=== PATIENT | female | born 1950 | race African-American/Black ===

== ENCOUNTER 2017-10-27 08:09 | Emergency (ER) | payer OTHER ==
--- OUTSIDE RECORDS SUMMARY | 2017-10-27 08:11 | XMS REPORT ---
:1950 Author Organization eClinicalWorks Care Team Providers Name Role Phone Fred Elliott Provider Role Unavailable Allergies, Adverse Reactions, Alerts Substance Reaction Event Type Soma rash Drug Allergy Problems Problem Type Condition Code Onset Dates Condition Status Assessment Diabetes type 2, controlled E11.9 Active Problem Cervical spinal stenosis M48.02 Active Assessment Benign essential HTN I10 Active Problem Microalbuminuria R80.9 Active Problem Benign essential HTN I10 Active Problem Hyperlipidemia E78.5 Active Problem Neuropathic pain M79.2 Active Problem Tobacco use disorder F17.200 Active Problem Diabetes type 2, controlled E11.9 Active Problem Cervicalgia M54.2 Active Assessment Hyperlipidemia E78.5 Active Assessment Cervicalgia M54.2 Active Assessment Tobacco use disorder F17.200 Active Assessment Neuropathic pain M79.2 Active Assessment Microalbuminuria R80.9 Active Assessment Cervical spinal stenosis M48.02 Active Medications Medication Code Code Instructions Start End Status Dosage System Date Date Lisinopril [facility] 48632311036 10 MG Orally Active TAKE 1 TABLET BY Once a day MOUTH EVERY DAY Amlodipine [facility] 61081447447 10 MG PO Once Active TAKE 1 TABLET BY Besylate a day MOUTH EVERY DAY Nicotine ND 22788190340 21 MG/24HR Active 1 patch to skin Transdermal Once a day Lyrica ND 72038999551 150 MG Orally August Active 1 capsule Twice a day 2017 Gabapentin [facility] 96236526555 600 MG Orally Inactive 1 tablet Once a day Trulicity [facility] 92719798765 0.75 MG/0.5ML Oct Active INJECT 0.5 SubCutaneous 06, MILLILITER Once a week 2017 SUBCUTANEOUSLY ONCE A WEEK Simvastatin [facility] 23554094148 10 MG PO QD Active TAKE 1 TABLET BY MOUTH EVERY DAY Results No Known Results Summary Purpose eClinicalWorks Submission
--- OUTSIDE RECORDS SUMMARY | 2017-10-27 08:11 | XMS REPORT ---
:1950 Author Organization eClinicalWorks Care Team Providers Name Role Phone Fred Elliott Provider Role Unavailable Allergies No Known Allergies Problems Problem Type Condition Code Onset Dates Condition Status Problem Cervical spinal stenosis M48.02 Active Problem Microalbuminuria R80.9 Active Problem Benign essential HTN I10 Active Problem Hyperlipidemia E78.5 Active Problem Neuropathic pain M79.2 Active Problem Tobacco use disorder F17.200 Active Problem Diabetes type 2, controlled E11.9 Active Problem Cervicalgia M54.2 Active Medications No Known Medications Results No Known Results Summary Purpose eClinicalWorks Submission
[2017-10-27] MEDS ORDERED: NA CHLORIDE 0.9% 1,000 ML ONE (08:33)
[2017-10-27] MEDS ORDERED: ONDANSETRON 4 MG/2 ML VIAL ONE (08:33)
[2017-10-27 08:46] LABS: Absolute Lymphocytes (CBC) 3.1 K/uL (0.7-4.9); Absolute Monocytes 0.6 K/uL (0.1-1.3); Absolute Neutrophil 9.8 K/uL (1.8-8.0); Basophils % 0.7 % (0-1.3); Eosinophils % 0.2 % (0-4.4); Hematocrit 46.6 % (36.0-45.0); Lymphocytes % 22.7 % (15.3-44.8); MCH 32.4 pg (27.0-35.0); MCV 93.9 fL (80-100); MPV 7.3 fL (7.6-11.3); Monocytes % 4.7 % (3.3-12.3); RBC Red Blood Cell Count 4.96 M/uL (3.86-4.86)
[2017-10-27 09:05] LABS: ALT/SGPT 20 U/L (12-78); AST/SGOT 20 U/L (15-37); Albumin 4.4 g/dL (3.4-5.0); Alkaline Phosphatase 86 U/L (45-117); Amylase Level 52 U/L (25-115); BUN Blood Urea Nitrogen 20 mg/dL (7-18); Bicarbonate 23 mmol/L (21-32); Bilirubin Direct < 0.1 mg/dL (0-0.2); Bilirubin Total 0.4 mg/dL (0.2-1.0); Glucose Level 141 mg/dL (74-106); Lipase 147 U/L (73-393); Potassium 4.1 mmol/L (3.5-5.1); Protein, Total 10.5 g/dL (6.4-8.2); Sodium Level 140 mmol/L (136-145)
[2017-10-27 09:06] LABS: Urine Blood 2+ (NEG); Urine Glucose TRACE (NEG); Urine Protein 3+ (NEG); Urine Specific Gravity >1.030 (1.005-1.030)
[2017-10-27 09:07] LABS: Urine Bacteria 20-50 /HPF (<20); Urine Culture Reflex Order NOT NEEDED
--- NOTE | 2017-10-27 09:46 | RAD REPORT ---
EXAM DESCRIPTION: CT - Abdomen Pelvis W Contrast - 10/27/2017 9:31 am CLINICAL HISTORY: Abdominal pain with vomiting and diarrhea COMPARISON: 2007 findings TECHNIQUE: Computed axial tomography of the abdomen pelvis was obtained. 100 cc Isovue-300 was admin istered intravenously. Oral contrast was not requested which limits evaluation of bowel. All CT scans are performed using dose optimization technique as appropriate and may include automated exposure control or mA/KV adjustment according to patient size. FINDINGS: A cirrhotic liver is again demonstrated. The density is relatively homogeneous. The gallbl adder has been removed. Varices are present within the upper abdomen. Spleen, pancreas, adrenal and left kidney appear unremarkable. Small right renal cyst is present There is no evidence of diverticulitis. Scoliosis involves the spine. Spondylolysis involves L5 IMPRESSION: No acute abnormality is displayed.
--- NOTE | 2017-10-27 10:33 | ER ---
Nurse's Notes [facility] Name: Ernestina Marcus Age: 67 yrs Sex: Female : 1950 Arrival Date: 10/27/2017 Time: 08:11 Bed 5 Private MD: Fred Elliott Diagnosis: Vomiting;Diarrhea, unspecified;Urinary tract infection, site not specified Presentation: 10/27 08:16 Presenting complaint: Patient states: N/V/D and lower abd pain x 4 days. Transition of ss care: patient was not received from another setting of care. Onset of symptoms was October 23, 2017. Risk Assessment: Do you want to hurt yourself or someone else? Patient reports no desire to harm self or others. Initial Sepsis Screen: Does the patient meet any 2 criteria? No. Patient's initial sepsis screen is negative. Does the patient have a suspected source of infection? No. Patient's initial sepsis screen is negative. Care prior to arrival: None. 08:16 Method Of Arrival: Ambulatory ss 08:16 Acuity: ANNIE 3 ss Triage Assessment: 08:21 General: Appears in no apparent distress. uncomfortable, Behavior is calm, cooperative, hj appropriate for age. Pain: Complains of pain in abdomen. GI: Reports lower abdominal pain, upper abdominal pain, diarrhea, nausea, vomiting. Historical: - Allergies: 08:20 Soma; ss - Home Meds: 08:20 amlodipine 10 mg tab 1 tab once daily [Active]; gabapentin 600 mg Oral tab twice a day hj [Active]; lisinopril 5 mg Oral tab 1 tab once daily [Active]; Lyrica Oral [Active]; Trulicity 0.75 mg/0.5 mL subcutaneous pnij 0.5 mL once wkly [Active]; - PMHx: 08:20 Chronic pain; Diabetes - IDDM; Hypertension; ss - PSHx: 08:20 ; Cholecystectomy; Appendectomy; ss - Immunization history:: Adult Immunizations up to date. - Social history:: Smoking status: Patient uses tobacco products, smokes one-half pack cigarettes per day. - Ebola Screening: : Patient denies exposure to infectious person Patient denies travel to an Ebola-affected area in the 21 days before illness onset. Screenin:21 Abuse screen: Denies threats or abuse. Denies injuries from another. Nutritional hj screening: No deficits noted. Tuberculosis screening: No symptoms or risk factors identified. Fall Risk None identified. Assessment: 08:22 GI: Abdomen is non-distended. hj 08:22 General: Appears in no apparent distress. uncomfortable, slender, Behavior is calm, hj cooperative, appropriate for age. Pain: Complains of pain in abdomen. Neuro: Level of Consciousness is awake, alert, obeys commands, Oriented to person, place, time, situation, Appropriate for age. Cardiovascular: Heart tones S1 S2 present Capillary refill < 3 seconds Patient's skin is warm and dry. Cardiovascular: Rhythm is sinus tachycardia. Respiratory: Airway is patent Respiratory effort is even, unlabored, Respiratory pattern is regular, symmetrical. : No signs and/or symptoms were reported regarding the genitourinary system. EENT: No signs and/or symptoms were reported regarding the EENT system. Derm: No signs and/or symptoms reported regarding the dermatologic system. Musculoskeletal: No signs and/or symptoms reported regarding the musculoskeletal system. 09:07 Reassessment: Patient and/or family updated on plan of care and expected duration. Pain hj level reassessed. Patient is alert, oriented x 3, equal unlabored respirations, skin warm/dry/pink. family in room; awaiting results and POC:. 10:13 Reassessment: tolerated PO challenge;. hj Vital Signs: 08:20 BP 208 / 98; Pulse 105; Resp 16; Pulse Ox 97% on R/A; Weight 47.63 kg; Height 4 ft. 11 ss in. (149.86 cm); Pain 10/10; 08:22 BP 201 / 92; Pulse 103; Resp 18; Temp 98.1(O); Pulse Ox 98% on R/A; Weight 47.63 kg; hj Height 4 ft. 11 in. (149.86 cm); Pain 10/10; 09:30 BP 198 / 90; Pulse 98; Resp 18; Pulse Ox 100% on R/A; hj 10:14 BP 195 / 94; Pulse 97; Resp 18; Pulse Ox 100% on R/A; hj 10:40 BP 198 / 89; Pulse 85; Resp 16; Pulse Ox 98% on R/A; dh3 08:22 Body Mass Index 21.21 (47.63 kg, 149.86 cm) ED Course: 08:11 Patient arrived in ED. sb2 08:11 Fred Elliott DO is Private Physician. sb2 08:17 Triage completed. 08:20 Temo Biggs PA is PHCP. [facility] 08:20 Huseyin Flaherty MD is Attending Physician. jmm 08:21 Dannie Anderson, ISIDRO is Primary Nurse. hj 08:22 Arm band placed on right wrist. hj 08:22 Patient has correct armband on for positive identification. Placed in gown. Bed in low hj position. Call light in reach. Side rails up X 1. Adult w/ patient. 08:25 Initial lab(s) drawn, by me, sent to lab. Inserted saline lock: 22 gauge in right hj antecubital area, using aseptic technique. Blood collected. 09:28 CT completed. Patient tolerated procedure well. Patient moved to CT via stretcher. Patient moved back from CT. 09:31 CT Abd/Pelvis - W/Contrast In Process Unspecified. EDMS 10:32 Fred Elliott DO is Referral Physician. [facility] 10:52 No provider procedures requiring assistance completed. IV discontinued, intact, hj bleeding controlled, No redness/swelling at site. Pressure dressing applied. Administered Medications: 08:27 Drug: NS 0.9% 1000 ml Route: IV; Rate: 1 bolus; Site: right antecubital; la1 08:43 Follow up: IV Status: Infusion continued 08:27 Drug: Zofran 4 mg Route: IVP; Site: right antecubital; la1 08:43 Follow up: Response: No adverse reaction; Nausea is decreased Outcome: 10:33 Discharge ordered by . [facility] 10:52 Discharged to home ambulatory, via wheelchair, with family. 10:52 Condition: stable 10:52 Discharge instructions given to patient, family, Instructed on discharge instructions, follow up and referral plans. medication usage, Demonstrated understanding of instructions, follow-up care, medications, Prescriptions given X 2. 10:53 Patient left the ED. Signatures: Dispatcher [employer] EDMS Temo Biggs PA PA jmm Jones, Susan sj Smirch, Shelby, RN RN Maurice Tello RN RN la1 Dannie Anderson RN RN Milly Diamond 3 Magda Echevarria sb2
--- NOTE | 2017-10-27 10:34 | EDPHYS ---
Physician Documentation [facility] Name: Ernestina Marcus Age: 67 yrs Sex: Female : 1950 Arrival Date: 10/27/2017 Time: 08:11 Bed 5 Private MD: Fred Elliott ED Physician Huseyin Flaherty HPI: 10/27 08:27 This 67 yrs old Black Female presents to ER via Ambulatory with complaints of jmm Nausea/Vomiting/Diarrhea. 08:27 The patient presents to the emergency department with nausea, vomiting, diarrhea, jmm abdominal pain. Onset: The symptoms/episode began/occurred gradually, 4 day(s) ago. Possible causes: unknown. Associated signs and symptoms: Pertinent positives: abdominal pain. 08:31 This is a 67 year old female with a history of DM, HTN, that presents to the ED with jmm vomiting, diarrhea beginning 4 days ago. Patient also complains of generalized abdominal pain. Patient complains of fever and chills. PSX includes cholecystectomy and appendectomy. . Historical: - Allergies: 08:20 Soma; ss - Home Meds: 08:20 amlodipine 10 mg tab 1 tab once daily [Active]; gabapentin 600 mg Oral tab twice a day hj [Active]; lisinopril 5 mg Oral tab 1 tab once daily [Active]; Lyrica Oral [Active]; Trulicity 0.75 mg/0.5 mL subcutaneous pnij 0.5 mL once wkly [Active]; - PMHx: 08:20 Chronic pain; Diabetes - IDDM; Hypertension; ss - PSHx: 08:20 ; Cholecystectomy; Appendectomy; ss - Immunization history:: Adult Immunizations up to date. - Social history:: Smoking status: Patient uses tobacco products, smokes one-half pack cigarettes per day. - Ebola Screening: : Patient denies exposure to infectious person Patient denies travel to an Ebola-affected area in the 21 days before illness onset. ROS: 08:31 Cardiovascular: Negative for chest pain, palpitations, and edema, Respiratory: Negative jmm for shortness of breath, cough, wheezing, and pleuritic chest pain. 08:31 Back: Negative for injury and pain, Skin: Negative for injury, rash, and discoloration, Neuro: Negative for headache, weakness, numbness, tingling, and seizure. 08:31 Constitutional: Positive for body aches, chills, fever. 08:31 Abdomen/GI: Positive for nausea and vomiting, diarrhea. 08:31 All other systems are negative. Exam: 08:31 Head/Face: atraumatic. Chest/axilla: Normal chest wall appearance and motion. [facility] Cardiovascular: Regular rate and rhythm. No edema appreciated Respiratory: Normal respirations, no respiratory distress appreciated 08:31 Constitutional: The patient appears in no acute distress, alert, awake. 08:31 Abdomen/GI: Inspection: abdomen appears normal, Bowel sounds: normal, Palpation: soft, mild abdominal tenderness, in all quadrants. 08:31 Back: ROM is normal. 08:31 Musculoskeletal/extremity: ROM: intact in all extremities. 08:31 Skin: Appearance: Color: normal in color. 08:31 Neuro: Orientation: is normal, Mentation: is normal, Memory: is normal. 08:31 Psych: Behavior/mood is pleasant, cooperative. Vital Signs: 08:20 BP 208 / 98; Pulse 105; Resp 16; Pulse Ox 97% on R/A; Weight 47.63 kg; Height 4 ft. 11 ss in. (149.86 cm); Pain 10/10; 08:22 BP 201 / 92; Pulse 103; Resp 18; Temp 98.1(O); Pulse Ox 98% on R/A; Weight 47.63 kg; hj Height 4 ft. 11 in. (149.86 cm); Pain 10/10; 09:30 BP 198 / 90; Pulse 98; Resp 18; Pulse Ox 100% on R/A; hj 10:14 BP 195 / 94; Pulse 97; Resp 18; Pulse Ox 100% on R/A; hj 10:40 BP 198 / 89; Pulse 85; Resp 16; Pulse Ox 98% on R/A; dh3 08:22 Body Mass Index 21.21 (47.63 kg, 149.86 cm) MDM: 08:20 Patient medically screened. [facility] 08:35 Data reviewed: vital signs, nurses notes. [facility] 10:32 Data reviewed: lab test result(s), radiologic studies, CT scan. Counseling: I had a [facility] detailed discussion with the patient and/or guardian regarding: the historical points, exam findings, and any diagnostic results supporting the discharge/admit diagnosis, lab results, radiology results, the need for outpatient follow up, to return to the emergency department if symptoms worsen or persist or if there are any questions or concerns that arise at home. 10:32 ED course: Patient is alert and non toxic in appearance int he ED. Patient is able to jmm tolerate PO in the ED. CT imaging does not reveal an acute intraabdominal process. Symptoms appear to be most likely related to gastroenteritis. Patient will be treated with oral antibiotics for UTI. Given strict return precautions. . 10/27 08:26 Order name: Amylase, Serum; Complete Time: 09:09 [facility] 10/27 08:26 Order name: Basic Metabolic Panel; Complete Time: 09:09 [facility] 10/27 08:26 Order name: CBC with Diff; Complete Time: 09:03 [facility] 10/27 08:26 Order name: Creatinine for Radiology; Complete Time: 09:03 [facility] 10/27 08:26 Order name: Hepatic Function; Complete Time: 09:09 [facility] 10/27 08:26 Order name: Lipase; Complete Time: 09:09 [facility] 10/27 08:26 Order name: Urine Microscopic Only; Complete Time: 09:42 jm 10/27 08:26 Order name: IV Saline Lock; Complete Time: 08:27 [facility] 10/27 08:26 Order name: Labs collected and sent; Complete Time: 08:27 [facility] 10/27 08:26 Order name: Urine Dipstick-Ancillary (obtain specimen); Complete Time: 08:43 [facility] 10/27 08:26 Order name: CT Abd/Pelvis - W/Contrast; Complete Time: 09:53 [facility] 10/27 08:56 Order name: Urine Dipstick--Ancillary (enter results); Complete Time: 09:09 10/27 09:53 Order name: PO challenge; Complete Time: 10:11 jmm Administered Medications: 08:27 Drug: NS 0.9% 1000 ml Route: IV; Rate: 1 bolus; Site: right antecubital; la1 08:43 Follow up: IV Status: Infusion continued :27 Drug: Zofran 4 mg Route: IVP; Site: right antecubital; la1 08:43 Follow up: Response: No adverse reaction; Nausea is decreased Disposition: 17:31 Co-signature as Attending Physician, Huseyin Flaherty MD Available for consultation at ps1 all times. . Disposition: 10/27/17 10:33 Discharged to Home. Impression: Vomiting, Diarrhea, unspecified, Urinary tract infection, site not specified. - Condition is Stable. - Discharge Instructions: Diarrhea, Adult, Urinary Tract Infection, Adult, Vomiting, Adult. - Prescriptions for Bactrim DS 800- 160 mg Oral Tablet - take 1 tablet by ORAL route every 12 hours for 10 days; 20 tablet. Zofran ODT 4 mg Oral tablet,disintegrating - place 1 tablet by TRANSLINGUAL route every 4-6 hours; 30 tablet. - Medication Reconciliation Form, Thank You Letter, Antibiotic Education, Prescription Opioid Use form. - Follow up: Fred Elliott DO; When: 2 - 3 days; Reason: Recheck today's complaints, Continuance of care, Re-evaluation by your physician. Signatures: Dispatcher [employer] EDMS Temo Biggs PA PA jmm Smirch, Shelby, RN RN ss Maurice Tello RN RN la1 Dannie Anderson RN RN hj Singer, Phillip, MD MD ps1 Corrections: (The following items were deleted from the chart) 10:53 10:33 10/27/2017 10:33 Discharged to Home. Impression: Vomiting; Diarrhea, unspecified; hj Urinary tract infection, site not specified. Condition is Stable. Forms are Medication Reconciliation Form, Thank You Letter, Antibiotic Education, Prescription Opioid Use. Follow up: Fred Elliott; When: 2 - 3 days; Reason: Recheck today's complaints, Continuance of care, Re-evaluation by your physician. adelaida
== END 2017-10-27 10:53 | disposition home or self-care (01) ==
LOC: ER 08:09
DX: R19.7 Diarrhea, unspecified (principal); N39.0 Urinary tract infection, site not specified; F17.210 Nicotine dependence, cigarettes, uncomplicated; I10 Essential (primary) hypertension; E11.9 Type 2 diabetes mellitus without complications; Z79.4 Long term (current) use of insulin; Z88.5 Allergy status to narcotic agent
CPT/HCPCS: 36415; 74177; 80048; 80076; 82150; 83690; 85025; 96374; 99285; J2405; J7030; Q9967; 81003; 81015; 96361

== ENCOUNTER 2018-08-21 06:34 | Emergency (ER) | payer OTHER ==
--- OUTSIDE RECORDS SUMMARY | 2018-08-21 06:36 | XMS REPORT ---
:1950 Author Organization eClinicalWorks Care Team Providers Name Role Phone Frde Elliott Provider Role Unavailable Allergies No Known Allergies Problems Problem Type Condition Code Onset Dates Condition Status Assessment Benign essential HTN I10 Active Problem Cervical spinal stenosis M48.02 Active Problem Microalbuminuria R80.9 Active Problem Benign essential HTN I10 Active Problem Hyperlipidemia E78.5 Active Problem Neuropathic pain M79.2 Active Problem Tobacco use disorder F17.200 Active Problem Diabetes type 2, controlled E11.9 Active Problem Cervicalgia M54.2 Active Assessment Tobacco use disorder F17.200 Active Assessment Cervicalgia M54.2 Active Assessment Neuropathic pain M79.2 Active Assessment Microalbuminuria R80.9 Active Assessment Cervical spinal stenosis M48.02 Active Assessment Hyperlipidemia E78.5 Active Assessment Diabetes type 2, controlled E11.9 Active Medications Medication Code Code Instructions Start End Status Dosage System Date Date Trulicity [facility] 58132567646 0.75 MG/0.5ML Nov Active INJECT 0.5 SC Once a week 07, MILLILITER 2017 SUBCUTANEOUSLY ONCE A WEEK Amlodipine ND 12832626474 10 MG PO Once Active TAKE 1 TABLET BY Besylate a day MOUTH EVERY DAY Nicotine ND 72453717643 21 MG/24HR Oct Inactive 1 patch to skin Transdermal 09, Once a day 2017 Lyrica ND 24915414672 150 MG Orally Active 1 capsule Twice a day Lisinopril ND 37114552853 10 MG Orally Active TAKE 1 TABLET BY Once a day MOUTH EVERY DAY Simvastatin ND 77037758497 10 MG PO QD Active TAKE 1 TABLET BY MOUTH EVERY DAY Results No Known Results Summary Purpose eClinicalWorks Submission
--- OUTSIDE RECORDS SUMMARY | 2018-08-21 06:36 | XMS REPORT ---
[...] End Status Dosage System Date Date Lisinopril [facility] 44893935341 10 MG Orally Active TAKE 1 TABLET BY Once a day MOUTH EVERY DAY Amlodipine [facility] 79352250579 10 MG PO Once Active TAKE 1 TABLET BY Besylate a day MOUTH EVERY DAY Nicotine ND 60693273065 21 MG/24HR Active 1 patch to skin Transdermal Once a day Lyrica ND 88176876242 150 MG Orally August Active 1 capsule Twice a day 2017 Gabapentin [facility] 61184256262 600 MG Orally Inactive 1 tablet Once a day Trulicity [facility] 64806492002 0.75 MG/0.5ML Oct Active INJECT 0.5 SubCutaneous 06, MILLILITER Once a week 2017 SUBCUTANEOUSLY ONCE A WEEK Simvastatin [facility] 91305239025 10 MG PO QD Active TAKE 1 TABLET BY MOUTH EVERY DAY Results No Known Results Summary Purpose eClinicalWorks Submission
--- OUTSIDE RECORDS SUMMARY | 2018-08-21 06:36 | XMS REPORT ---
:1950 Author Organization eClinicalWorks Care Team Providers Name Role Phone Elliott, [facility] Provider Role Unavailable Allergies, Adverse Reactions, Alerts Substance Reaction Event Type Soma rash Drug Allergy Problems Problem Type Condition Code Onset Dates Condition Status Problem Tobacco use disorder F17.200 Active Problem Cervical spinal stenosis M48.02 Active Problem Hyperlipidemia E78.5 Active Problem Microalbuminuria R80.9 Active Problem Asymptomatic hypertensive urgency I16.0 Active Problem Cervicalgia M54.2 Active Problem Neuropathic pain M79.2 Active Problem Benign essential HTN I10 Active Problem Diabetes type 2, controlled E11.9 Active Assessment Microalbuminuria R80.9 Active Assessment Hyperlipidemia E78.5 Active Assessment Tobacco use disorder F17.200 Active Assessment Cervical spinal stenosis M48.02 Active Assessment Diabetes type 2, controlled E11.9 Active Assessment Cervicalgia M54.2 Active Assessment Asymptomatic hypertensive urgency I16.0 Active Assessment Neuropathic pain M79.2 Active Assessment Benign essential HTN I10 Active Medications Medication Code Code Instructions Start End Status Dosage System Date Date Amlodipine [facility] 24920841600 10 MG PO Once a Active take 1 Besylate day tablet by mouth every day Simvastatin [facility] 26629009272 10 MG PO QD Active take 1 tablet by mouth every day Lisinopril [facility] 23076293640 10 MG Orally Active take 1 Once a day tablet by mouth every day Gabapentin [facility] 59645891655 600 MG Orally Active 1 tablet Twice a day Trulicity [facility] 54605914612 0.75mg/0.5ml SQ August Active one once a week 2018 Lyrica [facility] 14215235227 150 MG Orally Inactive 1 capsule Twice a day Results No Known Results Summary Purpose eClinicalWorks Submission
[2018-08-21 07:14] LABS: Absolute Lymphocytes (CBC) 2.2 K/uL (0.7-4.9); Absolute Monocytes 0.4 K/uL (0.1-1.3); Basophils % 0.8 % (0-1.3); Eosinophils % 0.8 % (0-4.4); Hematocrit 43.5 % (36.0-45.0); Lymphocytes % 25.7 % (15.3-44.8); MPV 7.4 fL (7.6-11.3); Monocytes % 4.4 % (3.3-12.3)
[2018-08-21 07:21] LABS: Protime INR 1.1
[2018-08-21] MEDS ORDERED: FENTANYL CITR 100 MCG/2 ML ONE (07:41)
--- NOTE | 2018-08-21 07:57 | RAD REPORT ---
EXAM DESCRIPTION: CT - Head C Spine Mpr Wo Con - 08/21/2018 7:35 am CLINICAL HISTORY: Numbness and radiculopathy COMPARISON: 2014 MRI cervical spine TECHNIQUE: Computed axial tomography of the head and cervical spine was obtained. Sagittal and coronal reconstruction was performed. All CT scans are performed using dose optimization technique as appropriate and may include automated exposure control or mA/KV adjustment according to patient size. FINDINGS: An intracranial bleed is not seen. The ventricles are normal in caliber. An extra-axial fl uid collection is not noted.Fluid within the visualized sinuses and mastoids is not seen A cervical fracture is not visualized. Minimal anterior subluxation of C3 on C4 is unchanged. Mild anterior subluxation C4 on C5 is unchanged. Anterior fusion involves C5 and C6 which is unchanged. Sclerosis involves the vertebral endplates of C6 and C7. Spondylosis involves the mid and lower cervical spine resulting in mild to moderate centra l and foraminal stenosis. IMPRESSION: No acute intracranial abnormality is seen. A cervical fracture is not visualized. Spondylosis of the mid and distal cervical spine resulting in central and foraminal stenosis If the patient continues to have symptoms to suggest intracranial /spinal cord pathology then MRI wou ld be recommended
--- NOTE | 2018-08-21 08:05 | RAD REPORT ---
EXAM DESCRIPTION: Kurtis Single View08/21/2018 7:07 am CLINICAL HISTORY: Chest pain COMPARISON: 2013 FINDINGS: The lungs appear clear of acute infiltrate. The heart is normal size IMPRESSION: No acute abnormalities displayed
[2018-08-21 09:01] LABS: ALT/SGPT 26 U/L (12-78); AST/SGOT 20 U/L (15-37); Albumin 3.9 g/dL (3.4-5.0); Alkaline Phosphatase 80 U/L (45-117); BUN Blood Urea Nitrogen 9 mg/dL (7-18); Bicarbonate 25 mmol/L (21-32); Bilirubin Direct < 0.1 mg/dL (0-0.2); Bilirubin Total 0.3 mg/dL (0.2-1.0); Glucose Level 107 mg/dL (74-106); NT PRO-BNP 227 pg/mL (<125); Potassium 3.8 mmol/L (3.5-5.1); Sodium Level 142 mmol/L (136-145); Troponin (Emerg Dept Use Only) < 0.02 ng/mL (0.0-0.045)
[2018-08-21] MEDS ORDERED: cloNIDine HCl 0.1 MG TAB ONE (09:15)
--- NOTE | 2018-08-21 09:37 | EDPHYS ---
Physician Documentation [facility] Name: Ernestina Marcus Age: 68 yrs Sex: Female : 1950 Arrival Date: 08/21/2018 Time: 06:35 Bed 17 Private MD: Fred Elliott ED Physician Lane Gamez HPI: 08/21 06:48 This 68 yrs old Black Female presents to ER via Unassigned with complaints of Numbness snw Of Arm, Headache, Neck Pain, <24hrs Old, Vision Problem - seeing spots. 06:48 The patient or guardian complains of pain, that is acute. The complaints affect the snw anterior aspect of left shoulder. Context: The problem was sustained at home, resulted from unknown cause. Onset: The symptoms/episode began/occurred 4 day(s) ago, and became persistent. Associated signs and symptoms: Pertinent positives: nausea, tingling, headache, seeing spots this am, hx of HTN, DM, Glaucoma. Severity of symptoms: At their worst the symptoms were moderate. It is unknown whether or not the patient has had similar symptoms in the past. It is unknown whether or not the patient has recently seen a physician. Historical: - Allergies: 06:35 Soma; jb4 - Home Meds: 06:35 amlodipine 10 mg tab 1 tab once daily [Active]; Trulicity 0.75 mg/0.5 mL subcutaneous jb4 pnij 0.5 mL once wkly [Active]; gabapentin 600 mg Oral tab twice a day [Active]; - PMHx: 06:35 Chronic pain; Diabetes - IDDM; Hypertension; Glaucoma; jb4 - PSHx: 06:35 Cholecystectomy; Appendectomy; ; jb4 - Immunization history:: Adult Immunizations up to date. - Social history:: Smoking status: Patient uses tobacco products, smokes one-half pack cigarettes per day, Patient/guardian denies using alcohol. - Ebola Screening: : No symptoms or risks identified at this time. ROS: 06:50 Constitutional: Negative for fever, chills, and weight loss. snw 06:50 ENT: Negative for injury, pain, and discharge, Neck: Negative for injury, pain, and swelling, Cardiovascular: Negative for chest pain, palpitations, and edema, Respiratory: Negative for shortness of breath, cough, wheezing, and pleuritic chest pain. 06:50 Neck: Negative for injury and swelling, positive pain to left posterior neck and arm, tingling to arm x 4 days, headache since yesterday, nausea and visual disturbance since yesterday Back: Negative for injury and pain, : Negative for injury, bleeding, discharge, and swelling, Skin: Negative for injury, rash, and discoloration. 06:50 Eyes: Positive for visual disturbance. 06:50 Abdomen/GI: Positive for nausea. 06:50 MS/extremity: Positive for paresthesias, of the left arm and anterior aspect of left shoulder. 06:50 Neuro: Positive for tingling, of the left arm. Exam: 06:45 Constitutional: This is a well developed, well nourished patient who is awake, alert, snw and in no acute distress. Head/Face: Normocephalic, atraumatic. 06:45 ENT: Nares patent. No nasal discharge, no septal abnormalities noted. Tympanic membranes are normal and external auditory canals are clear. Oropharynx with no redness, swelling, or masses, exudates, or evidence of obstruction, uvula midline. Mucous membranes moist. Neck: Trachea midline, no thyromegaly or masses palpated, and no cervical lymphadenopathy. Supple, full range of motion without nuchal rigidity, or vertebral point tenderness. No Meningismus. Chest/axilla: Normal chest wall appearance and motion. Nontender with no deformity. No lesions are appreciated. Cardiovascular: Regular rate and rhythm with a normal S1 and S2. No gallops, murmurs, or rubs. Normal PMI, no JVD. No pulse deficits. Respiratory: Lungs have equal breath sounds bilaterally, clear to auscultation and percussion. No rales, rhonchi or wheezes noted. No increased work of breathing, no retractions or nasal flaring. Abdomen/GI: Soft, non-tender, with normal bowel sounds. No distension or tympany. No guarding or rebound. No evidence of tenderness throughout. Back: No spinal tenderness. No costovertebral tenderness. Full range of motion. Skin: Warm, dry with normal turgor. Normal color with no rashes, no lesions, and no evidence of cellulitis. MS/ Extremity: Pulses equal, no cyanosis. Neurovascular intact. Full, normal range of motion. Psych: Awake, alert, with orientation to person, place and time. Behavior, mood, and affect are within normal limits. 06:45 Eyes: Pupils: right pupil is approximately 3 mm(s), left pupil is approximately 3 mm(s), Extraocular movements: no acute changes, Corneas: are normal, Sclera: no acute changes, Nystagmus: is not appreciated. 06:45 Neuro: Orientation: is normal, Mentation: is normal, Memory: is normal, Cranial nerves: grossly normal, Cerebellar function: is grossly normal, Motor: is normal, Sensation: no obvious gross deficits, Gait: not tested. seizure activity, is not displayed by the patient, Abnormal movements: there are no abnormal movements. 06:45 Special observations: the patient smiles. 06:55 ECG was reviewed by the Attending Physician. snw Vital Signs: 06:35 BP 188 / 83; Pulse 85; Resp 20; Temp 98.2(O); Pulse Ox 100% on R/A; Weight 49.9 kg (R); jb4 Height 4 ft. 11 in. (149.86 cm) (R); Pain 7/10; 07:18 BP 197 / 86; Pulse 84; Resp 18; Pulse Ox 100% on R/A; hj 08:24 BP 198 / 79; Pulse 82; Resp 18; Pulse Ox 99% on R/A; hj 08:59 BP 201 / 74; Pulse 85; Resp 18; Pulse Ox 97% on R/A; hj 09:25 BP 176 / 83; Pulse 82; Resp 18; Pulse Ox 100% on R/A; hj 06:35 Body Mass Index 22.22 (49.90 kg, 149.86 cm) jb4 NIH Stroke Scale Scores: 06:45 NIHSS Score: 2 snw Lester Coma Score: 06:45 Eye Response: spontaneous(4). Verbal Response: oriented(5). Motor Response: obeys snw commands(6). Total: 15. MDM: 06:55 Patient medically screened. snw 07:24 Data reviewed: vital signs, nurses notes. Data interpreted: Pulse oximetry: on room air snw is 100 %. Interpretation: normal. Counseling: I had a detailed discussion with the patient and/or guardian regarding: the historical points, exam findings, and any diagnostic results supporting the discharge/admit diagnosis, lab results. Special discussion: pt refuses CT while in CT dept second to back pain. Pain medications offered. Unable to evaluate pt without CT. 08/21 06:45 Order name: Basic Metabolic Panel; Complete Time: 09:07 snw 08/21 06:45 Order name: CBC with Diff; Complete Time: 07:17 snw 08/21 06:45 Order name: LFT's; Complete Time: 09:07 snw 08/21 06:45 Order name: Magnesium; Complete Time: 09:07 snw 08/21 06:45 Order name: NT PRO-BNP; Complete Time: 09:07 snw 08/21 06:45 Order name: PT-INR; Complete Time: 07:24 snw 08/21 06:45 Order name: CT Head C Spine; Complete Time: 08:10 snw 08/21 06:45 Order name: Troponin (emerg Dept Use Only); Complete Time: 09:07 snw 08/21 06:45 Order name: XRAY Chest (1 view); Complete Time: 08:10 snw 08/21 06:45 Order name: EKG; Complete Time: 06:47 snw 08/21 07:13 Order name: Glucose, Ancillary Testing; Complete Time: 07:17 EDMS 08/21 06:45 Order name: Cardiac monitoring; Complete Time: 06:56 snw 08/21 06:45 Order name: EKG - Nurse/Tech; Complete Time: 06:56 snw 08/21 06:45 Order name: IV Saline Lock; Complete Time: 07:05 snw 08/21 06:45 Order name: Labs collected and sent; Complete Time: 07:05 snw 08/21 06:45 Order name: O2 Per Protocol; Complete Time: 06:57 snw 08/21 06:45 Order name: O2 Sat Monitoring; Complete Time: 06:57 snw 08/21 06:45 Order name: FSBS; Complete Time: 07:05 snw 08/21 07:20 Order name: Labs - recollect needed; Complete Time: 07:44 bd EC:55 Rate is 79 beats/min. Rhythm is regular. QRS [place] is Normal. CO interval is normal. QRS snw interval is normal. QT interval is normal. Clinical impression: NSR w/ Non-specific ST/T Changes. Administered Medications: 07:23 Drug: fentaNYL (PF) 25 mcg Route: IVP; Site: right antecubital; hj 07:44 Follow up: Response: No adverse reaction; Pain is decreased hj 08:58 Drug: cloNIDine 0.1 mg Route: PO; hj 09:40 Follow up: Response: No adverse reaction hj 09:35 Drug: fentaNYL (PF) 25 mcg Route: IM; Site: Other; hj 09:43 Follow up: Response: No adverse reaction; Pain is decreased hj Point of Care Testing: Blood Glucose: 07:01 Blood Glucose: 102 mg/dL; Ranges: Critical Glucose Levels:Adult <50 mg/dl or >400 mg/dl <40 mg/dl or >180 mg/dl Disposition: 13:28 Co-signature as Attending Physician, Lane Gamez MD I agree with the assessment and tarah plan of care. Disposition: 08/21/18 09:36 Discharged to Home. Impression: Essential (primary) hypertension, Radiculopathy, cervical region. - Condition is Stable. - Discharge Instructions: Cervical Radiculopathy, Hypertension, Neuropathic Pain, Steps to Quit Smoking, Smoking Hazards, DASH Eating Plan, Heat Therapy, Managing Your Hypertension. - Medication Reconciliation Form, Thank You Letter, Antibiotic Education, Prescription Opioid Use form. - Follow up: Fred Elliott DO; When: 1 - 2 days; Reason: Recheck today's complaints, Continuance of care, Re-evaluation by your physician. Follow up: Cindy Tamayo MD; When: 1 week; Reason: Recheck today's complaints, Continuance of care. NIH Stroke Scale - NIH Stroke Score Date: 08/21/2018 Time: 06:45 Total Score = 2 1a. Level of Consciousness (LOC) - 0(Alert) 1b. Level of Consciousness (LOC) (Year \T\ Age) - 0(Both) 1c. LOC Commands (Open \T\ Closes Eyes/Barrel Rifler Operator) - 0(Both) 2. Best Gaze (Lateral Gaze Paresis) - 0(Normal) 3. Visual Field Loss - 1(Partial hemianopia) 4. Facial Palsy - 0(Normal) 5a. Left Arm: Motor (10-second hold) - 0(No drift) 5b. Right Arm: Motor (10-second hold) - 0(No drift) 6a. Left Leg: Motor (5-second hold - always test supine) - 1(Drift) 6b. Right Leg: Motor (5-second hold - always test supine) - 0(No drift) 7. Limb Ataxia (finger/nose \T\ heel/galvan - test with eyes open) - 0(Absent) 8. Sensory Loss (pinprick arms/legs/face) - 0(Normal) 9. Best Language: Aphasia (description/naming/reading) - 0(No aphasia) 10. Dysarthria (speech clarity - read or repeat words) - 0(Normal) 11. Extinction and Inattention (visual/tactile/auditory/spatial/personal) - 0(No abnormality) Initials: snw Signatures: Dispatcher [employer] EDMS Andreia Beck Corey, MD MD cha Therrien, Shelly, CASINO FLOOR SUPERVISOR-C CASINO FLOOR SUPERVISOR-Csnw Dannie Anderson, RN RN Danny Colon RN RN jb4 Corrections: (The following items were deleted from the chart) 10:00 09:36 08/21/2018 09:36 Discharged to Home. Impression: Essential (primary) hj hypertension; Radiculopathy, cervical region. Condition is Stable. Forms are Medication Reconciliation Form, Thank You Letter, Antibiotic Education, Prescription Opioid Use. Follow up: Fred Elliott; When: 1 - 2 days; Reason: Recheck today's complaints, Continuance of care, Re-evaluation by your physician. Follow up: Cindy Tamayo; When: 1 week; Reason: Recheck today's complaints, Continuance of care. snw
--- NOTE | 2018-08-21 09:37 | ER ---
Nurse's Notes [facility] Name: Ernestina Marcus Age: 68 yrs Sex: Female : 1950 Arrival Date: 08/21/2018 Time: 06:35 Bed 17 Private MD: Fred Elliott Diagnosis: Essential (primary) hypertension;Radiculopathy, cervical region Presentation: 08/21 06:35 Presenting complaint: Patient states: I have numbness in my left arm, headache, and jb4 neck pain that started on Monday, Monday I started having blurry vision and spots in my right eye. 06:35 Transition of care: patient was not received from another setting of care. Onset of jb4 symptoms was August 18, 2018. Risk Assessment: Do you want to hurt yourself or someone else? Patient reports no desire to harm self or others. Initial Sepsis Screen: Does the patient meet any 2 criteria? No. Patient's initial sepsis screen is negative. Does the patient have a suspected source of infection? No. Patient's initial sepsis screen is negative. Care prior to arrival: None. 06:35 Method Of Arrival: Wheelchair jb4 06:35 Acuity: ANNIE 2 jb4 Triage Assessment: 07:00 Headache History: Denies prior headaches. General: Appears in no apparent distress. hj uncomfortable, Behavior is calm, cooperative, appropriate for age. Pain: Complains of pain in head Pain Pain began 2-3 days ago. Also complains of. Neuro: Level of Consciousness is awake, alert, obeys commands, Oriented to person, place, time, situation, Appropriate for age. Historical: - Allergies: 06:35 Soma; jb4 - Home Meds: 06:35 amlodipine 10 mg tab 1 tab once daily [Active]; Trulicity 0.75 mg/0.5 mL subcutaneous jb4 pnij 0.5 mL once wkly [Active]; gabapentin 600 mg Oral tab twice a day [Active]; - PMHx: 06:35 Chronic pain; Diabetes - IDDM; Hypertension; Glaucoma; jb4 - PSHx: 06:35 Cholecystectomy; Appendectomy; ; jb4 - Immunization history:: Adult Immunizations up to date. - Social history:: Smoking status: Patient uses tobacco products, smokes one-half pack cigarettes per day, Patient/guardian denies using alcohol. - Ebola Screening: : No symptoms or risks identified at this time. Screenin:00 Abuse screen: Denies threats or abuse. Denies injuries from another. Nutritional hj screening: No deficits noted. Tuberculosis screening: No symptoms or risk factors identified. Fall Risk None identified. Assessment: 07:00 Reassessment: see triage for assessment;. hj 07:16 Reassessment: sent to CT;. hj 08:25 Reassessment: Patient and/or family updated on plan of care and expected duration. Pain hj level reassessed. Patient is alert, oriented x 3, equal unlabored respirations, skin warm/dry/pink. awaiting results;. 09:26 Reassessment: Patient and/or family updated on plan of care and expected duration. Pain hj level reassessed. Patient is alert, oriented x 3, equal unlabored respirations, skin warm/dry/pink. assisted to the bathroom;. Vital Signs: 06:35 BP 188 / 83; Pulse 85; Resp 20; Temp 98.2(O); Pulse Ox 100% on R/A; Weight 49.9 kg (R); jb4 Height 4 ft. 11 in. (149.86 cm) (R); Pain 7/10; 07:18 BP 197 / 86; Pulse 84; Resp 18; Pulse Ox 100% on R/A; hj 08:24 BP 198 / 79; Pulse 82; Resp 18; Pulse Ox 99% on R/A; hj 08:59 BP 201 / 74; Pulse 85; Resp 18; Pulse Ox 97% on R/A; hj 09:25 BP 176 / 83; Pulse 82; Resp 18; Pulse Ox 100% on R/A; hj 06:35 Body Mass Index 22.22 (49.90 kg, 149.86 cm) jb4 Yovany Coma Score: 06:45 Eye Response: spontaneous(4). Verbal Response: oriented(5). Motor Response: obeys snw commands(6). Total: 15. NIH Stroke Scale Scores: 06:45 NIHSS Score: 2 snw ED Course: 06:35 Patient arrived in ED. am2 06:35 Fred Elliott, is Private Physician. am2 06:35 Arm band placed on right wrist. jb4 06:51 Triage completed. jb4 06:54 Yelitza Singer [facility]NP-C [facility]. snw 06:55 Lane Gamez MD is Attending Physician. snw 06:57 Dannie Anderson, ISIDRO is Primary Nurse. hj 07:01 Patient has correct armband on for positive identification. Placed in gown. Bed in low hj position. Call light in reach. Side rails up X 1. 07:06 X-ray completed. Portable x-ray completed in exam room. Patient tolerated procedure jb2 well. 07:08 XRAY Chest (1 view) In Process Unspecified. EDMS 07:11 Initial lab(s) drawn, by me, sent to lab. Inserted saline lock: 22 gauge in right kj1 antecubital area, using aseptic technique. 07:36 CT Head C Spine In Process Unspecified. EDMS 09:35 Fred Elliott DO is Referral Physician. snw 09:35 Cindy Tamayo MD is Referral Physician. snw 09:58 No provider procedures requiring assistance completed. IV discontinued, intact, hj bleeding controlled, No redness/swelling at site. Pressure dressing applied. Administered Medications: 07:23 Drug: fentaNYL (PF) 25 mcg Route: IVP; Site: right antecubital; hj 07:44 Follow up: Response: No adverse reaction; Pain is decreased hj 08:58 Drug: cloNIDine 0.1 mg Route: PO; hj 09:40 Follow up: Response: No adverse reaction hj 09:35 Drug: fentaNYL (PF) 25 mcg Route: IM; Site: Other; hj 09:43 Follow up: Response: No adverse reaction; Pain is decreased Point of Care Testing: Blood Glucose: 07:01 Blood Glucose: 102 mg/dL; Ranges: Outcome: 09:36 Discharge ordered by . snw 09:59 Discharged to home ambulatory, with family. hj 09:59 Condition: stable 09:59 Discharge instructions given to patient, family, Instructed on discharge instructions, follow up and referral plans. Demonstrated understanding of instructions, follow-up care. 10:00 Patient left the ED. NIH Stroke Scale - NIH Stroke Score Date: 08/21/2018 Time: 06:45 Total Score = 2 1a. Level of Consciousness (LOC) - 0(Alert) 1b. Level of Consciousness (LOC) (Year \T\ Age) - 0(Both) 1c. LOC Commands (Open \T\ Closes Eyes/Corrections Specialist) - 0(Both) 2. Best Gaze (Lateral Gaze Paresis) - 0(Normal) 3. Visual Field Loss - 1(Partial hemianopia) 4. Facial Palsy - 0(Normal) 5a. Left Arm: Motor (10-second hold) - 0(No drift) 5b. Right Arm: Motor (10-second hold) - 0(No drift) 6a. Left Leg: Motor (5-second hold - always test supine) - 1(Drift) 6b. Right Leg: Motor (5-second hold - always test supine) - 0(No drift) 7. Limb Ataxia (finger/nose \T\ heel/galvan - test with eyes open) - 0(Absent) 8. Sensory Loss (pinprick arms/legs/face) - 0(Normal) 9. Best Language: Aphasia (description/naming/reading) - 0(No aphasia) 10. Dysarthria (speech clarity - read or repeat words) - 0(Normal) 11. Extinction and Inattention (visual/tactile/auditory/spatial/personal) - 0(No abnormality) Initials: snw Signatures: Dispatcher [employer] EDMS Yelitza Singer, ROLLING ATTENDANT-C ROLLING ATTENDANT-Csnw Gamaliel Yu jb2 Dannie Anderson RN RN Danny Colon RN RN jb4 Ruba Garcia am2 Suzy Harris kj1 Corrections: (The following items were deleted from the chart) 09:12 09:12 Reassessment: wheeled to CT; harjeet cosby
--- NOTE | 2018-08-21 11:37 | EKG ---
Test Date: 2018-08-21 Test Time: 06:50:28 Candy Vendor: PABLO MEASUREMENT RESULTS: Intervals: Rate: 79 DC: 148 QRSD: 86 QT: 362 QTc: 415 [place]: P: 67 DC: 148 QRS: 61 T: 48 INTERPRETIVE STATEMENTS: Normal sinus rhythm with sinus arrhythmia Anteroseptal infarct, age undetermined Abnormal ECG Compared to ECG 04/24/2009 18:35:06 Myocardial infarct finding now present Electronically Signed On 08-21-18 11:35:43 CDT by Abundio Griffin
== END 2018-08-21 10:00 | disposition home or self-care (01) ==
LOC: ER 06:34
DX: M54.12 Radiculopathy, cervical region (principal); I10 Essential (primary) hypertension; F17.210 Nicotine dependence, cigarettes, uncomplicated; E11.9 Type 2 diabetes mellitus without complications; Z79.4 Long term (current) use of insulin; Z88.5 Allergy status to narcotic agent
CPT/HCPCS: 93005; 85025; 80048; 36415; 83735; 85610; 82962; 80076; 84484; 83880; 70450; 72125; 71045; 96372; 96374; 99284; J3010

== ENCOUNTER 2020-03-30 07:05 | Day surgery (SDC) | payer OTHER ==
[2020-03-27 10:34] LABS: Absolute Lymphocytes (CBC) 2.3 K/uL (0.7-4.9); Basophils % 0.6 % (0-1.3); Hematocrit 39.8 % (36.0-45.0); RBC Red Blood Cell Count 4.15 M/uL (3.86-4.86)
[2020-03-27 10:38] LABS: BUN Blood Urea Nitrogen 15 mg/dL (7-18); Bicarbonate 28 mmol/L (21-32); Glucose Level 112 mg/dL (74-106); Potassium 3.8 mmol/L (3.5-5.1); Sodium Level 143 mmol/L (136-145)
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
[2020-03-30] MEDS ORDERED: NA CHLORIDE 0.9% 1,000 ML ONE (08:27)
[2020-03-30] MEDS ORDERED: CEFAZOLIN/SWI 1gm 1 GM/10 ML SYR ONE (08:27)
[2020-03-30] MEDS ORDERED: propofoL 200 MG/20 ML VIAL IV ONE ×2 (08:37→09:50)
[2020-03-30] MEDS ORDERED: FENTANYL CITR 100 MCG/2 ML ONE (08:37)
[2020-03-30] MEDS ORDERED: LIDOCAINE 2% MPF 5 ML VIAL ONE (08:37)
[2020-03-30] MEDS ORDERED: MIDAZOLAM HCL 2 MG/2 ML INJ ONE (08:37)
--- NOTE | 2020-03-30 08:42 | RAD REPORT ---
EXAM DESCRIPTION: Kurtis Masters (2 Views)03/30/2020 7:54 am CLINICAL HISTORY: Preop/anal carcinoma COMPARISON: None FINDINGS: The lungs appear clear of acute infiltrate. The heart is normal size IMPRESSION: No acute abnormalities displayed
[2020-03-30] MEDS ORDERED: NS 0.9% VIAL 30 ML ONE (08:51)
[2020-03-30] MEDS ORDERED: HEPARIN 5000 UNIT/ML 1 ML VIAL ONE (08:52)
[2020-03-30] MEDS ORDERED: BUPIVACAINE 0.25% PF 30 ML VIAL ONE (08:52)
[2020-03-30] MEDS ORDERED: NS 0.9% VIAL 10 ML ONE (08:58)
--- NOTE | 2020-03-30 10:12 | P.OP ---
Preoperative diagnosis: Need for Chemotherapy Postoperative diagnosis: Need for Chemotherapy Primary procedure: Placement of RIGHT internal jugular chemotherapy port Secondary procedure: ultrasound guidance, flouroscopy with interpretation Anesthesia: MAC + Local Estimated blood loss: <5cc Specimen: none Findings: dark non-pulsatile blood returned Complications: None Implants: Port a cath Transferred to: Recovery Room Condition: Good
[2020-03-30] MEDS: FENTANYL CITR 100 MCG/2 ML ONE ×2 (10:32→10:34)
[2020-03-30] MEDS: MEPERIDINE HCL 25 MG/ML SYR ONE ×2 (10:41→10:46)
--- NOTE | 2020-03-30 11:01 | RAD REPORT ---
EXAM DESCRIPTION: EMILYLa Single View03/30/2020 10:56 am CLINICAL HISTORY: Device placement/central venous catheter placement IMPRESSION: Central venous catheter with its tip in the superior vena cava No pneumothorax
--- NOTE | 2020-03-30 11:11 | OP ---
Date of Procedure: 03/30/2020 Surgeon: Randy Lagos MD, Preoperative Diagnosis: Need for chemotherapy. Postoperative Diagnosis: Need for chemotherapy. Procedure Performed: Placement of a right internal jugular chemotherapy for using ultrasound guidanc e and fluoroscopy with interpretation and microintroducer set. Anesthesia: MAC plus local with 0.25% Marcaine without epinephrine. Estimated Blood Loss: Less than 5 mL. Specimen: None. Findings: Dark nonpulsatile blood return. Complications: None. Implants: Port-A-Cath. Disposition: Transferred to recovery room in good condition. Procedure In Detail: After informed was obtained, the patient was brought to the operating room, pre pped and draped in the usual sterile fashion. After adequate anesthesia achieved, using ultrasound g uidance, I anesthetized and cannulated the right internal jugular vein on the first attempt with a mi crointroducer set. Microwire was advanced at this point. Fluoroscopy confirmed position of the supe rior vena cava and the microwire. At this point, I anesthetized the track in inferolateral infraclav icularly for placement of the port. Ultimately, I sized the catheter appropriately and tunneled octaviano ce after making a small stanley incision at the insertion site. At this point, the microintroducer frost th was advanced over the wire using Seldinger technique and the microwire was removed. The standard wire was then advanced and confirmed in position using fluoroscopy with interpretation at the same ti me. At this point, the wire remained in place and the introducer sheath was removed leaving only the wire in place. At this point, the introducer sheath for the Port-A-Cath was introduced at this poin t and the wire out was called for the second time. At this point, the catheter was advanced and usin g fluoroscopic guidance, the catheter was placed in the SVC confluence and clamped on the end to ensu re no fluid or air was moving and the patient remained in steep Trendelenburg throughout the entire p rocedure. At this point, fluoroscopy confirmed position and as such I hooked up the port to the end after sizing it appropriately and put the lock collar on. At this point, I flushed the catheter and confirmed position using fluoroscopy once again and position was good, flush was good, and it was pac ked with heparinized saline and super flush at this point. I then secured the catheter to the chest prepectoral fascia after removing some of the prepectoral fat using interrupted 3-0 Prolene sutures c ircumferentially around the port. The port was in good position at this point. The skin incisions w ere then copiously irrigated, flushed once again with heparin super flush easily and at this point, I closed the subcutaneous tissues using 3-0 Vicryl in an interrupted fashion and closed the port site using a 4-0 Monocryl in a running fashion. Dermabond was placed over top. The neck incision was the n irrigated once again and closed with an interrupted 3-0 nylon suture and a sterile dressing placed over top. The patient was then taken out of Trendelenburg. The patient tolerated the procedure well without evidence of complication and transferred to PACU in good condition. All counts were correct at the end of the case. EVENS/CECY Voice ID: [id number] Report ID: [id number]
[2020-03-30 12:26] VITALS: BP 174/93; TEMP 98.2; O2SAT 99
--- NOTE | 2020-03-30 12:28 | RAD REPORT ---
EXAM DESCRIPTION: RAD - Fluoroscopy <1 Hour - 03/30/2020 12:20 pm CLINICAL HISTORY: Device placement central venous catheter placement FINDINGS: A central venous catheter was placed into the superior vena cava. Twenty-seven fluoroscopi c spot images are submitted. Fluoroscopy time 0.3 minutes The examination was performed by Dr. Lagos
--- NOTE | 2020-04-01 06:13 | EKG ---
Test Date: 2020-03-30 Test Time: 08:14:27 [employer] Specialist: TG MEASUREMENT RESULTS: Intervals: Rate: 81 AR: 156 QRSD: 80 QT: 362 QTc: 420 [place]: P: 74 AR: 156 QRS: 49 T: 76 INTERPRETIVE STATEMENTS: Normal sinus rhythm Septal infarct, age undetermined Abnormal ECG Compared to ECG 08/21/2018 06:50:28 Sinus arrhythmia no longer present Myocardial infarct finding still present Electronically Signed On 04-01-20 06:09:29 SCIENTIFIC PHOTOGRAPHER by Abundio Griffin
== END 2020-03-30 11:50 | disposition home or self-care (01) ==
LOC: OR 07:05
PROVIDERS: ATTEND Surgery
PROC: 0JH60WZ Insertion of Totally Implantable Vascular Access Device into Chest Subcutaneous Tissue and Fascia, Open Approach (ICD-10-PCS; principal; 2020-03-30 09:00)
DX: C44.500 Unspecified malignant neoplasm of anal skin (principal); Z20.822 Contact with and (suspected) exposure to COVID-19
CPT/HCPCS: 93005; 85025; 80048; 36415; 82947 ×2; 71045; 71046; 36561; U0002; J2704 ×2; J1644 ×2; J2250; J3010 ×2; J2175; J0690; J7030; C1788; 76000

== ENCOUNTER 2020-07-11 08:28 | Inpatient (IN) | payer OTHER ==
--- OUTSIDE RECORDS SUMMARY | 2020-07-11 08:30 | XMS REPORT | Continuity of Care Document ---
:1950 Author Organization [facility] t Address [address] [place] [address] Care Team Providers Name Role Phone Sergio Jin DO Attending Clinician Graeme Toledo Attending Clinician Herson MEADOWS Attending Clinician Problems This patient has no known problems. Allergies, Adverse Reactions, Alerts Allergy Allergy Status Severity Reaction(s) Onset Inactive Treating Comm ents Source Name Type Date Date Clinician Soma Adverse Active rash [facility] Medications Ordered Filled Start Stop Current Ordering Indication Dosage Frequency Signature Comments Components Source Medication Medication Date Date Medication? Clinician (SIG) Name Name Amlodipine Amlodipine Yes Fred take [address] [facility] Besylate Besylate Elliott tablet by [facility] every [facility] Gabapentin Gabapentin Yes Fred [address] [facility] Lisinopril Lisinopril Yes Fred take [address] [facility] Elliott tablet by [facility] every day [facility] Atorvastati Atorvastati Yes Fred [address] [facility] n Calcium n Calcium Elliott [facility] Trulicity Trulicity 2019- No Fred one [facility] injection [facility] Procedures This patient has no known procedures. Encounters Start End Encounter Admission Attending Care Care Encounter Source Date/Time Date/Time Type Type Clinicians Facility Department ID 2020-05-25 2020-05-25 Patient Davin [facility] [id number] 00:00:00 00:00:00 Outreach Og PRIMARY [id number] [facility] [id number] [place] [id number] 2020-03-04 2020-03-04 Outpatient [facility] [id number] [facility] 2020-02-28 2020-02-28 [facility] [id number] 00:00:00 00:00:00 Surgery Linda Rebolledo [id number] [id number] Professio [phone] [facility] 204 [facility] 2020-02-26 2020-02-26 [facility] [id number] 00:00:00 00:00:00 Management Ariela Rebolledo [id number] [id number] Professio [id number] [facility] 188 [facility] 2020-02-26 2020-02-26 [facility] [id number] 00:00:00 00:00:00 plinary [facility] [id number] [facility] [id number] 2020-02-26 2020-02-26 [facility] [id number] 00:00:00 00:00:00 Management Ariela Rebolledo [id number] [id number] Professio [phone] [facility] 188 [facility] 2020-02-24 2020-02-24 [facility] [id number] 00:00:00 00:00:00 Ariela Morenoton [id number] [id number] Professio [id number] [address] 2020-02-19 2020-02-19 [facility] [id number] 08:31:10 23:59:00 Encounter Ariela Rebolledo [id number] [id number] [place] [id number] 2020-02-19 2020-02-19 [facility] [id number] 08:29:10 08:30:00 Encounter Ariela Rebolledo [id number] [id number] [place] [id number] 2020-02-12 2020-02-12 Outpatient [facility]MLC [facility] [id number] [facility]00 [facility] ent Clinics 2020-02-11 2020-02-11 [facility] [id number] 13:25:06 14:29:00 Visit Ariela Rebolledo [id number] [id number] [facility] [id number] [address] 2019-11-12 2019-11-12 [facility] [id number] [facility] 10:00:00 10:00:00 t [place] [facility] - [facility] Medicine Outpati ent Clinics 2019-08-27 2019-08-27 [facility] [id number] 09:00:00 09:00:00 t [place] [facility] - [place] [facility] Medicine l Medicine Outpati ent Clinics 2019-08-06 2019-08-06 [facility] [id number] 11:00:00 11:00:00 t [place] [facility] - [place] [facility] l Medicine Outpati ent Clinics 2019-08-06 2019-08-06 [facility] [id number] 11:00:00 11:00:00 t [place] - [place] [facility] Medicine Outpati ent Clinics 2019-06-10 2019-06-10 [facility] [id number] 09:15:00 09:15:[address] Luke s - Drive [facility] Medicine Outpati ent Clinics 2019-04-10 2019-04-10 [facility] [id number] 16:41:00 16:41:[address] [employer] s - Drive [facility] Medicine Outpati ent Clinics 2018-12-13 2018-12-13 [facility] [id number] 09:30:00 09:30:[address] Pwinty s - Drive [facility] Medicine Outpati ent Clinics 2018-04-26 2018-04-26 [facility] [id number] 09:30:00 09:30:[address] Pwinty s - Drive [facility] Medicine Outpati ent Clinics 2017-10-26 2017-10-26 [facility] [id number] 09:45:00 09:45:00 t Supply Supply makr s - Drive [facility] Medicine Outpati ent Clinics 2017-09-27 2017-09-27 [facility] [id number] 12:58:00 12:58:[address] [employer] s - Drive [facility] Medicine Outpati ent Clinics 2017-08-24 2017-08-24 [facility] [id number] 09:45:00 09:45:00 t Supply [facility] s - Drive [facility] Medicine Outpati ent Clinics Results This patient has no known results.
[2020-07-11 09:45] LABS: Protime INR 1.34
[2020-07-11 09:47] LABS: Absolute Lymphocytes (CBC) 0.4 K/uL (0.7-4.9); Basophils % 0.1 % (0-1.3); Lymphocytes % 6.2 % (15.3-44.8); MPV 6.9 fL (7.6-11.3); RBC Red Blood Cell Count 2.12 M/uL (3.86-4.86)
[2020-07-11] MEDS ORDERED: NA CHLORIDE 0.9% 1,000 ML ONE (09:49)
[2020-07-11] MEDS ORDERED: MORPHINE 2 MG/ML SYR ONE (09:49)
[2020-07-11] MEDS ORDERED: FAMOTIDINE 20 MG/2 ML VIAL IV ONE (09:49)
[2020-07-11] MEDS ORDERED: ONDANSETRON 4 MG/2 ML VIAL ONE (09:49)
[2020-07-11 10:13] LABS: ALT/SGPT 23 U/L (12-78); AST/SGOT 22 U/L (15-37); Albumin 2.4 g/dL (3.4-5.0); Alkaline Phosphatase 91 U/L (45-117); BUN Blood Urea Nitrogen 12 mg/dL (7-18); Bicarbonate 22 mmol/L (21-32); Bilirubin Direct 0.1 mg/dL (0-0.2); Bilirubin Total 0.3 mg/dL (0.2-1.0); Glucose Level 106 mg/dL (74-106); Lipase 290 U/L (73-393); Magnesium 2.1 mg/dL (1.8-2.4); NT PRO-BNP 975 pg/mL (<125); Protein, Total 7.2 g/dL (6.4-8.2); Sodium Level 144 mmol/L (136-145); Troponin (Emerg Dept Use Only) < 0.02 ng/mL (0.0-0.045)
--- NOTE | 2020-07-11 11:27 | EDPHYS ---
Physician Documentation [facility] Name: Ernestina Marcus Age: 70 yrs Sex: Female : 1950 Arrival Date: 07/11/2020 Time: 08:31 Bed 14 Private MD: Earl [facility] ED Physician Lane Gamez HPI: 07/11 09:19 This 70 yrs old Black Female presents to ER via Ambulatory with complaints of tarah Vomiting/Diarrhea, Decreased Appetite. 09:19 The patient presents to the emergency department with nausea, vomiting. Onset: The tarah symptoms/episode began/occurred 5 day(s) ago. Possible causes: unknown. The symptoms are aggravated by nothing. The symptoms are alleviated by nothing. Associated signs and symptoms: Pertinent positives: nausea, vomiting. Severity of symptoms: At their worst the symptoms were mild in the emergency department the symptoms are unchanged. The patient has not experienced similar symptoms in the past. Historical: - Allergies: 08:43 Soma; ss - PMHx: 08:43 Chronic pain; Diabetes - IDDM; Glaucoma; Hypertension; rectal CA; ss - PSHx: 08:43 Cholecystectomy; Appendectomy; ; ss - Immunization history:: Adult Immunizations up to date. - Social history:: Smoking status: Patient reports the use of cigarette tobacco products, smokes one-half pack cigarettes per day. ROS: 09:20 Constitutional: Negative for fever, chills, and weight loss, Eyes: Negative for injury, tarah pain, redness, and discharge, ENT: Negative for injury, pain, and discharge, Neck: Negative for injury, pain, and swelling, Cardiovascular: Negative for chest pain, palpitations, and edema, Respiratory: Negative for shortness of breath, cough, wheezing, and pleuritic chest pain, Back: Negative for injury and pain, : Negative for injury, bleeding, discharge, and swelling, MS/Extremity: Negative for injury and deformity, Skin: Negative for injury, rash, and discoloration, Psych: Negative for depression, anxiety, suicide ideation, homicidal ideation, and hallucinations, Allergy/Immunology: Negative for hives, rash, and allergies, Endocrine: Negative for neck swelling, polydipsia, polyuria, polyphagia, and marked weight changes, Hematologic/Lymphatic: Negative for swollen nodes, abnormal bleeding, and unusual bruising. 09:20 Abdomen/GI: Positive for nausea and vomiting. 09:20 Neuro: Positive for weakness. Exam: 09:20 Constitutional: This is a well developed, well nourished patient who is awake, alert, tarah and in no acute distress. Head/Face: Normocephalic, atraumatic. Eyes: Pupils equal round and reactive to light, extra-ocular motions intact. Lids and lashes normal. Conjunctiva and sclera are non-icteric and not injected. Cornea within normal limits. Periorbital areas with no swelling, redness, or edema. ENT: Nares patent. No nasal discharge, no septal abnormalities noted. Tympanic membranes are normal and external auditory canals are clear. Oropharynx with no redness, swelling, or masses, exudates, or evidence of obstruction, uvula midline. Mucous membranes moist. Neck: Trachea midline, no thyromegaly or masses palpated, and no cervical lymphadenopathy. Supple, full range of motion without nuchal rigidity, or vertebral point tenderness. No Meningismus. Chest/axilla: Normal chest wall appearance and motion. Nontender with no deformity. No lesions are appreciated. Cardiovascular: Regular rate and rhythm with a normal S1 and S2. No gallops, murmurs, or rubs. Normal PMI, no JVD. No pulse deficits. Respiratory: Lungs have equal breath sounds bilaterally, clear to auscultation and percussion. No rales, rhonchi or wheezes noted. No increased work of breathing, no retractions or nasal flaring. Abdomen/GI: Soft, non-tender, with normal bowel sounds. No distension or tympany. No guarding or rebound. No evidence of tenderness throughout. Back: No spinal tenderness. No costovertebral tenderness. Full range of motion. Female : Normal external genitalia. Skin: Warm, dry with normal turgor. Normal color with no rashes, no lesions, and no evidence of cellulitis. MS/ Extremity: Pulses equal, no cyanosis. Neurovascular intact. Full, normal range of motion. Neuro: Awake and alert, GCS 15, oriented to person, place, time, and situation. Cranial nerves II-XII grossly intact. Motor strength 5/5 in all extremities. Sensory grossly intact. Cerebellar exam normal. Normal gait. Psych: Awake, alert, with orientation to person, place and time. Behavior, mood, and affect are within normal limits. 09:23 Musculoskeletal/extremity: DVT Exam: No signs of deep vein thrombosis. no pain, no tarah swelling, no tenderness, negative Homans' sign noted on exam, no appreciated bluish discoloration, no erythema, no increased warmth. 10:21 ECG was reviewed by the Attending Physician. [facility] Vital Signs: 08:40 BP 133 / 68; Pulse 112; Resp 18; Temp 97.6(TE); Pulse Ox 99% on R/A; Weight 42.18 kg; ss Height 4 ft. 11 in. (149.86 cm); Pain 7/10; 10:12 BP 157 / 62; Pulse 82; Resp 12; Pulse Ox 100% on R/A; vg1 11:00 BP 153 / 59; Pulse 78; Resp 14; Pulse Ox 100% on R/A; vg1 12:00 BP 165 / 62; Pulse 80; Resp 12; Pulse Ox 100% on R/A; vg1 13:00 BP 145 / 59; Pulse 83; Resp 14; Pulse Ox 100% on R/A; vg1 14:00 BP 163 / 64; Pulse 82; Resp 14; Pulse Ox 100% on R/A; vg1 15:00 BP 156 / 60; Pulse 90; Resp 14; Pulse Ox 100% on R/A; vg1 16:20 BP 152 / 63; Pulse 84; Resp 14; Pulse Ox 99% on R/A; mt 17:00 BP 163 / 73; Pulse 88; Resp 16; Pulse Ox 100% on R/A; vg1 08:40 Body Mass Index 18.78 (42.18 kg, 149.86 cm) MDM: 08:57 Patient medically screened. [facility] 09:22 Differential diagnosis: Nonspecific abd pain, gastritis, pancreatitis, viral tarah gastroenteritis, gastroenteritis. Data reviewed: vital signs, nurses notes, lab test result(s), EKG, radiologic studies, plain films. Data interpreted: educational technologist: rate is 112 beats/min, rhythm is regular, Pulse oximetry: on room air is 99 %. Test interpretation: by ED physician or midlevel provider: ECG, plain radiologic studies. Counseling: I had a detailed discussion with the patient and/or guardian regarding: the historical points, exam findings, and any diagnostic results supporting the discharge/admit diagnosis, lab results, radiology results. 07/11 09:18 Order name: Basic Metabolic Panel [facility] 07/11 09:18 Order name: CBC with Diff [facility] 07/11 09:18 Order name: LFT's; Complete Time: 11:15 [facility] 07/11 09:18 Order name: Magnesium; Complete Time: 11:15 [facility] 07/11 09:18 Order name: NT PRO-BNP; Complete Time: 11:15 [facility] 07/11 09:18 Order name: PT-INR; Complete Time: 11:15 [facility] 07/11 09:18 Order name: Troponin (emerg Dept Use Only); Complete Time: 11:15 [facility] 07/11 09:18 Order name: Lipase; Complete Time: 11:15 [facility] 07/11 09:18 Order name: Urine Culture [facility] 07/11 09:18 Order name: Basic Metabolic Panel; Complete Time: 11:15 [facility] 07/11 12:50 Order name: Manual Differential [facility] 07/11 13:25 Order name: SARS-COV-2 RT PCR [facility] 07/11 13:26 Order name: Cortisol [facility] 07/11 13:26 Order name: Folic Acid, (Folate) [facility] 07/11 13:26 Order name: Iron [facility] 07/11 13:26 Order name: Vitamin B12 Level [facility] 07/11 13:26 Order name: VITAMIN B1-THIAMINE [facility] 07/11 13:26 Order name: Lactate [facility] 07/11 13:26 Order name: Magnesium [facility] 07/11 13:26 Order name: NT PRO-BNP [facility] 07/11 13:26 Order name: Phosphorus [facility] 07/11 13:26 Order name: Procalcitonin [facility] 07/11 13:26 Order name: T4 Free [facility] 07/11 13:26 Order name: Thyroid Stimulating Hormone [facility] 07/11 13:27 Order name: CBC with Automated Diff [facility] 07/11 13:27 Order name: Comprehensive Metabolic Panel [facility] 07/11 13:27 Order name: Hemoglobin A1c [facility] 07/11 13:31 Order name: Type and Screen [facility] 07/11 13:53 Order name: Urine Dipstick-Ancillary [facility] 07/11 09:18 Order name: XRAY Chest (1 view) [facility] 07/11 09:18 Order name: EKG; Complete Time: 09:19 [facility] 07/11 09:18 Order name: Cardiac monitoring; Complete Time: 10:10 [facility] 07/11 09:18 Order name: EKG - Nurse/Tech; Complete Time: 10:10 [facility] 07/11 09:18 Order name: IV Saline Lock; Complete Time: 09:18 [facility] 07/11 09:18 Order name: Labs collected and sent; Complete Time: 09:18 [facility] 07/11 09:18 Order name: O2 Per Protocol; Complete Time: 09:18 [facility] 07/11 09:18 Order name: O2 Sat Monitoring; Complete Time: 09:19 [facility] 07/11 09:18 Order name: Urine Dipstick-Ancillary (obtain specimen); Complete Time: 13:53 [facility] 07/11 13:31 Order name: Regular EDMS 07/11 16:20 Order name: Chem 7 vg1 07/11 16:58 Order name: Basic Metabolic Panel ED[facility] EC:21 Rate is 81 beats/min. Rhythm is regular. QRS [place] is Normal. MN interval is normal. QRS tarah interval is normal. QT interval is normal. No Q waves. T waves are Normal. No ST changes noted. Clinical impression: NSR w/ Non-specific ST/T Changes and No evidence of ischemia. Interpreted by me. Reviewed by me. Administered Medications: 09:45 Drug: NS 0.9% 1000 ml Route: IV; Rate: 1 bolus; Site: right antecubital; ll1 10:45 Follow up: IV Status: Completed infusion; IV Intake: 1000ml vg1 09:46 Drug: Zofran (Ondansetron) 4 mg Route: IVP; Site: right antecubital; ll1 12:45 Follow up: Response: No adverse reaction vg1 09:47 Drug: morphine 2 mg Route: IVP; Site: right antecubital; ll1 17:15 Follow up: Response: No adverse reaction; RASS: Alert and Calm (0) vg1 09:48 Drug: Pepcid (famotidine) 20 mg Route: IVP; Site: right antecubital; ll1 12:46 Follow up: Response: No adverse reaction vg1 12:44 Drug: Potassium Chloride 20 mEq Route: IV; Rate: per protocol; Site: right antecubital; vg1 14:23 Follow up: IV Status: Completed infusion; IV Intake: 100ml vg1 12:44 Drug: NS 0.9% with KCl 20 mEq/L 1000 ml Route: IV; Rate: 100 ml/hr; Site: right vg1 antecubital; 17:15 Follow up: IV Status: Infusion continued upon admission vg1 Disposition: 07/11/20 11:26 Hospitalization ordered by Monica Page for Observation. Preliminary diagnosis are Vomiting, Diarrhea, unspecified, Volume depletion, Weakness - rectal cancer, Type 1 diabetes mellitus, Anemia, unspecified, Hypokalemia. - Bed requested for Telemetry/MedSurg (observation). - Status is Observation. vg1 - Condition is Fair. - Problem is new. - Symptoms have improved. Signatures: Dispatcher [employer] EDND Stacey Espinosa RN RN Lane Ritchie MD MD cha Smirch, Shelby, RN RN ss Elizabeth Taylor RN RN vg1 Evi Romo RN RN ll1 Corrections: (The following items were deleted from the chart) 12:40 11:43 CORONAVIRUS+MR.LAB.BRZ ordered. [facility] 16:25 11:26 Hospitalization Ordered by Monica Page MD for Observation. Preliminary diagnosis is Vomiting; Diarrhea, unspecified; Volume depletion; Weakness - rectal cancer; Type 1 diabetes mellitus; Anemia, unspecified; Hypokalemia. Bed requested for Telemetry/MedSurg (observation). Status is Observation. Condition is Fair. Problem is new. Symptoms have improved. [facility] 17:15 16:25 07/11/2020 11:26 Hospitalization Ordered by Monica Page MD for Observation. vg1 Preliminary diagnosis is Vomiting; Diarrhea, unspecified; Volume depletion; Weakness - rectal cancer; Type 1 diabetes mellitus; Anemia, unspecified; Hypokalemia. Bed requested for Telemetry/MedSurg (observation). Status is Observation. Condition is Fair. Problem is new. Symptoms have improved. dw
--- NOTE | 2020-07-11 11:27 | ER ---
Nurse's Notes [facility] Name: Ernestina Marcus Age: 70 yrs Sex: Female : 1950 Arrival Date: 07/11/2020 Time: 08:31 Bed 14 Private MD: Fred Elliott Diagnosis: Vomiting;Diarrhea, unspecified;Volume depletion;Weakness-rectal cancer;Type 1 diabetes mellitus;Anemia, unspecified;Hypokalemia Presentation: 07/11 08:40 Chief complaint: Patient states: Diarrhea that began "a little over a week ago." Pt ss reports that she is having diarrhea every 20 minutes. PT recently completed chemo and radiation for rectal CA. Coronavirus screen: Client denies travel out of the [place] in the last 14 days. Ebola Screen: Patient denies exposure to infectious person. Patient denies travel to an Ebola-affected area in the 21 days before illness onset. Initial Sepsis Screen: Does the patient meet any 2 criteria? HR > 90 bpm. No. Patient's initial sepsis screen is negative. Does the patient have a suspected source of infection? No. Patient's initial sepsis screen is negative. Risk Assessment: Do you want to hurt yourself or someone else? Patient reports no desire to harm self or others. Onset of symptoms was July 05, 2020. 08:40 Method Of Arrival: Ambulatory ss 08:40 Acuity: ANNIE 3 ss Historical: - Allergies: 08:43 Soma; ss - PMHx: 08:43 Chronic pain; Diabetes - IDDM; Glaucoma; Hypertension; rectal CA; ss - PSHx: 08:43 Cholecystectomy; Appendectomy; ; ss - Immunization history:: Adult Immunizations up to date. - Social history:: Smoking status: Patient reports the use of cigarette tobacco products, smokes one-half pack cigarettes per day. Screenin:44 Abuse screen: Denies threats or abuse. Nutritional screening: No deficits noted. ll1 Tuberculosis screening: No symptoms or risk factors identified. Fall Risk IV access (20 points). Gait- Weak (10 pts.). Total Sommer Fall Scale indicates Low Risk Score (25-44 pts). Fall prevention measures have been instituted. Side Rails Up X 2 Placed close to Nursing Station Frequent Obs/Assesments occuring Family Present and informed to notify staff if they need to leave bedside As available Patient and Family Educated on Fall Prevention Program and strategies. Assessment: 09:01 General: Appears ill, Behavior is calm, cooperative, appropriate for age. Pain: Denies ll1 pain. Neuro: No deficits noted. Cardiovascular: Reports fatigue, Heart tones S1 S2 Capillary refill < 3 seconds Clubbing of nail beds is absent JVD is absent Patient's skin is warm and dry. Respiratory: No deficits noted. GI: Bowel sounds present X 4 quads. Abd is soft and non tender X 4 quads. Reports diarrhea, nausea. GI: Abdomen is flat. Musculoskeletal: Circulation, motion, and sensation intact. Capillary refill < 3 seconds, Reports weakness in generalized. 10:11 Reassessment: Patient appears in no apparent distress at this time. No changes from [facility] previously documented assessment. Patient and/or family updated on plan of care and expected duration. Pain level reassessed. Patient is alert, oriented x 3, equal unlabored respirations, skin warm/dry/pink. Patient denies pain at this time. 10:11 Reassessment: Ulcers noted on pt left and right buttocks. Pt stated 'they are from the [facility] radiation treatment.'. Vital Signs: 08:40 BP 133 / 68; Pulse 112; Resp 18; Temp 97.6(TE); Pulse Ox 99% on R/A; Weight 42.18 kg; ss Height 4 ft. 11 in. (149.86 cm); Pain 7/10; 10:12 BP 157 / 62; Pulse 82; Resp 12; Pulse Ox 100% on R/A; vg1 11:00 BP 153 / 59; Pulse 78; Resp 14; Pulse Ox 100% on R/A; vg1 12:00 BP 165 / 62; Pulse 80; Resp 12; Pulse Ox 100% on R/A; vg1 13:00 BP 145 / 59; Pulse 83; Resp 14; Pulse Ox 100% on R/A; vg1 14:00 BP 163 / 64; Pulse 82; Resp 14; Pulse Ox 100% on R/A; vg1 15:00 BP 156 / 60; Pulse 90; Resp 14; Pulse Ox 100% on R/A; vg1 16:20 BP 152 / 63; Pulse 84; Resp 14; Pulse Ox 99% on R/A; mt 17:00 BP 163 / 73; Pulse 88; Resp 16; Pulse Ox 100% on R/A; vg1 08:40 Body Mass Index 18.78 (42.18 kg, 149.86 cm) ED Course: 08:31 Patient arrived in ED. mr 08:31 Fred Elliott DO is Private Physician. mr 08:42 Triage completed. ss 08:43 Arm band placed on right wrist. ss 08:43 Patient placed in an exam room, on a stretcher. ll1 08:44 Patient has correct armband on for positive identification. Placed in gown. Bed in low ll1 position. Call light in reach. Side rails up X 1. Pulse ox on. NIBP on. 08:54 Evi Romo, ISIDRO is Primary Nurse. ll1 08:57 Lane Gamez MD is Attending Physician. tarah 09:43 XRAY Chest (1 view) In Process Unspecified. EDMS 09:55 Inserted saline lock: 22 gauge in right antecubital area, using aseptic technique. ll1 Blood collected. 10:11 Primary Nurse role handed off by Evi Romo RN vg1 10:11 Elizabeth Taylor RN is Primary Nurse. vg1 11:24 Monica Page MD is Hospitalizing Provider. tarah 17:12 No provider procedures requiring assistance completed. Patient admitted, IV remains in vg1 place. Administered Medications: 09:45 Drug: NS 0.9% 1000 ml Route: IV; Rate: 1 bolus; Site: right antecubital; ll1 10:45 Follow up: IV Status: Completed infusion; IV Intake: 1000ml vg1 09:46 Drug: Zofran (Ondansetron) 4 mg Route: IVP; Site: right antecubital; ll1 12:45 Follow up: Response: No adverse reaction vg1 09:47 Drug: morphine 2 mg Route: IVP; Site: right antecubital; ll1 17:15 Follow up: Response: No adverse reaction; RASS: Alert and Calm (0) vg1 09:48 Drug: Pepcid (famotidine) 20 mg Route: IVP; Site: right antecubital; ll1 12:46 Follow up: Response: No adverse reaction vg1 12:44 Drug: Potassium Chloride 20 mEq Route: IV; Rate: per protocol; Site: right antecubital; vg1 14:23 Follow up: IV Status: Completed infusion; IV Intake: 100ml vg1 12:44 Drug: NS 0.9% with KCl 20 mEq/L 1000 ml Route: IV; Rate: 100 ml/hr; Site: right vg1 antecubital; 17:15 Follow up: IV Status: Infusion continued upon admission vg1 Intake: 10:45 IV: 1000ml; Total: 1000ml. vg1 14:23 IV: 100ml; Total: 1100ml. vg1 Outcome: 11:26 Decision to Hospitalize by Provider. tarah 17:12 Admitted to Tele via stretcher, room 231, with chart, Report called to ISIDRO Clark vg1 17:12 Condition: stable 17:12 Instructed on the need for admit. 17:15 Patient left the ED. vg1 Signatures: Dispatcher [employer] Lane Bass MD MD cha Rivera, Ebonie Brynn Suarez, RN Zonia Mondragon mt, Victoria RN RN vg1 Evi Romo RN RN ll1
--- NOTE | 2020-07-11 11:37 | RAD REPORT ---
EXAM DESCRIPTION: RAD - Chest Single View - 07/11/2020 9:43 am CLINICAL HISTORY: COUGH Chest pain. COMPARISON: Chest Single View dated 03/30/2020; Chest Pa And Lat (2 Views) dated 03/30/2020; Chest Sin gle View dated 08/21/2018; CHEST PA AND LAT 2 VIEW dated 10/23/2013 FINDINGS: Portable technique limits examination quality. The lungs are grossly clear. The heart is normal in size. No displaced fractures.Right-sided venous c atheter has tip in the SVC. IMPRESSION: No acute intrathoracic process suspected.
[2020-07-11] MEDS ORDERED: KCL 20 MEQ/100 mL IVPB 20 MEQ/100 ML BAG IV ONE (12:48)
[2020-07-11] MEDS ORDERED: NS KCL 20MEQ 1,000 ML IV ONE (12:48)
[2020-07-11 12:51] LABS: Anisocytosis 2+; Blood Morphology Comment NOTED (NOT SEEN); Macrocytosis 2+; Platelet Estimate ADEQ; Polychromasia SLIGHT
[2020-07-11] MEDS ORDERED: LOPERAMIDE HCL 2 MG CAPSULE PO PRN (13:27)
[2020-07-11] MEDS ORDERED: ACETAMINOPHEN 500 MG TAB PO PRN (13:27)
--- NOTE | 2020-07-11 13:33 | P.HP ---
Certification for Inpatient Patient admitted to: Inpatient With expected LOS: >2 Midnights Patient will require the following post-hospital care: None Practitioner: I am a practitioner with admitting privileges, knowledge of patient current condition, hospital course, and medical plan of care. Services: Services provided to patient in accordance with Admission requirements found in Title 42 Section 412.3 of the Code of Federal Regulations Patient History Date of Service: 07/11/20 Reason for admission: Intractable nausea and vomiting History of Present Illness: Patient is a 70-year-old female who presents to the emergency room with intractable nausea vomiting. Patient has also been having some abdominal pain and diarrhea. Patient's history of rectal cancer and has been getting chemotherapy and radiation. She completed this 3 months ago. She is continue with radiation pond to the rectal region. She is on Silvadene ointment for those pond. She also is on anti emetics. At this time, I spoke with Oncology and they want go ahead and give 2 units of packed red blood cells. After the blood transfusion patient should be able to go home with pain control and continue Silvadene ointment for the pond. Patient will be admitted to the hospital for further evaluation. Allergies carisoprodol [From Soma] Allergy (Verified 07/11/20 17:31) Rash Home Medications: Acetaminophen [Tylenol Extra Strength] 2 tab PO PRN PRN 03/27/20 Gabapentin 600 mg PO BID 03/27/20 Simvastatin 10 mg PO DAILY 03/27/20 Hydrocodone Bit/Acetaminophen [Hydrocodon-Acetaminophen 5-325] 1 tab PO Q8H PRN 07/11/20 Amlodipine Besylate [Norvasc] 10 mg PO DAILY 07/12/20 - Past Medical/Surgical History -: Rectal carcinoma -: 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 - Family History Father Family History: Reviewed- Non-Contributory - Social History Smoking Status: Former smoker Alcohol use: No CD- Drugs: No Review of Systems 10-point ROS is otherwise unremarkable Physical Examination - Vital Signs Temperature: 98 F Blood Pressure: 110/80 Pulse: 80 Respirations: 18 Pulse Ox (%): 96 - Physical Exam General: Alert, In no apparent distress HEENT: Atraumatic, PERRLA, Mucous membr. moist/pink, EOMI, Sclerae nonicteric Neck: Supple, 2+ carotid pulse no bruit, No LAD, Without JVD or thyroid abnormality Respiratory: Clear to auscultation bilaterally, Normal air movement Cardiovascular: Regular rate/rhythm, Normal S1 S2 Gastrointestinal: Normal bowel sounds, Soft and benign, Non-distended, Tenderness Musculoskeletal: No tenderness Integumentary: Other (Skin rash with radiation lesions) Neurological: Normal speech, Normal tone, Sensation intact, Cranial nerves 3-12 intact, Normal affect, Abnormal gait, Abnormal strength Lymphatics: No axilla or inguinal lymphadenopathy - Studies Laboratory Data (last 24 hrs) 07/11/20 09:25: PT 15.4 H, INR 1.34 07/11/20 09:25: WBC 6.80, Hgb 8.2 L, Hct 24.0 L, Plt Count 249 07/11/20 09:25: Sodium 144, Potassium 3.0 L, BUN 12, Creatinine 0.69, Glucose 106, Magnesium 2.1, Total Bilirubin 0.3, AST 22, ALT 23, Alkaline Phosphatase 91, Lipase 290 Assessment & Plan - Problems (Diagnosis) (1) Intractable nausea and vomiting Current Visit: Yes Status: Acute (2) History of rectal cancer Current Visit: Yes Status: Acute (3) Diarrhea Current Visit: Yes Status: Acute (4) Macrocytic anemia Current Visit: Yes Status: Acute - Plan Plan: 1. Continue with IV fluids 2. Continue with Anti emetics 3. Monitor nutritional status 4. Repeat labs and type and screen 5. Pain control 6. Imodium for diarrhea 7. Transfuse 2 units of packed red blood cells 8. Pain control 9. Silvadene ointment 10. GI and DVT prophylaxis Discharge Plan: Home Plan to discharge in: Greater than 2 days - Advance Directives Does patient have a Living Will: No Does patient have a Durable POA for Healthcare: No - Code Status/Comfort Care Code Status Assessed: Yes Code Status: Full Code Critical Care: No Time Spent Managing PTS Care (In Minutes): 45
[2020-07-11 13:52] LABS: Urine Blood Trace-intact (Negative); Urine Glucose Negative (Negative); Urine Protein 2+ (Negative); Urine Specific Gravity >=1.030 (1.005-1.030); Urine pH 5.5 (5.0-7.0)
[2020-07-11] MEDS: FOLIC ACID 1 MG, MULTIVITAMINS INJ 10 ML, THIAMINE HCL 100 MG in NA CHLORIDE 0.9% 1,000 ML IV SCH (15:00)
[2020-07-11 15:13] LABS: Folic Acid, (Folate) 3.6 ng/mL (3.1-17.5)
[2020-07-11 16:58] LABS: BUN Blood Urea Nitrogen 10 mg/dL (7-18); Bicarbonate 21 mmol/L (21-32); Glucose Level 98 mg/dL (74-106); Potassium 3.5 mmol/L (3.5-5.1); Sodium Level 146 mmol/L (136-145)
[2020-07-11] MEDS: MORPHINE 2 MG/ML SYR IV PRN ×2 (17:39→21:34)
[2020-07-11] MEDS: NA CHLORIDE 0.9% 1,000 ML IV SCH (17:39)
[2020-07-11] MEDS: ONDANSETRON 4 MG/2 ML VIAL IV PRN (17:40)
[2020-07-11 20:35] VITALS: BMI 18.8
[2020-07-11] MEDS: HYDROCODONE/APAP 10/325 TAB PO PRN (23:16)
[2020-07-12] MEDS: NA CHLORIDE 0.9% 1,000 ML IV SCH ×3 (01:02→20:55)
[2020-07-12] MEDS: MORPHINE 2 MG/ML SYR IV PRN ×2 (01:43→09:44)
[2020-07-12] MEDS: AMLODIPINE 10 MG TAB PO SCH ×2 (03:39→03:40)
[2020-07-12] MEDS ORDERED: AMLODIPINE 10 MG TAB PO ONE (04:00)
[2020-07-12] MEDS: HYDROCODONE/APAP 10/325 TAB PO PRN ×2 (06:14→23:23)
[2020-07-12 06:17] LABS: Absolute Lymphocytes (CBC) 0.5 K/uL (0.7-4.9); Basophils % 0.2 % (0-1.3); Hematocrit 22.5 % (36.0-45.0); Lymphocytes % 8.3 % (15.3-44.8); MPV 6.7 fL (7.6-11.3); RBC Red Blood Cell Count 1.98 M/uL (3.86-4.86)
[2020-07-12 06:38] LABS: ALT/SGPT 19 U/L (12-78); AST/SGOT 21 U/L (15-37); Albumin 2.3 g/dL (3.4-5.0); Alkaline Phosphatase 82 U/L (45-117); BUN Blood Urea Nitrogen 8 mg/dL (7-18); Bicarbonate 21 mmol/L (21-32); Bilirubin Total 0.3 mg/dL (0.2-1.0); Glucose Level 74 mg/dL (74-106); Magnesium 1.9 mg/dL (1.8-2.4); NT PRO-BNP 1815 pg/mL (<125); Phosphorus 2.2 mg/dL (2.5-4.9); Potassium 3.5 mmol/L (3.5-5.1); Protein, Total 6.7 g/dL (6.4-8.2); Sodium Level 147 mmol/L (136-145)
--- NOTE | 2020-07-12 08:18 | EKG ---
Test Date: 2020-07-11 Test Time: 10:03:59 [place] Flap Inserter: JACKSON MEASUREMENT RESULTS: Intervals: Rate: 81 OK: 124 QRSD: 74 QT: 358 QTc: 415 [place]: P: 58 OK: 124 QRS: 59 T: -47 INTERPRETIVE STATEMENTS: Normal sinus rhythm Nonspecific ST and T wave abnormality Abnormal ECG Compared to ECG 03/30/2020 08:14:27 ST (T wave) deviation now present Myocardial infarct finding no longer present Electronically Signed On 07-12-20 08:15:41 CDT by Abundio Griffin
[2020-07-12] MEDS ORDERED: HYDROMORPHONE HCL 1 MG/ML INJ IV ONE (11:30)
[2020-07-12] MEDS: FOLIC ACID 1 MG, MULTIVITAMINS INJ 10 ML, THIAMINE HCL 100 MG in NA CHLORIDE 0.9% 1,000 ML IV SCH (12:28)
[2020-07-12] MEDS: HYDROMORPHONE HCL 1 MG/ML INJ IV PRN ×2 (16:14→20:54)
[2020-07-12] MEDS: SILVER SULFADIAZINE 1% 50 GM TOP SCH (16:14)
[2020-07-12] MEDS: ONDANSETRON 4 MG/2 ML VIAL IV PRN (20:56)
[2020-07-13] MEDS ORDERED: NA CHLORIDE 0.9% 250 ML ONE (00:24)
[2020-07-13] MEDS: HYDROMORPHONE HCL 1 MG/ML INJ IV PRN ×4 (01:15→14:56)
[2020-07-13] MEDS: NA CHLORIDE 0.9% 1,000 ML IV SCH (06:00)
--- NOTE | 2020-07-13 06:48 | P.PN ---
Subjective Date of Service: 07/12/20 Subjective: Improving Patient continues to improve. Transfusing 2 units of packed red blood cells on Oncology recommendation. Hopefully, her pain will be controlled and we can discharge home. Radiation per does not lose appear to have cellulitic areas. Review of Systems 10-point ROS is otherwise unremarkable Physical Examination - Vital Signs Temperature: 98 F Blood Pressure: 110/80 Pulse: 80 Respirations: 18 Pulse Ox (%): 96 - Physical Exam General: Alert, In no apparent distress, Oriented x3 HEENT: Atraumatic, PERRLA, EOMI Neck: Supple, JVD not distended Respiratory: Clear to auscultation bilaterally, Normal air movement Cardiovascular: Regular rate/rhythm, Normal S1 S2 Gastrointestinal: Soft and benign, Non-distended, No tenderness Musculoskeletal: No clubbing, No tenderness Integumentary: Skin breakdown, Other (Radiation pond) Neurological: Sensation intact, Cranial nerves 3-12 intact, Abnormal strength Lymphatics: No axilla or inguinal lymphadenopathy - Studies Medications List Reviewed: Yes Assessment & Plan - Problems (Diagnosis) (1) Intractable nausea and vomiting Current Visit: Yes Status: Acute (2) History of rectal cancer Current Visit: Yes Status: Acute (3) Diarrhea Current Visit: Yes Status: Acute (4) Macrocytic anemia Current Visit: Yes Status: Acute - Plan Plan: Continue with plan of care as mentioned below 1. Continue with IV fluids 2. Continue with Anti emetics 3. Monitor nutritional status 4. Repeat labs and type and screen 5. Pain control 6. Imodium for diarrhea 7. Transfusing 2 units of packed red blood cells 8. Pain control 9. Silvadene ointment 10. GI and DVT prophylaxis Discharge Plan: Home Plan to discharge in: Greater than 2 days - Advance Directives Does patient have a Living Will: No Does patient have a Durable POA for Healthcare: No - Code Status/Comfort Care Code Status: Full Code Critical Care: No Time Spent Managing PTS Care (In Minutes): 45
[2020-07-13 07:12] LABS: Hematocrit 35.5 % (36.0-45.0)
[2020-07-13] MEDS: SILVER SULFADIAZINE 1% 50 GM TOP SCH ×2 (09:00→20:28)
[2020-07-13] MEDS: AMLODIPINE 10 MG TAB PO SCH (09:24)
[2020-07-13] MEDS: FOLIC ACID 1 MG, MULTIVITAMINS INJ 10 ML, THIAMINE HCL 100 MG in NA CHLORIDE 0.9% 1,000 ML IV SCH (09:24)
[2020-07-13] MEDS: HYDROCODONE/APAP 10/325 TAB PO PRN ×2 (11:48→20:20)
[2020-07-13] MEDS ORDERED: FENTANYL 25 MCG/PATCH TD SCH (12:29)
[2020-07-13] MEDS ORDERED: TRAMADOL HCL 50 MG TAB PO PRN (12:31)
--- NOTE | 2020-07-13 12:43 | P.PN ---
Subjective Date of Service: 07/13/20 Primary Care Provider: Dr. Christiano Elliott; Oncology-Dr. Connell Chief Complaint: Intractable nausea and vomiting Subjective: Improving (Still with pain to the rectum region. No significant nausea or vomiting.) Physical Examination - Vital Signs Temperature: 97.4 F Blood Pressure: 189/76 Pulse: 67 Respirations: 15 Pulse Ox (%): 100 - Studies Medications List Reviewed: Yes Assessment & Plan Discharge Plan: Home Plan to discharge in: 24 Hours Physician Review Additional Text: Physical exam: Patient alert, cooperative. Still with pain to the rectal region. Heart: Regular rate and rhythm Lungs: Clear to auscultation Abdomen: Soft nontender nondistended Rectum: Some excoriation to the buttocks region. Impression: Nausea, vomiting with dehydration Rectal pain with history of rectal cancer and prior radiation UTIurine culture positive for E. coli Chronic pain Hypertension Anemia of chronic disease Plan: Nausea, vomiting with dehydration: Encourage oral intake. Will monitor closely. If taking oral intake will discontinue IV fluids. Will adjust pain medication accordingly. Anticipate home in the next 24 hours. Rectal pain with history of rectal cancer and prior radiation: Pain medication reviewed. Patient receiving IV medication. Will change to fentanyl patch 25 mcg every 72 hours. Will provide tramadol for mild pain, hydrocodone for moderate pain. Will monitor and address appropriately. Will discuss with oncology. Will make sure patient has stool softener in place. We will have wound care evaluate wounds to the lower extremity from likely radiation therapy. UTIurine culture positive for E. coli: We will provide Bactrim for 7 days. Chronic pain: We will make adjustments accordingly. Hypertension: Restart home medication. Anemia likely of chronic disease: Patient given transfusion. Hemoglobin appears stable. Monitor this closely. Advanced care planning addressed in detail. Patient full code. Patient will go home at discharge.30 minutes. Time Spent Managing Pts Care (In Minutes): 55
[2020-07-13] MEDS: GABAPENTIN 300 MG CAP PO SCH (20:17)
[2020-07-13] MEDS: HEPARIN 5000 UNIT/ML 1 ML VIAL SQ SCH (20:18)
[2020-07-13] MEDS: SMZ./TMP. 800/160 MG TABLET PO SCH (20:18)
[2020-07-13] MEDS ORDERED: ATORVASTATIN 10 MG TAB PO SCH (21:00)
[2020-07-14] MEDS: HYDROCODONE/APAP 10/325 TAB PO PRN (01:16)
[2020-07-14 06:19] LABS: Absolute Lymphocytes (CBC) 0.5 K/uL (0.7-4.9); Basophils % 0.2 % (0-1.3); Hematocrit 38.1 % (36.0-45.0); Lymphocytes % 7.9 % (15.3-44.8); MPV 6.8 fL (7.6-11.3); RBC Red Blood Cell Count 3.84 M/uL (3.86-4.86)
[2020-07-14] MEDS ORDERED: HOME MED 1 EA UNK (Simvastatin [Simvastatin] 10 MG Tablet) PO SCH (09:00)
[2020-07-14] MEDS ORDERED: DOCUSATE NA 100 MG CAP PO SCH (09:00)
[2020-07-14] MEDS ORDERED: THIAMINE HCL 100 MG TABLET PO SCH (09:00)
[2020-07-14] MEDS ORDERED: LIDOCAINE VISCOUS 2% SOLN 15 ML UDC TOP SCH (09:00)
[2020-07-14] MEDS ORDERED: FOLIC ACID 1 MG TABLET PO SCH (09:00)
--- NOTE | 2020-07-14 09:04 | P.DS ---
Admission Date: 07/11/20 Discharge Date: 07/14/20 Primary Care Provider: Dr. Christiano Elliott; Oncology-Dr. Connell Disposition: ROUTINE DISCHARGE Discharge Condition: GOOD Reason for Admission: Intractable nausea and vomiting Consultations: none Procedures: COVID: Negative CXR: FINDINGS: Portable technique limits examination quality. The lungs are grossly clear. The heart is normal in size. No displaced fractures.Right-sided venous catheter has tip in the SVC. IMPRESSION: No acute intrathoracic process suspected. Medical Problem List: Nausea, vomiting with dehydration Rectal pain with history of rectal cancer and prior radiation/chemotherapy with noted bilateral buttocks partial-thickness complicated open wounds related to radiation pond UTIurine culture positive for E. coli Chronic pain Hypertension Anemia of chronic disease Brief History of Present Illness: 70-year-old -[place] female who presents to the emergency room with intractable nausea vomiting. Patient has also been having some abdominal pain and diarrhea. Patient's history of rectal cancer and has been getting chemotherapy and radiation. She completed this 3 months ago. Patient has radiation pond to the rectal region. She has been treating pond with Silvadene. Patient was admitted for further evaluation as patient was anemic. Hospital Course: Patient presented with nausea, vomiting and dehydration. This was complicated with rectal pain. Patient with history of rectal cancer and prior radiation chemotherapy. Patient has bilateral buttocks partial-thickness complicated open wounds related to radiation pond. Radiation buttocks wound measures 8.2 x 4 x 0.1 cm. Left buttocks measures 4.7 x 1.8 x 0.1 cm. Patient was seen and evaluated by wound care. Wound care recommended to apply viscous lidocaine 2% topical to wounds 5 minutes prior to wound care. Clean wounds with normal saline. Apply thin layer of Silvadene to the wounds. Cover with Telfa. Pain control was required. Patient was started on fentanyl 25 mcg to be changed every third day to help with the pain. At discharge she will continue with this medication along with gabapentin 600 mg twice daily. Patient will also continue with docusate 100 mg daily. Patient may take hydrocodone from home 3 times a day for breakthrough pain. Recommend follow-up with oncology this week to follow-up his hospitalization and continue her care. Patient also found to have a UTI. Urine culture was positive for E. coli. Patient will continue with Bactrim DS 1 pill twice daily for 5 more days. UTI prevention provided. Patient with hypertension. This appears stable. At discharge we will continue with Norvasc 10 mg daily. Patient with hyperlipidemia. At discharge she will continue with Zocor 20 mg daily. Patient with anemia of chronic disease. Patient did receive a transfusion of blood. Hemoglobin stable. This can be monitored by oncology. Recommend to recheck CBC later this week to monitor her progress. If transfusion is required in the future this can be done as an outpatient. Vital Signs/Physical Exam: Temp Pulse Resp BP Pulse Ox 97.4 F 77 18 166/90 H 98 07/14/20 00:00 07/14/20 00:00 07/14/20 05:24 07/14/20 04:00 07/14/20 05:24 General: Alert, In no apparent distress, Oriented x3, Cooperative HEENT: Atraumatic Neck: Supple Respiratory: Clear to auscultation bilaterally, Normal air movement Cardiovascular: Normal pulses, Regular rate/rhythm Gastrointestinal: Normal bowel sounds, No tenderness, No masses, No rebound, No guarding Musculoskeletal: No erythema, No tenderness, No warmth Neurological: Normal speech, Normal strength at 5/5 x4 extr, Normal tone, Normal affect Laboratory Data at Discharge: WBC 6.10 K/uL (4.3-10.9) 07/14/20 06:00 Hgb 12.5 g/dL (12.0-15.0) 07/14/20 06:00 Hct 38.1 % (36.0-45.0) 07/14/20 06:00 Plt Count 212 K/uL (152-406) 07/14/20 06:00 PT 15.4 SECONDS (9.5-12.5) H 07/11/20 09:25 INR 1.34 07/11/20 09:25 Sodium 147 mmol/L (136-145) H 07/12/20 06:00 Potassium 3.5 mmol/L (3.5-5.1) 07/12/20 06:00 BUN 8 mg/dL (7-18) 07/12/20 06:00 Creatinine 0.50 mg/dL (0.55-1.3) L 07/12/20 06:00 Glucose 74 mg/dL (74-106) 07/12/20 06:00 Phosphorus 2.2 mg/dL (2.5-4.9) L 07/12/20 06:00 Magnesium 1.9 mg/dL (1.8-2.4) 07/12/20 06:00 Total Bilirubin 0.3 mg/dL (0.2-1.0) 07/12/20 06:00 AST 21 U/L (15-37) 07/12/20 06:00 ALT 19 U/L (12-78) 07/12/20 06:00 Alkaline Phosphatase 82 U/L (45-117) 07/12/20 06:00 Lipase 290 U/L (73-393) 07/11/20 09:25 Home Medications: Gabapentin 600 mg PO BID 03/27/20 Simvastatin 10 mg PO DAILY 03/27/20 Hydrocodone Bit/Acetaminophen [Hydrocodon-Acetaminophen 5-325] 1 tab PO Q8H PRN 07/11/20 Amlodipine Besylate [Norvasc] 10 mg PO DAILY 07/12/20 Docusate [Colace Cap*] 100 mg PO DAILY #30 cap 07/14/20 Folic Acid 1 mg PO DAILY #90 tablet 07/14/20 Lidocaine Viscous 2% Soln [Xylocaine Viscous Oral 2%*] 15 ml TOP DAILY #450 ml 07/14/20 Smz./Tmp. [Bactrim Ds 800 MG/160 MG*] 1 tab PO BID #10 tab 07/14/20 Thiamine HCl 100 mg PO DAILY #90 tablet 07/14/20 fentaNYL [Duragesic] 25 mcg TD EVERY 3RD DAY #5 patch.td72 07/14/20 New Medications: Smz./Tmp. [Bactrim Ds 800 MG/160 MG*] 1 tab PO BID #10 tab Docusate [Colace Cap*] 100 mg PO DAILY #30 cap fentaNYL [Duragesic] 25 mcg TD EVERY 3RD DAY #5 patch.td72 Folic Acid 1 mg PO DAILY #90 tablet Thiamine HCl 100 mg PO DAILY #90 tablet Lidocaine Viscous 2% Soln [Xylocaine Viscous Oral 2%*] 15 ml TOP DAILY #450 ml Physician Discharge Instructions: Patient presented with nausea, vomiting and dehydration. This was complicated with rectal pain. Patient with history of rectal cancer and prior radiation chemotherapy. Patient has bilateral buttocks partial-thickness complicated open wounds related to radiation pond. Radiation buttocks wound measures 8.2 x 4 x 0.1 cm. Left buttocks measures 4.7 x 1.8 x 0.1 cm. Patient was seen and evaluated by wound care. Wound care recommended to apply viscous lidocaine 2% topical to wounds 5 minutes prior to wound care. Clean wounds with normal saline. Apply thin layer of Silvadene to the wounds. Cover with Telfa. Pain control was required. Patient was started on fentanyl 25 mcg to be changed every third day to help with the pain. At discharge she will continue with this medication along with gabapentin 600 mg twice daily. Patient will also continue with docusate 100 mg daily. Patient may take hydrocodone from home 3 times a day for breakthrough pain. Recommend follow-up with oncology this week to follow-up his hospitalization and continue her care. Patient also found to have a UTI. Urine culture was positive for E. coli. Patient will continue with Bactrim DS 1 pill twice daily for 5 more days. UTI prevention provided. Patient with hypertension. This appears stable. At discharge we will continue with Norvasc 10 mg daily. Patient with hyperlipidemia. At discharge she will continue with Zocor 20 mg daily. Patient with anemia of chronic disease. Patient did receive a transfusion of blood. Hemoglobin stable. This can be monitored by oncology. Recommend to recheck CBC later this week to monitor her progress. If transfusion is required in the future this can be done as an outpatient. She will continue with folic acid 1 mg daily and thiamine 100 mg daily. Diet: GI soft Activity: Ad shantel Followup: Fred Elliott DO [Primary Care Provider] - Time spent managing pt's care (in minutes): 55
[2020-07-14] MEDS: GABAPENTIN 300 MG CAP PO SCH (09:12)
[2020-07-14] MEDS: HEPARIN 5000 UNIT/ML 1 ML VIAL SQ SCH (09:12)
[2020-07-14] MEDS: SMZ./TMP. 800/160 MG TABLET PO SCH (09:12)
[2020-07-14] MEDS: AMLODIPINE 10 MG TAB PO SCH (09:13)
[2020-07-14] MEDS: SILVER SULFADIAZINE 1% 50 GM TOP SCH (09:13)
[2020-07-14] MEDS: HYDROMORPHONE HCL 1 MG/ML INJ IV PRN (09:14)
[2020-07-14 09:21] VITALS: BP 203/88
[2020-07-14 09:28] VITALS: TEMP 97
[2020-07-14 09:32] VITALS: O2SAT 97
[2020-07-14 11:26] LABS: White Blood Cell Scan OK (OK)
[2020-07-14 11:27] LABS: Anisocytosis 2+; Blood Morphology Comment NOTED (NOT SEEN); Platelet Estimate ADEQ; Poikilocytosis SLIGHT
== END 2020-07-14 11:37 | disposition home or self-care (01) | DRG 641 ==
LOC: ER 08:28 → ERHOLD 13:27 → 2ND 16:47
PROVIDERS: ADMIT Hospitalist; ATTEND Family Medicine
PROC: 30233N1 Transfusion of Nonautologous Red Blood Cells into Peripheral Vein, Percutaneous Approach (ICD-10-PCS; principal; 2020-07-11)
DX: E86.0 Dehydration (principal); N39.0 Urinary tract infection, site not specified; I10 Essential (primary) hypertension; D53.9 Nutritional anemia, unspecified; G89.29 Other chronic pain; E10.9 Type 1 diabetes mellitus without complications; E78.5 Hyperlipidemia, unspecified; K62.89 Other specified diseases of anus and rectum; D63.8 Anemia in other chronic diseases classified elsewhere; F17.210 Nicotine dependence, cigarettes, uncomplicated; L89.322 Pressure ulcer of left buttock, stage 2; L89.312 Pressure ulcer of right buttock, stage 2; B96.20 Unspecified Escherichia coli [E. coli] as the cause of diseases classified elsewhere; T21.0 Burn of unspecified degree of trunk; R19.7 Diarrhea, unspecified; R11.2 Nausea with vomiting, unspecified; Z88.8 Allergy status to other drugs, medicaments and biological substances; Z85.048 Personal history of other malignant neoplasm of rectum, rectosigmoid junction, and anus; Z79.899 Other long term (current) drug therapy; Z90.49 Acquired absence of other specified parts of digestive tract; Z20.822 Contact with and (suspected) exposure to COVID-19
CPT/HCPCS: 36415; 36430; 71045; 80048; 80053; 80076; 81003; 82533; 82607; 82746; 83540; 83605; 83690; 83735; 83880; 84100; 84145; 84425; 84439; 84443; 84484; 85014; 85018; 85025; 85610; 86850; 86900; 86901; 87077; 87086; 87088; 87186; 93005; 96361; 96365; 96366; 96375; 99251; 99285; J1170; J1644; J2270; J2405; J3411; J3480; J7030; J7050; P9016; U0003

== ENCOUNTER 2020-07-24 08:34 | Observation (INO) | payer OTHER ==
--- OUTSIDE RECORDS SUMMARY | 2020-07-24 08:36 | XMS REPORT | Continuity of Care Document ---
:1950 Author Organization [facility] t Address [address] [place] [address] Care Team Providers Name Role Phone Sergio Jin DO Attending Clinician Graeme Toledo Attending Clinician Herson MEADOWS Attending Clinician Problems This patient has no known problems. Allergies, Adverse Reactions, Alerts Allergy Allergy Status Severity Reaction(s) Onset Inactive Treating Comm ents Source Name Type Date Date Clinician Soma Adverse Active rash [facility] Medications Ordered Filled Start Stop Current Ordering Indication Dosage Frequency Signature Comments Components Source Medication Medication Date Date Medication? Clinician (SIG) Name Name Amlodipine Amlodipine Yes Fred take [address] [facility] Besylate Besylate Elliott tablet by L u[facility] - mouth [facility] Gabapentin Gabapentin Yes Fred [address] [facility] Lisinopril Lisinopril Yes Fred take [address] [facility] Elliott tablet by [facility] Atorvastati Atorvastati Yes Fred [address] [facility] n Calcium n Calcium Elliott [facility] Trulicity Trulicity 2019- No Fred one [facility] Procedures This patient has no known procedures. Encounters Start End Encounter Admission Attending Care Care Encounter Source Date/Time Date/Time Type Type Clinicians Facility Department ID 2020-05-25 2020-05-25 Patient Davin [facility] [id number] 00:00:00 00:00:00 Outreach Og PRIMARY [id number] [facility] [id number] [place] [id number] 2020-03-04 2020-03-04 [facility] [id number] [place] [facility] 2020-02-28 2020-02-28 [facility] [id number] 00:00:00 00:00:00 Surgery Linda Morenoton [id number] [place] [id number] Professio [phone] [facility] 204 [facility] 2020-02-26 2020-02-26 [facility] [id number] 00:00:00 00:00:00 Management Ariela Rebolledo [id number] [place] [id number] Professio [phone] [facility] 188 [facility] 2020-02-26 2020-02-26 [facility] [id number] 00:00:00 00:00:00 [facility] [id number] [facility] [id number] [facility] 2020-02-26 2020-02-26 [facility] [id number] 00:00:00 00:00:00 Management Ariela Rebolledo [id number] [place] [id number] Professio [phone] [facility] 188 [facility] 2020-02-24 2020-02-24 [facility] [id number] 00:00:00 00:00:00 Ariela Rebolledo [id number] [place] [id number] Professio [phone] [address] 2020-02-19 2020-02-19 [facility] [id number] 08:31:10 23:59:00 Encounter Ariela Rebolledo [id number] [place] [id number] [place] [id number] [id number] 2020-02-19 2020-02-19 [facility] [id number] 08:29:10 08:30:00 Encounter Ariela Rebolledo [id number] [place] [id number] [place] [id number] [id number] 2020-02-12 2020-02-12 Outpatient [facility] [id number] [facility] ent Clinics 2020-02-11 2020-02-11 Office [facility] [id number] 13:25:06 14:29:00 Visit Ariela Rebolledo [id number] [place] [id number] Professio [phone] [address] 2019-11-12 2019-11-12 [facility] [id number] [address] 10:00:00 10:00:00 t [place] s - Infor [facility] Medicine Outpati ent Clinics 2019-08-27 2019-08-27 [facility] [id number] 09:00:00 09:00:00 t Spyra s - Infor [facility] Outpat[facility] ent Clinics 2019-08-06 2019-08-06 [facility] [id number] 11:00:00 11:00:00 [place] [employer] s - Infor [facility] Medicine Outpati ent Clinics 2019-08-06 2019-08-06 [facility] [id number] 11:00:00 11:00:00 t Spyra s - Infor [facility] Medicine Outpati ent Clinics 2019-06-10 2019-06-10 [facility] [id number] 09:15:00 09:15:[address] [employer] [address] [facility] Medicine Outpati ent Clinics 2019-04-10 2019-04-10 [facility] [id number] 16:41:00 16:41:[address] [employer] [address] [facility] Medicine Outpati ent Clinics 2018-12-13 2018-12-13 [facility] [id number] 09:30:00 09:30:00 [place] [address] [facility] Medicine Outpati ent Clinics 2018-04-26 2018-04-26 [facility] [id number] 09:30:00 09:30:00 [place] [address] [facility] Medicine Outpati ent Clinics 2017-10-26 2017-10-26 [facility] [id number] 09:45:00 09:45:00 t [place] [employer] s - Drive [facility] Medicine Outpati ent Clinics 2017-09-27 2017-09-27 [facility] [id number] 12:58:00 12:58:00 [place] [address] [facility] Medicine Outpati ent Clinics 2017-08-24 2017-08-24 [facility] [id number] 09:45:00 09:45:00 t [place] [employer] [address] - [address] [facility] Medicine Outpati ent Clinics Results This patient has no known results.
[2020-07-24] MEDS ORDERED: MORPHINE 4 MG/ML SYR ONE ×2 (09:40→13:32)
[2020-07-24] MEDS ORDERED: NA CHLORIDE 0.9% 500 ML ONE (09:40)
[2020-07-24 10:06] LABS: Absolute Lymphocytes (CBC) 0.4 K/uL (0.7-4.9); Basophils % 0.6 % (0-1.3); Hematocrit 35.6 % (36.0-45.0); Lymphocytes % 8.1 % (15.3-44.8); MPV 7.2 fL (7.6-11.3); RBC Red Blood Cell Count 3.53 M/uL (3.86-4.86)
[2020-07-24] MEDS ORDERED: ONDANSETRON 4 MG/2 ML VIAL ONE (10:07)
[2020-07-24] MEDS ORDERED: CIPROFLOXACIN 400mg IV 400 MG/200 ML BAG IV ONE (10:07)
[2020-07-24] MEDS ORDERED: METRONIDAZOLE 500mg IVPB 500 MG/100 ML BAG IV ONE (10:08)
[2020-07-24] MEDS ORDERED: NA CHLORIDE 0.9% 1,000 ML ONE (10:08)
[2020-07-24 10:15] LABS: Protime INR 1.09
[2020-07-24 10:29] LABS: ALT/SGPT 21 U/L (12-78); AST/SGOT 22 U/L (15-37); Albumin 2.7 g/dL (3.4-5.0); Alkaline Phosphatase 75 U/L (45-117); BUN Blood Urea Nitrogen 7 mg/dL (7-18); Bicarbonate 21 mmol/L (21-32); Bilirubin Direct 0.1 mg/dL (0-0.2); Bilirubin Total 0.4 mg/dL (0.2-1.0); Glucose Level 73 mg/dL (74-106); Lipase 124 U/L (73-393); Magnesium 1.7 mg/dL (1.8-2.4); NT PRO-BNP 1773 pg/mL (<125); Protein, Total 7.4 g/dL (6.4-8.2); Sodium Level 139 mmol/L (136-145); Troponin (Emerg Dept Use Only) < 0.02 ng/mL (0.0-0.045)
[2020-07-24 10:42] LABS: Urine Blood Negative (Negative); Urine Glucose Negative (Negative); Urine Protein 1+ (Negative); Urine Specific Gravity 1.025 (1.005-1.030); Urine pH 5.5 (5.0-7.0)
[2020-07-24] MEDS ORDERED: LIDOCAINE VISCOUS 2% SOLN 15 ML UDC ONE (10:49)
--- NOTE | 2020-07-24 11:15 | ER ---
Nurse's Notes [facility] Name: Ernestina Marcus Age: 70 yrs Sex: Female : 1950 Arrival Date: 07/24/2020 Time: 08:37 Bed 14 Private MD: Fred Elliott Diagnosis: Radiation proctitis-intractable pain;Abdominal tenderness;Hypomagnesemia;Type 1 diabetes mellitus Presentation: 07/24 08:58 Chief complaint: Patient states: Rectal pain and diarrhea x 3 days. Pt reports she was ss admitted 2 weeks ago for the same thing and it just started back up. Coronavirus screen: Client denies travel out of the [place] in the last 14 days. Ebola Screen: Patient denies exposure to infectious person. Patient denies travel to an Ebola-affected area in the 21 days before illness onset. Initial Sepsis Screen: Does the patient meet any 2 criteria? No. Patient's initial sepsis screen is negative. Does the patient have a suspected source of infection? No. Patient's initial sepsis screen is negative. Risk Assessment: Do you want to hurt yourself or someone else? Patient reports no desire to harm self or others. Onset of symptoms was July 21, 2020. 08:58 Method Of Arrival: Wheelchair ss 08:58 Acuity: ANNIE 3 ss Triage Assessment: 11:31 General: Appears distressed. GI: Reports. tr6 Historical: - Allergies: 09:00 Soma; ss - PMHx: 09:00 Chronic pain; Diabetes - IDDM; Glaucoma; Hypertension; RECTAL CA; ss - PSHx: 09:00 Cholecystectomy; Appendectomy; ; ss - Immunization history:: Adult Immunizations up to date. - Social history:: Smoking status: Patient reports the use of cigarette tobacco products, smokes one-half pack cigarettes per day. - Family history:: not pertinent. Screenin:29 Abuse screen: Denies threats or abuse. Denies injuries from another. Nutritional tr6 screening: No deficits noted. Tuberculosis screening: No symptoms or risk factors identified. Fall Risk None identified. Assessment: 09:00 General: Appears distressed, uncomfortable, Behavior is crying. Pain: Complains of pain tr6 in rectal pain. Neuro: No deficits noted. Cardiovascular: No deficits noted. Respiratory: No deficits noted. GI: No deficits noted. : No deficits noted. EENT: No deficits noted. Derm: Reports burning, burning in rectal area due to radiation therapy. Musculoskeletal: No deficits noted. 11:27 Reassessment: pt transferred to CT. tr6 11:29 GI: Abdomen is flat. tr6 12:26 Reassessment: No changes from previously documented assessment. Patient and/or family tr6 updated on plan of care and expected duration. Pain level reassessed. Patient is alert, oriented x 3, equal unlabored respirations, skin warm/dry/pink. pt reports rectal pain has somewhat improved. pt resting comfortably on abdomen as she is unable to lay on her back. daughter at bedside. 19:15 Reassessment: Patient appears in no apparent distress at this time. Patient and/or wh family updated on plan of care and expected duration. Pain level reassessed. Patient is alert, oriented x 3, equal unlabored respirations, skin warm/dry/pink. 19:42 Reassessment: Updated Pt on room assignment. Vital Signs: 08:58 BP 195 / 73; Pulse 93; Resp 20; Temp 98.0(O); Pulse Ox 98% on R/A; Weight 42.64 kg; Height 4 ft. 11 in. (149.86 cm); Pain 10/10; 12:26 BP 196 / 75; Pulse 70; Resp 18; Pulse Ox 100% ; tr6 12:59 BP 197 / 86; Pulse 69; Resp 18; Pulse Ox 100% ; tr6 19:30 BP 168 / 71; Pulse 75; Resp 18; Pulse Ox 100% on R/A; 08:58 Body Mass Index 18.99 (42.64 kg, 149.86 cm) ED Course: 08:37 Patient arrived in ED. mr 08:38 Fred Elliott DO is Private Physician. mr 08:44 Lane Gamez MD is Attending Physician. [facility] 09:00 Triage completed. ss 09:00 Arm band placed on right wrist. 09:42 Type And Screen Sent. tr6 09:44 CBC with Automated Diff Sent. tr6 09:44 NT PRO-BNP Sent. tr6 09:44 Basic Metabolic Panel Sent. tr6 09:44 Magnesium Sent. tr6 09:56 Inserted saline lock: 22 gauge in right antecubital area, using aseptic technique. mt Blood collected. 10:07 XRAY Chest (1 view) In Process Unspecified. EDMS 11:12 Monica Page MD is Hospitalizing Provider. tarah 11:29 No provider procedures requiring assistance completed. tr6 11:31 Patient has correct armband on for positive identification. Bed in low position. Call tr6 light in reach. Side rails up X 1. 11:57 Abdomen In Process Unspecified. EDMS 19:54 Patient admitted, IV remains in place. Administered Medications: 09:25 Drug: NS 0.9% 500 ml Route: IV; Rate: bolus; Site: right antecubital; tr6 10:18 Follow up: IV Status: Completed infusion; IV Intake: 500ml tr6 12:28 Follow up: Response: No adverse reaction; IV Status: Completed infusion; IV Intake: tr6 500ml 09:43 Drug: morphine 4 mg Route: IVP; Site: right antecubital; tr6 10:17 Follow up: Response: No adverse reaction; Pain is unchanged, physician notified tr6 10:01 Drug: NS 0.9% 1000 ml Route: IV; Rate: 125 ml/hr; Site: left antecubital; tr6 19:43 Follow up: Response: No adverse reaction; IV Status: Completed infusion 10:01 Drug: Zofran (Ondansetron) 4 mg Route: IVP; Site: left antecubital; tr6 10:17 Follow up: Response: No adverse reaction tr6 10:01 Drug: Cipro (ciprofloxacin) 400 mg Volume: 200 ml; Route: IVPB; Infused Over: 60 mins; tr6 Site: left antecubital; 10:17 Follow up: Response: No adverse reaction tr6 12:27 Follow up: Response: No adverse reaction; IV Status: Completed infusion; IV Intake: tr6 200ml 12:03 Drug: Viscous Lidocaine Liquid (4 %) 10 ml Route: Mucous Membrane; tr6 12:04 Drug: Flagyl (metroNIDAZOLE) 500 mg Volume: 100 ml; Route: IVPB; Rate: 200 ml/hr; tr6 Infused Over: 30 mins; Site: left antecubital; 12:27 Follow up: IV Status: Completed infusion; IV Intake: 100ml tr6 12:18 Drug: Magnesium Sulfate 1 grams Route: IVPB; Infused Over: 1 hrs; Site: left tr6 antecubital; 19:12 Follow up: Response: No adverse reaction; IV Status: Completed infusion Intake: 10:18 IV: 500ml; Total: 500ml. tr6 12:27 IV: 100ml; Total: 600ml. tr6 12:27 IV: 200ml; Total: 800ml. tr6 12:28 IV: 500ml; Total: 1300ml. tr6 Outcome: 11:14 Decision to Hospitalize by Provider. [facility] 19:53 Admitted to Tele accompanied by tech, family with patient, via stretcher, room 410, with chart, Report called to Juan Haines RN 19:53 Condition: stable 19:53 Instructed on the need for admit. 19:59 Patient left the ED. Signatures: Dispatcher [employer] EDMS Lane Gamez MD MD cha Rivera, Ebonie Brynn Suarez, RN Zonia Mondragon mt, Winsy, RN RN Annabelle Faye RN RN tr6 Corrections: (The following items were deleted from the chart) 10:21 10:18 Viscous Lidocaine Liquid (4 %) 10 ml Mucous Membrane tr6 tr6 12:53 12:40 CORONAVIRUS+MR.LAB.BRZ drawn and sent. tr6 EDLA
--- NOTE | 2020-07-24 11:15 | EDPHYS ---
Physician Documentation [facility] Name: Ernestina Marcus Age: 70 yrs Sex: Female : 1950 Arrival Date: 07/24/2020 Time: 08:37 Bed 14 Private MD: Earl [facility] ED Physician [address] Gamez HPI: 07/24 09:17 This 70 yrs old Black Female presents to ER via Wheelchair with complaints of Rectal tarah Pain. 09:17 The patient presents to the emergency department with bleeding from the rectum/anus, tarah that is moderate. Onset: The symptoms/episode began/occurred 2 day(s) ago. Context: the patient RECTAL CARCINOMA/ RADIATION REAL. Modifying factors: The symptoms are alleviated by nothing, The symptoms are aggravated by nothing. Associate signs and symptoms: Pertinent positives: abdominal pain in the right lower quadrant and left lower quadrant. The patient has experienced similar episodes in the past, multiple times. Historical: - Allergies: 09:00 Soma; ss - PMHx: 09:00 Chronic pain; Diabetes - IDDM; Glaucoma; Hypertension; RECTAL CA; ss - PSHx: 09:00 Cholecystectomy; Appendectomy; ; ss - Immunization history:: Adult Immunizations up to date. - Social history:: Smoking status: Patient reports the use of cigarette tobacco products, smokes one-half pack cigarettes per day. - Family history:: not pertinent. ROS: 09:17 Constitutional: Negative for fever, chills, and weight loss, Eyes: Negative for injury, tarah pain, redness, and discharge, ENT: Negative for injury, pain, and discharge, Neck: Negative for injury, pain, and swelling, Cardiovascular: Negative for chest pain, palpitations, and edema, Respiratory: Negative for shortness of breath, cough, wheezing, and pleuritic chest pain, Back: Negative for injury and pain, : Negative for injury, bleeding, discharge, and swelling, MS/Extremity: Negative for injury and deformity, Skin: Negative for injury, rash, and discoloration, Neuro: Negative for headache, weakness, numbness, tingling, and seizure, Psych: Negative for depression, anxiety, suicide ideation, homicidal ideation, and hallucinations, Allergy/Immunology: Negative for hives, rash, and allergies, Endocrine: Negative for neck swelling, polydipsia, polyuria, polyphagia, and marked weight changes, Hematologic/Lymphatic: Negative for swollen nodes, abnormal bleeding, and unusual bruising. 09:17 Abdomen/GI: Positive for abdominal pain, abdominal cramps, rectal pain. Exam: 09:17 Constitutional: This is a well developed, well nourished patient who is awake, alert, tarah and in no acute distress. Head/Face: Normocephalic, atraumatic. Eyes: Pupils equal round and reactive to light, extra-ocular motions intact. Lids and lashes normal. Conjunctiva and sclera are non-icteric and not injected. Cornea within normal limits. Periorbital areas with no swelling, redness, or edema. ENT: Nares patent. No nasal discharge, no septal abnormalities noted. Tympanic membranes are normal and external auditory canals are clear. Oropharynx with no redness, swelling, or masses, exudates, or evidence of obstruction, uvula midline. Mucous membranes moist. Neck: Trachea midline, no thyromegaly or masses palpated, and no cervical lymphadenopathy. Supple, full range of motion without nuchal rigidity, or vertebral point tenderness. No Meningismus. Chest/axilla: Normal chest wall appearance and motion. Nontender with no deformity. No lesions are appreciated. Cardiovascular: Regular rate and rhythm with a normal S1 and S2. No gallops, murmurs, or rubs. Normal PMI, no JVD. No pulse deficits. Respiratory: Lungs have equal breath sounds bilaterally, clear to auscultation and percussion. No rales, rhonchi or wheezes noted. No increased work of breathing, no retractions or nasal flaring. Back: No spinal tenderness. No costovertebral tenderness. Full range of motion. Female : Normal external genitalia. Skin: Warm, dry with normal turgor. Normal color with no rashes, no lesions, and no evidence of cellulitis. MS/ Extremity: Pulses equal, no cyanosis. Neurovascular intact. Full, normal range of motion. Neuro: Awake and alert, GCS 15, oriented to person, place, time, and situation. Cranial nerves II-XII grossly intact. Motor strength 5/5 in all extremities. Sensory grossly intact. Cerebellar exam normal. Normal gait. Psych: Awake, alert, with orientation to person, place and time. Behavior, mood, and affect are within normal limits. 09:17 Abdomen/GI: Inspection: abdomen appears normal, Bowel sounds: normal, Palpation: moderate abdominal tenderness, in the suprapubic area, right lower quadrant and left lower quadrant, Rectal exam: swelling, that is mild, tenderness, that is moderate, RADIATION REAL. 11:15 ECG was reviewed by the Attending Physician. [facility] Vital Signs: 08:58 BP 195 / 73; Pulse 93; Resp 20; Temp 98.0(O); Pulse Ox 98% on R/A; Weight 42.64 kg; ss Height 4 ft. 11 in. (149.86 cm); Pain 10/10; 12:26 BP 196 / 75; Pulse 70; Resp 18; Pulse Ox 100% ; tr6 12:59 BP 197 / 86; Pulse 69; Resp 18; Pulse Ox 100% ; tr6 19:30 BP 168 / 71; Pulse 75; Resp 18; Pulse Ox 100% on R/A; wh 08:58 Body Mass Index 18.99 (42.64 kg, 149.86 cm) ss MDM: 08:57 Patient medically screened. [facility] 09:19 Differential diagnosis: hemorrhoids, fissure. Data reviewed: vital signs, nurses notes, [facility] lab test result(s), EKG, radiologic studies, CT scan, plain films. Data interpreted: surveillance system monitor: rate is 93 beats/min, rhythm is regular, Pulse oximetry: on room air is 98 %. Test interpretation: by ED physician or midlevel provider: ECG, plain radiologic studies. Counseling: I had a detailed discussion with the patient and/or guardian regarding: the historical points, exam findings, and any diagnostic results supporting the discharge/admit diagnosis, lab results, radiology results, the need for further work-up and treatment in the hospital. 07/24 08:45 Order name: Basic Metabolic Panel [facility] 07/24 08:45 Order name: CBC with Diff [facility] 07/24 08:45 Order name: LFT's [facility] 07/24 08:45 Order name: Magnesium [facility] 07/24 08:45 Order name: NT PRO-BNP [facility] 07/24 08:45 Order name: PT-INR [facility] 07/24 08:45 Order name: Troponin (emerg Dept Use Only); Complete Time: 10:54 [facility] 07/24 08:45 Order name: Lipase; Complete Time: 10:54 [facility] 07/24 08:45 Order name: Basic Metabolic Panel; Complete Time: 10:54 EDMS 07/24 08:45 Order name: CBC with Automated Diff; Complete Time: 12:39 EDMS 07/24 08:45 Order name: Liver (Hepatic) Function; Complete Time: 10:54 EDMS 07/24 08:45 Order name: Magnesium; Complete Time: 10:54 EDMS 07/24 08:45 Order name: NT PRO-BNP; Complete Time: 10:54 EDMS 07/24 08:45 Order name: Protime (+INR); Complete Time: 10:32 EDMS 07/24 08:45 Order name: XRAY Chest (1 view); Complete Time: 12:39 tarah 07/24 09:17 Order name: Type And Screen tarah 07/24 09:49 Order name: Abdomen ; Complete Time: 12:39 EDMS 07/24 10:31 Order name: CBC Smear Scan; Complete Time: 12:39 EDMS 07/24 10:42 Order name: Urine Dipstick-Ancillary; Complete Time: 10:54 EDMS 07/24 13:15 Order name: CBC with Automated Diff EDMS 07/24 13:15 Order name: Comprehensive Metabolic Panel EDMS 07/24 13:15 Order name: Comprehensive Metabolic Panel EDMS 07/24 13:15 Order name: Protime (+INR) EDMS 07/24 13:15 Order name: Protime (+INR) EDMS 07/24 13:15 Order name: PTT, Activated Partial Thromb EDMS 07/24 13:15 Order name: PTT, Activated Partial Thromb EDMS 07/24 13:15 Order name: CBC with Automated Diff EDMS 07/24 13:53 Order name: SARS-COV-2 RT PCR EDMS 07/24 08:45 Order name: EKG; Complete Time: 08:46 tarah 07/24 08:45 Order name: Cardiac monitoring; Complete Time: 11:19 tarah 07/24 08:45 Order name: EKG - Nurse/Tech; Complete Time: 11:19 tarah 07/24 08:45 Order name: IV Saline Lock; Complete Time: 09:44 tarah 07/24 08:45 Order name: Labs collected and sent; Complete Time: 09:25 tarah 07/24 08:45 Order name: O2 Per Protocol; Complete Time: 09:44 tarah 07/24 08:45 Order name: O2 Sat Monitoring; Complete Time: 09:44 [facility] 07/24 08:45 Order name: Urine Dipstick-Ancillary (obtain specimen); Complete Time: 10:41 [facility] 07/24 09:45 Order name: Labs - recollect needed: recollect all the blood hemolyzed; Complete Time: eb 09:56 07/24 13:15 Order name: Regular EDMS EC:15 Rate is 92 beats/min. Rhythm is regular. QRS [place] is Normal. MS interval is normal. QRS tarah interval is normal. QT interval is normal. No Q waves. T waves are Normal. No ST changes noted. Clinical impression: NSR w/ Non-specific ST/T Changes and No evidence of ischemia. Interpreted by me. Reviewed by me. Administered Medications: 09:25 Drug: NS 0.9% 500 ml Route: IV; Rate: bolus; Site: right antecubital; tr6 10:18 Follow up: IV Status: Completed infusion; IV Intake: 500ml tr6 12:28 Follow up: Response: No adverse reaction; IV Status: Completed infusion; IV Intake: tr6 500ml 09:43 Drug: morphine 4 mg Route: IVP; Site: right antecubital; tr6 10:17 Follow up: Response: No adverse reaction; Pain is unchanged, physician notified tr6 10:01 Drug: NS 0.9% 1000 ml Route: IV; Rate: 125 ml/hr; Site: left antecubital; tr6 19:43 Follow up: Response: No adverse reaction; IV Status: Completed infusion 10:01 Drug: Zofran (Ondansetron) 4 mg Route: IVP; Site: left antecubital; tr6 10:17 Follow up: Response: No adverse reaction tr6 10:01 Drug: Cipro (ciprofloxacin) 400 mg Volume: 200 ml; Route: IVPB; Infused Over: 60 mins; tr6 Site: left antecubital; 10:17 Follow up: Response: No adverse reaction tr6 12:27 Follow up: Response: No adverse reaction; IV Status: Completed infusion; IV Intake: tr6 200ml 12:03 Drug: Viscous Lidocaine Liquid (4 %) 10 ml Route: Mucous Membrane; tr6 12:04 Drug: Flagyl (metroNIDAZOLE) 500 mg Volume: 100 ml; Route: IVPB; Rate: 200 ml/hr; tr6 Infused Over: 30 mins; Site: left antecubital; 12:27 Follow up: IV Status: Completed infusion; IV Intake: 100ml tr6 12:18 Drug: Magnesium Sulfate 1 grams Route: IVPB; Infused Over: 1 hrs; Site: left tr6 antecubital; 19:12 Follow up: Response: No adverse reaction; IV Status: Completed infusion Disposition: 07/24/20 11:14 Hospitalization ordered by Monica Page for Observation. Preliminary diagnosis are Radiation proctitis - intractable pain, Abdominal tenderness, Hypomagnesemia, Type 1 diabetes mellitus. - Bed requested for Telemetry/MedSurg (Inpatient). - Status is Observation. - Condition is Fair. - Problem is new. - Symptoms have improved. Signatures: Dispatcher [employer] EDStacey Gunter RN RN dw Anderson, Corey, MD MD cha Mickail, Joel, PA PA jmm Smirch, Shelby, RN RN Warner Hahn RN RN Ilene Jordan Tiffany, RN RN tr6 Corrections: (The following items were deleted from the chart) 09:49 09:16 Abdomen Pelvis W Con+CT.RAD.BRZ ordered. EDAL EDMS 12:53 12:39 CORONAVIRUS+MR.LAB.BRZ ordered. EDAL EDMS 15:32 11:14 Hospitalization Ordered by Monica Page MD for Observation. Preliminary eb diagnosis is Radiation proctitis - intractable pain; Abdominal tenderness; Hypomagnesemia; Type 1 diabetes mellitus. Bed requested for Telemetry/MedSurg (observation). Status is Observation. Condition is Fair. Problem is new. Symptoms have improved. [facility] 15:32 15:32 07/24/2020 11:14 Hospitalization Ordered by Monica Page MD for Observation. ss Preliminary diagnosis is Radiation proctitis - intractable pain; Abdominal tenderness; Hypomagnesemia; Type 1 diabetes mellitus. Bed requested for [facility] ER HOLD. Status is Observation. Condition is Fair. Problem is new. Symptoms have improved. eb 19:38 15:32 07/24/2020 11:14 Hospitalization Ordered by Monica Page MD for Observation. dw Preliminary diagnosis is Radiation proctitis - intractable pain; Abdominal tenderness; Hypomagnesemia; Type 1 diabetes mellitus. Bed requested for [facility] ER HOLD. Status is Observation. Condition is Fair. Problem is new. Symptoms have improved. ss 19:59 19:38 07/24/2020 11:14 Hospitalization Ordered by Monica Page MD for Observation. wh Preliminary diagnosis is Radiation proctitis - intractable pain; Abdominal tenderness; Hypomagnesemia; Type 1 diabetes mellitus. Bed requested for Telemetry/MedSurg (Inpatient). Status is Observation. Condition is Fair. Problem is new. Symptoms have improved. dw
--- NOTE | 2020-07-24 11:55 | RAD REPORT ---
EXAM DESCRIPTION: Kurtis Single View07/24/2020 10:06 am CLINICAL HISTORY: Cough COMPARISON: June 20232020 FINDINGS: The lungs appear clear of acute infiltrate. The heart is normal size. The tip of a centra l venous catheter lies within the superior vena cava IMPRESSION: No acute abnormalities displayed
--- NOTE | 2020-07-24 12:12 | RAD REPORT ---
EXAM DESCRIPTION: CT - Abdomen Pelvis Wo Contrast - 07/24/2020 11:57 am CLINICAL HISTORY: Abdominal pain COMPARISON: March 2020 TECHNIQUE: Computed axial tomography of the abdomen and pelvis was obtained. IV was not requested. O ral contrast was given. Coronal reconstructions performed. All CT scans are performed using dose optimization technique as appropriate and may include automated exposure control or mA/KV adjustment according to patient size. FINDINGS: The evaluation of solid organs and vessels is limited secondary to the lack of contrast a dministration. A cirrhotic liver The Spleen, pancreas, adrenals and left kidney appear grossly normal. Mild right hydronephrosis. The wall of the anus/rectum is thickened. Trace amount of ascites. The bilateral inguinal lymph nodes have decreased in size. Mild anterior subluxation L4 on L5. Spondylosis involves lumbar spine resulting in spinal stenosis IMPRESSION: Thickening of the wall of the anus/rectum. The patient has a known carcinoma. The thicke mary may indicate a combination of residual neoplasm and inflammation secondary to radiation. Mild right hydronephrosis. No genitourinary calculus. No etiology for the mild hydronephrosis noted
[2020-07-24] MEDS ORDERED: MAGNESIUM SULFATE 1 gm IVPB 1 GM/100 ML BAG IV ONE (12:28)
[2020-07-24 12:35] LABS: Anisocytosis 2+; Blood Morphology Comment NOTED (NOT SEEN); Macrocytosis SLIGHT; Platelet Estimate ADEQ; White Blood Cell Scan OK (OK)
[2020-07-24] MEDS ORDERED: ACETAMINOPHEN 500 MG TAB PO PRN (13:13)
[2020-07-24] MEDS ORDERED: ONDANSETRON 4 MG/2 ML VIAL IV PRN (13:13)
[2020-07-24] MEDS: NA CHLORIDE 0.9% 1,000 ML IV SCH ×2 (14:00→20:30)
[2020-07-24 14:09] VITALS: BMI 19.1
[2020-07-24] MEDS: PIPER/TAZO/NS 3.375gm 3.375 GM/100 ML BAG IVPB SCH (16:38)
[2020-07-24] MEDS: HYDROMORPHONE HCL 1 MG/ML INJ IV PRN ×2 (16:38→20:36)
[2020-07-24] MEDS ORDERED: PIPER/TAZO/NS 3.375gm 3.375 GM/100 ML BAG ONE (16:52)
[2020-07-24] MEDS ORDERED: HYDROMORPHONE HCL 1 MG/ML INJ ONE (17:00)
[2020-07-24] MEDS ORDERED: ACETAMINOPHEN 500 MG TAB ONE (17:08)
[2020-07-24 20:18] VITALS: O2SAT 100
[2020-07-25] MEDS: HYDROMORPHONE HCL 1 MG/ML INJ IV PRN ×5 (00:36→19:45)
[2020-07-25] MEDS: PIPER/TAZO/NS 3.375gm 3.375 GM/100 ML BAG IVPB SCH ×3 (00:44→18:21)
[2020-07-25] MEDS ORDERED: NA CHLORIDE 0.9% 100 ML ONE (01:01)
[2020-07-25] MEDS ORDERED: PIPERACIL/TAZO 3.375 GM VIAL IV ONE (01:01)
[2020-07-25] MEDS: HYDRALAZINE HCL 20 MG/ML VIAL IV PRN ×2 (02:20→11:27)
[2020-07-25] MEDS: NA CHLORIDE 0.9% 1,000 ML IV SCH ×2 (03:20→10:58)
[2020-07-25 07:00] LABS: Absolute Lymphocytes (CBC) 0.3 K/uL (0.7-4.9); Basophils % 0.6 % (0-1.3); Hematocrit 31.3 % (36.0-45.0); Lymphocytes % 5.7 % (15.3-44.8); MPV 6.7 fL (7.6-11.3); RBC Red Blood Cell Count 3.09 M/uL (3.86-4.86)
[2020-07-25 07:13] LABS: Protime INR 1.12
[2020-07-25 07:16] LABS: ALT/SGPT 15 U/L (12-78); AST/SGOT 16 U/L (15-37); Albumin 2.5 g/dL (3.4-5.0); Alkaline Phosphatase 61 U/L (45-117); BUN Blood Urea Nitrogen 4 mg/dL (7-18); Bicarbonate 24 mmol/L (21-32); Bilirubin Total 0.2 mg/dL (0.2-1.0); Glucose Level 85 mg/dL (74-106); Potassium 3.4 mmol/L (3.5-5.1); Protein, Total 6.4 g/dL (6.4-8.2); Sodium Level 143 mmol/L (136-145)
[2020-07-25] MEDS: AMLODIPINE 10 MG TAB PO SCH (09:47)
[2020-07-25] MEDS: THIAMINE HCL 100 MG TABLET PO SCH (09:47)
[2020-07-25] MEDS: GABAPENTIN 300 MG CAP PO SCH ×2 (09:47→21:49)
[2020-07-25] MEDS: ATORVASTATIN 10 MG TAB PO SCH (09:47)
[2020-07-25] MEDS: FOLIC ACID 1 MG TABLET PO SCH (09:47)
--- NOTE | 2020-07-25 10:39 | EKG ---
Test Date: 2020-07-24 Test Time: 10:58:37 Clinical Quality Assurance Associate: DAVID MEASUREMENT RESULTS: Intervals: Rate: 92 HI: 106 QRSD: 60 QT: 350 QTc: 432 [place]: P: 90 HI: 106 QRS: 55 T: 89 INTERPRETIVE STATEMENTS: Undetermined rhythm Anteroseptal infarct, age undetermined Abnormal ECG Compared to ECG 07/11/2020 10:03:59 Myocardial infarct finding now present Sinus rhythm no longer present ST (T wave) deviation no longer present Electronically Signed On 07-25-20 10:36:48 CDT by Abundio Griffin
[2020-07-25] MEDS ORDERED: LOPERAMIDE HCL 2 MG CAPSULE PO PRN (19:48)
[2020-07-25] MEDS ORDERED: HYDROCODONE/APAP 10/325 TAB PO PRN (19:48)
[2020-07-25] MEDS ORDERED: SILVER SULFADIAZINE 1% 25 GM TOP SCH (21:00)
[2020-07-25] MEDS: HYDROCORTISONE SUC 100 MG INJ IV SCH (21:49)
[2020-07-26] MEDS: PIPER/TAZO/NS 3.375gm 3.375 GM/100 ML BAG IVPB SCH ×2 (00:25→09:16)
[2020-07-26] MEDS: HYDROMORPHONE HCL 1 MG/ML INJ IV PRN ×2 (00:25→09:09)
[2020-07-26] MEDS: NA CHLORIDE 0.9% 1,000 ML IV SCH ×2 (04:23→05:48)
[2020-07-26] MEDS: GABAPENTIN 300 MG CAP PO SCH (09:15)
[2020-07-26] MEDS: AMLODIPINE 10 MG TAB PO SCH (09:15)
[2020-07-26] MEDS: ATORVASTATIN 10 MG TAB PO SCH (09:15)
[2020-07-26] MEDS: THIAMINE HCL 100 MG TABLET PO SCH (09:15)
[2020-07-26] MEDS: FOLIC ACID 1 MG TABLET PO SCH (09:16)
[2020-07-26] MEDS: HYDROCORTISONE SUC 100 MG INJ IV SCH (09:17)
[2020-07-26 12:44] VITALS: TEMP 99.2
[2020-07-26 13:27] VITALS: BP 158/72
--- NOTE | 2020-07-31 00:02 | P.HP ---
Certification for Inpatient Patient admitted to: Observation With expected LOS: <2 Midnights Patient will require the following post-hospital care: None Practitioner: I am a practitioner with admitting privileges, knowledge of patient current condition, hospital course, and medical plan of care. Services: Services provided to patient in accordance with Admission requirements found in Title 42 Section 412.3 of the Code of Federal Regulations Patient History Date of Service: 07/24/20 History of Present Illness: Patient is a 70-year-old female who presents to the emergency room withSevere abdominal pain along with some intractable nausea & vomiting. Patient has had prior admissions for similar complaints. Patient has a history of rectal cancer and has been getting chemotherapy and radiation. She completed this 6 months ago. She has significant radiation burn to the rectal region. She is on Silvadene ointment for those pond. Patient will be admitted for pain control and for antiemetics. Allergies carisoprodol [From Soma] Allergy (Verified 07/11/20 17:31) Rash Home Medications: Gabapentin 600 mg PO BID 03/27/20 Simvastatin 10 mg PO DAILY 03/27/20 Amlodipine Besylate [Norvasc] 10 mg PO DAILY 07/12/20 Docusate [Colace Cap*] 100 mg PO DAILY #30 cap 07/14/20 Folic Acid 1 mg PO DAILY #90 tablet 07/14/20 Lidocaine Viscous 2% Soln [Xylocaine Viscous Oral 2%*] 15 ml TOP DAILY #450 ml 07/14/20 Thiamine HCl 100 mg PO DAILY #90 tablet 07/14/20 fentaNYL [Duragesic] 25 mcg TD EVERY 3RD DAY #5 patch.td72 07/14/20 Loperamide [Imodium*] 2 mg PO Q6HP PRN #30 cap 07/26/20 Silver Sulfadiazine [Silvadene 1% Cream] 1 appl TOP BID #1 tube 07/26/20 metroNIDAZOLE [Flagyl] 500 mg PO Q8H #20 tablet 07/26/20 Hydrocodone 10/APAP 325 [[place] 10/325] 1 tab PO Q6H PRN #30 tab 07/27/20 - Past Medical/Surgical History Has patient received pneumonia vaccine in the past: Yes -: Rectal carcinoma -: 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 - Family History Father Family History: Reviewed- Non-Contributory - Social History Smoking Status: Never smoker Alcohol use: No CD- Drugs: No Review of Systems 10-point ROS is otherwise unremarkable Physical Examination - Vital Signs Temperature: 99.2 F Blood Pressure: 158/72 Pulse: 89 Respirations: 18 Pulse Ox (%): 99 - Physical Exam General: Alert, In no apparent distress, Oriented x3 HEENT: Atraumatic, PERRLA, Mucous membr. moist/pink, EOMI, Sclerae nonicteric Neck: Supple, 2+ carotid pulse no bruit, No LAD, Without JVD or thyroid abnormality Respiratory: Clear to auscultation bilaterally, Normal air movement Cardiovascular: Regular rate/rhythm, Normal S1 S2, No murmurs Gastrointestinal: Normal bowel sounds, Soft and benign, Non-distended, No tenderness Integumentary: Skin breakdown, Other (Radiation pond ) Neurological: Normal gait, Normal speech, Normal strength at 5/5 x4 extr, Normal tone, Sensation intact, Cranial nerves 3-12 intact, Normal affect Lymphatics: No axilla or inguinal lymphadenopathy Assessment & Plan - Problems (Diagnosis) (1) Abdominal pain Status: Acute (2) History of rectal cancer Status: Acute (3) Intractable nausea and vomiting Status: Acute - Plan Plan: 1. Continue with antiemetics 2. Continue with IV fluids 3. Continue with pain control 4. Monitor H&H 5. Antibiotics and steroids 6. GI/DVT prophylaxis Discharge Plan: Home Plan to discharge in: Greater than 2 days - Advance Directives Does patient have a Living Will: Yes Does patient have a Durable POA for Healthcare: No - Code Status/Comfort Care Code Status Assessed: Yes Code Status: Full Code Critical Care: No Time Spent Managing PTS Care (In Minutes): 40
--- NOTE | 2020-07-31 00:06 | P.PN ---
Subjective Date of Service: 07/25/20 Subjective: No new changes, No C/O voiced, Improving Review of Systems 10-point ROS is otherwise unremarkable Physical Examination - Vital Signs Temperature: 99.2 F Blood Pressure: 158/72 Pulse: 89 Respirations: 18 Pulse Ox (%): 99 - Physical Exam General: Alert, In no apparent distress, Oriented x3 Respiratory: Clear to auscultation bilaterally, Normal air movement Cardiovascular: Normal pulses, Regular rate/rhythm, Normal S1 S2 Gastrointestinal: Soft and benign, Non-distended, W/out splenomegaly, No tenderness Musculoskeletal: No clubbing, No swelling Neurological: Normal strength at 5/5 x4 extr, Normal tone, Sensation intact, Cranial nerves 3-12 intact Assessment & Plan - Problems (Diagnosis) (1) Abdominal pain Status: Acute (2) History of rectal cancer Status: Acute (3) Intractable nausea and vomiting Status: Acute - Plan Plan: Continue with plan of care as mentioned below 1. Continue with antiemetics 2. Continue with IV fluids 3. Continue with pain control 4. H&H is stable 5. Continue with antibiotics and steroids 6. GI/DVT prophylaxis Discharge Plan: Home Plan to discharge in: Greater than 2 days - Advance Directives Does patient have a Living Will: Yes Does patient have a Durable POA for Healthcare: No - Code Status/Comfort Care Code Status: Full Code Critical Care: No Time Spent Managing PTS Care (In Minutes): 35
--- NOTE | 2020-07-31 00:08 | P.DS ---
Discharge Date: 07/26/20 Disposition: ROUTINE DISCHARGE Discharge Condition: GOOD - Problems (1) Abdominal pain Status: Acute (2) History of rectal cancer Status: Acute (3) Intractable nausea and vomiting Status: Acute Brief History of Present Illness: Patient is a 70-year-old female who presents to the emergency room withSevere abdominal pain along with some intractable nausea & vomiting. Patient has had prior admissions for similar complaints. Patient has a history of rectal cancer and has been getting chemotherapy and radiation. She completed this 6 months ago. She has significant radiation burn to the rectal region. She is on Silvadene ointment for those pond. Patient will be admitted for pain control and for antiemetics. Hospital Course: Patient has done well during hospital stay. Pain is controlled. Hemoglobin is stable. Patient clinically is doing well. Patient is stable for discharge home. Vital Signs/Physical Exam: Temp Pulse Resp BP Pulse Ox 99.2 F 89 18 158/72 H 99 07/31/20 00:06 07/31/20 00:06 07/31/20 00:06 07/31/20 00:06 07/31/20 00:06 General: Alert, In no apparent distress, Oriented x3 Laboratory Data at Discharge: WBC 5.70 K/uL (4.3-10.9) D 07/25/20 06:38 Hgb 10.4 g/dL (12.0-15.0) L 07/25/20 06:38 Hct 31.3 % (36.0-45.0) L 07/25/20 06:38 Plt Count 184 K/uL (152-406) 07/25/20 06:38 PT 12.9 SECONDS (9.5-12.5) H 07/25/20 06:38 INR 1.12 07/25/20 06:38 APTT 32.2 SECONDS (24.3-36.9) 07/25/20 06:38 Sodium 143 mmol/L (136-145) 07/25/20 06:38 Potassium 3.4 mmol/L (3.5-5.1) L 07/25/20 06:38 BUN 4 mg/dL (7-18) L 07/25/20 06:38 Creatinine 0.32 mg/dL (0.55-1.3) L 07/25/20 06:38 Glucose 85 mg/dL (74-106) 07/25/20 06:38 Magnesium 1.7 mg/dL (1.8-2.4) L 07/24/20 09:50 Total Bilirubin 0.2 mg/dL (0.2-1.0) 07/25/20 06:38 AST 16 U/L (15-37) 07/25/20 06:38 ALT 15 U/L (12-78) 07/25/20 06:38 Alkaline Phosphatase 61 U/L (45-117) 07/25/20 06:38 Lipase 124 U/L (73-393) 07/24/20 09:50 Home Medications: Gabapentin 600 mg PO BID 03/27/20 Simvastatin 10 mg PO DAILY 03/27/20 Amlodipine Besylate [Norvasc] 10 mg PO DAILY 07/12/20 Docusate [Colace Cap*] 100 mg PO DAILY #30 cap 07/14/20 Folic Acid 1 mg PO DAILY #90 tablet 07/14/20 Lidocaine Viscous 2% Soln [Xylocaine Viscous Oral 2%*] 15 ml TOP DAILY #450 ml 07/14/20 Thiamine HCl 100 mg PO DAILY #90 tablet 07/14/20 fentaNYL [Duragesic] 25 mcg TD EVERY 3RD DAY #5 patch.td72 07/14/20 Loperamide [Imodium*] 2 mg PO Q6HP PRN #30 cap 07/26/20 Silver Sulfadiazine [Silvadene 1% Cream] 1 appl TOP BID #1 tube 07/26/20 metroNIDAZOLE [Flagyl] 500 mg PO Q8H #20 tablet 07/26/20 Hydrocodone 10/APAP 325 [[place] 10/325] 1 tab PO Q6H PRN #30 tab 07/27/20 New Medications: metroNIDAZOLE [Flagyl] 500 mg PO Q8H #20 tablet Loperamide [Imodium*] 2 mg PO Q6HP PRN #30 cap PRN Reason: Diarrhea Hydrocodone 10/APAP 325 [[place] 10/325] 1 tab PO Q6H PRN #30 tab PRN Reason: Pain Silver Sulfadiazine [Silvadene 1% Cream] 1 appl TOP BID #1 tube Physician Discharge Instructions: PROBLEM: Radiation proctitis GOAL: Clear understanding of disease process E-scripts sent to [facility] in [place]. INSTRUCTIONS: - Ok to discontinue IV and discharge home. - Follow up with your primary care provider in 1-2 weeks. - Follow up with your oncologist in 1-2 weeks. - Return to the ER if your symptoms worsen. - Call or text Dr. Page at if you have any questions regarding your hospital stay. - Please call the 4th floor at if you have any medication or nursing questions. Diet: Regular Activity: Fall precautions IMMUNIZATION Influenza Vaccine Indicated: Influenza Vaccine Given: Date Given: Pneumonia Vaccine Indicated: No Pneumonia Vaccine Given: Date Given: Diet: Regular Activity: Fall precautions Followup: Tita Connell MD [ACTIVE - CAN ADMIT] - Ghassan Mckinnon MD [ASSOCIATE-ACTIVE - CAN ADMIT] - Fred Elliott, [Primary Care Provider] - 1-2 Weeks (Follow up in office in 1-2 weeks. Call to schedule an appointment.) Time spent managing pt's care (in minutes): 35
== END 2020-07-26 14:35 | disposition home or self-care (01) ==
LOC: ER 08:34 → ERHOLD 13:13 → 4TH 19:45
PROVIDERS: ADMIT Hospitalist; ATTEND Hospitalist
DX: R10.9 Unspecified abdominal pain (principal); R11.2 Nausea with vomiting, unspecified; K62.7 Radiation proctitis; E83.42 Hypomagnesemia; Z85.048 Personal history of other malignant neoplasm of rectum, rectosigmoid junction, and anus; I10 Essential (primary) hypertension; Z20.822 Contact with and (suspected) exposure to COVID-19; E10.9 Type 1 diabetes mellitus without complications; R94.31 Abnormal electrocardiogram [ECG] [EKG]; Z92.21 Personal history of antineoplastic chemotherapy; H40.9 Unspecified glaucoma; Z92.3 Personal history of irradiation; G89.29 Other chronic pain
CPT/HCPCS: 93005; 85025 ×2; 80048; 36415; 83735; 85610 ×2; 80076; 85730; 81003; 84484; 83690; 80053; 83880; 74176; 71045; 99285; U0003; J0360 ×2; J2543 ×4; J3475; J1170 ×9; J7040; J7030 ×4; J1720 ×2; J2405; J0744; G0378 ×4

== ENCOUNTER 2021-02-05 07:20 | Day surgery (SDC) | payer OTHER ==
[2021-02-05] MEDS ORDERED: CEFAZOLIN/NS 1gm 1 GM/50 ML BAG ONE (07:31)
[2021-02-05] MEDS ORDERED: NA CHLORIDE 0.9% 1,000 ML ONE (07:31)
[2021-02-05] MEDS ORDERED: LIDOCAINE 2% MPF 5 ML VIAL ONE (07:50)
[2021-02-05] MEDS ORDERED: FENTANYL CITR 100 MCG/2 ML ONE (07:50)
[2021-02-05] MEDS ORDERED: propofoL 200 MG/20 ML VIAL IV ONE (07:50)
[2021-02-05] MEDS ORDERED: BUPIVACA 0.5%/EPI 0.0005%/PF 30 ML VIAL ONE (07:58)
[2021-02-05] MEDS ORDERED: KETOROLAC 30 MG/ML INJ ONE (09:38)
[2021-02-05] MEDS ORDERED: ONDANSETRON 4 MG/2 ML VIAL ONE (09:38)
--- NOTE | 2021-02-05 09:43 | P.OP ---
Preoperative diagnosis: Attention to Chemotherapy Port Postoperative diagnosis: Attention to Chemotherapy Port Primary procedure: Removal of Chemotherapy Port Anesthesia: MAC + Local Estimated blood loss: <5cc Specimen: port for ID only Findings: no bleeding Complications: None Transferred to: Recovery Room Condition: Good
[2021-02-05 11:25] VITALS: TEMP 97
[2021-02-05 11:28] VITALS: BP 180/64; O2SAT 99
--- NOTE | 2021-02-05 11:31 | OP ---
Date of Procedure: 02/05/2021 Surgeon: Randy Lagos MD, Preoperative Diagnosis: Attention to chemotherapy port. Postoperative Diagnosis: Attention to chemotherapy port. Procedure Performed: Removal of chemotherapy port. Anesthesia: MAC plus local with 0.5% Marcaine with epinephrine. Estimated Blood Loss: Less than 5 mL. Specimen: Port for ID only. Findings: No bleeding at the end of the procedure. Complications: None. Disposition: The patient was transferred to the recovery room in good condition. Procedure In Detail: After informed was obtained, the patient was brought to the operating room, prepped and draped in the usual sterile fashion. After adequate anesthesia was achieved, I made a linear incision overlying the port in the right chest. I dissected down to expose the port using electrocautery. The port capsule was circumferentially dissected open using a combination of sharp and blunt dissection. I then brought the sutures into the field and then, I removed these Prolene sutures, which were securing it into the prepectoral space. After this was performed, the catheter was elevated. The patient was placed in steep Trendelenburg position and removed at this point. The patient was then positioned in the head up position with pressure being held at the insertion site and the internal jugular. At this point, I copiously irrigated the wound and closed the deep dermal tissues using interrupted 3-0 Vicryl suture and skin was closed with 4-0 Monocryl in a running fashion. Dermabond was placed over top. The patient tolerated the procedure well without evidence of complication and transferred to PACU in good condition. All counts were correct at the end of the case. EVENS/CECY Voice ID: [id number] Report ID: [id number] NIKA
== END 2021-02-05 11:18 | disposition home or self-care (01) ==
LOC: OR 07:20
PROVIDERS: ATTEND Surgery
PROC: 0JPT0WZ Removal of Totally Implantable Vascular Access Device from Trunk Subcutaneous Tissue and Fascia, Open Approach (ICD-10-PCS; principal; 2021-02-05 08:45)
DX: Z45.2 Encounter for adjustment and management of vascular access device (principal); C20 Malignant neoplasm of rectum; Z20.822 Contact with and (suspected) exposure to COVID-19
CPT/HCPCS: 82947; 88300; 36590; U0003; J2704; J3010; J0690; J7030; J2405

== ENCOUNTER 2021-10-06 00:10 | Emergency (ER) | payer OTHER ==
[2021-10-06] MEDS ORDERED: MORPHINE 4 MG/ML SYR ONE (01:02)
[2021-10-06] MEDS ORDERED: CYCLOBENZAPRINE 10 MG TAB ONE (01:02)
[2021-10-06] MEDS ORDERED: dexAMETHasone 10 MG/ML VIAL ONE (01:03)
[2021-10-06] MEDS ORDERED: ONDANSETRON 4 MG/2 ML VIAL ONE (01:03)
--- NOTE | 2021-10-06 04:16 | ER ---
Nurse's Notes [facility] Name: Ernestina Marcus Age: 71 yrs Sex: Female : 1950 Arrival Date: 10/06/2021 Time: 00:12 Bed 2 Private MD: Diagnosis: Radiculopathy, lumbosacral region Presentation: 10/06 00:30 Chief complaint: Patient states: "My leg is hurting". Coronavirus screen: Vaccine tw5 status: Patient reports being unvaccinated. Ebola Screen: Patient negative for fever greater than or equal to 101.5 degrees Fahrenheit, and additional compatible Ebola Virus Disease symptoms Patient denies exposure to infectious person. Patient denies travel to an Ebola-affected area in the 21 days before illness onset. Initial Sepsis Screen: Does the patient meet any 2 criteria? No. Patient's initial sepsis screen is negative. Does the patient have a suspected source of infection? No. Patient's initial sepsis screen is negative. Risk Assessment: Do you want to hurt yourself or someone else? Patient reports no desire to harm self or others. Onset of symptoms was October 05, 2021 at 17:00. 00:30 Method Of Arrival: Wheelchair tw5 00:30 Acuity: ANNIE 3 tw5 Triage Assessment: 00:31 General: Appears uncomfortable, Behavior is appropriate for age. Pain: Complains of tw5 pain in left leg Pain currently is 10 out of 10 on a pain scale. Historical: - Allergies: 00:31 Soma; tw5 - Home Meds: 00:31 amlodipine 10 mg tab 1 tab once daily [Active]; gabapentin 600 mg Oral tab twice a day tw5 [Active]; atorvastatin [Active]; - PMHx: 00:31 Chronic pain; Diabetes - IDDM; Glaucoma; Hypertension; RECTAL CA; Angina pectoris; tw5 - Immunization history:: Flu vaccine is not up to date. - Social history:: Smoking status: Patient reports the use of cigarette tobacco products, smokes one-half pack cigarettes per day. - Family history:: not pertinent. - Hospitalizations: : No recent hospitalization is reported. Screenin:56 Abuse screen: Denies threats or abuse. Denies injuries from another. Nutritional kd3 screening: No deficits noted. Tuberculosis screening: No symptoms or risk factors identified. Fall Risk Secondary diagnosis (15 points). 02:56 Fall Risk No secondary diagnosis (0 pts). IV access (20 points). kd3 Assessment: 02:55 General: Appears uncomfortable, Behavior is calm, cooperative. Neuro: Level of kd3 Consciousness is awake, alert, obeys commands, Oriented to person, place, time, situation. Vital Signs: 00:30 BP 156 / 64; Pulse 94; Resp 18; Temp 98.1; Pulse Ox 100% on R/A; Weight 54.43 kg; tw5 Height 4 ft. 11 in. (149.86 cm); Pain 9/10; 02:55 BP 173 / 62; Pulse 97; Resp 17; Pulse Ox 95% on R/A; kd3 04:31 BP 177 / 63; Pulse 99; Resp 18; Pulse Ox 96% on R/A; kd3 00:30 Body Mass Index 24.24 (54.43 kg, 149.86 cm) tw5 ED Course: 00:12 Patient arrived in ED. ja2 00:21 Bubba Sanabria, ISIDRO is Primary Nurse. as6 00:24 Per Ybarra MD is Attending Physician. rn 00:31 Triage completed. tw5 00:31 Arm band placed on Patient placed in an exam room. tw5 02:56 Patient has correct armband on for positive identification. kd3 02:56 No provider procedures requiring assistance completed. Inserted saline lock: 24 gauge kd3 in left wrist, using aseptic technique. Blood collected. 04:31 IV discontinued, intact, bleeding controlled, No redness/swelling at site. Pressure kd3 dressing applied. 06:57 CT Lumbar Spine Wo Con In Process Unspecified. EDMS Administered Medications: 01:26 Drug: Flexeril (cyclobenzaprine) 10 mg Route: PO; kd3 04:32 Follow up: Response: No adverse reaction; Pain is decreased kd3 01:27 Drug: Decadron - Dexamethasone 10 mg Route: IVP; Site: left wrist; kd3 04:32 Follow up: Response: No adverse reaction kd3 01:27 Drug: morphine 4 mg Route: IVP; Infused Over: 4 mins; Site: left wrist; kd3 04:32 Follow up: Response: No adverse reaction; Pain is decreased kd3 01:27 Drug: Zofran (Ondansetron) 4 mg Route: IVP; Site: left wrist; kd3 04:32 Follow up: Response: No adverse reaction; Nausea is decreased kd3 04:27 Drug: HYDROcodone-acetaminophen 5 mg-325 mg 1 tabs Route: PO; kd3 04:32 Follow up: Response: No adverse reaction; Pain is decreased kd3 Medication: 02:56 VIS not applicable for this client. kd3 Outcome: 04:15 Discharge ordered by . rn 04:31 Discharged to home via wheelchair. kd3 04:31 Condition: stable 04:31 Discharge instructions given to patient, Instructed on discharge instructions, follow up and referral plans. medication usage, Demonstrated understanding of instructions, follow-up care, medications, Prescriptions given X 2. 04:32 Patient left the ED. kd3 Signatures: Dispatcher [employer] EDMS Per Ybarra MD MD rn Alexander, Jessica ja2 Wood, Tiffany tw5 Bubba Sanabria RN RN as6 Kath Garcia RN RN kd3
--- NOTE | 2021-10-06 04:16 | EDPHYS ---
Physician Documentation [facility] Name: Ernestina Marcus Age: 71 yrs Sex: Female : 1950 Arrival Date: 10/06/2021 Time: 00:12 Bed 2 Private MD: ED Physician Per Ybarra HPI: 10/06 01:40 This 71 yrs old Black Female presents to ER via Wheelchair with complaints of Leg Pain. rn 01:40 The patient presents with pain, that is acute. The complaints affect the left leg. rn Onset: The symptoms/episode began/occurred last night. Modifying factors: The symptoms are alleviated by nothing. the symptoms are aggravated by movement. Associated signs and symptoms: Pertinent negatives calf tenderness, fever, numbness, tingling, weakness. Severity of symptoms: At their worst the symptoms were moderate, in the emergency department the symptoms are unchanged. The patient has not experienced similar symptoms in the past. The patient has not recently seen a physician. Pt reports acute left leg pain, began last night, no trauma, no heavy lifting. Reports in remission for rectal cancer. Reports pain starts right hip/buttocks, and radiates down left leg. No back pain. No abd pain. No bowel or bladder issues. No weakness of legs. . Historical: - Allergies: 00:31 Soma; tw5 - Home Meds: 00:31 amlodipine 10 mg tab 1 tab once daily [Active]; gabapentin 600 mg Oral tab twice a day tw5 [Active]; atorvastatin [Active]; - PMHx: 00:31 Chronic pain; Diabetes - IDDM; Glaucoma; Hypertension; RECTAL CA; Angina pectoris; tw5 - Immunization history:: Flu vaccine is not up to date. - Social history:: Smoking status: Patient reports the use of cigarette tobacco products, smokes one-half pack cigarettes per day. - Family history:: not pertinent. - Hospitalizations: : No recent hospitalization is reported. ROS: 01:40 Constitutional: Negative for fever, chills, and weight loss, Neck: Negative for injury, rn pain, and swelling, Cardiovascular: Negative for chest pain, palpitations, and edema, Respiratory: Negative for shortness of breath, cough, wheezing, and pleuritic chest pain, Abdomen/GI: Negative for abdominal pain, nausea, vomiting, diarrhea, and constipation, Back: Negative for injury and pain, MS/Extremity: + left leg pain Skin: Negative for injury, rash, and discoloration, Neuro: Negative for headache, weakness, numbness, tingling, and seizure. Exam: 01:40 Constitutional: This is a well developed, well nourished patient who is awake, alert, rn appears uncomfortable Head/Face: Normocephalic, atraumatic. Cardiovascular: Regular rate and rhythm. No pulse deficits. Respiratory: No increased work of breathing, no retractions or nasal flaring. Abdomen/GI: soft, non-tender Skin: Warm, dry with normal turgor. Normal color with no rashes, no lesions, and no evidence of cellulitis. MS/ Extremity: Pulses equal, no cyanosis. Neurovascular intact. Full, normal range of motion. Equal circumference. Neuro: Awake and alert, GCS 15, oriented to person, place, time, and situation. Cranial nerves II-XII grossly intact. Motor strength 5/5 in all extremities. Sensory grossly intact. Vital Signs: 00:30 BP 156 / 64; Pulse 94; Resp 18; Temp 98.1; Pulse Ox 100% on R/A; Weight 54.43 kg; tw5 Height 4 ft. 11 in. (149.86 cm); Pain 9/10; 02:55 BP 173 / 62; Pulse 97; Resp 17; Pulse Ox 95% on R/A; kd3 04:31 BP 177 / 63; Pulse 99; Resp 18; Pulse Ox 96% on R/A; kd3 00:30 Body Mass Index 24.24 (54.43 kg, 149.86 cm) tw5 MDM: 00:24 Patient medically screened. rn 04:14 Differential diagnosis: radiculopathy, muscle spasm, disc bulge. Data reviewed: vital rn signs, nurses notes, radiologic studies, CT scan, and as a result, I will discharge patient. Counseling: I had a detailed discussion with the patient and/or guardian regarding: the historical points, exam findings, and any diagnostic results supporting the discharge/admit diagnosis, radiology results, the need for outpatient follow up, to return to the emergency department if symptoms worsen or persist or if there are any questions or concerns that arise at home. Response to treatment: the patient's symptoms have markedly improved after treatment, and as a result, I will discharge patient. Special discussion: I discussed with the patient/guardian in detail that at this point there is no indication for admission to the hospital. It is understood, however, that if the symptoms persist or worsen the patient needs to return immediately for re-evaluation. 10/06 00:28 Order name: CT Lumbar Spine Wo Con rn 10/06 00:28 Order name: IV Start; Complete Time: 01:27 rn Administered Medications: 01:26 Drug: Flexeril (cyclobenzaprine) 10 mg Route: PO; kd3 04:32 Follow up: Response: No adverse reaction; Pain is decreased kd3 01:27 Drug: Decadron - Dexamethasone 10 mg Route: IVP; Site: left wrist; kd3 04:32 Follow up: Response: No adverse reaction kd3 01:27 Drug: morphine 4 mg Route: IVP; Infused Over: 4 mins; Site: left wrist; kd3 04:32 Follow up: Response: No adverse reaction; Pain is decreased kd3 01:27 Drug: Zofran (Ondansetron) 4 mg Route: IVP; Site: left wrist; kd3 04:32 Follow up: Response: No adverse reaction; Nausea is decreased kd3 04:27 Drug: HYDROcodone-acetaminophen 5 mg-325 mg 1 tabs Route: PO; kd3 04:32 Follow up: Response: No adverse reaction; Pain is decreased kd3 Disposition Summary: 10/06/21 04:15 Discharge Ordered Location: Home rn Problem: new rn Symptoms: have improved rn Condition: Stable rn Diagnosis - Radiculopathy, lumbosacral region rn Followup: rn - With: Private Physician - When: As needed - Reason: Recheck today's complaints, Re-evaluation by your physician Discharge Instructions: - Discharge Summary Sheet rn - Lumbosacral Radiculopathy rn - Neuropathic Pain rn Forms: - Medication Reconciliation Form rn - Thank You Letter rn - Antibiotic brick kiln burner - Prescription Opioid Use rn Prescriptions: - Ultram 50 mg Oral Tablet - take 1 tablet by ORAL route every 6 hours As needed; 12 tablet; Refills: 0, rn Product Selection Permitted - Cyclobenzaprine 10 mg Oral Tablet - take 1 tablet by ORAL route every 8 hours As needed; 15 tablet; Refills: 0, rn Product Selection Permitted - Medrol (Jason) 4 mg Oral Tablets, Dose Pack - take 1 tablet by ORAL route as directed - follow package instructions; 1 rn packet; Refills: 0, Product Selection Permitted Signatures: Dispatcher [employer] Per Mccracken MD MD rn Wood, Tiffany tw5 Kath Garcia RN RN kd3
[2021-10-06] MEDS ORDERED: HYDROCODONE/APAP 5/325 MG TAB ONE (04:35)
[2021-10-06 07:14] VITALS: TEMP 98.1
[2021-10-06 07:18] VITALS: BP 177/63; O2SAT 96
--- NOTE | 2021-10-06 13:04 | RAD REPORT ---
EXAM DESCRIPTION: CT LUMBAR SPINE WITHOUT IV CONTRAST CLINICAL HISTORY: Acute radiculopathy, hx of cancer COMPARISON: None. TECHNIQUE: CT LUMBAR SPINE WITHOUT IV CONTRAST on 10/06/2021 12:28 AM CDT This exam was performed according to our departmental dose-optimization program, which includes autom ated exposure control, adjustment of the mA and/or kV according to patient size and/or use of iterati ve reconstruction technique. FINDINGS: There is no acute fracture. Vertebral body heights are preserved. 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 There is mild lower lumbar facet arthritis. There are diffuse disc bulges at L4-5 and L5-S1. Soft tissues are unremarkable. IMPRESSION: No acute fracture or subluxation. Electronically signed by: Regino Main MD 10/06/2021 3:55 AM CDT Due to temporary technical issues with the PACS/Fluency reporting system, reports are being signed by the in house radiologists without review as a courtesy to insure prompt reporting. The interpreting radiologist is fully responsible for the content of the report.
--- OUTSIDE RECORDS SUMMARY | 2021-10-07 14:57 | XMS REPORT | Continuity of Care Document ---
:1950 Author Organization [facility] t Address [address] [place] [place] [address] Care Team Providers Name Role Phone Eder Elliott Attending Clinician Unavailable HERSON Attending Clinician Unavailable Sergio Jin DO Attending Clinician Hannah GRAVES, A Attending Clinician Herson MEADOWS Attending Clinician Doctor Unassigned, Name Attending Clinician Unavailable Only, Test Attending Clinician Unavailable Eleni MEADOWS, C Attending Clinician HERSON Admitting Clinician Unavailable Herson MEADOWS Admitting Clinician Payers Payer Name Policy Type Policy Number Effective Date Expiration Date S [facility] MEDICARE [facility] [id number] 2019 00:00:00 MEDICARE PART A \T\ [id number] 2015 B 00:00:00 [facility] [id number] 2016 [place] 00:00:00 [place]ICA[place] OF [place] [id number] 2016 00:00:00 Problems Condition Condition Condition Status Onset Resolution Last Treating Co mments Source Name Details Category Date Date Treatment Clinician Date 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 2-14 Added ity of 00:00: automatic [place] 00 ally from Medical request Branch for surgery [id number] [place] Disease Active 2019-03 Overview: Univ ers anus anus 1-04 Added ity of 00:00: automatic [place] 00 ally from Medical request Branch for surgery [id number] No known No known Disease Unive rs active active ity of problems problems [facility] Allergies, Adverse Reactions, Alerts Allergy Allergy Status Severity Reaction(s) Onset Inactive Treating Comm ents Source Name Type Date Date Clinician CARISOPR DRUG Active Hives Univers ODOL INGREDI 2-15 ity of 00:00: [place] 00 Medical Branch Carisopr Propensi Active Hives Univer s odol ty to 2-15 ity of adverse 00:00: [place] reaction 00 Medical s Branch Soma Adverse Active rash Common Reaction [facility] Social History Social Habit Start Date Stop Date Quantity Comments Source Exposure to Not sure [facility] SARS-CoV-2 (event) [facility] Tobacco Comment Does not have Univer sity of the will power [facility] Branch Alcohol Comment rare Universit y of [facility] Cigarettes smoked 2020-03-02 2020-03-02 Univers ity of current (pack per 00:00:00 00:00:00 ) - Reported Branch Tobacco use and 2020-03-02 2020-03-02 Never used Universit y of exposure 00:00:00 00:00:00 [facility] Cigarette 2020-03-02 2020-03-02 University of pack-years 00:00:00 00:00:00 [facility] Alcohol intake 2020-03-02 2020-03-02 Current drinker Unive rsity of 00:00:00 00:00:00 of alcohol [facility] (finding) Chaplin Sex Ass[birth year] Universit y of 00:00:00 00:00:00 [facility] Smoking Status Start Date Stop Date Source Current every day smoker 2020-03-02 00:00:00 Uni versity of [facility] Medications Ordered Filled Start Stop Current Ordering Indication Dosage Frequency Signature Comments Components Source Medication Medication Date Date Medication? Clinician (SIG) Name Name contrast 2019-03- No Intravenou Un sterling previously 04-21 s, ONCE, 1 it y of administere 16:45: 16:32 dose, Wed [place] d 0 mL 00 :00 02/19/20 at Medical 1045, Branch Routine iohexol 2019- 2020- No 120mL 120 mL, Unive rs (OMNIPAQUE 04-21 Intravenou it y of 350 16:45: 16:32 s, ONCE, 1 [place] BULK-150 00 :00 dose, Wed Medica l mL) 02/19/20 at Branch injection 1045, 120 mL Routine iohexol 2019- 2020- No 25mL 25 mL, Univers (OMNIPAQUE 202-18 Oral, ity of 350 BULK) 15:00: 14:52 ONCE, 1 [place] 25 mL 00 :00 dose, Wed Medical 02/19/20 at Branch 0900, Routine gabapentin 2020-1 Yes 600mg Take 600 Un [place] 600 mg 1-10 mg by ity of tablet 15:41: mouth [address] [place] [address] (three) Medical times Branch daily. gabapentin 2020-1 Yes 600mg Take 600 Un [place] 600 mg 1-10 mg by ity of tablet 15:41: mouth [address] [place] [address] (three) Medical times Branch daily. gabapentin 2020-1 Yes 600mg Take 600 Un [place] 600 mg 1-10 mg by ity of tablet 15:41: mouth [address] [place] [address] (three) Medical times Branch daily. gabapentin 2020-1 Yes 600mg Take 600 Un [place] 600 mg 1-10 mg by ity of tablet 15:41: mouth [address] [place] [address] (three) Medical times Branch daily. gabapentin 2020-1 Yes 600mg Take 600 Un [place] 600 mg 1-10 mg by ity of tablet 15:41: mouth [address] [place] [address] (three) Medical times Branch daily. gabapentin 2020-1 Yes 600mg Take 600 Un [place] 600 mg 1-10 mg by ity of tablet 15:41: mouth [address] [place] [address] (three) Medical times Branch daily. gabapentin 2020-1 Yes 600mg Take 600 Un [place] 600 mg 1-10 mg by ity of tablet 15:41: mouth [address] [place] [address] (three) Medical times Branch daily. gabapentin 2020-1 Yes 600mg Take 600 Un [place] 600 mg 1-10 mg by ity of tablet 15:41: mouth 3 [place] 25 (three) Medical times Branch daily. gabapentin 2020-1 Yes 600mg Take 600 Un [place] 600 mg 1-10 mg by ity of tablet 15:41: mouth [address] [place] [address] (three) Medical times Branch daily. gabapentin 2020-1 Yes 600mg Take 600 Un [place] 600 mg 1-10 mg by ity of tablet 15:41: mouth 3 [place] 25 (three) Medical times Branch daily. gabapentin 2019-03 Yes 600mg Take 600 Un [place] 600 mg 1-10 mg by ity of tablet 15:41: mouth 3 [place] 25 (three) Medical times Branch daily. gabapentin 2019-03 Yes 600mg Take 600 Un [place] 600 mg 1-10 mg by ity of tablet 15:41: mouth 3 [place] 25 (three) Medical times Branch daily. lactated 2019-03 Yes 1000mL at 75 Univer s ringers IV 1-10 mL/hr, ity of infusion 15:00: 1,000 mL, [place] 1,000 mL 00 IV Medical Infusion, Branch CONTINUOUS , Starting Mon01/28/20 at 0900, Until Discontinu ed, Routine, PACU FENTanyl PF 2019-03 Yes 25ug 25 mcg, Uni vers (SUBLIMAZE 1-10 Slow IV ity of (PF)) 14:55: Push, [place] injection 42 Q5MIN PRN, Medi jessi 25 mcg 4 doses, Branch Starting Mon01/28/20 at 0855, Until Discontinu ed, Routine, Pain (scale 4-6), PACU ondansetron 2019-03 Yes 4mg 4 mg, Slow Univers (ZOFRAN 1-10 IV Push, ity of (PF)) 14:55: PRN, 1 [place] injection 4 42 dose, Medical mg Starting Branch Mon01/28/20 at 0855, Until Discontinu ed, Routine, Nausea and Vomiting (N/V), PACU water for 2019-03 Yes PRN, Univers irrigation 1-10 Starting ity o f irrigation 13:46: Tue [place] solution 00 01/28/20 Medical at 0746, Branch Until Discontinu ed, Routine, Intra-op simethicone 2019-03 Yes PRN, Univer s (GAS RELIEF 1-10 Starting ity of (SIMETHICON 13:45: Tue [place] E)) 40 00 01/28/20 Medical mg/0.6 mL at 0745, Branch drops Until Discontinu ed, Routine, Intra-op lactated 2019-03 2020- No 1000mL at 42 Unive rs ringers IV 1-10 11-10 mL/hr, ity of infusion 12:45: 13:01 1,000 mL, [place] as 1,000 mL 00 :00 IV Medical Infusion, Branch ONCE, 1 dose, Mon01/28/20 at 0645, Routine, DSU Pre-op gabapentin 2019- Yes 600mg Take 600 Un [place] 600 mg 1-06 mg by ity of tablet 18:24: mouth 3 [place] 19 (three) Medical times Branch daily. gabapentin 2019- Yes 600mg Take 600 Un [place] 600 mg 1-06 mg by ity of tablet 18:24: mouth 3 [place] 19 (three) Medical times Branch daily. peg-electro 2020- Yes [id number] 4000mL Take 4,000 Univers lyte soln 1-03 mL by ity of .74-6 00:00: mouth [place] .74 -5.86 00 SEE-INSTRU Medi jessi gram CTIONS. Branch solution Take as directed peg-electro 2019-03 Yes [id number] 4000mL Take 4,000 Univers lyte soln 1-03 mL by ity of 74-6 00:00: mouth [place] .74 -5.86 00 SEE-INSTRU Medi jessi gram CTIONS. Branch solution Take as directed peg-electro 2019-03 Yes [id number] 4000mL Take 4,000 Univers lyte soln 1-03 mL by ity of -6 00:00: mouth [place] .74 -5.86 00 SEE-INSTRU Medi jessi gram CTIONS. Branch solution Take as directed peg-electro 2019-03 Yes [id number] 4000mL Take 4,000 Univers lyte soln 1-03 mL by ity of .74-6 00:00: mouth [place] .74 -5.86 00 SEE-INSTRU Medi jessi gram CTIONS. Branch solution Take as directed peg-electro 2019-03 Yes [id number] 4000mL Take 4,000 Univers lyte soln 1-03 mL by ity of .74-6 00:00: mouth [place] .74 -5.86 00 SEE-INSTRU Medi jessi gram CTIONS. Branch solution Take as directed peg-electro 2020 Yes [id number] 4000mL Take 4,000 Univers lyte soln 1-03 mL by ity of .74-6 00:00: mouth [place] .74 -5.86 00 SEE-INSTRU Medi jessi gram CTIONS. Branch solution Take as directed peg-electro 2020-1 Yes [id number] 4000mL Take 4,000 Univers lyte soln 1-03 mL by ity of - 00:00: mouth [place] .74 -5.86 00 SEE-INSTRU Medi jessi gram CTIONS. Branch solution Take as directed peg-electro 2020-1 Yes [id number] 4000mL Take 4,000 Univers lyte soln 1-03 mL by ity of - 00:00: mouth [place] .74 -5.86 00 SEE-INSTRU Medi jessi gram CTIONS. Branch solution Take as directed peg-electro 2020-1 Yes [id number] 4000mL Take 4,000 Univers lyte soln 1-03 mL by ity of - 00:00: mouth [place] .74 -5.86 00 SEE-INSTRU Medi jessi gram CTIONS. Branch solution Take as directed peg-electro 2020-1 Yes [id number] 4000mL Take 4,000 Univers lyte soln 1-03 mL by ity of - 00:00: mouth [place] .74 -5.86 00 SEE-INSTRU Medi jessi gram CTIONS. Branch solution Take as directed peg-electro 2020-1 Yes [id number] 4000mL Take 4,000 Univers lyte soln 1-03 mL by ity of - 00:00: mouth [place] .74 -5.86 00 SEE-INSTRU Medi jessi gram CTIONS. Branch solution Take as directed peg-electro 2020-1 Yes [id number] 4000mL Take 4,000 Univers lyte soln 1-03 mL by ity of - 00:00: mouth [place] .74 -5.86 00 SEE-INSTRU Medi jessi gram CTIONS. Branch solution Take as directed peg-electro 2020-1 Yes [id number] 4000mL Take 4,000 Univers lyte soln 1-03 mL by ity of - 00:00: mouth [place] .74 -5.86 00 SEE-INSTRU Medi jessi gram CTIONS. Branch solution Take as directed peg-electro 2020-1 Yes [id number] 4000mL Take 4,000 Univers lyte soln 1-03 mL by ity of - 00:00: mouth [place] .74 -5.86 00 SEE-INSTRU Medi jessi gram CTIONS. Branch solution Take as directed peg-electro 2020-1 Yes [id number] 4000mL Take 4,000 Univers lyte soln 1-03 mL by ity of 236-.74-6 00:00: mouth [place] .74 -5.86 00 SEE-INSTRU Medi jessi gram CTIONS. Branch solution Take as directed gabapentin 2017-0 Yes 600mg Take 600 Un [place] 600 mg 2-23 mg by ity of tablet 21:22: mouth 3 [place] 22 (three) Medical times Branch daily. gabapentin 2017-0 Yes 600mg Take 600 Un [place] 600 mg 2-23 mg by ity of tablet 21:22: mouth 3 [place] 22 (three) Medical times Branch daily. gabapentin 2017-0 Yes 600mg Take 600 Un [place] 600 mg 2-23 mg by ity of tablet 21:22: mouth 3 [place] 22 (three) Medical times Branch daily. gabapentin 2017-0 Yes 600mg Take 600 Un [place] 600 mg 2-23 mg by ity of tablet 21:22: mouth 3 [place] 22 (three) Medical times Branch daily. MACROBID 2017-0 Yes Univers 100 mg 2-15 ity of capsule 00:00: [place] [facility] Branch MACROBID 2017-0 Yes Univers 100 mg 2-15 ity of capsule 00:00: [place] [facility] MACROBID 2017-0 Yes Univers 100 mg 2-15 ity of capsule 00:00: [place] [facility] MACROBID 2017-0 Yes Univers 100 mg 2-15 ity of capsule 00:00: [place] [facility] Branch MACROBID 2017-0 Yes Univers 100 mg 2-15 ity of capsule 00:00: [place] [facility] Branch MACROBID 2017-0 Yes Univers 100 mg 2-15 ity of capsule 00:00: [place] [facility] MACROBID 2017-0 Yes Univers 100 mg 2-15 ity of capsule 00:00: [place] [facility] MACROBID 2017-0 Yes Univers 100 mg 2-15 ity of capsule 00:00: [place] [facility] MACROBID 2017-0 Yes Univers 100 mg 2-15 ity of capsule 00:00: [place] [facility] Branch MACROBID 2017-0 Yes Univers 100 mg 2-15 ity of capsule 00:00: [place] [facility] MACROBID 2017-0 Yes Univers 100 mg 2-15 ity of capsule 00:00: [place] [facility] MACROBID 2017-0 Yes Univers 100 mg 2-15 ity of capsule 00:00: [place] [facility] MACROBID 2017-0 Yes Univers 100 mg 2-15 ity of capsule 00:00: [place] [facility] MACROBID 2017-0 Yes Univers 100 mg 2-15 ity of capsule 00:00: [place] [facility] MACROBID 2017-0 Yes Univers 100 mg 2-15 ity of capsule 00:00: [place] [facility] MACROBID 2017-0 Yes Univers 100 mg 2-15 ity of capsule 00:00: [place] [facility] Branch MACROBID 2017-0 Yes Univers 100 mg 2-15 ity of capsule 00:00: [place] [facility] MACROD 2017-0 Yes Univers 100 mg 2-15 ity of capsule 00:00: [address] 2017-0 Yes Univers 0.75 mg/0.5 2-06 ity of mL PnIj 00:00: [place] [facility] Yes Univers 0.75 mg/0.5 2-06 ity of mL PnIj 00:[facility] [place] [facility] 0[facility] mg/0.5 2-06 ity of mL PnIj 00:00: [place] [facility] Univers 0.75 mg/0.5 2-06 ity of mL PnIj 00:00: [place] [facility] Univers 0.75 mg/0.5 2-06 ity of mL PnIj 00:00: [place] [facility] TRULICITY 2017-0 Yes Univers 0.75 mg/0.5 2-06 ity of mL PnIj 00:00: [place] [facility] Chaplin [facility] 2017-0 Yes Univers 0.75 mg/0.5 2-06 ity of mL PnIj 00:00: [place] [facility] 2017-0 Yes Univers 0.75 mg/0.5 2-06 ity of mL PnIj 00:00: [place] [facility] 2017-0 Yes Univers 0.75 mg/0.5 2-06 ity of mL PnIj 00:00: [place] [facility] 2017-0 Yes Univers 0.75 mg/0.5 2-06 ity of mL PnIj 00:00: [place] [facility] TRULICITY 2017-0 Yes Univers 0.75 mg/0.5 2-06 ity of mL PnIj 00:00: [place] [facility] TRULICITY 2017-0 Yes Univers 0.75 mg/0.5 2-06 ity of mL PnIj 00:00: [place] [facility] TRULICITY 2017-0 Yes Univers 0.75 mg/0.5 2-06 ity of mL PnIj 00:00: [place] [facility] TRULICITY 2017-0 Yes Univers 0.75 mg/0.5 2-06 ity of mL PnIj 00:00: [place] [facility] TRULICITY 2017-0 Yes Univers 0.75 mg/0.5 2-06 ity of mL PnIj 00:00: [place] [facility] TRULICITY 2017-0 Yes Univers 0.75 mg/0.5 2-06 ity of mL PnIj 00:00: [place] [facility] TRULICITY 2017-0 Yes Univers 0.75 mg/0.5 2-06 ity of mL PnIj 00:00: [place] [facility] TRULICITY 2017-0 Yes Univers 0.75 mg/0.5 2-06 ity of mL PnIj 00:00: [place] [facility] Branch amLODIPine 2017-0 Yes Univers 5 mg tablet -27 ity of 00:00: [place] [facility] amLODIPine 2017-0 Yes Univers 5 mg tablet -27 ity of 00:00: [place] [facility] amLODIPine 2017-0 Yes Univers 5 mg tablet -27 ity of 00:00: [place] [facility] amLODIPine 2017-0 Yes Univers 5 mg tablet -27 ity of 00:00: [place] [facility] amLODIPine 2017-0 Yes Univers 5 mg tablet -27 ity of 00:00: [place] [facility] amLODIPine 2017-0 Yes Univers 5 mg tablet -27 ity of 00:00: [place] [facility] amLODIPine 2017-0 Yes Univers 5 mg tablet -27 ity of 00:00: [place] [address] Medical Branch amLODIPine 2017-0 Yes Univers 5 mg tablet -27 ity of 00:00: [place] [address] Medical Branch amLODIPine 2017-0 Yes Univers 5 mg tablet -27 ity of 00:00: [place] [facility] amLODIPine 2017-0 Yes Univers 5 mg tablet 04-15 ity of 00:00: [place] 00 Medical Branch amLODIPine 2017-0 Yes Univers 5 mg tablet 04-15 ity of 00:00: [place] [facility] amLODIPine 2017-0 Yes Univers 5 mg tablet 04-15 ity of 00:00: [place] [facility] amLODIPine 2017-0 Yes Univers 5 mg tablet 04-15 ity of 00:00: [place] [facility] amLODIPine 2017-0 Yes Univers 5 mg tablet 04-15 ity of 00:00: [place] [facility] amLODIPine 2017-0 Yes Univers 5 mg tablet 04-15 ity of 00:00: [place] 00 Medical Branch amLODIPine 2017-0 Yes Univers 5 mg tablet 04-15 ity of 00:00: [place] 00 Medical Branch amLODIPine 2017-0 Yes Univers 5 mg tablet 04-15 ity of 00:00: [place] 00 Medical Branch amLODIPine 2017-0 Yes Univers 5 mg tablet 04-15 ity of 00:00: [place] [facility] Amlodipine Amlodipine Yes Fred take 1 Common Besylate Besylate Elliott tablet by S pirit mouth - [facility]I every day [facility] Gabapentin Gabapentin Yes Fred 1 tablet Common Elliott [facility] Lisinopril Lisinopril Yes Fred take 1 Common Elliott tablet by Spirit mouth - [facility]I every day [facility] Atorvastati Atorvastati Yes Fred 1 tablet Common n Calcium n Calcium Elliott Spir it - [facility] Trulicity Trulicity 2019- No Fred one Co mmon -07 Elliott injection Spirit 00:00 - CHI :00 [facility] Vital Signs Vital Name Observation Time Observation Value Comments Source Systolic blood 2020-02-11 20:10:00 166 mm[Hg] Univer sity of pressure [facility] Diastolic blood 2020-02-11 20:10:00 85 mm[Hg] Unive rsity of pressure [facility] Heart rate 2020-02-11 20:10:00 80 /min [facility] Body temperature 2020-02-11 20:06:00 36.44 Yue [facility] Respiratory rate 2020-02-11 20:06:00 20 /min [facility] Body height 2020-02-11 20:06:00 157.5 cm [facility] Body weight 2020-02-11 20:06:00 51.891 kg Universi ty [facility] [place] [facility] BMI 2020-02-11 20:06:00 20.92 kg/m2 Universi ty [facility] [place] [facility] Oxygen saturation in 2020-02-11 20:06:00 98 /min University of Arterial blood by [facility] [place] [facility] jessi Pulse oximetry Branch Systolic blood 2020-02-11 20:10:00 166 mm[Hg] Univer sity of pressure [place] [facility] Diastolic blood 2020-02-11 20:10:00 85 mm[Hg] Unive rsity of pressure [place] [facility] Heart rate 2020-02-11 20:10:00 80 /min Universi ty [facility] [place] [facility] Body temperature 2020-02-11 20:06:00 36.44 Yue Univ ersity of [place] [facility] Respiratory rate 2020-02-11 20:06:00 20 /min Univ ersity of [place] [facility] Body height 2020-02-11 20:06:00 157.5 cm [facility]i ty [facility] [place] [facility] Body weight 2020-02-11 20:06:00 51.891 kg [facility]i ty [facility] [place] [facility] BMI 2020-02-11 20:06:00 20.92 kg/m2 Universi ty [facility] [place] [facility] Oxygen saturation in 2020-02-11 20:06:00 98 /min University of Arterial blood by [facility] Pulse oximetry Branch Systolic blood 2020-01-28 15:23:00 176 mm[Hg] Univer sity of pressure [place] [facility] Diastolic blood 2020-01-28 15:23:00 85 mm[Hg] Unive rsity of pressure [place] [facility] Heart rate 2020-01-28 15:23:00 85 /min Universi ty [facility] [place] [facility] Respiratory rate 2020-01-28 15:23:00 16 /min Univ ersity of [place] [facility] Oxygen saturation in 2020-01-28 15:23:00 100 /min University of Arterial blood by [facility] [place] [facility] jessi Pulse oximetry Branch Body temperature 2020-01-28 14:28:00 36.28 Yue Univ ersity of [place] [facility] Body height 2020-01-24 18:00:00 149.9 cm Universi ty [facility] [place] [facility] Body weight 2020-01-24 18:00:00 52.164 kg Universi ty [facility] [place] [facility] BMI 2020-01-24 18:00:00 23.23 kg/m2 Universi ty [facility] Systolic blood 2020-01-21 21:23:00 197 mm[Hg] Univer sity of pressure [facility] Diastolic blood 2020-01-21 21:23:00 87 mm[Hg] Unive rsity of pressure [facility] Heart rate 2020-01-21 21:23:00 80 /min Universi [facility] Body temperature 2020-01-21 21:23:00 36.83 Yue [facility] Respiratory rate 2020-01-21 21:23:00 20 /min [facility] Body height 2020-01-21 21:23:[address] [facility] Body weight 2020-01-21 21:23:[address] [facility] BMI 2020-01-21 21:23:00 22.54 [facility] in 2020-01-21 21:23:00 98 /min [facility] Arterial blood by [facility] Pulse oximetry Branch Procedures Procedure Date / Time Performing Clinician Source Performed CT THORAX W CONTRAST 2020-02-19 16:42:57 Angela Bains [facility] CT ABDOMEN PELVIS W 2020-02-19 16:35:37 Angela Bains [facility] HB CREATININE BLOOD 2020-02-19 16:23:00 Angela Bains [facility] CONSENT/REFUSAL FOR 2020-02-19 14:30:04 Doctor Unassigned, No [facility] DIAGNOSIS AND TREATMENT Name [facility] ASSIGNMENT OF BENEFITS 2020-02-19 14:29:47 Doctor Unassigned, No [facility] COLONOSCOPY (ENDO) 2020-01-28 12:58:04 [facility] GLUCOSE(AGE 2020-01-28 12:40:00 Lokesh Capps [facility] >30DAYS) Medical Branch DAY SURGERY - ADC 2020-01-28 06:01:00 Doctor Unassigned, No [facility] ASSIGNMENT OF BENEFITS 2020-01-27 14:37:19 Doctor Unassigned, No [facility] Branch ASSIGNMENT OF BENEFITS 2020-01-21 20:49:32 Doctor Unassigned, No [facility] Encounters Start End Encounter Admission Attending Care Care Encounter Source Date/Time Date/Time Type Type Clinicians Facility Department ID 2021-08-03 Outpatient Elliott, STLMLC STLMLC Common 07:46:00 Fred [facility] 2021-07-29 Outpatient Elliott, STLMLC STLMLC Common 11:55:01 Fred [facility] 2021-05-12 Outpatient Elliott, STLMLC STLMLC Common 11:19:00 Fred [facility] 2021-04-14 Outpatient Elliott, STLMLC STLMLC Common 12:32:30 Fred [facility] 2021-04-14 Outpatient Elliott, STLMLC STLMLC Common 12:31:16 Fred [id number] [facility] 2021-04-14 Outpatient Elliott, STLMLC STLMLC Common 12:31:12 Fred [id number] [facility] 2021-04-14 Outpatient Elliott, STLMLC STLMLC Common 12:29:48 Fred [id number] [facility] 2021-04-14 Outpatient Elliott, STLMLC STLMLC Common 12:16:36 Fred [id number] [facility] 2021-04-14 Outpatient Elliott, STLMLC STLMLC Common 12:08:05 Fred [id number] [facility] 2021-04-14 Outpatient Elliott, STLMLC STLMLC Common 11:14:42 Fred [id number] [facility] 2021-04-14 Outpatient Elliott, STLMLC STLMLC Common 11:02:38 Fred [id number] [facility] 2021-01-16 Outpatient HERSON [facility] [id number] Univers 11:48:25 ANGELA [facility] 2021-01-16 [facility] [id number] Univers 02:59:30 ANGELA [facility] 2021-10-04 2021-10-04 ambulatory STLMLC STLMLC [id number] Common 00:00:00 00:00:00 [facility] 2021-07-30 2021-07-30 ambulatory STLMLC STLMLC [id number] Common 00:00:00 00:00:00 [facility] 2021-07-30 2021-07-30 ambulatory STLMLC STLMLC [id number] Common 00:00:00 00:00:00 [facility] 2021-02-23 2021-02-23 ambulatory STLMLC STLMLC [id number] Common 00:00:00 00:00:00 [facility] 2021-02-16 2021-02-16 ambulatory STLMLC STLMLC [id number] Common 00:00:00 00:00:00 [facility] 2021-01-25 2021-01-25 ambulatory STLMLC STLMLC [id number] Common 00:00:00 00:00:00 [facility] 2020-05-25 2020-05-25 [facility] [id number] Univers 00:00:00 00:00:00 Outreach Og PRIMARY [id number] i ty of Sergio CARE [id number] [place] s ALYSIAON [id number] Hi dical [address] [place] [address] 2020-05-25 2020-05-25 [facility] [id number] 00:00:00 00:00:00 Outreach Og PRIMARY [id number] Sergio CARE [id number] PAVILLION [id number] 2020-03-27 2020-03-27 Outpatient R [facility] HEALTH [id number] Univers 13:00:00 13:00:00 [id number] [facility] 2020-03-27 2020-03-27 [facility] [id number] Univers 13:00:00 13:00:00 ANGELA itsusie of [facility] 2020-03-04 2020-03-04 [facility]patient [facility] [id number] Common 00:00:00 00:00:00 [facility] 2020-02-28 2020-02-28 Prep For Hannah, [facility] [id number] Univers 00:00:00 00:00:00 Surgery Linda Rebolledo [id number] it[place] [phone] Hi dical [facility] 204 [facility] 2020-02-28 2020-02-28 Prep For Hannah, [facility] [id number] 00:00:00 00:00:00 Surgery Linda Rebolledo [id number] [place] [id number] Professio [phone] [address] 2020-02-26 2020-02-26 [facility] [id number] Univers 00:00:00 00:00:00 Management Angela Rebolledo [id number] [place] [phone] [address] 2020-02-26 2020-02-26 [facility] [id number] Univers 00:00:00 00:00:00 plinary Angela [facility] [id number] i ty of [facility] 4.2.7.2.686 [place] [phone] [address] 2020-02-26 2020-02-26 [facility] [id number] Univers 00:00:00 00:00:00 Management Angela Rebolledo [id number] it[place] of [place] [phone] Hi dic[address] 2020-02-26 2020-02-26 [facility] [id number] 00:00:00 00:00:00 Management Angela Rebolledo 350.1.13.10 [place] 4.2.7.2.686 Professio [phone] [address] 2020-02-26 2020-02-26 [facility] 1.2.840.114 [id number] 00:00:00 00:00:00 plinary Angela Melton [facility] 350.1.13.10 [facility] 4.2.7.2.686 [phone] [facility] 2020-02-26 2020-02-26 [facility] [id number] 00:00:00 00:00:00 Management Angela Rebolledo [id number] [place] 4.2.7.2.686 Professio [phone] [address] 2020-02-24 2020-02-24 Telephone [facility] 1.2.840.114 [id number] [facility] 00:00:00 00:00:00 Angela Rebolledo 350.1.13.10 i ty of [place] [phone] Hi dical [address] 2020-02-24 2020-02-24 [facility] 1.2.840.114 [id number] 00:00:00 00:00:00 Angela Rebolledo 350.1.13.10 [place] 4.2.7.2.686 Professio [phone] [address] 2020-02-19 2020-02-19 [facility] 1.2.840.114 [id number] [facility] 08:31:10 23:59:00 Encounter Angela Rebolledo 350.1.13.10 it[place] of [place] [phone] [address] 2020-02-19 2020-02-19 [facility] 1.2.840.114 [id number] 08:31:10 23:59:00 Encounter Angela Rebolledo 350.1.13.10 [place] 4.2.7.2.686 [place] [phone] [facility] 2020-02-19 2020-02-19 [facility] [id number] Univers 08:30:00 08:30:00 [facility] [id number] [facility]-19 2020-02-19 [facility] 1.2.840.114 [id number] Univers 08:29:10 08:30:00 Encounter Angela Rebolledo 350.1.13.10 ity of [place] 4.2.7.2.686 [facility] [phone] [address] 2020-02-19 2020-02-19 [facility] 1.2.840.114 [id number] 08:29:10 08:30:00 Encounter Angela Rebolledo 350.1.13.10 [place] 4.2.7.2.686 [place] [phone] [facility] 2020-02-19 2020-02-19 Outpatient R [facility] [id number] Univers 00:00:00 00:00:00 ANGELA [facility] 2020-02-18 2020-02-18 Outpatient [facility] [id number] Univers 09:00:00 09:00:00 ANGELA [facility] 2020-02-18 2020-02-18 Outpatient R [facility] [id number] Univers 00:00:00 00:00:00 ANGELA [facility] 2020-02-12 2020-02-12 [facility] [id number] Common 00:00:00 00:00:00 [facility] 2020-02-11 2020-02-11 Office [facility] [id number] Univers 13:25:06 14:29:00 Visit Angela Rebolledo 350.1.13.10 i ty of [place] 4.2.7.2.686 [facility] [phone] [address] 2020-02-11 2020-02-11 Office [facility] [id number] [id number] 13:25:06 14:29:00 Visit Angela Rebolledo 350.1.13.10 [place] 4.2.7.2.686 Professio [phone] [address] 2020-02-11 2020-02-11 Outpatient R HERSON [facility] [id number] Univers 13:30:00 13:30:00 ANGELA itsusie of [facility] 2020-01-28 2020-01-28 [facility] 1.2.840.114 [id number] Univers 06:31:00 09:41:00 Encounter Angela Rebolledo 350.1.13.10 [place] [phone] [facility] [address] 2020-01-28 2020-01-28 Orders Doctor JERMAN 1.2.840.114 [id number] Univers 00:00:00 00:00:00 Only Unassigned, ELGIN 350.1.13.10 ity of [place] [facility] 4.2.7.2.686 [place] [phone] [facility] [address] 2020-01-27 2020-01-27 Laboratory Only, Adc Test [facility] 1.2.840. 114 [id number] Univers 08:41:09 08:56:09 Only Sadia Knowles 350.1.1 3.10 ity of Angela Bains 4.2.7.2.686 [facility] [phone] [facility] [address] 2020-01-27 2020-01-27 Outpatient R [facility] [id number] Univers 08:45:00 08:45:00 [id number] ity of [facility] 2020-01-27 2020-01-27 Outpatient R [facility] [id number] Univers 08:45:00 08:45:00 ity of [facility] 2020-01-27 2020-01-27 Orders Doctor STOLL 1.2.840.114 [id number] Univers 00:00:00 00:00:00 Only Unassigned, ELGIN 350.1.13.10 ity of [place] [facility] 4.2.7.2.686 [place] as [phone] [facility] [address] 2020-01-21 2020-01-21 Office Herson [facility] [id number] Univers 14:51:34 16:15:40 Visit Angela Rebolledo 350.1.13.10 i ty of [place] [phone] [facility] nal 188 [facility] 2020-01-21 2020-01-21 [facility] [id number] Univers 15:00:00 15:00:[address] [facility] 2020-01-21 2020-01-21 Outpatient R HERSON, [facility] [id number] Univers 15:00:00 15:00:[address] [facility] 2020-01-21 2020-01-21 Orders Doctor JERMAN 1.2.840.114 [id number] Univers 00:00:00 00:00:00 Only Unassigned, ELGIN 350.1.13.10 ity of [place] [facility] 4.2.7.2.686 [place] [phone] [address] 2020-01-21 2020-01-21 Prep For [facility] 1.2.840.114 [id number] Univers 00:00:00 00:00:00 Surgery Linda Bedolla Amaury 350.1.13.10 [place] of [place] [phone] Hi dical nal 204 [facility] 2019-11-12 2019-11-12 Outpatient [facility] [id number] Common 10:00:00 10:00:[address] [facility] 2019-08-27 2019-08-27 [facility] [id number] Common 09:00:00 09:00:[address] [facility] 2019-08-06 2019-08-06 [facility] [id number] Common 11:00:00 11:00:[address] [facility] 2019-08-06 2019-08-06 [facility] [id number] Common 11:00:00 11:00:[address] [facility] 2019-06-10 2019-06-10 Out[facility] [id number] Common 09:15:00 09:15:[address] [facility] 2019-04-10 2019-04-10 [facility] [id number] Common 16:41:00 16:41:[address] [facility] 2018-12-13 2018-12-13 Out[facility] [id number] Common 09:30:00 09:30:[address] [facility] 2018-04-26 2018-04-26 Out[facility] [id number] Common 09:30:00 09:30:[address] [facility] 2017-10-26 2017-10-26 [facility] [id number] Common 09:45:00 09:45:[address] [facility] 2017-09-27 2017-09-27 [facility] [id number] Common 12:58:00 12:58:[address] [facility] 2017-08-24 2017-08-24 [facility] [id number] Common 09:45:00 09:45:[address] [facility] Results Test Description Test Time Test Comments Results Result Comments Source POCT CREATININE 2020-02-19 20:12:00 Test Item Value Reference Range Interpretation Comme nts POCT Creatinine (test code = 3359790584) 0.7 mg/dL 0.5-1.1 Lab Interpretation (test code = 52012-9) [facility] [id number] 17:10:05 HISTORY: Anal canal cancer TECHNIQUE: Contrast-enhanced 64-mutidetector CT scan of the chest wascompleted with intravenous injection of ?non ionic contrast medium.Subsequently numerous sagittal, coronal and MIP reformations weregenerated. FINDINGS: Thyroid gland is unremarkable. Trachea and central bro nchialairways appear normal. No pleural effusion or pericardial effusion. No hilar or mediastinaladenopathy. Middle thoracic degenerative spondylosis is noted. No aggressive bonelesions visualized. Following lung nodules are visualized: -3 mm nodule anterior right upper lung (5:41).4 mm nodule right up per lobe (5:43).Pleural-based 4 mm nodule anterior right upper lung (5:50).Possible tiny calcified granuloma posterior right lower lung (5:52).Calcified granuloma medial lower left lung (5:53). Probable short sliding hiatal hernia with mild gastroesophageal reflux.Mild LAD coronary atherosclerosis noted. No acute pulmonarythromboembolism, aortic aneurysm or aortic dissection detected. Dilated veins are seen in the left upper abdomen including some gastricvarices. CONCLUSIONS:1. No acute intrathoracic findings.2. Calcified granulomas in both lungs and noncalcified nodules in the rightlung, probably granulomas. Monitoring suggested by follow-up noncontrastenhanced CT scan of chest in 6 months.3. Dilated venous collateral circulation noted in the left upper abdomenincluding some gastric varices.4. Asymmetrical soft tissue densities are seen in the left breast.Patient's last mammogram [facility] done at [facility] facility was in 2017.Therefore, please encourage the patient to have bilateral mammography-KISHOR. [facility], Radiant Results Inft User - 02/19/2020 11:11 AM CSTHISTORY: Anal canal cancerTECHNIQUE: Contrast-enhanced 64-mutidetector CT scan of the chest wascompleted with intravenous injection of non ionic contrast medium.Subsequently numerous sagittal, coronal and MIP reformations weregenerated.FINDINGS: Thyroid gland is unremarkable. Trachea and central bronchialairways appear normal.No pleural effusion or pericardial effusion. No hilar or mediastinaladenopathy.Middle thoracic degenerative spondylosis is noted. No aggressive bonelesions visualized.Following lung nodules are visualized:-3 mm noduleanterior right upper lung (5:41).4 mm nodule right upper lobe (5:43).Pleural-based 4 mm nodule anterior right upper lung (5:50).Possible tiny calcified granuloma posterior right lower lung (5:52).Calcified granuloma medial lower left lung (5:53).Probable short sliding hiatal hernia with mild gastroesophageal reflux.Mild LAD coronary atherosclerosis noted. No acute pulmonarythromboembolism, aortic aneurysm or aortic dissection detected.Dilated veins are seen in the left upper abdomen including some ga stricvarices.CONCLUSIONS:1. No acute intrathoracic findings.2. Calcified granulomas in both lungs and noncalcified nodules in the rightlung, probably granulomas. Monitoring suggested by follow-up noncontrastenhanced CT scan of chest in 6 months.3. Dilated venous collateral circulation noted in the left upper abdomenincluding some gastric varices.4. Asymmetrical soft tissue densities are seen in the left breast.Patient's last mammogram study done at this facility was in 2017.Therefore, please encourage the patient to have bilateral mammography-KISHOR.[facility] W [id number] 16:54:38CT Abdomen and Pelvis with oral and intravenous contrast. CLINICAL HISTORY: Anal canal cancer. DOSE:Up-to-date CT equipment and radiation dose reduction techniques wereemployed. CTDIvol: 3.99+5.65 mGy. DLP: 126+248 mGy-cm. TECHNIQUE : Contiguous axial imaging from the level of the lung basesthrough the pubic symphysis were performed after the uncomplicatedadministration of Omnipaque contrast material. Oral contrast was alsoadministered. Coronal and sagittal reconstructions were obtained. Auto mAand /or iterative reconstruction were used to reduce radiation dose. FINDINGS: ? Lower lungs: Clear. Probable gastroesophageal reflux. Liver, Gallbladder and Spleen: Liver is borderline enlarged, cbeyeothp81.3cm with undulating serosal surface, suggestive of cirrhotic morphology. Nofocal liver lesions are seen. Cholecystectomy noted. Spleen measuresapproximately 8 x 3.5 cm. Biliary ducts and the pancreatic duct appear ofnormal size. Peritoneum: ?No free air or free fluid. No lymphadenopathy. Pancreas and Adrenals: ?Unremarkable pancreas and right adrenal gland. Leftadrenal gland showed fused hypertrophy and a 13 mm nodule. Kidneys and Ureters: ?No visible calculi in the renal collecting systems. No hydroureter or hydronephrosis. 11 mm cyst noted in the lateral surfaceat the interpolar region of the right kidney. Additional 5 mm cyst in thedorsal cortex near the lower pole of the right kidney and 4 mm cyst in thelower pole close to the collecting system of the left kidney noted. Vessels: Moderate atherosclerosis aorta and iliac arteries with bilateralcommon iliac artery strictures, more severe on the left side. Retroperitoneum: No abnormal fluid. Slightly enlarged lymph node [id number] x 5 mm adjacent to the aorta close to the right common iliac artery.Subcentimeter lymph nodes also seen in theright side of upper abdomenadjacent to IVC at the level of celiac artery. Bowel: Thickening of the soft tissues noted near the anal canal withslightly irregular enhancement of the casas without a discrete tumorappreciated. Diverticulosis of the sigmoid colon noted without any acutechanges. Appendix is not visualized, however, no signs of acuteappendicitis detected. Small bowel gas pattern is unremarkable. Bladder and Reproductive Organs: Uterus is markedly elongated and appearsto be tethered to the urachus remnant near umbilicus. Unremarkableunopacified urinary bladder. No adnexal masses. Bones: Noaggressive bone lesions. Grade 1 spondylolisthesis at L4-L5 withspace narrowing, bulging disc and facet arthritis. Soft tissues: Multiple enlarged lymph nodes in the right superficial groinregion, measuring up to 15 mm with some of the lymph nodes showing moderateenhancement. Multiple small fat-containing midline and right sided epigastric abdominalwall hernias. CONCLUSION:1. Borderline hepatomegaly with cirrhotic morphology. No focal liverlesions. S/P cholecystectomy.2. Enlarged right superficial inguinal lymph nodes. Slightly enlarged lymphnode noted also in the right retroperitoneum adjacent to common iliacartery and distal IVC level.3. Hypertrophy of left adrenal gland with 13 mm left adrenal gland nodule,for uncertain etiology. [facility], Radiant Results Inft User - 02/19/2020 10:55 AM CSTCT Abdomen and Pelvis with oral and intravenous contrast.CLINICAL HISTORY: Anal canal cancer.DOSE: Up-to-date CT equipment and radiation dose reduction techniques wereemployed. CTDIvol: 3.99+5.65 mGy. DLP: 126+248 mGy-cm.TECHNIQUE : Contiguous axial imaging from the level of the lung basesthrough the pubic symphysis were performed after the uncomplicatedadministration of Omnipaque contrast material. Oral contrast was alsoadministered. Coronal and sagittal reconstructions were obtained. Auto mAand/or iterative reconstruction were used to reduce radiation dose.FINDINGS: Lower lungs: Clear. Probable gastroesophageal reflux.Liver, Gallbladder and Spleen: Liver is borderline enlarged, measuring 17.3cm with undulating serosal surface, suggestive of cirrhotic morphology. Nofocal liver lesions are seen. Cholecystectomy noted. Spleen measuresapproximately 8 x 3.5 cm. Biliary ducts and the pancreatic duct appear ofnormal size.Peritoneum: No free air or free fluid. No lymphadenopathy.Pancreas and Adrenals: Unremarkable pancreas and right adrenal gland. Leftadrenal gland showed fused hypertrophy and a 13 mm n odule.Kidneys and Ureters: No visible calculi in the renal collecting systems. No hydroureter or hydronephrosis. 11 mm cyst noted in the lateral surfaceat the interpolar region of the right kidney. Additional 5 mm cyst in thedorsal cortex near the lower pole of the right kidney and 4 mm cyst in thelower pole close to the collecting system of the left kidney noted. Vessels: Moderate atherosclerosis aorta and iliac arteries with bilateralcommon iliac artery strictures, more severe on the left side.Retroperitoneum: No abnormal fluid. Slightly enlarged lymph node [id number] x 5 mm adjacent to the aorta close to the right common iliac artery.Subcentimeter lymph nodes also seen in the right side of upper abdomenadjacent to IVC at the level of celiac artery.Bowel: Thickening of the soft tissues noted near the anal canal withslightly irregular enhancement of the casas without a discrete tumorappreciated. Diverticulosis of the sigmoid colon noted without any acutechanges. Appendix is not visualized, ho wever, no signs of acuteappendicitis detected. Small bowel gas pattern is unremarkable.Bladder and Reproductive Organs: Uterus is markedly elongated and appearsto be tethered to the urachus remnant near umbilicus. Unremarkableunopacified urinary bladder. No adnexal masses.Bones: No aggressive bone lesions. Grade 1 spondylolisthesis at L4-L5 withspace narrowing, bulging disc and facet arthritis.Soft tissues: Multiple enlarged lymph nodes in the right superficial groinregion, measuring up to 15 mm with some of the lymph nodes showing moderateenhancement.Multiple small fat-containing midline and rightsided epigastric abdominalwall hernias.CONCLUSION:1. Borderline hepatomegaly with cirrhotic morphology. No focal liverlesions. S/P cholecystectomy.2. Enlarged right superficial inguinal lymph nodes. Slightly enlarged lymphnode noted also in the right retroperitoneum adjacent to common iliacartery and distal IVC level.3. Hypertrophy of left adrenal gland with 13 mm left adrenal gland nodule,for uncertain etiology.[facility] [id number] 12:41:00 Test Item Value Reference Range Interpretation Comments POCT Glu (age>30days) (test code = 108 mg/dL 70-110 3342) Lab Interpretation (test code = Normal 03394-2) [facility]
== END 2021-10-06 04:32 | disposition home or self-care (01) ==
LOC: ER 00:10
DX: M54.17 Radiculopathy, lumbosacral region (principal); I10 Essential (primary) hypertension; E11.9 Type 2 diabetes mellitus without complications; F17.210 Nicotine dependence, cigarettes, uncomplicated; Z85.048 Personal history of other malignant neoplasm of rectum, rectosigmoid junction, and anus; Z88.5 Allergy status to narcotic agent
CPT/HCPCS: 72131; J1100; J2405

== ENCOUNTER 2022-02-15 10:17 | Inpatient (IN) | payer OTHER ==
--- OUTSIDE RECORDS SUMMARY | 2022-02-15 10:22 | XMS REPORT | Continuity of Care Document ---
:1950 Author Organization [facility] t Address [address] [place] [address] Care Team Providers Name Role Phone CHRIS ELLIOTT Primary Care Physician Unavailable Chris Elliott Attending Clinician Unavailable ANGELA BAINS Attending Clinician Unavailable Og Jin DO Attending Clinician Linda [place] Attending Clinician Angela Bains MD Attending Clinician Doctor Unassigned, [place] Attending Clinician Unavailable Only, Adc Test Attending Clinician Unavailable Sadia Knowles MD Attending Clinician ANGELA BAINS Admitting Clinician Unavailable Angela Bains MD Admitting Clinician Payers Payer Name Policy Type Policy Number Effective Date Expiration Date S ource [employer] MEDICARE [id number] 2019 ERS 00:00:00 [facility] HealthSelect 1 [id number] 2021 Common TRS/ERS MCR PPO 00:00:00 [facility] MEDICARE PART A [id number] 2015 \T\ B 00:00:00 [facility] [id number] 2016 SELECT 00:00:00 MEDICAID OF [place] [id number] 2016 00:00:00 Problems Condition Condition Condition Status Onset Resolution Last Treating Co mments Source Name Details Category Date Date Treatment Clinician Date 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 s cancer cancer 2-14 Added ity of 00:00: automatic ally from Medical request Branch for surgery [id number] [place] of [place] of Disease Active 2019-03 Overview: Univ ers anus anus 1-04 Added ity of 00:00: automatic ally from Medical request Branch for surgery [id number] No known No known Disease Unive rs active active ity of problems problems [facility] 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 - [facility] to to St inguinal inguinal [facility] and lower and lower Medi jessi extremity extremity Cent er lymph lymph nodes nodes Anemia Anemia due Problem Commo n caused by to Spirit chemothera antineopla - CHI py stic chemothera [facility] Malignant Malignant Problem Com mon neoplasm neoplasm Spirit of of - CHI overlappin overlappin St g sites of g sites of Katie kes rectum, rectum, Medical anus and anus and Center anal canal anal canal Neuropathi Neuropathi Problem C ommon c pain c pain Spirit [facility] Chronic Chronic Problem Common hepatitis hepatitis Spir it C C - [facility] Essential Benign Problem Common hypertensi essential Spi rit on HTN - [facility] Microalbum Microalbum Problem C ommon inuria inuria Spirit [facility] Hyperlipid Hyperlipid Problem C ommon emia emia [facility] [id number] Type 2 Problem Common diabetes Spirit mellitus - [facility] with other diabetic 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 Tobacco Tobacco Problem Common use use Spirit disorder - 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 - CHI canal [facility] [id number] PAD Problem Common (periphera Spirit l artery - CHI disease) [facility] Allergies, Adverse Reactions, Alerts Allergy Allergy Status Severity Reaction(s) Onset Inactive Treating Comm ents Source Name Type Date Date Clinician CARISOPR DRUG Active Hives Univers ODOL INGREDI 2-15 ity of 00:00: [place] 00 [facility] Carisopr Propensi Active Hives Univer s odol ty to 2-15 ity of adverse 00:00: [place] reaction 00 Medical Branch carisopr carisopr Active rash Common odol odol Spirit - CHI [facility] Social History Social Habit Start Date Stop Date Quantity Comments Source Exposure to Not sure University of SARS-CoV-2 (event) [facility] Tobacco Comment Does not have Univer sity of the will power [facility] Alcohol Comment rare Universit y of [facility] History of Tobacco Current Smoker Co mmon Spirit - Use [facility] Sex Assigned At Common Sp mihaela - [facility] Cigarettes smoked 2020-03-02 2020-03-02 Univers ity of current (pack per 00:00:00 00:00:00 ) - Reported Branch Tobacco use and 2020-03-02 2020-03-02 Never used Universit y of exposure 00:00:00 00:00:00 [facility] Cigarette 2020-03-02 2020-03-02 University of pack-years 00:00:00 00:00:00 [facility] Alcohol intake 2020-03-02 2020-03-02 Current drinker Unive rsity of 00:00:00 00:00:00 of alcohol [facility] (finding) [place] Smoking Status Start Date Stop Date Source Current Smoker 2021-11-09 00:00:00 Common Spiri t - [facility] Medications Ordered Filled Start Stop Current Ordering Indication Dosage Frequency Signature Comments Components Source Medication Medication Date Date Medication? Clinician (SIG) Name Name contrast 2019-03- No Intravenou Un ster[place] previously 04-21 s, ONCE, 1 it y of administere 16:45: 16:32 dose, Wed [place] d 0 mL 00 :00 02/19/[address] [facility] 1045, Branch Routine iohexol 2020-1 2020- No 120mL 120 mL, Unive rs (OMNIPAQUE 04-21 Intravenou it y of 350 16:45: 16:32 s, ONCE, 1 [place] BULK-150 00 :00 dose, Mon Medica l mL) 02/19/20 at [place] injection 1045, 120 mL Routine iohexol 2019-03 2020- No 25mL 25 mL, Univers (OMNIPAQUE 04-21 Oral, ity of 350 BULK) 15:00: 14:52 ONCE, 1 [place] 25 [place] 00 :00 dose, Wed Medical 02/19/20 at Branch 0900, Routine gabapentin 2019- Yes 600mg Take 600 Un [place] 600 mg 1-10 mg by ity of tablet 15:41: mouth 3 [place] [address] (three) Medical times Branch daily. gabapentin 2020- Yes 600mg Take 600 Un [place] 600 mg 1-10 mg by ity of tablet 15:41: mouth 3 [place] [address] (three) Medical times Branch daily. gabapentin 2020-1 Yes 600mg Take 600 Un [place] 600 mg 1-10 mg by ity of tablet 15:41: mouth 3 [place] [address] (three) Medical times Branch daily. gabapentin 2020-1 Yes 600mg Take 600 Un [place] 600 mg 1-10 mg by ity of tablet 15:41: mouth 3 [place] [address] (three) Medical times Branch daily. gabapentin 2020-1 Yes 600mg Take 600 Un [place] 600 mg 1-10 mg by ity of tablet 15:41: mouth 3 [place] 25 (three) Medical times Branch daily. gabapentin 2020-1 Yes 600mg Take 600 Un [place] 600 mg 1-10 mg by ity of tablet 15:41: mouth 3 [place] [address] (three) Medical times Branch daily. gabapentin 2020-1 Yes 600mg Take 600 Un [place] 600 mg 1-10 mg by ity of tablet 15:41: mouth 3 [place] 25 (three) Medical times Branch daily. gabapentin 2020-1 Yes 600mg Take 600 Un [place] 600 mg 1-10 mg by ity of tablet 15:41: mouth 3 [place] 25 (three) Medical times Branch daily. gabapentin 2020-1 Yes 600mg Take 600 Un [place] 600 mg 1-10 mg by ity of tablet 15:41: mouth 3 [place] 25 (three) Medical times Branch daily. gabapentin 2020-1 Yes 600mg Take 600 Un [place] 600 mg 1-10 mg by ity of tablet 15:41: mouth 3 [place] 25 (three) Medical times Branch daily. gabapentin 2019-03 Yes 600mg Take 600 Un [place] 600 mg 1-10 mg by ity of tablet 15:41: mouth 3 [place] 25 (three) Medical times Branch daily. gabapentin 2019-03 Yes 600mg Take 600 Un [place] 600 mg 1-10 mg by ity of tablet 15:41: mouth 3 [place] 25 (three) Medical times Branch daily. lactated 2019-03 Yes 1000mL at 75 Univer s ringers IV 1-10 mL/hr, ity of infusion 15:00: 1,000 [place] 1[place]000 mL 00 IV Medical Infusion, Branch CONTINUOUS , Starting Mon01/28/20 at 0900, Until Discontinu ed, Routine, PACU FENTanyl PF 2019-03 Yes 25ug 25 mcg, Uni vers (SUBLIMAZE 1-10 Slow IV ity of (PF)) 14:55: Push, [place] injection 42 Q5MIN PRN, Medi jessi 25 [...] 1-10 Starting ity o f irrigation 13:46: e [place] solution 00 01/28/20 Medical at 0746, [...] IV Medical Infusion, Branch ONCE, 1 dose, 01/28/20 at 0645, Routine, DSU Pre-op gabapentin 2019- Yes 600mg Take 600 Un [place] 600 mg 1-06 mg by ity of tablet 18:24: mouth 3 [place] 19 (three) Medical times Branch daily. gabapentin 2019- Yes 600mg Take 600 Un [place] 600 mg 1-06 mg by ity of tablet 18:24: mouth 3 [place] 19 (three) Medical times Branch daily. peg-electro 2019-03 Yes [id number] 4000mL Take 4,000 Univers lyte soln 1-03 mL by ity of 236.74-6 00:00: mouth [place] .74 -5.86 00 SEE-INSTRU Medi jessi gram CTIONS. Branch solution Take as directed peg-electro 2019-03 Yes [id number] 4000mL Take 4,000 Univers lyte soln 1-03 mL by ity of .74-6 00:00: mouth [place] .74 -5.86 00 SEE-INSTRU Medi jessi gram CTIONS. Branch solution Take as directed peg-electro 2019-03 Yes [id number] 4000mL Take 4,000 Univers lyte soln 1-03 mL by ity of .74-6 00:00: mouth [place] .74 -5.86 00 SEE-INSTRU Medi jessi gram CTIONS. Branch solution Take as directed peg-electro 2019-03 Yes [id number] 4000mL Take 4,000 Univers lyte soln 1-03 mL by ity of .74-6 00:00: mouth [place] .74 -5.86 00 SEE-INSTRU Medi jessi gram CTIONS. Branch solution Take as directed peg-electro 2019-03 Yes [id number] 4000mL Take 4,000 Univers lyte soln 1-03 mL by ity of .74-6 00:00: mouth [place] .74 -5.86 00 SEE-INSTRU Medi jessi gram CTIONS. Branch solution Take as directed peg-electro 2019-03 Yes [id number] 4000mL Take 4,000 Univers lyte soln 1-03 mL by ity of 236.74-6 00:00: mouth [place] .74 -5.86 00 SEE-INSTRU Medi jessi gram CTIONS. Branch solution Take as directed peg-electro 2020-1 Yes [id number] 4000mL Take 4,000 Univers lyte soln 1-03 mL by ity of - 00:00: mouth [place] .74 -5.86 00 SEE-INSTRU Medi jessi gram CTIONS. Branch solution Take as directed peg-electro 2020-1 Yes [id number] 4000mL Take 4,000 Univers lyte soln 1-03 mL by ity of - 00:00: mouth [place] .74 -5.86 00 SEE-INSTRU Medi jessi gram CTIONS. Branch solution Take as directed peg-electro 2020-1 Yes [id number] 4000mL Take 4,000 Univers lyte soln 1-03 mL by ity of - 00:00: mouth [place] .74 -5.86 00 SEE-INSTRU Medi jessi gram CTIONS. Branch solution Take as directed peg-electro 2020- Yes [id number] 4000mL Take 4,000 Univers lyte soln 1-03 mL by ity of - 00:00: mouth [place] .74 -5.86 00 SEE-INSTRU Medi jessi gram CTIONS. Branch solution Take as directed peg-electro 2020-1 Yes [id number] 4000mL Take 4,000 Univers lyte soln 1-03 mL by ity of - 00:00: mouth [place] .74 -5.86 00 SEE-INSTRU Medi jessi gram CTIONS. Branch solution Take as directed peg-electro 2020-1 Yes [id number] 4000mL Take 4,000 Univers lyte soln 1-03 mL by ity of - 00:00: mouth [place] .74 -5.86 00 SEE-INSTRU Medi jessi gram CTIONS. Branch solution Take as directed peg-electro 2020-1 Yes [id number] 4000mL Take 4,000 Univers lyte soln 1-03 mL by ity of - 00:00: mouth [place] .74 -5.86 00 SEE-INSTRU Medi jessi gram CTIONS. Branch solution Take as directed peg-electro 2020-1 Yes [id number] 4000mL Take 4,000 Univers lyte soln 1-03 mL by ity of - 00:00: mouth [place] .74 -5.86 00 SEE-INSTRU Medi jessi gram CTIONS. Branch solution Take as directed peg-electro 2020-1 Yes [id number] 4000mL Take 4,000 Univers lyte soln 1-03 mL by ity of [facility]-.74-6 00:00: mouth [place] .74 -5.86 00 SEE-INSTRU Medi jessi gram CTIONS. Branch solution Take as directed gabapentin 2016-0 Yes 600mg Take 600 Un [place] 600 mg 2-23 mg by ity of tablet 21:22: mouth 3 [place] 22 (three) Medical times Branch daily. gabapentin 2017-0 Yes 600mg Take 600 Un [place] 600 mg 2-23 mg by ity of tablet 21:22: mouth 3 [place] 22 (three) Medical times Branch daily. gabapentin 2016-0 Yes 600mg Take 600 Un [place] 600 mg 2-23 mg by ity of tablet 21:22: mouth 3 [place] 22 (three) Medical times Branch daily. gabapentin 2016-0 Yes 600mg Take 600 Un [place] 600 mg 2-23 mg by ity of tablet 21:22: mouth 3 [place] 22 (three) Medical times Branch daily. MACROBID 2017-0 Yes Univers 100 mg 2-15 ity of capsule 00:00: [address] Branch MACROBID 2017-0 Yes Univers 100 mg 2-15 ity of capsule 00:00: [address] Branch MACROBID 2017-0 Yes Univers 100 mg 2-15 ity of capsule 00:00: [place] [facility] Branch MACROBID 2017-0 Yes Univers 100 mg 2-15 ity of capsule 00:00: [place] [facility] Branch MACROBID 2017-0 Yes Univers 100 mg 2-15 ity of capsule 00:00: [place] [facility] Branch MACROBID 2017-0 Yes Univers 100 mg 2-15 ity of capsule 00:00: [place] [facility] Branch MACROBID 2017-0 Yes Univers 100 mg 2-15 ity of capsule 00:00: [address] Branch MACROBID 2017-0 Yes Univers 100 mg 2-15 ity of capsule 00:00: [place] [facility] Branch MACROBID 2017-0 Yes Univers 100 mg 2-15 ity of capsule 00:00: [address] Branch MACROBID 2017-0 Yes Univers 100 mg 2-15 ity of capsule 00:00: [place] [facility] Branch MACROBID 2017-0 Yes Univers 100 mg 2-15 ity of capsule 00:00: [place] [address] Medical Branch MACROBID 2017-0 Yes Univers 100 mg 2-15 ity of capsule 00:00: [place] Medical Branch MACROBID 2017-0 Yes Univers 100 mg 2-15 ity of capsule 00:00: [place] [facility] Branch MACROBID 2017-0 Yes Univers 100 mg 2-15 ity of capsule 00:00: [place] [facility] Branch MACROBID 2017-0 Yes Univers 100 mg 2-15 ity of capsule 00:00: [place] Medical Branch MACROBID 2017-0 Yes Univers 100 mg 2-15 ity of capsule 00:00: [place] [facility] Yes Univers 100 mg 2-15 ity of capsule 00:00: [place] [facility] Univers 100 mg 2-15 [facility] [place] [facility] mg/0.5 2-06 ity of mL PnIj 00:[facility]: [place] [facility] Univers 0.75 mg/0.5 2-06 ity of mL PnIj 00:[facility]: [place] [facility] Univers 0.75 mg/0.5 2-06 ity of mL PnIj 00:[facility]: [place] [facility] Univers 0.75 mg/0.5 2-06 ity of mL PnIj 00:[facility]: [place] [facility] Univers 0.75 mg/0.5 2-06 ity of mL PnIj 00:00: [place] [facility] TRULICITY 2017-0 Yes Univers 0.75 mg/0.5 2-06 ity of mL PnIj 00:00: [place] [facility] Univers 0.75 mg/0.5 2-06 ity of mL PnIj 00:00: [place] [facility] Yes Univers 0.75 mg/0.5 2-06 ity of mL PnIj 00:[facility]: [place] [facility] Univers 0.75 mg/0.5 2-06 ity of mL PnIj 00:[facility]: [place] [facility] Univers 0.75 mg/0.5 2-06 ity of mL PnIj 00:00: [place] [facility] TRULICITY 2017-0 Yes Univers 0.75 mg/0.5 2-06 ity of mL PnIj 00:00: [place] [facility] TRULICITY 2017-0 Yes Univers 0.75 mg/0.5 2-06 ity of mL PnIj 00:00: [place] [facility] TRULICITY 2017-0 Yes Univers 0.75 mg/0.5 2-06 ity of mL PnIj 00:00: [place] [facility] TRULICITY 2017-0 Yes Univers 0.75 mg/0.5 2-06 ity of mL PnIj 00:00: [place] [facility] TRULICITY 2017-0 Yes Univers 0.75 mg/0.5 2-06 ity of mL PnIj 00:00: [place] [facility] TRULICITY 2017-0 Yes Univers 0.75 mg/0.5 2-06 ity of mL PnIj 00:00: [place] [facility] TRULICITY 2017-0 Yes Univers 0.75 mg/0.5 2-06 ity of mL PnIj 00:00: [place] [facility] TRULICITY 2017-0 Yes Univers 0.75 mg/0.5 2-06 ity of mL PnIj 00:00: [place] [facility] amLODIPine 2017-0 Yes Univers 5 mg tablet - ity of 00:00: [place] [facility] amLODIPine 2017-0 Yes Univers 5 mg tablet - ity of 00:00: [place] [address] Medical Branch amLODIPine 2017-0 Yes Univers 5 mg tablet - ity of 00:00: [place] [facility] Branch amLODIPine 2017-0 Yes Univers 5 mg tablet - ity of 00:00: [place] [facility] amLODIPine 2017-0 Yes Univers 5 mg tablet -27 ity of 00:00: [place] [facility] amLODIPine 2017-0 Yes Univers 5 mg tablet -27 ity of 00:00: [place] [facility] amLODIPine 2017-0 Yes Univers 5 mg tablet -27 ity of 00:00: [place] [facility] amLODIPine 2017-0 Yes Univers 5 mg tablet -27 ity of 00:00: [place] [address] Medical Branch amLODIPine 2017-0 Yes Univers 5 mg tablet -27 ity of 00:00: [place] [facility] amLODIPine 2017-0 Yes Univers 5 mg tablet 04-15 ity of 00:00: [place] [facility] Branch amLODIPine 2017-0 Yes Univers 5 mg tablet 04-15 ity of 00:00: [place] [facility] Branch amLODIPine 2017-0 Yes Univers 5 mg tablet 04-15 ity of 00:00: [place] [facility] Branch amLODIPine 2017-0 Yes Univers 5 mg tablet 04-15 ity of 00:00: [place] [facility] amLODIPine 2017- Yes Univers 5 mg tablet 04-15 ity of 00:00: [place] [facility] amLODIPine 2017 Yes Univers 5 mg tablet 04-15 ity of 00:00: [place] [facility] amLODIPine 2017- Yes Univers 5 mg tablet 04-15 ity of 00:00: [place] [facility] amLODIPine 2017- Yes Univers 5 mg tablet 04-15 ity of 00:00: [place] [facility] amLODIPine 2017 Yes Univers 5 mg tablet 04-15 ity of 00:00: [place] [facility] Amlodipine Amlodipine Yes Chris take 1 Common Besylate Besylate Elliott tablet by S pirit mouth - CHI every day [facility] Gabapentin Gabapentin Yes Chris 1 tablet Common Elliott Spirit - CHI [facility] Lisinopril Lisinopril Yes Chris take 1 Common Elliott tablet by Spirit mouth - CHI every day [facility] Atorvastati Atorvastati Yes Chris 1 tablet Common n Calcium n Calcium Elliott Spir it - CHI [facility] Atorvastati Atorvastati No 1{table QD Atorvastat n Calcium n Calcium t} in Calcium 40 MG 40 MG 40 MG Lisinopril Lisinopril No Lisinopril 40 MG 40 MG 40 MG amLODIPine amLODIPine No amLODIPine Besylate 10 Besylate 10 Besylate MG MG 10 MG Gabapentin Gabapentin No Gabapentin 600 MG 600 MG 600 MG Gabapentin Gabapentin No 1{table BID Gabapentin 600 MG 600 MG t} 600 MG amLODIPine amLODIPine No QD amLODIPine Besylate 10 Besylate 10 Besylate MG MG 10 MG Lisinopril Lisinopril No QD Lisinopril 40 MG 40 MG 40 MG Atorvastati Atorvastati No 1{table QD Atorvastat n Calcium n Calcium t} in Calcium 40 MG 40 MG 40 MG Lisinopril Lisinopril No Lisinopril 40 MG 40 MG 40 MG amLODIPine amLODIPine No amLODIPine Besylate 10 Besylate 10 Besylate MG MG 10 MG Gabapentin Gabapentin No Gabapentin 600 MG 600 MG 600 MG Gabapentin Gabapentin No 1{table BID Gabapentin 600 MG 600 MG t} 600 MG amLODIPine amLODIPine No QD amLODIPine Besylate 10 Besylate 10 Besylate MG MG 10 MG Lisinopril Lisinopril No QD Lisinopril 40 MG 40 MG 40 MG Atorvastati Atorvastati No 1{table QD Atorvastat n Calcium n Calcium t} in Calcium 40 MG 40 MG 40 MG Lisinopril Lisinopril No Lisinopril 40 MG 40 MG 40 MG amLODIPine amLODIPine No amLODIPine Besylate 10 Besylate 10 Besylate MG MG 10 MG Gabapentin Gabapentin No Gabapentin 600 MG 600 MG 600 MG Gabapentin Gabapentin No 1{table BID Gabapentin 600 MG 600 MG t} 600 MG amLODIPine amLODIPine No QD amLODIPine Besylate 10 Besylate 10 Besylate MG MG 10 MG Lisinopril Lisinopril No QD Lisinopril 40 MG 40 MG 40 MG Lisinopril Lisinopril No QD Lisinopril 40 MG 40 MG 40 MG Gabapentin Gabapentin No Gabapentin 600 MG 600 MG 600 MG Gabapentin Gabapentin No 1{table TID Gabapentin 600 MG 600 MG t} 600 MG amLODIPine amLODIPine No amLODIPine Besylate 10 Besylate 10 Besylate MG MG 10 MG Atorvastati Atorvastati No 1{table QD Atorvastat n Calcium n Calcium t} in Calcium 40 MG 40 MG 40 MG amLODIPine amLODIPine No QD amLODIPine Besylate 10 Besylate 10 Besylate MG MG 10 MG Atorvastati Atorvastati No Atorvastat n Calcium n Calcium in Calcium 40 MG 40 MG 40 MG Lisinopril Lisinopril No Lisinopril 40 MG 40 MG 40 MG Lisinopril Lisinopril No Lisinopril 40 MG 40 MG 40 MG amLODIPine amLODIPine No amLODIPine Besylate 10 Besylate 10 Besylate MG MG 10 MG amLODIPine amLODIPine No QD amLODIPine Besylate 10 Besylate 10 Besylate MG MG 10 MG Gabapentin Gabapentin No Gabapentin 600 MG 600 MG 600 MG Atorvastati Atorvastati No Atorvastat n Calcium n Calcium in Calcium 40 MG 40 MG 40 MG Lisinopril Lisinopril No QD Lisinopril 40 MG 40 MG 40 MG amLODIPine amLODIPine No QD amLODIPine Besylate 10 Besylate 10 Besylate MG MG 10 MG Gabapentin Gabapentin No 1{table BID Gabapentin 600 MG 600 MG t} 600 MG Atorvastati Atorvastati No 1{table QD Atorvastat n Calcium n Calcium t} in Calcium 40 MG 40 MG 40 MG Lisinopril Lisinopril No Lisinopril 40 MG 40 MG 40 MG amLODIPine amLODIPine No amLODIPine Besylate 10 Besylate 10 Besylate MG MG 10 MG Gabapentin Gabapentin No 1{table BID Gabapentin 600 MG 600 MG t} 600 MG Atorvastati Atorvastati No 1{table QD Atorvastat n Calcium n Calcium t} in Calcium 40 MG 40 MG 40 MG amLODIPine amLODIPine No amLODIPine Besylate 10 Besylate 10 Besylate MG MG 10 MG amLODIPine amLODIPine No QD amLODIPine Besylate 10 Besylate 10 Besylate MG MG 10 MG Atorvastati Atorvastati No 1{table QD Atorvastat n Calcium n Calcium t} in Calcium 40 MG 40 MG 40 MG Gabapentin Gabapentin No 1{table BID Gabapentin 600 MG 600 MG t} 600 MG Lisinopril Lisinopril No Lisinopril 40 MG 40 MG 40 MG Gabapentin Gabapentin No 1{table BID Gabapentin 600 MG 600 MG t} 600 MG Lisinopril Lisinopril No QD Lisinopril 40 MG 40 MG 40 MG Trulicity Trulicity 2019- No [facility] one Co mmon 08-24 [place] injection Spirit 00:00 - CHI :00 [facility] Vital Signs Vital Name Observation Time Observation Value Comments Source height 2021-11-09 13:00:00 58.5 [in_i] [facility] weight 2021-11-09 13:00:00 119 [lb_av] [facility] temperature 2021-11-09 13:00:00 97.9 [degF] [facility] bmi 2021-11-09 13:00:00 24.45 kg/m2 [facility] oximetry 2021-11-09 13:00:00 97 % [facility] respiratory rate 2021-11-09 13:00:00 16 /min Comm on [facility] blood pressure 2021-11-09 13:00:00 135 mm[Hg] Common Spirit - systolic [facility] blood pressure 2021-11-09 13:00:00 72 mm[Hg] Common Spirit - diastolic [facility] height 2021-07-30 09:00:00 50 [in_i] Common S [facility] weight 2021-07-30 09:00:00 122.5 [lb_av] Common [facility] temperature 2021-07-30 09:00:00 97.1 [degF] Common S pirit [facility] bmi 2021-07-30 09:00:00 34.45 kg/m2 Common S pirit [facility] oximetry 2021-07-30 09:00:00 94 % [facility] respiratory rate 2021-07-30 09:00:00 16 /min Comm on [facility] blood pressure 2021-07-30 09:00:00 137 mm[Hg] Common Spirit - systolic [facility] blood pressure 2021-07-30 09:00:00 76 mm[Hg] Common Spirit - diastolic [facility] height 2021-07-30 09:00:00 50 [in_i] Common S [facility] weight 2021-07-30 09:00:00 122.5 [lb_av] Common [facility] temperature 2021-07-30 09:00:00 97.1 [degF] Common S pirit [facility] bmi 2021-07-30 09:00:00 34.45 kg/m2 Common S pirit [facility] oximetry 2021-07-30 09:00:00 94 % Common S pirit [facility] respiratory rate 2021-07-30 09:00:00 16 /min Comm on [facility] blood pressure 2021-07-30 09:00:00 137 mm[Hg] Common Spirit - systolic [facility] blood pressure 2021-07-30 09:00:00 76 mm[Hg] Common Spirit - diastolic [facility] height 2021-02-23 08:20:00 50 [in_i] [facility] weight 2021-02-23 08:20:00 104.3 [lb_av] [facility] temperature 2021-02-23 08:20:00 97.5 [degF] Common [facility] bmi 2021-02-23 08:20:00 29.33 kg/m2 [facility] [facility] oximetry 2021-02-23 08:20:00 96 % [facility] respiratory rate 2021-02-23 08:20:00 17 /min Comm on [facility] blood pressure 2021-02-23 08:20:00 132 mm[Hg] [facility] - systolic [facility] blood pressure 2021-02-23 08:20:00 71 mm[Hg] Common [facility] - diastolic [facility] Systolic blood 2020-02-11 20:10:00 166 mm[Hg] Univer sity of pressure [facility] Diastolic blood 2020-02-11 20:10:00 85 mm[Hg] Unive rsity of [facility] Heart rate 2020-02-11 20:10:00 80 /min [facility] Body temperature 2020-02-11 20:06:00 36.44 [facility] 2020-02-11 20:06:00 20 /min [facility] Body height 2020-02-11 20:06:00 157.5 cm [facility] Body weight 2020-02-11 20:06:00 51.891 kg [facility] BMI 2020-02-11 20:06:00 20.92 kg/m2 [facility] Oxygen saturation in 2020-02-11 20:06:00 98 /min [facility] Arterial blood by [facility] Pulse oximetry Branch Systolic blood 2020-02-11 20:10:00 166 mm[Hg] Univer sity of pressure [facility] Diastolic blood 2020-02-11 20:10:00 85 mm[Hg] Unive rsity of [facility] Heart rate 2020-02-11 20:10:00 80 /min [facility] Body temperature 2020-02-11 20:06:00 36.44 Yue [facility] Respiratory rate 2020-02-11 20:06:00 20 /min [facility] Body height 2020-02-11 20:06:00 157.5 cm [facility] Body weight 2020-02-11 20:06:00 51.891 kg [facility] BMI 2020-02-11 20:06:00 20.92 kg/m2 [facility] Oxygen saturation in 2020-02-11 20:06:00 98 /min University of Arterial blood by [facility] Pulse oximetry Branch Systolic blood 2020-01-28 15:23:00 176 mm[Hg] [facility] Diastolic blood 2020-01-28 15:23:00 85 mm[Hg] [facility]ive [facility] Heart rate 2020-01-28 15:23:00 85 /min [facility] Respiratory rate 2020-01-28 15:23:00 16 /min [facility] Oxygen saturation in 2020-01-28 15:23:00 100 /min [facility] Arterial blood by [facility] Pulse oximetry Branch Body temperature 2020-01-28 14:28:00 36.28 Yue [facility] Body height 2020-01-24 18:00:00 149.9 cm [facility] Body weight 2020-01-24 18:00:00 52.164 kg [facility] BMI 2020-01-24 18:00:00 23.23 kg/m2 [facility] Systolic blood 2020-01-21 21:23:00 197 mm[Hg] [facility] Diastolic blood 2020-01-21 21:23:00 87 mm[Hg] [facility]ive [facility] Heart rate 2020-01-21 21:23:00 80 /min [facility] Body temperature 2020-01-21 21:23:00 36.83 Yue [facility] Respiratory rate 2020-01-21 21:23:00 20 /min [facility] Body height 2020-01-21 21:23:00 152.4 cm [facility] Body weight 2020-01-21 21:23:00 52.345 kg [facility] BMI 2020-01-21 21:23:00 22.54 kg/m2 [facility] Oxygen saturation in 2020-01-21 21:23:00 98 /min [facility] blood by [facility] Pulse oximetry Branch Procedures Procedure Date / Time Performing Clinician Source Performed CT THORAX W CONTRAST 2020-02-19 16:42:57 Angela Bains [facility] CT ABDOMEN PELVIS W 2020-02-19 16:35:37 Angela Bains [facility] HB CREATININE BLOOD 2020-02-19 16:23:00 Angela Bains [facility] CONSENT/REFUSAL FOR 2020-02-19 14:30:04 Doctor Unassigned, No [facility] DIAGNOSIS AND TREAT[facility] ASSIGNMENT OF BENEFITS 2020-02-19 14:29:47 Doctor Unassigned, No [facility] COLONOSCOPY (ENDO) 2020-01-28 12:58:04 Dhruv [facility] POCT GLUCOSE(AGE 2020-01-28 12:40:00 Lokesh Capps [facility] >30DAYS) [facility] DAY SURGERY - ADC 2020-01-28 06:01:00 Doctor Unassigned, No General acute hospital ASSIGNMENT OF BENEFITS 2020-01-27 14:37:19 Doctor Unassigned, No [facility] ASSIGNMENT OF BENEFITS 2020-01-21 20:49:32 Doctor Unassigned, No [facility] Encounters Start End Encounter Admission Attending Care Care Encounter Source Date/Time Date/Time Type Type Clinicians Facility Department ID 2022-02-07 [facility] [id number] Common 09:19:00 [facility] 2021-11-10 Outpatient Elliott, [facility] [id number] Common 16:50:00 [facility] 2021-11-03 Outpatient Elliott, STLMLC STLMLC [id number] Common 08:59:00 Chris [facility] 2021-08-03 Outpatient Elliott, STLMLC STLMLC [id number] Common 07:46:00 Chris [facility] 2021-07-29 Outpatient Elliott, STLMLC STLMLC [id number] Common 11:55:01 Chris [facility] 2021-05-12 Outpatient Elliott, STLMLC STLMLC Common 11:19:00 Chris [facility] 2021-04-14 Outpatient Elliott, STLMLC STLMLC [id number] Common 12:32:30 Chris [facility] 2021-04-14 Outpatient Elliott, STLMLC STLMLC Common 12:31:16 Chris [id number] [facility] 2021-04-14 Outpatient Elliott, STLMLC STLMLC Common 12:31:12 Chris [id number] [facility] 2021-04-14 Outpatient Elliott, STLMLC STLMLC Common 12:29:48 Chris [id number] [facility] 2021-04-14 Outpatient Elliott, STLMLC STLMLC Common 12:16:36 Chris [id number] [facility] 2021-04-14 Outpatient Elliott, STLMLC STLMLC Common 12:08:05 Chris [id number] [facility] 2021-04-14 Outpatient Elliott, STLMLC STLMLC Common 11:14:42 Chris [id number] [facility] 2021-04-14 Outpatient Elliott, STLMLC STLMLC [id number] Common 11:02:38 Chris [id number] [facility] 2021-01-16 Outpatient HERSON [facility] [id number] Univers 11:48:[address] [facility] 2021-01-16 Outpatient R HERSON [facility] JEREMIAH [id number] Univers 02:59:[address] [facility] 2022-02-01 2022-02-01 (TEL) STLMLC STLMLC [id number] Co mmon 00:00:00 00:00:00 Spirit [facility] 2021-11-09 2021-11-09 OFFICE STLMLC STLMLC [id number] Co mmon 00:00:00 00:00:00 VISIT Spirit ESTAB PT - CHI LEVEL 4 [facility] 2021-10-04 2021-10-04 (TEL) STLMLC STLMLC [id number] Co mmon 00:00:00 00:00:00 Spirit [facility] 2021-07-30 2021-07-30 OFFICE STLMLC STLMLC [id number] Co mmon 00:00:00 00:00:00 VISIT Spirit ESTAB PT - CHI LEVEL 4 [facility] 2021-07-30 2021-07-30 SUB ANNUAL STLMLC STLMLC [id number] Common 00:00:00 00:00:00 MCR Spirit WELLNESS - CHI VISIT [facility] 2021-02-23 2021-02-23 OFFICE STLMLC STLMLC [id number] Co mmon 00:00:00 00:00:00 VISIT Spirit ESTAB PT - CHI LEVEL 4 [facility] 2021-02-16 2021-02-16 (TEL) STLMLC STLMLC [id number] Co mmon 00:00:00 00:00:00 [facility] 2021-01-25 2021-01-25 (TEL) STLMLC STLMLC [id number] Co mmon 00:00:00 00:00:00 [facility] 2020-05-25 2020-05-25 Patient Davin MACAMI [id number] 00:00:00 00:00:00 Outreach Og PINEDA [id number] [facility] [id number] LAURA [phone] 388 2020-05-25 2020-05-25 Patient Davin MACAMI [id number] Univers 00:00:00 00:00:00 Outreach Og PRIMARY [id number] i ty of [facility] [id number] [phone] Ny dical [address] 2020-03-27 2020-03-27 [facility] [id number] Univers 13:00:00 13:00:[address] [facility] 2020-03-04 2020-03-04 Outpatient STLMLC STLMLC [id number] Common 00:00:00 00:00:00 [facility] - [facility] 2020-02-28 2020-02-28 Prep For Gramm, [facility] 1.2.840.114 [id number] 00:00:00 00:00:00 Surgery Linda Morenoton [id number] [place] [phone] [address] 2020-02-28 2020-02-28 Prep For Hannah, [facility] 1.2.840.114 [id number] Univers 00:00:00 00:00:00 Surgery Linda Morenoton [id number] ity [facility] [id number] [phone] Ny dical [facility] [address] [facility] 2020-02-26 2020-02-26 [facility] [id number] 00:00:00 00:00:00 Management Angela Rebolledo [id number] [place] [id number] Professio [phone] [address] 2020-02-26 2020-02-26 [facility] 1.2.840.114 [id number] 00:00:00 00:00:00 plinary Angela [facility] [id number] [facility] [id number] [phone] [facility] 2020-02-26 2020-02-26 Case [facility] [id number] 00:00:00 00:00:00 Management Angela Rebolledo [id number] [place] [id number] Professio [phone] [address] 2020-02-26 2020-02-26 [facility] [id number] Univers 00:00:00 00:00:00 Management Angela Rebolledo [id number] ity [id number] [phone] [address] 2020-02-26 2020-02-26 [facility] 1.2.840.114 [id number] Univers 00:00:00 00:00:00 plinary Angela [facility] [id number] i ty of [facility] [id number] [place] [phone] [address] 2020-02-26 2020-02-26 [facility] [id number] Univers 00:00:00 00:00:00 Management Angela Rebolledo [id number] ity [id number] [phone] [address] 2020-02-24 2020-02-24 [facility] 1.2.840.114 [id number] 00:00:00 00:00:00 Angela Rebolledo [id number] [place] [id number] Professio [phone] [address] 2020-02-24 2020-02-24 [facility] 1.2.840.114 [id number] Univers 00:00:00 00:00:00 Angela Rebolledo [id number] i [place] [phone] [address] 2020-02-19 2020-02-19 [facility] 1.2.840.114 [id number] 08:31:10 23:59:00 Encounter Angela Rebolledo [id number] [place] [id number] [place] [phone] [facility] 2020-02-19 2020-02-19 [facility] 1.2.840.114 [id number] Univers 08:31:10 23:59:00 Encounter Angela Rebolledo [id number] ity of [place] 4.2.7.2.686 [facility] [phone] [address] 2020-02-19 2020-02-19 [facility] 1.2.840.114 [id number] 08:29:10 08:30:00 Encounter Angela Rebolledo [id number] [place] 4.2.7.2.686 [place] [phone] [facility] 2020-02-19 2020-02-19 [facility] 1.2.840.114 [id number] Univers 08:29:10 08:30:00 Encounter Angela Rebolledo [id number] ity of [place] [id number] [facility] [phone] [address] 2020-02-19 2020-02-19 [facility] [id number] Univers 08:29:10 08:30:[address] [facility] 2020-02-18 2020-02-18 [facility]patient [facility] [id number] Univers 00:00:00 00:00:[address] [facility] 2020-02-12 2020-02-12 Outpatient STLC STLMLC [id number] Common 00:00:00 00:00:00 [facility] 2020-02-11 2020-02-11 Office [facility] [id number] 13:25:06 14:29:00 Visit Angela Morenoton [id number] [place] [id number] Professio [phone] [address] 2020-02-11 2020-02-11 Office [facility] 1.2.474.527 [id number] Univers 13:25:06 14:29:00 Visit Angela Morenoton 350.1.13.10 i ty of [place] 4.2.7.2.686 [facility] Professio [phone] Me dical [address] 2020-02-11 2020-02-11 Outpatient R HERSON [facility] [id number] Univers 13:30:00 13:30:00 ANGELA itsusie of [facility] 2020-01-28 2020-01-28 [facility] Herson [facility] 1.2.840.114 [id number] Univers 06:31:00 09:41:00 Encounter Angela Rebolledo [id number] ity [place]2.[place] [phone] [facility] [address] 2020-01-28 2020-01-28 Orders Doctor JERMAN 1.2.840.114 [id number] Univers 00:00:00 00:00:00 Only Unassigned, ELGIN [id number] ity of [place] [facility] 4.2.7.2.686 [place] as [phone] [facility] [address] 2020-01-27 2020-01-27 Laboratory Only, Adc Test [facility] 1.2.840. 114 [id number] Univers 08:41:09 08:56:09 Only Sadia Knowles 350.1.1 3.10 ity of [place] 4.2.7.2.686 [facility] [phone] [facility] [address] 2020-01-27 2020-01-27 Outpatient R [facility] [id number] Univers 08:45:00 08:45:00 ity of [facility] 2020-01-27 2020-01-27 Orders Doctor STOLL 1.2.840.114 [id number] Univers 00:00:00 00:00:00 Only Unassigned, ELGIN 350.1.13.10 ity of [place] [facility] 4.2.7.2.686 [place] as [phone] [facility] [address] 2020-01-21 2020-01-21 Office Herson [facility] 1.2.074.078 [id number] Univers 14:51:34 16:15:40 Visit Angela Rebolledo 350.1.13.10 i [place] [phone] Ny dical nal [address] [facility] 2020-01-21 2020-01-21 Outpatient R BAINS, [facility] [id number] Univers 15:00:00 15:00:00 ANGELA itsusie of [facility] 2020-01-21 2020-01-21 Orders Doctor JERMAN 1.2.840.114 [id number] Univers 00:00:00 00:00:00 Only Unassigned, ELGIN 350.1.13.10 ity of [place] [facility] 4.2.7.2.686 [place] as [phone] [address] 2020-01-21 2020-01-21 Prep For Gramm, [facility] 1.2.840.114 [id number] Univers 00:00:00 00:00:00 Surgery Linda Graeme Rebolledo 350.1.13.10 ity [place] [phone] Ny dical nal [address] [facility] 2019-11-12 2019-11-12 Outpatient [facility] [id number] Common 10:00:00 10:00:[address] [facility] 2019-08-27 2019-08-27 Outpatient [facility] [id number] Common 09:00:00 09:00:[address] [facility] 2019-08-06 2019-08-06 Outpatient [facility] [id number] Common 11:00:00 11:00:[address] [facility] 2019-08-06 2019-08-06 Outpatient [facility] [id number] Common 11:00:00 11:00:[address] [facility] 2019-06-10 2019-06-10 Outpatient [facility] [id number] Common 09:15:00 09:15:[address] [facility] 2019-04-10 2019-04-10 Outpatient [facility] [id number] Common 16:41:00 16:41:[address] [facility] 2018-12-13 2018-12-13 Outpatient [facility] [id number] Common 09:30:00 09:30:[address] [facility] 2018-04-26 2018-04-26 Outpatient Sumeet Fayt [id number] Common 09:30:00 09:30:[address] [facility] 2017-10-26 2017-10-26 Outpatient S[facility] [id number] Common 09:45:00 09:45:[address] [facility] 2017-09-27 2017-09-27 Outpatient Sumeet Fayt [id number] Common 12:58:00 12:58:[address] [facility] 2017-08-24 2017-08-24 Outpatient Sumeet Fayt [id number] Common 09:45:00 09:45:[address] [facility] Results Test Description Test Time Test Comments Results Result Comments Source POCT CREATININE 2020-02-19 20:12:00 Test Item Value Reference Range Interpretation Comme nts POCT Creatinine (test code = 8323045545) 0.7 mg/dL 0.5-1.1 Lab Interpretation (test code = 17482-7) [facility] W [id number] 17:10:05 HISTORY: Anal canal cancer TECHNIQUE: Contrast-enhanced [...] breast.Patient's last mammogram study done at t his facility was in 2017.Therefore, please encourage the patient to have bilateral mammography-KISHOR.[facility], Radiant Results Inft User - 02/19/2020 11:11 AM CSTHISTORY: Anal canal cancerTECHNIQUE: Contrast-enhanced 64-mutidetector CT scan of the chest wascompleted with intravenous injection of non ioniccontrast medium.Subsequently numerous sagittal, coronal and MIP reformations weregenerated.FINDINGS:Thyroid gland is unremarkable. Trachea and central bronchialairways appear normal.No pleural effusion or pericardial effusion. No hilar or mediastinaladenopathy.Middle thoracic degenerative spondylosisis noted. No aggressive bonelesions visualized.Following lung nodules are visualized:-3 mm nodule anterior right upper lung (5:41).4 mm nodule right upper lobe (5:43).Pleural-based 4 mm nodule anteriorright upper lung (5:50).Possible tiny calcified granuloma posterior right lower lung (5:52).Calcified granuloma medial lower left lung (5:53).Probable short sliding hiatal hernia with mild gastroesophageal reflux.Mild LAD coronary atherosclerosis noted. No acute pulmonarythromboembolism, aortic aneurysm or aortic dissection detected.Dilated veins are seen in the left upper abdomen including some gastr icvarices.CONCLUSIONS:1. No acute intrathoracic findings.2. Calcified granulomas in both lungs and noncalcified nodules in the rightlung, probably granulomas. Monitoring suggested by follow-up noncontrastenhanced CT scan of chest in 6 months.3. Dilated venous collateral circulation noted in the left upper abdomenincluding some gastric varices.4. Asymmetrical soft tissue densities are seen in the leftbreast.Patient's last mammogram study done at this facility was in 2016.Therefore, please encourage the patient to have bilateral mammography-KISHOR[facility] CONTRAST 2020-02-19 16:54:38CT Abdomen and Pelvis with oral and [...] suggestive of cirrhotic morphology. Nofocal liver lesions areseen. Cholecystectomy noted. Spleen measuresapproximately 8 x 3.5 [...] No abnormal fluid. Slightly enlarged lymph node [id number] x 5 mm adjacent to the aorta [...] Unremarkableunopacified urinary bladder. No adnexal masses. Bones: No aggressive bone lesions. Grade 1 spondylolisthesis [...] mm left adrenal gland nodule,for uncertain etiology. [facility], Radiant Results Inft User - 02/19/2020 10:55 AM CSTCT Abdomen and Pelvis with oral and intravenous contrast.CLINICAL HISTORY: Anal canal cancer.DOSE: [id number] equipment and radiation dose reduction techniques wereemployed. [...] a 13 mm nodule. Kidneys and Ureters: No visible calculi in the [...] No abnormal fluid. Slightly enlarged lymph node [id number] x 5 mm adjacent to the aorta [...] without any acutechanges. Appendix is not visualized, however,no signs of acuteappendicitis detected. Small bowel gas pattern is unremarkable.Bladder and Reproductive Organs: Uterus is markedly elongated and appearsto be tethered to the urachus remnant near umbilicus. Unremarkableunopacified urinary bladder. No adnexal masses.Bones: No aggressive bone lesions. Grade 1 spondylolisthesis at L4-L5 withspace narrowing, bulging disc and facet arthritis.Soft tissues:Multiple enlarged lymph nodes in the right superficial groinregion, measuring up to 15 mm with some of the lymph nodes showing moderateenhancement.Multiple small fat-containing midline and right sided epigastric abdominalwall hernias.CONCLUSION:1. Borderline hepatomegaly with cirrhotic morphology. No focal liverlesions. S/P cholecystectomy.2. Enlarged right superficial inguinal lymph nodes. Slightly enlarged lymphnode noted also in the right retroperitoneum adjacent to common iliacartery and distal IVC level.3. Hypertrophy of left adrenal gland with 13 mm left adrenal gland nodule,for uncertain etiology.[facility] [id number] 12:41:00 Test Item Value Reference Range Interpretation Comments POCT Glu (age>30days) (test code = 108 mg/dL 70-110 5472) Lab Interpretation (test code = Normal 63430-4) [facility]
[2022-02-15] MEDS ORDERED: HYDROMORPHONE HCL 0.5 MG/0.5 ML INJ ONE (11:04)
[2022-02-15] MEDS ORDERED: ONDANSETRON 4 MG/2 ML VIAL ONE (11:04)
[2022-02-15] MEDS ORDERED: NA CHLORIDE 0.9% 1,000 ML ONE ×2 (11:04→12:08)
[2022-02-15 11:08] LABS: Absolute Lymphocytes (CBC) 1.2 K/uL (0.7-4.9); Hematocrit 46.8 % (36.0-45.0); Lymphocytes % 13.2 % (15.3-44.8); MCV 98.3 fL (80-100); MPV 6.7 fL (7.6-11.3); RBC Red Blood Cell Count 4.77 M/uL (3.86-4.86)
[2022-02-15 11:56] LABS: Albumin 3.6 g/dL (3.4-5.0); Bilirubin Direct 0.2 mg/dL (0-0.2); Bilirubin Total 0.6 mg/dL (0.2-1.0); Potassium 3.9 mmol/L (3.5-5.1)
--- NOTE | 2022-02-15 12:04 | RAD REPORT ---
EXAM DESCRIPTION: RAD - Hip Right 2 View - 02/15/2022 11:28 am CLINICAL HISTORY: PAIN COMPARISON: No comparisons FINDINGS: AP and frog-leg views of the right hip were obtained. Minimal degenerative changes present at the right SI joint. No pubic symphysis abnormality. Right hem ipelvis shows no fracture or acute finding. There are degenerative changes along the superior acetabu lar rim. No fracture of the proximal right femur identifiable. No AVN or focal femoral head abnormality. No pe riarticular soft tissue finding seen. No abnormality in the proximal 1/3 of the femoral shaft. IMPRESSION: Degenerative changes along the superior acetabular rim. No AVN, fracture or proximal right femur acute finding.
[2022-02-15] MEDS ORDERED: INSULIN -REGULAR HUMAN 50 UNIT/0.5 ML ML ONE ×2 (12:08→21:23)
--- NOTE | 2022-02-15 13:32 | RAD REPORT ---
EXAM DESCRIPTION: CT - Lower Ext Angio - 02/15/2022 1:14 pm CLINICAL HISTORY: obstruction Right leg pain and claudication. COMPARISON: No comparisons FINDINGS: CT angiogram of the right lower extremity arterial system was performed with MIPS. Multifocal aortoiliac atherosclerosis is seen. Right lower extremity arterial system shows mild to moderate atherosclerosis without a complete occlu lulu present. Left lower extremity arterial system demonstrates evidence of significant occlusion of the left mid a nd distal superficial femoral artery with some reconstitution of flow in the left popliteal artery. No soft tissue mass or hematoma is present. Incidentally noted is mild peripancreatic fat stranding. IMPRESSION: Moderate aortoiliac and right lower extremity multifocal multisegmental atheromatous jessi cified plaquing is present. No complete occlusion seen on the right. There is evidence of a complete occlusion involving the mid and distal left superficial femoral arter y with reconstitution of flow in the left popliteal artery. Peripancreatic fat stranding is also identified incidentally, which could indicate pancreatitis. Benigno mmend correlation with amylase/lipase levels.
[2022-02-15] MEDS ORDERED: MAGNES/ALUMIN/SIMET 30ML UCUP ONE (15:19)
[2022-02-15] MEDS ORDERED: LIDOCAINE VISCOUS 2% SOLN 15 ML UDC ONE (15:19)
--- NOTE | 2022-02-15 17:58 | EDPHYS ---
Physician Documentation [facility] Name: rEnestina Marcus Age: 71 yrs Sex: Female : 1950 Arrival Date: 02/15/2022 Time: 10:17 Bed 12 Private MD: [facility] ED Physician Tommy Mccormack HPI: 02/15 10:50 This 71 yrs old Black Female presents to ER via Wheelchair with complaints of Leg Pain. jr11 10:50 The patient presents with pain, that is chronic, Pt with acute onset RLE pain h/o jr11 rectal cancer, severe pain to upper R leg. The complaints affect the lateral aspect of right thigh, right hamstring, medial aspect of right thigh and right quadriceps. Context: The problem was sustained at home, resulted from an unknown cause, the patient can partially bear weight, the patient is able to ambulate, h/o prior presentation, thought to be musc spasms . Onset: The symptoms/episode began/occurred acutely. Modifying factors: The symptoms are alleviated by nothing. the symptoms are aggravated by movement. Associated signs and symptoms: Pertinent negatives fever, rash, vomiting. Severity of symptoms: At their worst the symptoms were moderate, severe, in the emergency department the symptoms are actually worse. Pt also with chronic diarrhea. Historical: - Allergies: 10:42 Soma; vg1 - Home Meds: 12:48 amlodipine 10 mg tab 1 tab once daily [Active]; gabapentin 600 mg Oral tab twice a day em6 [Active]; atorvastatin [Active]; - PMHx: 10:42 angina pectoris; Chronic pain; Diabetes - IDDM; Glaucoma; Hypertension; RECTAL CA; vg1 - Immunization history:: Client reports receiving the 2nd dose of the Covid vaccine. - Social history:: Smoking status: unknown. ROS: 10:53 All other systems are negative. jr11 Exam: 10:53 Constitutional: moderate distress 2/2 pain Head/Face: Normocephalic, atraumatic. jr11 Eyes: Extra-ocular motions intact. Lids and lashes normal. Conjunctiva and sclera are non-icteric and not injected. Cornea within normal limits. Periorbital areas with no swelling, redness, or edema. ENT: Nares patent. No nasal discharge, no septal abnormalities noted. Oropharynx with no redness, swelling, or masses, exudates, or evidence of obstruction, uvula midline. Mucous membranes moist. Neck: Trachea midline, no thyromegaly or masses palpated, and no cervical lymphadenopathy. Supple, full range of motion without nuchal rigidity, or vertebral point tenderness. No Meningismus. Chest/axilla: Normal chest wall appearance and motion. Nontender with no deformity. No lesions are appreciated. Cardiovascular: tachy regular rhythm Respiratory: Lungs have equal breath sounds bilaterally, clear to auscultation and percussion. No rales, rhonchi or wheezes noted. No increased work of breathing, no retractions or nasal flaring. Abdomen/GI: Soft, non-tender, with normal bowel sounds. No distension or tympany. No guarding or rebound. No evidence of tenderness throughout. Back: No spinal tenderness. No costovertebral tenderness. Full range of motion. Skin: Warm, dry with normal turgor. Normal color with no rashes, no lesions, and no evidence of cellulitis. MS/ Extremity: Pulses equal, no cyanosis. Neurovascular intact. Full, normal range of motion. non painful ROM, distal pulses weak but present with US Vital Signs: 10:37 BP 218 / 120; Pulse 122; Resp 24; Temp 97.9; Pulse Ox 99% ; Weight 45.36 kg; Pain 10/10;vg1 10:44 BP 214 / 113; Pulse 120; Resp 22; Pulse Ox 100% on R/A; Pain 10/10; ld1 12:30 BP 190 / 85; Pulse 108; Resp 14; Pulse Ox 100% on R/A; em6 13:30 BP 196 / 82; Pulse 106; Resp 20; Pulse Ox 100% on R/A; em6 14:32 BP 192 / 86; Pulse 108; Resp 17; Pulse Ox 100% on R/A; em6 15:45 BP 180 / 106; Pulse 97; Resp 17; Pulse Ox 100% on R/A; ld1 16:30 BP 189 / 76; Pulse 99; Resp 17; Pulse Ox 100% ; ld1 17:15 BP 186 / 85; Pulse 102; Resp 17; Pulse Ox 100% ; em6 18:00 BP 195 / 107; Pulse 104; Resp 20; Pulse Ox 99% on R/A; em6 19:00 BP 187 / 73; Pulse 95; Resp 17; Pulse Ox 99% on R/A; em6 20:15 BP 195 / 94; Pulse 102; Resp 18; Pulse Ox 99% on R/A; em6 21:00 BP 183 / 91; Pulse 101; Resp 16; Pulse Ox 99% on R/A; em6 MDM: 10:29 Patient medically screened. [facility] [place] 10:53 Differential diagnosis: arterial occlusion, spasms, radiculopathy. Data reviewed: vital [facility] [place] signs, nurses notes. 14:02 ED course: glucose 220s, pt feeling better, per vacular Ellitot will f/u OP. . [facility] [place] 14:03 ED course: lactic acid elevated 2/2 hyperglycemia and volume depletion, no concern [facility] [place] infection. . 17:55 ED course: Pt with persistent tachycardia and lactic acidosis will admit for obs. [facility] [place] 02/15 10:45 Order name: Basic Metabolic Panel; Complete Time: 12:00 [facility] [place] 02/15 10:45 Order name: CBC with Diff; Complete Time: 11:35 [facility] [place] 02/15 10:45 Order name: LFT's; Complete Time: 12:00 [facility] [place] 02/15 10:45 Order name: CK; Complete Time: 12:00 [facility] [place] 02/15 10:45 Order name: Lactate w/ 2H reflex if indic.; Complete Time: 12:00 [facility] [place] 02/15 14:23 Order name: Glucose, Ancillary Testing; Complete Time: 14:32 [facility] 02/15 10:45 Order name: Hip Right 2 View XRAY; Complete Time: 13:37 [facility] [place] 02/15 10:55 Order name: Lower Ext Angio; Complete Time: 13:37 [facility] 02/15 14:30 Order name: Lactate Sepsis 2 HR Follow-up; Complete Time: 14:32 [facility] 02/15 14:33 Order name: Lactate w/ 2H reflex if indic.; Complete Time: 17:38 [facility] [place] 02/15 17:54 Order name: BMP; Complete Time: 21:02 02/15 19:21 Order name: SARS-COV-2 Antigen Rapid; Complete Time: 21:02 [facility] 02/15 20:13 Order name: Lactate Sepsis 2 HR Follow-up; Complete Time: 21:02 [facility] 02/15 10:45 Order name: EKG; Complete Time: 10:45 [facility] [place] 02/15 10:45 Order name: Cardiac monitoring; Complete Time: 10:51 jr11 11/29 10:45 Order name: EKG - Nurse/Tech; Complete Time: 02/15 10:45 Order name: IV Saline Lock; Complete Time: 02/15 10:45 Order name: Labs collected and sent; Complete Time: 02/15 10:45 Order name: O2 Per Protocol; Complete Time: 02/15 10:45 Order name: O2 Sat Monitoring; Complete Time: 02/15 11:12 Order name: Labs - recollect needed: recollect all labs; Complete Time: 11:31 bd Administered Medications: 11:09 Drug: Dilaudid (HYDROmorphone) 0.5 mg Route: IVP; Site: left wrist; ld1 12:03 Follow up: Response: No adverse reaction; RASS: Alert and Calm (0) em6 11:09 Drug: Zofran (Ondansetron) 4 mg Route: IVP; Site: left wrist; ld1 12:03 Follow up: Response: No adverse reaction em6 11:09 Drug: NS 0.9% 1000 ml Route: IV; Rate: 1 bolus; Site: left wrist; ld1 12:03 Follow up: Response: No adverse reaction; IV Status: Completed infusion; IV Intake: em6 1000ml 12:18 Drug: NS 0.9% 1000 ml Route: IV; Rate: 1000 ml; Site: left wrist; em6 14:00 Follow up: Response: No adverse reaction; IV Intake: 1000ml ld1 12:19 Drug: Insulin Regular Human 10 units {Co-Signature: ss (Brynn Ross RN).} Route: IVP; em6 Site: left wrist; 13:00 Follow up: Response: No adverse reaction em6 15:23 Drug: GI Cocktail with - (Phenobarbital-Belladonna 10 ml, Maalox Suspension 30 em6 ml, Lidocaine Liquid 2 % 20 ml) Route: PO; 16:00 Follow up: Response: No adverse reaction ld1 21:29 Drug: Lactated Ringers Solution 1000 ml Route: IV; Rate: 100 ml/hr; Site: left wrist; em6 21:36 Drug: Insulin Regular Human 5 units {Co-Signature: as6 (Bubba Sanabria RN).} Route: IVP; em6 Site: left wrist; Disposition Summary: 02/15/22 17:57 Hospitalization Ordered Hospitalization Status: Observation [facility] [place] Provider: Moise Espana jr Location: Telemetry/MedSurg (observation)(02/15/22 17:57) jr11 Condition: Fair(02/15/22 17:57) jr11 Problem: new jr11 Symptoms: have improved jr11 Bed/Room Type: Standard [facility] [place] Room Assignment: 407(02/15/22 21:28) cg Diagnosis - lactic acidosis, hyperglycemia, R leg pain, RLE and LLE arterial occlusion jr11 Forms: - Medication Reconciliation Form jr11 - SBAR form jr11 Signatures: Dispatcher [employer] EDMS Teresa Harris, BANDOLEER PACKER-C BANDOLEER PACKER-Ckb Andreia Beck Lee, BANDOLEER PACKER-C BANDOLEER PACKER-ClaKayla Rooney RN RN cg Elizabeth Taylor RN RN vg1 April Forman RN RN ld1 Tommy Mccormack MD MD 11 Carla Frazier RN RN em6 Brynn Ross RN ss Bubba Sanabria RN as6 Corrections: (The following items were deleted from the chart) 17:56 17:56 Home jr11 jr11 17:56 17:56 Stable [facility] [place] jr11 17:56 17:56 Hyperglycemia, unspecified [address] 21:28 17:57 jr11 cg
--- NOTE | 2022-02-15 17:58 | ER ---
Nurse's Notes [facility] Name: Ernestina Marcus Age: 71 yrs Sex: Female : 1950 Arrival Date: 02/15/2022 Time: 10:17 Bed 12 Private MD: Fred Elliott Diagnosis: lactic acidosis, hyperglycemia, R leg pain, RLE and LLE arterial occlusion Presentation: 02/15 10:24 Chief complaint: Patient states: Right leg pain began about 30 minutes ago, pt was sent vg1 over from the cancer center. Also stated diarrhea x 3 days. Coronavirus screen: Vaccine status: Patient reports being unvaccinated. Client denies travel out of the [place] in the last 14 days. Ebola Screen: Patient negative for fever greater than or equal to 101.5 degrees Fahrenheit, and additional compatible Ebola Virus Disease symptoms. Risk Assessment: Do you want to hurt yourself or someone else? Patient reports no desire to harm self or others. Onset of symptoms was February 15, 2022. 10:24 Method Of Arrival: Wheelchair vg1 10:24 Acuity: ANNIE 2 ss 10:37 Initial Sepsis Screen: Does the patient meet any 2 criteria? HR > 90 bpm. Does the vg1 patient have a suspected source of infection? No. Patient's initial sepsis screen is negative. Triage Assessment: 10:37 General: Appears distressed, uncomfortable. Pain: Complains of pain in right leg Pain vg1 currently is 10 out of 10 on a pain scale. Pain began suddenly, 30 min ago. Cardiovascular: Pulses are absent in right dorsalis pedis artery. Derm:. Musculoskeletal:. Historical: - Allergies: 10:42 Soma; vg1 - Home Meds: 12:48 amlodipine 10 mg tab 1 tab once daily [Active]; gabapentin 600 mg Oral tab twice a day em6 [Active]; atorvastatin [Active]; - PMHx: 10:42 angina pectoris; Chronic pain; Diabetes - IDDM; Glaucoma; Hypertension; RECTAL CA; vg1 - Immunization history:: Client reports receiving the 2nd dose of the Covid vaccine. - Social history:: Smoking status: unknown. Screenin:46 Abuse screen: Denies threats or abuse. Denies injuries from another. Nutritional ld1 screening: No deficits noted. Tuberculosis screening: No symptoms or risk factors identified. Fall Risk None identified. Assessment: 10:46 General: Appears distressed, uncomfortable, Behavior is agitated, anxious, crying, ld1 fussy. Pain: Complains of pain in right leg Pain does not radiate. Pain currently is 10 out of 10 on a pain scale. Neuro: Level of Consciousness is awake, alert, obeys commands, Oriented to person, place, time, situation. Cardiovascular: Capillary refill < 3 seconds Patient's skin is warm and dry. Rhythm is sinus tachycardia. Respiratory: Airway is patent Respiratory effort is even, unlabored. GI: Abdomen is flat, non-distended. : No signs and/or symptoms were reported regarding the genitourinary system. EENT: No signs and/or symptoms were reported regarding the EENT system. Derm: No signs and/or symptoms reported regarding the dermatologic system. Musculoskeletal: No signs and/or symptoms reported regarding the musculoskeletal system. 11:56 Reassessment: Dr. Mccormack notified of critical lab value- Lactate. ss 11:56 Reassessment: Dr. Mccormack notified of critical lab value- glucose. ss 12:00 Reassessment: Patient appears in no apparent distress at this time. No changes from em6 previously documented assessment. Patient is alert, oriented x 3, equal unlabored respirations, skin warm/dry/pink. 13:00 Reassessment: Patient appears in no apparent distress at this time. No changes from em6 previously documented assessment. Patient and/or family updated on plan of care and expected duration. Pain level reassessed. Patient is alert, oriented x 3, equal unlabored respirations, skin warm/dry/pink. 14:00 Reassessment: Patient appears in no apparent distress at this time. No changes from em6 previously documented assessment. Patient and/or family updated on plan of care and expected duration. Pain level reassessed. Patient is alert, oriented x 3, equal unlabored respirations, skin warm/dry/pink. 15:15 Reassessment: Patient and/or family updated on plan of care and expected duration. Pain ld1 level reassessed. Patient is alert, oriented x 3, equal unlabored respirations, skin warm/dry/pink. patient is stating having some acid reflux and feeling burning sensation in pain. provider notified and new order given. 16:15 Reassessment: Patient appears in no apparent distress at this time. Patient and/or ld1 family updated on plan of care and expected duration. Pain level reassessed. Patient is alert, oriented x 3, equal unlabored respirations, skin warm/dry/pink. Patient states feeling better. 17:15 Reassessment: No changes from previously documented assessment. Patient and/or family em6 updated on plan of care and expected duration. Pain level reassessed. Patient is alert, oriented x 3, equal unlabored respirations, skin warm/dry/pink. Patient states feeling better. 18:15 Reassessment: Patient appears in no apparent distress at this time. No changes from em6 previously documented assessment. Patient and/or family updated on plan of care and expected duration. Pain level reassessed. Patient is alert, oriented x 3, equal unlabored respirations, skin warm/dry/pink. 19:15 Reassessment: Patient appears in no apparent distress at this time. No changes from em6 previously documented assessment. Patient and/or family updated on plan of care and expected duration. Pain level reassessed. Patient is alert, oriented x 3, equal unlabored respirations, skin warm/dry/pink. 20:15 Reassessment: Patient appears in no apparent distress at this time. No changes from em6 previously documented assessment. Patient and/or family updated on plan of care and expected duration. Pain level reassessed. Patient is alert, oriented x 3, equal unlabored respirations, skin warm/dry/pink. 21:15 Reassessment: Patient appears in no apparent distress at this time. No changes from em6 previously documented assessment. Patient and/or family updated on plan of care and expected duration. Pain level reassessed. Patient is alert, oriented x 3, equal unlabored respirations, skin warm/dry/pink. Vital Signs: 10:37 BP 218 / 120; Pulse 122; Resp 24; Temp 97.9; Pulse Ox 99% ; Weight 45.36 kg; Pain 10/10;vg1 10:44 BP 214 / 113; Pulse 120; Resp 22; Pulse Ox 100% on R/A; Pain 10/10; ld1 12:30 BP 190 / 85; Pulse 108; Resp 14; Pulse Ox 100% on R/A; em6 13:30 BP 196 / 82; Pulse 106; Resp 20; Pulse Ox 100% on R/A; em6 14:32 BP 192 / 86; Pulse 108; Resp 17; Pulse Ox 100% on R/A; em6 15:45 BP 180 / 106; Pulse 97; Resp 17; Pulse Ox 100% on R/A; ld1 16:30 BP 189 / 76; Pulse 99; Resp 17; Pulse Ox 100% ; ld1 17:15 BP 186 / 85; Pulse 102; Resp 17; Pulse Ox 100% ; em6 18:00 BP 195 / 107; Pulse 104; Resp 20; Pulse Ox 99% on R/A; em6 19:00 BP 187 / 73; Pulse 95; Resp 17; Pulse Ox 99% on R/A; em6 20:15 BP 195 / 94; Pulse 102; Resp 18; Pulse Ox 99% on R/A; em6 21:00 BP 183 / 91; Pulse 101; Resp 16; Pulse Ox 99% on R/A; em6 ED Course: 10:17 Patient arrived in ED. mr 10:18 Rajendra Bartlett DO is Private Physician. mr 10:18 Fred Elliott DO is Private Physician. mr 10:27 Triage completed. vg1 10:27 Tommy Mccormack MD is Attending Physician. jr11 10:37 Arm band placed on. vg1 10:41 April Forman, ISIDRO is Primary Nurse. ld1 10:46 Patient has correct armband on for positive identification. Placed in gown. Bed in low ld1 position. Call light in reach. Side rails up X2. residential monitor on. Pulse ox on. NIBP on. Door closed. Noise minimized. Warm blanket given. 10:46 No provider procedures requiring assistance completed. ld1 11:30 Hip Right 2 View XRAY In Process Unspecified. EDMS 11:51 Inserted saline lock: 22 gauge in left wrist, using aseptic technique. Blood collected. ld1 11:51 Inserted saline lock: 20 gauge in right wrist, using aseptic technique. ld1 13:16 Lower Ext Angio In Process Unspecified. EDMS 17:57 Moise Espana is Hospitalizing Provider. jr11 22:00 Patient admitted, IV remains in place. ld1 Administered Medications: 11:09 Drug: Dilaudid (HYDROmorphone) 0.5 mg Route: IVP; Site: left wrist; ld1 12:03 Follow up: Response: No adverse reaction; RASS: Alert and Calm (0) em6 11:09 Drug: Zofran (Ondansetron) 4 mg Route: IVP; Site: left wrist; ld1 12:03 Follow up: Response: No adverse reaction em6 11:09 Drug: NS 0.9% 1000 ml Route: IV; Rate: 1 bolus; Site: left wrist; ld1 12:03 Follow up: Response: No adverse reaction; IV Status: Completed infusion; IV Intake: em6 1000ml 12:18 Drug: NS 0.9% 1000 ml Route: IV; Rate: 1000 ml; Site: left wrist; em6 14:00 Follow up: Response: No adverse reaction; IV Intake: 1000ml ld1 12:19 Drug: Insulin Regular Human 10 units {Co-Signature: ss (Brynn Ross RN).} Route: IVP; em6 Site: left wrist; 13:00 Follow up: Response: No adverse reaction em6 15:23 Drug: GI Cocktail with - (Phenobarbital-Belladonna 10 ml, Maalox Suspension 30 em6 ml, Lidocaine Liquid 2 % 20 ml) Route: PO; 16:00 Follow up: Response: No adverse reaction ld1 21:29 Drug: Lactated Ringers Solution 1000 ml Route: IV; Rate: 100 ml/hr; Site: left wrist; em6 21:36 Drug: Insulin Regular Human 5 units {Co-Signature: as6 (Bubba Sanabria RN).} Route: IVP; em6 Site: left wrist; Medication: 10:46 VIS not applicable for this client. ld1 Intake: 12:03 IV: 1000ml; Total: 1000ml. em6 14:00 IV: 1000ml; Total: 2000ml. ld1 Outcome: 17:56 Discharge ordered by . jr11 17:57 Decision to Hospitalize by Provider. jr11 22:00 Admitted to Med/surg accompanied by tech, via wheelchair, room 407. ld1 22:00 Condition: stable 22:00 Instructed on the need for admit. 22:00 Patient left the ED. ld1 Signatures: Dispatcher [facility] SIGRID LavelleEbonie Shelby, RN RN ss Garcia, Victoria, RN RN 1 April Forman RN RN ld1 Tommy Mccormack MD MD jr11 Carla Frazier RN RN em6 Brynn Ross RN ss Bubba Sanabria RN as6 Corrections: (The following items were deleted from the chart) 10:42 10:24 Chief complaint: Patient states: Right leg pain began about 30 minutes ago, pt vg1 was sent over from the cancer center. vg1 10:56 10:24 Acuity: ANNIE 3 vg1 ss
--- NOTE | 2022-02-15 18:26 | P.HP ---
Certification for Inpatient Patient admitted to: Observation With expected LOS: <2 Midnights Patient will require the following post-hospital care: None Practitioner: I am a practitioner with admitting privileges, knowledge of patient current condition, hospital course, and medical plan of care. Services: Services provided to patient in accordance with Admission requirements found in Title 42 Section 412.3 of the Code of Federal Regulations Patient History Date of Service: 02/15/22 Reason for admission: Hyperglycemia, tachycardia History of Present Illness: 71-year-old female with history of insulin-dependent diabetes, hypertension, hyperlipidemia, previous rectal cancer status post chemo/radiation presents the emergency department for right lower extremity pain. She was at a follow-up appoint with her oncologist when she developed severe right lower extremity pain described as cramping. She was evaluated here in the emergency department labs were significant for hemoglobin 15.7 hematocrit 46.8 bicarb 16 glucose 416 initial lactic acid 2.5, increased to 3.6 and then decreased back down to 2.5 she had an x-ray of the right hip she was negative for any acute findings, lower extremity CTA was performed which revealed moderate aortoiliac and right lower extremity multifocal multisegmental atheromatous calcified plaque is present. No complete occlusion seen on the right. There is evidence of a complete occlusion involving the mid and distal left superficial femoral artery with reconstitution of flow in the popliteal artery. Peripancreatic fat stranding also identified incidentally which could indicate pancreatitis recommend correlation with amylase/lipase levels. ED physician spoke with Dr. Elliott of vascular surgery who recommended further evaluation as an outpatient for abnormal findings on angio as there is no complete occlusion or ischemic limb present. Patient persistently tachycardic after receiving multiple IV fluid boluses, borderline DKA, Ed wishes to admit under obs. Allergies carisoprodol [From Soma] Allergy (Verified 02/05/21 08:09) Hives/Rash Home Medications: Acetaminophen [Tylenol Extra Strength] 500 mg PO PRN PRN 02/03/21 Amlodipine Besylate 10 mg PO BEDTIME 02/03/21 Gabapentin 600 mg PO BID 02/03/21 - Past Medical/Surgical History -: Rectal carcinoma -: 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 -: DMII -: HTN -: HLD -: Appendectomy -: cholecystectomy -: x3 Psychosocial/ Personal History: Patient lives at home with her , family - Family History Father -: Cancer Mother -: Cancer - Social History Smoking Status: Light Tobacco smoker (1-9 cigarettes/day) Alcohol use: No CD- Drugs: No Place of Residence: Home Review of Systems 10-point ROS is otherwise unremarkable General: Weakness Musculoskeletal: Leg Pain Physical Examination - Physical Exam General: Alert, In no apparent distress, Oriented x3 HEENT: Atraumatic, PERRLA, Mucous membr. moist/pink, EOMI, Sclerae nonicteric Neck: Supple, 2+ carotid pulse no bruit, No LAD, Without JVD or thyroid abnormality Respiratory: Clear to auscultation bilaterally, Normal air movement Cardiovascular: Regular rate/rhythm, Normal S1 S2 Capillary refill: <2 Seconds Gastrointestinal: Normal bowel sounds, No tenderness Musculoskeletal: No tenderness Integumentary: No rashes Neurological: Normal speech, Normal strength at 5/5 x4 extr, Normal tone, Normal affect - Studies Laboratory Data (last 24 hrs) 02/15/22 11:28: Sodium 139, Potassium 3.9, BUN 8, Creatinine 0.82, Glucose 416 H*, Total Bilirubin 0.6, AST 9 L, ALT 11 L, Alkaline Phosphatase 87 02/15/22 11:00: WBC 9.00, Hgb 15.7 H, Hct 46.8 H, Plt Count 360 Assessment and Plan - Plan Assessment: Hyperglycemia, tachycardia, lactic acidosis Diabetes mellitus type 2insulin-dependent with hyperglycemia Hypertension hyperlipidemia PAD Plan: Hyperglycemia, tachycardia, lactic acidosis: Patient was taken off of her insulin approximately 1 year ago when she had her chemo/radiation, has been on no antidiabetic agents last 1 year. Glucose is elevated suspect her symptoms are related to dehydration, hyperglycemia. Blood sugar has improved she still tachycardic around 100 we will continue IV fluids overnight and gain control blood sugar. A1c in the morning will likely require insulin or other antidiabetic agent at discharge. Diabetes mellitus type 2insulin-dependent with hyperglycemia: Continue as above Hypertension: Continue amlodipine hyperlipidemia: Continue atorvastatin PAD: CT lower extremity angio performed see report for details. ED physician discussed case with Dr. Elliott from vascular who recommends outpatient manage ment. No acute ischemia noted. DVT PPX:Lovenox Code status:Full Discharge Plan: Home Plan to discharge in: 24 Hours - Advance Directives Does patient have a Living Will: Yes Does patient have a Durable POA for Healthcare: No - Code Status/Comfort Care Code Status Assessed: Yes (Full code) Time Spent Managing Pts Care (In Minutes): 70
[2022-02-15 19:21] LABS: SARS-CoV-2 Antigen Rapid Res Negative (Negative)
[2022-02-15] MEDS: Ringers Lactate 1,000 ML IV SCH (21:05)
[2022-02-15] MEDS ORDERED: Ringers Lactate 1,000 ML IV ONE (21:23)
[2022-02-15] MEDS: HYDRALAZINE HCL 20 MG/ML VIAL IV PRN (22:49)
[2022-02-15] MEDS: ONDANSETRON 4 MG/2 ML VIAL IV PRN (22:50)
[2022-02-15] MEDS: INSULIN -REGULAR HUMAN 50 UNIT/0.5 ML ML SQ SCH (22:52)
[2022-02-15] MEDS: MORPHINE 2 MG/ML SYR IV PRN (22:52)
[2022-02-15 23:05] VITALS: BMI 19.8
[2022-02-16] MEDS ORDERED: MORPHINE 4 MG/ML SYR IV ONE (01:27)
[2022-02-16] MEDS ORDERED: PROMETHAZINE INJ 25 MG/ML AMP IV ONE (01:27)
[2022-02-16 03:45] LABS: Absolute Lymphocytes (CBC) 1.1 K/uL (0.7-4.9); Hematocrit 39.8 % (36.0-45.0); Lymphocytes % 13.7 % (15.3-44.8); MPV 6.8 fL (7.6-11.3); RBC Red Blood Cell Count 4.06 M/uL (3.86-4.86)
[2022-02-16 04:08] LABS: Thyroid Stimulating Hormone 1.03 uIU/mL (0.360-3.740)
[2022-02-16] MEDS: HYDRALAZINE HCL 20 MG/ML VIAL IV PRN ×2 (04:18→15:51)
[2022-02-16] MEDS: Ringers Lactate 1,000 ML IV SCH ×4 (05:26→22:07)
[2022-02-16] MEDS ORDERED: Ringers Lactate 1,000 ML IV ONE (05:39)
[2022-02-16] MEDS ORDERED: METOPROLOL TARTRATE 5 MG/5 ML INJ IV STA (05:39)
[2022-02-16] MEDS ORDERED: METOPROLOL TARTRATE 5 MG/5 ML INJ IV ONE (05:42)
[2022-02-16] MEDS: ENOXAPARIN 40 MG/0.4 ML SQ SCH (08:21)
[2022-02-16] MEDS: INSULIN -REGULAR HUMAN 50 UNIT/0.5 ML ML SQ SCH ×4 (08:21→22:05)
[2022-02-16] MEDS ORDERED: Ringers Lactate 1,000 ML IV SCH (08:27)
[2022-02-16] MEDS: ONDANSETRON 4 MG/2 ML VIAL IV PRN ×2 (09:16→13:48)
--- NOTE | 2022-02-16 15:01 | P.PN ---
Subjective Date of Service: 02/16/22 Chief Complaint: Hyperglycemia, tachycardia Patient states she feels better today compared to yesterday. She denies abdominal pain or complaining of nausea. She also reports diarrhea. Physical Examination - Vital Signs Temperature: 97.9 F Blood Pressure: 178/90 Pulse: 108 Respirations: 20 Pulse Ox (%): 98 - Studies Laboratory Data (last 24 hrs) 02/16/22 02:58: Sodium 139, Potassium 4.0, BUN 7, Creatinine 0.69, Glucose 274 H, Magnesium 2.0, Lipase 2472 H 02/16/22 02:58: WBC 8.20, Hgb 13.4 D, Hct 39.8, Plt Count 262 D 02/15/22 19:31: Sodium 139, Potassium 4.0, BUN 6 L, Creatinine 0.63, Glucose 317 H Assessment And Plan - Current Problems (Diagnosis) (1) Acute pancreatitis Current Visit: Yes Status: Acute (2) Sinus tachycardia Current Visit: Yes Status: Acute (3) Diarrhea Current Visit: No Status: Acute (4) History of rectal cancer Current Visit: No Status: Acute (5) Type 2 diabetes mellitus with hyperglycemia Current Visit: Yes Status: Acute (6) Peripheral arterial disease Current Visit: Yes Status: Acute (7) Metabolic acidosis Current Visit: Yes Status: Acute (8) Uncontrolled hypertension Current Visit: Yes Status: Acute - Plan Physical Exam General: Alert, In no apparent distress, Oriented x3 HEENT: Atraumatic, PERRLA, Mucous membr. moist/pink, EOMI, Sclerae nonicteric Neck: Supple, 2+ carotid pulse no bruit, No LAD, Without JVD or thyroid abnormality Respiratory: Clear to auscultation bilaterally, Normal air movement Cardiovascular: Regular rate/rhythm, Normal S1 S2 Capillary refill: <2 Seconds Gastrointestinal: Normal bowel sounds, No tenderness Musculoskeletal: No tenderness Integumentary: No rashes Neurological: Normal speech, Normal strength at 5/5 x4 extr, Normal tone, Normal affect Plan: Supportive measures for acute pancreatitis. Increase IV Ringer's lactate infusion rates to 125 ml/hr. Clear liquid diet. Monitor lipase level. Suspect sinus tachycardia as reactive to acute pancreatitis and dehydration. Continue telemetry. I anticipate to sinus tachycardia to improve after adequate fluid resuscitation. Nausea and diarrhea likely secondary to acute pancreatitis. Patient with hemoglobin A1c of greater than 14. She will need insulin therapy on discharge. Continue insulin sliding scale. Start Lantus insulin. Patient with 1+ to 2+ bilateral dorsalis pedis pulse. Follow-up with vascular surgery-Dr. Elliott as outpatient for peripheral arterial disease. Resume home dose lisinopril Hydralazine as needed for BP spikes.
[2022-02-16] MEDS: INSULIN GLARGINE 100 UNIT/ML SQ SCH (15:35)
[2022-02-16] MEDS: PANTOPRAZOLE 40MG TABLET PO SCH (15:51)
[2022-02-16] MEDS: HYDROCODONE/APAP 5/325 MG TAB PO PRN (15:52)
[2022-02-16] MEDS: lisinopriL 20 MG TAB PO SCH (15:52)
[2022-02-16] MEDS: MORPHINE 2 MG/ML SYR IV PRN (19:08)
[2022-02-16] MEDS: ATORVASTATIN 40 MG TAB PO SCH (20:29)
[2022-02-16] MEDS: GLUCERNA SHAKE 237 ML CAN PO SCH (20:30)
[2022-02-16] MEDS ORDERED: MELATONIN 5 MG TABLET PO PRN (22:18)
[2022-02-16 23:48] VITALS: O2SAT 95
[2022-02-17] MEDS: MORPHINE 2 MG/ML SYR IV PRN ×5 (01:03→22:50)
[2022-02-17] MEDS: Ringers Lactate 1,000 ML IV SCH ×3 (06:19→23:24)
[2022-02-17] MEDS ORDERED: HOME MED 1 EA UNK (Lisinopril [Lisinopril] 40 MG Tablet) PO SCH (09:00)
[2022-02-17] MEDS ORDERED: PANTOPRAZOLE 40MG TABLET PO SCH (09:00)
[2022-02-17] MEDS: HYDRALAZINE HCL 20 MG/ML VIAL IV PRN (09:03)
[2022-02-17] MEDS: lisinopriL 20 MG TAB PO SCH (09:03)
[2022-02-17] MEDS: ENOXAPARIN 40 MG/0.4 ML SQ SCH (09:03)
[2022-02-17] MEDS: PANTOPRAZOLE 40MG TABLET PO SCH (09:03)
[2022-02-17] MEDS: INSULIN GLARGINE 100 UNIT/ML SQ SCH (09:04)
[2022-02-17] MEDS: INSULIN -REGULAR HUMAN 50 UNIT/0.5 ML ML SQ SCH ×4 (09:04→20:45)
[2022-02-17] MEDS: ONDANSETRON 4 MG/2 ML VIAL IV PRN (09:25)
[2022-02-17] MEDS: GLUCERNA SHAKE 237 ML CAN PO SCH ×2 (09:26→20:44)
[2022-02-17 11:07] LABS: Absolute Lymphocytes (CBC) 1.2 K/uL (0.7-4.9); Hematocrit 36.8 % (36.0-45.0); Lymphocytes % 15.8 % (15.3-44.8); MCV 97.7 fL (80-100); MPV 6.4 fL (7.6-11.3); RBC Red Blood Cell Count 3.77 M/uL (3.86-4.86)
[2022-02-17 11:19] LABS: Magnesium 1.5 mg/dL (1.8-2.4); Potassium 3.1 mmol/L (3.5-5.1)
[2022-02-17] MEDS ORDERED: SILVER SULFADIAZINE 1% 25 GM TOP ONE (12:00)
[2022-02-17] MEDS: HYDROCODONE/APAP 5/325 MG TAB PO PRN ×2 (12:30→20:45)
--- NOTE | 2022-02-17 14:50 | P.PN ---
Subjective Date of Service: 02/17/22 Chief Complaint: Hyperglycemia, tachycardia Patient states she feels better and tolerating liquid diet. She reports intermittent abdominal pain today. No diarrhea today. Physical Examination - Vital Signs Temperature: 99.2 F Blood Pressure: 172/67 Pulse: 121 Respirations: 16 Pulse Ox (%): 100 Assessment And Plan - Current Problems (Diagnosis) (1) Acute pancreatitis Current Visit: Yes Status: Acute (2) Sinus tachycardia Current Visit: Yes Status: Acute (3) Diarrhea Current Visit: No Status: Acute (4) History of rectal cancer Current Visit: No Status: Acute (5) Type 2 diabetes mellitus with hyperglycemia Current Visit: Yes Status: Acute (6) Peripheral arterial disease Current Visit: Yes Status: Acute (7) Metabolic acidosis Current Visit: Yes Status: Acute (8) Uncontrolled hypertension Current Visit: Yes Status: Acute - Plan Physical Exam General: Alert, In no apparent distress, Oriented x3 HEENT: Atraumatic, PERRLA, Mucous membr. moist/pink, EOMI, Sclerae nonicteric Neck: Supple, 2+ carotid pulse no bruit, No LAD, Without JVD or thyroid abnormality Respiratory: Clear to auscultation bilaterally, Normal air movement Cardiovascular: Regular rate/rhythm, Normal S1 S2 Capillary refill: <2 Seconds Gastrointestinal: Normal bowel sounds, No tenderness Musculoskeletal: No tenderness Integumentary: No rashes Neurological: Normal speech, Normal strength at 5/5 x4 extr, Normal tone, Normal affect Plan: Lipase level significantly improved and almost normal. Advance diet as tolerated Continue IV Ringer's lactate infusion rate at 125 ml/hr. Suspect sinus tachycardia as reactive to acute pancreatitis and dehydration. Continue telemetry. I anticipate to sinus tachycardia to improve after adequate fluid resuscitation. Nausea and diarrhea likely secondary to acute pancreatitis. No more diarrhea. Stool for C. difficile uncollected. Patient with hemoglobin A1c of greater than 14. She will need insulin therapy on discharge. Continue insulin sliding scale. Lantus insulin 10 units daily. Patient with 1+ to 2+ bilateral dorsalis pedis pulse. Follow-up with vascular surgery-Dr. Elliott as outpatient for peripheral arterial disease. Continue home dose lisinopril. Add metoprolol for uncontrolled hypertension. Hydralazine as needed for BP spikes.
[2022-02-17] MEDS ORDERED: Magnesium Sulfate 2gm IVPB 2 G/50 ML BAG IV ONE (15:00)
[2022-02-17] MEDS ORDERED: POTASSIUM CL SA 10 MEQ TAB PO ONE (15:00)
[2022-02-17] MEDS: METOPROLOL TAR 25 MG TAB PO SCH (17:16)
[2022-02-17] MEDS: ATORVASTATIN 40 MG TAB PO SCH (20:44)
[2022-02-18] MEDS: MORPHINE 2 MG/ML SYR IV PRN (04:56)
[2022-02-18 05:31] LABS: ALT/SGPT 11 U/L (12-78); AST/SGOT 17 U/L (15-37); Albumin 2.9 g/dL (3.4-5.0); Alkaline Phosphatase 63 U/L (45-117); Bicarbonate 20 mmol/L (21-32); Bilirubin Total 0.7 mg/dL (0.2-1.0); Glomerular Filtration Rate 106 ml/min (=/>90); Glucose Level 125 mg/dL (74-106); Lipase 492 U/L (73-393); Potassium 3.6 mmol/L (3.5-5.1); Protein, Total 6.3 g/dL (6.4-8.2); Sodium Level 136 mmol/L (136-145)
[2022-02-18] MEDS: METOPROLOL TAR 25 MG TAB PO SCH (05:31)
[2022-02-18 05:33] LABS: BUN Blood Urea Nitrogen < 3 mg/dL (7-18)
--- NOTE | 2022-02-18 08:48 | P.DS ---
Admission Date: 02/16/22 Discharge Date: 02/18/22 Disposition: ROUTINE DISCHARGE Discharge Condition: FAIR Reason for Admission: Hyperglycemia, tachycardia - Problems (1) Acute pancreatitis Status: Acute (2) Sinus tachycardia Status: Acute (3) Diarrhea Status: Acute (4) History of rectal cancer Status: Acute (5) Type 2 diabetes mellitus with hyperglycemia Status: Acute (6) Peripheral arterial disease Status: Acute (7) Metabolic acidosis Status: Acute (8) Uncontrolled hypertension Status: Acute Brief History of Present Illness: 71-year-old female with history of insulin-dependent diabetes, hypertension, hyperlipidemia, previous rectal cancer status post chemo/radiation presented to the emergency department for right lower extremity pain. She was at a follow-up appoint with her oncologist when she developed severe right lower extremity pain described as cramping. She was evaluated here in the emergency department labs were significant for hemoglobin 15.7 hematocrit 46.8 bicarb 16 glucose 416 initial lactic acid 2.5, increased to 3.6 and then decreased back down to 2.5 sh e had an x-ray of the right hip she was negative for any acute findings, lower extremity CTA was performed which revealed moderate aortoiliac and right lower extremity multifocal multisegmental atheromatous calcified plaque is present. No complete occlusion seen on the right. There is evidence of a complete occlusion involving the mid and distal left superficial femoral artery with reconstitution of flow in the popliteal artery. Peripancreatic fat stranding also identified incidentally which could indicate pancreatitis. ED physician spoke with Dr. Elliott of vascular surgery who recommended further evaluation as an outpatient for abnormal findings on angio as there is no complete occlusion or ischemic limb present. Patient persistently tachycardic after receiving multiple IV fluid boluses, borderline DKA. She was admitted for further management. Hospital Course: Patient admitted to the medical floor and treated supportively with IV fluids for acute pancreatitis. Her lipase level was significantly elevated. Lipase level significantly improved with IV fluid. Patient initially on clear liquid diet. Diet advanced which she tolerated. Sinus tachycardia likely reactive to acute pancreatitis and dehydration. Sinus tachycardia improved with IV fluid. Nausea and diarrhea likely secondary to acute pancreatitis. She initially had diarrhea which resolved. Stool for C. difficile uncollected. Patient with hemoglobin A1c of greater than 14. Patient prescribed Lantus insulin on discharge. Her blood sugar was stable with 10 units Lantus. Patient with 1+ to 2+ bilateral dorsalis pedis pulse. Follow-up with vascular surgery-Dr. Elliott as outpatient for peripheral arterial disease. Continue home dose lisinopril. Added metoprolol for uncontrolled hypertension. Patient clinically improved and deemed stable for discharge. Vital Signs/Physical Exam: Temp Pulse Resp BP Pulse Ox 97.7 F 93 H 30 H 193/96 H 98 02/18/22 04:00 02/18/22 04:00 02/18/22 04:00 02/18/22 04:00 02/18/22 04:56 General: Alert, In no apparent distress, Oriented x3 HEENT: Mucous membr. moist/pink Neck: Supple, JVD not distended Respiratory: Clear to auscultation bilaterally, Normal air movement Cardiovascular: No edema, Regular rate/rhythm, Normal S1 S2 Gastrointestinal: Normal bowel sounds, Soft and benign, Non-distended, No tenderness Musculoskeletal: No swelling Neurological: Normal strength at 5/5 x4 extr Laboratory Data at Discharge: WBC 7.80 K/uL (4.3-10.9) 02/17/22 10:57 Hgb 12.5 g/dL (12.0-15.0) 02/17/22 10:57 Hct 36.8 % (36.0-45.0) 02/17/22 10:57 Plt Count 263 K/uL (152-406) 02/17/22 10:57 Sodium 136 mmol/L (136-145) 02/18/22 04:30 Potassium 3.6 mmol/L (3.5-5.1) D 02/18/22 04:30 BUN < 3 mg/dL (7-18) L 02/18/22 04:30 Creatinine 0.42 mg/dL (0.55-1.3) L 02/18/22 04:30 Glucose 125 mg/dL (74-106) H 02/18/22 04:30 Magnesium 1.5 mg/dL (1.8-2.4) L 02/17/22 10:57 Total Bilirubin 0.7 mg/dL (0.2-1.0) 02/18/22 04:30 AST 17 U/L (15-37) 02/18/22 04:30 ALT 11 U/L (12-78) L 02/18/22 04:30 Alkaline Phosphatase 63 U/L (45-117) 02/18/22 04:30 Lipase 492 U/L (73-393) H 02/18/22 04:30 Home Medications: Atorvastatin Calcium [Lipitor] 40 mg PO BEDTIME 02/16/22 Pantoprazole Sodium 40 mg PO DAILY 02/16/22 lisinopriL [Lisinopril] 40 mg PO DAILY 02/16/22 Alcohol Antiseptic Pads [Alcohol Prep Pads] 1 each TP TID #1 box 02/18/22 Aspirin [Aspirin EC 81 MG] 81 mg PO DAILY #30 tab 02/18/22 Blood Sugar Diagnostic [Blood Glucose Test Strip] 1 each MC TID #30 strip 02/18/22 Blood-Glucose Meter [Blood Glucose Monitoring] 1 each MC TID #1 kit 02/18/22 Clopidogrel Bisulfate [Plavix] 75 mg PO DAILY #30 02/18/22 Glucerna Shake [Glucerna*] 237 ml PO BID #30 can 02/18/22 Insulin Glargine,Hum.rec.anlog [Lantus Solostar] 10 unit SQ DAILY #15 ml 02/18/22 Metoprolol Tartrate [Lopressor*] 25 mg PO BID 6AM 6PM #60 tab 02/18/22 Syringe-Needle,Insulin,0.5 ml [Insulin Syringe] 1 each MC TID #1 box 02/18/22 New Medications: Alcohol Antiseptic Pads [Alcohol Prep Pads] 1 each TP TID #1 box Aspirin [Aspirin EC 81 MG] 81 mg PO DAILY #30 tab Blood-Glucose Meter [Blood Glucose Monitoring] 1 each MC TID #1 kit Blood Sugar Diagnostic [Blood Glucose Test Strip] 1 each MC TID #30 strip Glucerna Shake [Glucerna*] 237 ml PO BID #30 can Syringe-Needle,Insulin,0.5 ml [Insulin Syringe] 1 each MC TID #1 box Insulin Glargine,Hum.rec.anlog [Lantus Solostar] 10 unit SQ DAILY #15 ml Metoprolol Tartrate [Lopressor*] 25 mg PO BID 6AM 6PM #60 tab Clopidogrel Bisulfate [Plavix] 75 mg PO DAILY #30 Diet: ADA Activity: Ad shantel Followup: Fred Elliott DO [Primary Care Provider] - 1-2 Weeks Time spent managing pt's care (in minutes): 35
[2022-02-18] MEDS ORDERED: POTASSIUM CL SA 10 MEQ TAB PO ONE (09:00)
[2022-02-18] MEDS: Ringers Lactate 1,000 ML IV SCH (09:00)
[2022-02-18] MEDS: ENOXAPARIN 40 MG/0.4 ML SQ SCH (09:06)
[2022-02-18] MEDS: HYDRALAZINE HCL 20 MG/ML VIAL IV PRN (09:07)
[2022-02-18] MEDS: INSULIN GLARGINE 100 UNIT/ML SQ SCH (09:07)
[2022-02-18] MEDS: INSULIN -REGULAR HUMAN 50 UNIT/0.5 ML ML SQ SCH (09:07)
[2022-02-18] MEDS: GLUCERNA SHAKE 237 ML CAN PO SCH (09:08)
[2022-02-18] MEDS: lisinopriL 20 MG TAB PO SCH (09:08)
[2022-02-18] MEDS: PANTOPRAZOLE 40MG TABLET PO SCH (09:08)
[2022-02-18] MEDS: HYDROCODONE/APAP 5/325 MG TAB PO PRN (09:08)
[2022-02-18 09:38] LABS: Absolute Lymphocytes (CBC) 1.3 K/uL (0.7-4.9); Lymphocytes % 22.8 % (15.3-44.8); MCV 96.2 fL (80-100); MPV 6.5 fL (7.6-11.3); RBC Red Blood Cell Count 3.85 M/uL (3.86-4.86)
[2022-02-18 09:39] VITALS: TEMP 98
[2022-02-18 15:21] VITALS: BP 161/67
== END 2022-02-18 12:31 | disposition home or self-care (01) | DRG 439 ==
LOC: ER 10:17 → ERHOLD 18:12 → 4TH 21:57 → OBSVTOIN 02-16 14:03
PROVIDERS: ADMIT Internal Medicine; ATTEND Internal Medicine
DX: K85.90 Acute pancreatitis without necrosis or infection, unspecified (principal); E87.21 Acute metabolic acidosis; E11.65 Type 2 diabetes mellitus with hyperglycemia; I10 Essential (primary) hypertension; E78.5 Hyperlipidemia, unspecified; E86.0 Dehydration; E11.51 Type 2 diabetes mellitus with diabetic peripheral angiopathy without gangrene; I70.202 Unspecified atherosclerosis of native arteries of extremities, left leg; R00.0 Tachycardia, unspecified; Z92.21 Personal history of antineoplastic chemotherapy; Z79.4 Long term (current) use of insulin; Z79.02 Long term (current) use of antithrombotics/antiplatelets; Z79.82 Long term (current) use of aspirin; Z79.899 Other long term (current) drug therapy; Z85.048 Personal history of other malignant neoplasm of rectum, rectosigmoid junction, and anus; Z20.822 Contact with and (suspected) exposure to COVID-19
CPT/HCPCS: 36415; 73706; 80048; 80053; 80076; 82550; 82947; 83036; 83605; 83690; 83735; 84439; 84443; 85025; 87811; 96361; 96374; 96375; 99211; 99251; 99285; G0378; J0360; J1170; J1650; J1815; J2270; J2405; J2550; J3475; J7030; J7120; Q9967

== ENCOUNTER 2022-09-07 14:55 | Emergency (ER) | payer OTHER ==
--- OUTSIDE RECORDS SUMMARY | 2022-09-07 14:59 | XMS REPORT | Continuity of Care Document ---
:1950 Author Organization [facility] t Address [address] [facility] [place] [address] Care Team Providers Name Role Phone CHRIS ELLIOTT Primary Care Physician Unavailable Chris Elliott Attending Clinician Unavailable ANGELA BAINS Attending Clinician Unavailable gO Jin DO Attending Clinician Linda [place] Attending Clinician Angela Bains MD Attending Clinician Doctor Unassigned, [place] Attending Clinician Unavailable Only, Adc Test Attending Clinician Unavailable Sadia Knowles MD Attending Clinician ANGELA BAINS Admitting Clinician Unavailable Angela Bains MD Admitting Clinician Payers Payer Name Policy Type Policy Number Effective Date Expiration Date S ource [employer] MEDICARE [id number] 2019 ERS 00:00:00 [facility] HealthSelect 1 [id number] 2021 Common TRS/ERS MCR PPO 00:00:00 [facility] MEDICARE PART A [id number] 2015 \T\ B 00:00:00 [facility] [id number] 2016 SELECT 00:00:00 MEDICAID OF [place] [id number] 2016 00:00:00 Problems Condition Condition Condition Status Onset Resolution Last Treating Co mments Source Name Details Category Date Date Treatment Clinician Date 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 [facility] Added ity of 00:00: automatic ally from Medical request Branch for surgery [id number] [place] of [place] of Disease Active 2019-03 Overview: Univ ers anus anus 1-04 Added ity of 00:00: automatic ally from Medical request Branch for surgery [id number] 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 - [facility] to to inguinal inguinal [facility] and lower Medi jessi extremity extremity Cent er lymph lymph nodes nodes Anemia Anemia due Problem Commo n caused by to Spirit chemothera antineopla - [facility]I py [facility] chemothera [facility] Malignant Malignant Problem Com mon neoplasm neoplasm Spirit of of - [facility]I overlappin overlappin St g sites of g sites of Katie kes rectum, rectum, Medical anus and anus and Center anal canal anal canal Neuropathi Neuropathi Problem C ommon c pain c pain [facility] Chronic Chronic Problem Common hepatitis hepatitis Spir it C C - [facility] Essential Benign Problem Common hypertensi essential Spi rit on HTN - [facility] Microalbum Microalbum Problem C ommon inuria inuria [facility] Hyperlipid Hyperlipid Problem C ommon emia emia [facility] [id number] Type [address] 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 - CHI canal [facility] [id number] PAD Problem Common (periphera Spirit l artery - CHI disease) [facility] No known No known Disease Unive rs active active ity of problems problems [facility] Allergies, Adverse Reactions, Alerts Allergy Allergy Status Severity Reaction(s) Onset Inactive Treating Comm ents Source Name Type Date Date Clinician CARISOPR DRUG Active Hives Univers ODOL INGREDI 2-15 ity of 00:00: [place] 00 Medical Branch Carisopr Propensi Active Hives Univer s odol ty to 2-15 ity of adverse 00:00: [place] reaction 00 Medical s Branch carisopr carisopr Active rash Common odol odol Spirit - [facility] Social History Social Habit Start Date Stop Date Quantity Comments Source History of Tobacco Current Smoker Co mmon Spirit - Use [facility] Sex Assigned At Common Sp mihaela - [facility] Exposure to Not sure [facility] SARS-CoV-2 (event) [facility] Tobacco Comment Does not have Univer sity of the will power [facility] Alcohol Comment rare Universit y of [facility] Cigarettes smoked 2020-03-02 2020-03-02 Univers ity of current (pack per 00:00:00 00:00:00 [place] ) - Reported Branch Tobacco use and 2020-03-02 2020-03-02 Never used Universit y of exposure 00:00:00 00:00:00 [facility] Cigarette 2020-03-02 2020-03-02 University of pack-years 00:00:00 00:00:00 [facility] Alcohol intake 2020-03-02 2020-03-02 Current drinker Unive rsity of 00:00:00 00:00:00 of alcohol [facility] (finding) Branch Smoking Status Start Date Stop Date Source Current Smoker 2022-02-25 00:00:00 Common Spiri t [facility] Medications Ordered Filled Start Stop Current Ordering Indication Dosage Frequency Signature Comments Components Source Medication Medication Date Date Medication? Clinician (SIG) Name Name Lisinopril/ Lisinopril/ 2021-03- No Lisinopril HCTZ HCTZ -13 11-20 /HCTZ 08/03.08/03. 00:00: 00:00 20/12.5 00 :00 Acetaminoph Acetaminoph 2021-03- No 1{table TID Acetaminop en-Codeine en-Codeine 04-26 t_as_ne hen-Codein 300-30 MG 300-30 MG 00:00: 00:00 eded} e 300-30 00 :00 MG contrast 2019-03 2020- No Intravenou Un sterling previously 04-21 s, ONCE, 1 it y of administere 16:45: 16:32 dose, [facility] [place] d 0 mL 00 :00 02/19/20 at [facility] 104, [place] Routine iohexol 2019-03 2020- No 120mL 120 mL, Unive rs (OMNIPAQUE 04-21 Intravenou it y of 350 16:45: 16:32 s, ONCE, 1 [place] BULK-150 00 :00 dose, [facility] l mL) 02/19/20 at [place] injection 1045, 120 mL Routine iohexol 2019-03- No 25mL 25 mL, Univers (OMNIPAQUE 04-21 Oral, ity of 350 BULK) 15:00: 14:52 ONCE, [place] 25 [place] 00 :00 dose, [facility] 02/19/20 at [place] 0900, Routine gabapentin 2019-03 Yes 600mg Take 600 Un [place] 600 mg 1-10 mg by ity of tablet 15:41: mouth 3 [place] [address] (three) Medical times Branch daily. gabapentin 2019-03 Yes 600mg Take 600 Un [place] 600 mg 1-10 mg by ity of tablet 15:41: mouth 3 [place] [address] (three) Medical times Branch daily. gabapentin 2019- Yes 600mg Take 600 Un [place] 600 mg 1-10 mg by ity of tablet 15:41: mouth 3 [place] [address] (three) Medical times Branch daily. gabapentin 2019- Yes 600mg Take 600 Un [place] 600 mg 1-10 mg by ity of tablet 15:41: mouth 3 [place] 25 (three) Medical times Branch daily. gabapentin 2019- Yes 600mg Take 600 Un [place] 600 mg 1-10 mg by ity of tablet 15:41: mouth 3 [place] 25 (three) Medical times Branch daily. gabapentin 2019-03 Yes 600mg Take 600 Un [place] 600 mg 1-10 mg by ity of tablet 15:41: mouth 3 [place] 25 (three) Medical times Branch daily. gabapentin 2020- Yes 600mg Take 600 Un [place] 600 mg 1-10 mg by ity of tablet 15:41: mouth 3 [place] 25 (three) Medical times Branch daily. gabapentin 2020-1 Yes 600mg Take 600 Un [place] 600 mg 1-10 mg by ity of tablet 15:41: mouth 3 [place] 25 (three) Medical times Branch daily. gabapentin 2020-1 Yes 600mg Take 600 Un [place] 600 mg 1-10 mg by ity of tablet 15:41: mouth 3 [place] 25 (three) Medical times Branch daily. gabapentin 2020-1 Yes 600mg Take 600 Un [place] 600 mg 1-10 mg by ity of tablet 15:41: mouth 3 [place] 25 (three) Medical times Branch daily. gabapentin 2020- Yes 600mg Take 600 Un [place] 600 mg 1-10 mg by ity of tablet 15:41: mouth 3 [place] 25 (three) Medical times Branch daily. gabapentin 2020- Yes 600mg Take 600 Un [place] 600 mg 1-10 mg by ity of tablet 15:41: mouth 3 [place] 25 (three) Medical times Branch daily. lactated 2019-03 Yes 1000mL at 75 Univer s ringers IV 1-10 mL/hr, ity of infusion 15:00: 1,000 [place] 1[place]000 [place] 00 IV Medical Infusion, Branch CONTINUOUS , Starting Mon01/28/20 at 0900, Until Discontinu ed, Routine, PACU FENTanyl PF 2019-03 Yes 25ug 25 mcg, Uni vers (SUBLIMAZE 1-10 Slow IV ity of (PF)) 14:55: Push, [place] injection 42 Q5MIN PRN, Medi jessi 25 [...] Branch Until Discontinu ed, Routine, Intra-op simethicone 2019- Yes PRN, Univer s (GAS RELIEF 1-10 [...] 01/28/20 at 0645, Routine, DSU Pre-op gabapentin 2019-03 Yes 600mg Take 600 Un [place] 600 mg 1-06 mg by ity of tablet 18:24: mouth 3 [place] 19 (three) Medical times [place] daily. gabapentin 2019-03 Yes 600mg Take 600 Un [place] 600 mg 1-06 mg by ity of tablet 18:24: mouth 3 [place] 19 (three) Medical times [place] daily. peg-electro 2019-03 Yes [id number] 4000mL Take 4,000 Univers lyte soln 1-03 mL by ity of -6 00:00: mouth [place] .74 -5.86 00 SEE-INSTRU Medi jessi gram CTIONS. Branch solution Take as directed peg-electro 2019-03 Yes [id number] 4000mL Take 4,000 Univers lyte soln 1-03 mL by ity of .74-6 00:00: mouth [place] .74 -5.86 00 SEE-INSTRU Medi jessi gram CTIONS. Branch solution Take as directed peg-electro 2019-03 Yes [id number] 4000mL Take 4,000 Univers lyte soln 1-03 mL by ity of .74-6 00:00: mouth [place] .74 -5.86 00 SEE-INSTRU Medi jessi gram CTIONS. Branch solution Take as directed peg-electro 2019-03 Yes [id number] 4000mL Take 4,000 Univers lyte soln 1-03 mL by ity of .74-6 00:00: mouth [place] .74 -5.86 00 SEE-INSTRU Medi jessi gram CTIONS. Branch solution Take as directed peg-electro 2020-1 Yes [id number] 4000mL Take 4,000 Univers lyte soln 1-03 mL by ity of - 00:00: mouth [place] .74 -5.86 00 SEE-INSTRU Medi jessi gram CTIONS. Branch solution Take as directed peg-electro 2020-1 Yes [id number] 4000mL Take 4,000 Univers lyte soln 1-03 mL by ity of - 00:00: mouth [place] .74 -5.86 00 SEE-INSTRU Medi jessi gram CTIONS. Branch solution Take as directed peg-electro 2020-1 Yes [id number] 4000mL Take 4,000 Univers lyte soln 1-03 mL by ity of - 00:00: mouth [place] .74 -5.86 00 SEE-INSTRU Medi jessi gram CTIONS. Branch solution Take as directed peg-electro 2020-1 Yes [id number] 4000mL Take 4,000 Univers lyte soln 1-03 mL by ity of - 00:00: mouth [place] .74 -5.86 00 SEE-INSTRU Medi jessi gram CTIONS. Branch solution Take as directed peg-electro 2020-1 Yes [id number] 4000mL Take 4,000 Univers lyte soln 1-03 mL by ity of - 00:00: mouth [place] .74 -5.86 00 SEE-INSTRU Medi jessi gram CTIONS. Branch solution Take as directed peg-electro 2020-1 Yes [id number] 4000mL Take 4,000 Univers lyte soln 1-03 mL by ity of - 00:00: mouth [place] .74 -5.86 00 SEE-INSTRU Medi jessi gram CTIONS. Branch solution Take as directed peg-electro 2020-1 Yes [id number] 4000mL Take 4,000 Univers lyte soln 1-03 mL by ity of - 00:00: mouth [place] .74 -5.86 00 SEE-INSTRU Medi jessi gram CTIONS. Branch solution Take as directed peg-electro 2020-1 Yes [id number] 4000mL Take 4,000 Univers lyte soln 1-03 mL by ity of - 00:00: mouth [place] .74 -5.86 00 SEE-INSTRU Medi jessi gram CTIONS. Branch solution Take as directed peg-electro 2020- Yes [id number] 4000mL Take 4,000 Univers lyte soln 1-03 mL by ity of - 00:00: mouth [place] .74 -5.86 00 SEE-INSTRU Medi jessi gram CTIONS. Branch solution Take as directed peg-electro 2020- Yes [id number] 4000mL Take 4,000 Univers lyte soln 1-03 mL by ity of - 00:00: mouth [place] .74 -5.86 00 SEE-INSTRU Medi jessi gram CTIONS. Branch solution Take as directed peg-electro 2020- Yes [id number] 4000mL Take 4,000 Univers lyte soln 1-03 mL by ity of - 00:00: mouth .74 -5.86 00 SEE-INSTRU Medi jessi gram CTIONS. Branch solution Take as directed gabapentin 2017-0 Yes 600mg Take 600 Un [place] 600 mg 2-23 mg by ity of tablet 21:22: mouth 3 [place] [address] ([facility]) Medical times Branch daily. gabapentin 2017-0 Yes 600mg Take 600 Un [place] 600 mg 2-23 mg by ity of tablet 21:22: mouth 3 [place] [address] ([facility]) Medical times Branch daily. gabapentin 2017-0 Yes 600mg Take 600 Un [place] 600 mg 2-23 mg by ity of tablet 21:22: mouth 3 [place] [address] ([facility]) Medical times Branch daily. gabapentin 2017-0 Yes 600mg Take 600 Un [place] 600 mg 2-23 mg by ity of tablet 21:22: mouth 3 [place] [address] ([facility]) Medical times Branch daily. MACROBID 2017-0 Yes Univers 100 mg 2-15 ity of capsule 00:00: [address] MACROBID 2017-0 Yes Univers 100 mg 2-15 ity of capsule 00:00: [address] MACROBID 2017-0 Yes Univers 100 mg 2-15 ity of capsule 00:00: [address] MACROBID 2017-0 Yes Univers 100 mg 2-15 ity of capsule 00:00: [address] MACROBID 2017-0 Yes Univers 100 mg 2-15 ity of capsule 00:00: [address] MACROBID 2017-0 Yes Univers 100 mg 2-15 ity of capsule 00:00: [place] [facility] Univers [facility] mg 2-15 ity of capsule 00:00: [place] [facility] Univers 100 mg 2-15 ity of capsule 00:00: [place] [facility] Univers 100 mg 2-15 ity of capsule 00:00: [place] [facility] Univers 100 mg 2-15 ity of capsule 00:00: [place] [facility] Yes Univers 100 mg 2-15 ity of capsule 00:00: [place] [facility] Univers 100 mg 2-15 ity of capsule 00:00: [place] [facility] 2017-0 Yes Univers 100 mg 2-15 ity of capsule 00:00: [place] [facility] 2017-0 Yes Univers 100 mg 2-15 ity of capsule 00:00: [place] [facility] 2017-0 Yes Univers 100 mg 2-15 ity of capsule 00:00: [place] [facility] 2017-0 Yes Univers 100 mg 2-15 ity of capsule 00:00: [place] [facility] 2017-0 Yes Univers 100 mg 2-15 ity of capsule 00:00: [place] [facility] 2017-0 Yes Univers 100 mg 2-15 ity of capsule 00:00: [address] 2017-0 Yes Univers 0.75 mg/0.5 2-06 ity of mL PnIj 00:00: [place] [facility] Univers 0.75 mg/0.5 2-06 ity of mL PnIj 00:00: [place] [facility] Univers 0.75 mg/0.5 2-06 ity of mL PnIj 00:00: [address] 2017-0 Yes Univers 0.75 mg/0.5 2-06 ity of mL PnIj 00:00: [place] [facility] Yes Univers 0.75 mg/0.5 2-06 ity of mL PnIj 00:00: [address] 2017-0 Yes Univers 0.75 mg/0.5 2-06 ity of mL PnIj 00:00: [facility] Univers 0.75 mg/0.5 2-06 ity of mL PnIj 00:00: [facility] Yes Univers 0.75 mg/0.5 2-06 ity of mL [facility]Ij [facility] mg/0.5 2-06 ity of mL PnIj [facility] Univers 0.75 mg/0.5 2-06 ity of mL PnIj 00:00: [place] [facility] 2017-[facility] Yes Univers 0.75 mg/0.5 2-06 ity of mL PnIj 00:00: Medical [facility] 2017-[facility] Yes Univers 0.75 mg/0.5 2-06 ity of mL PnIj 00:[facility] Univers 0[facility] mg/0.5 2-06 ity of mL PnIj 00:[facility] Univers 0.75 mg/0.5 2-06 ity of mL PnIj 00:[facility] Univers 0.75 mg/0.5 2-06 ity of mL PnIj 00:[facility] Univers 0.75 mg/0.5 2-06 ity of mL PnIj 00:[facility] Univers 0.75 mg/0.5 2-06 ity of mL PnIj 00:[facility] Univers 0.75 mg/0.5 2-06 ity of mL PnIj 00:00: [place] [facility] amLODIPine 2017-0 Yes Univers 5 mg tablet -27 ity of 00:00: [place] [facility] amLODIPine 2017-0 Yes Univers 5 mg tablet -27 ity of 00:00: [place] [facility] amLODIPine 2017-0 Yes Univers 5 mg tablet -27 ity of 00:00: [place] [facility] amLODIPine 2017-0 Yes Univers 5 mg tablet -27 ity of 00:00: [place] [address] Medical Branch amLODIPine 2017-0 Yes Univers 5 mg tablet - ity of 00:00: [place] [facility] amLODIPine 2017-0 Yes Univers 5 mg tablet - ity of 00:00: [place] [facility] amLODIPine 2017-0 Yes Univers 5 mg tablet - ity of 00:00: [place] [facility] amLODIPine 2017-0 Yes Univers 5 mg tablet 04-15 ity of 00:00: [place] [facility] amLODIPine 2017-0 Yes Univers 5 mg tablet 04-15 ity of 00:00: [place] [facility] amLODIPine 2017-0 Yes Univers 5 mg tablet 04-15 ity of 00:00: [place] [facility] amLODIPine 2017-0 Yes Univers 5 mg tablet 04-15 ity of 00:00: [place] [facility] amLODIPine 2017-0 Yes Univers 5 mg tablet 04-15 ity of 00:00: [place] [facility] amLODIPine 2017-0 Yes Univers 5 mg tablet 04-15 ity of 00:00: [place] [facility] amLODIPine 2017-0 Yes Univers 5 mg tablet 04-15 ity of 00:00: [place] [facility] amLODIPine 2017-0 Yes Univers 5 mg tablet 04-15 ity of 00:00: [place] [facility] amLODIPine 2017-0 Yes Univers 5 mg tablet 04-15 ity of 00:00: [place] [facility] amLODIPine 2017-0 Yes Univers 5 mg tablet 04-15 ity of 00:00: [place] [facility] amLODIPine 2017-0 Yes Univers 5 mg tablet - ity of 00:00: [place] [facility] Amlodipine Amlodipine Yes Chris take 1 Common Besylate Besylate Elliott tablet by S pirit mouth - [facility]I every day [facility] Gabapentin Gabapentin Yes Chris 1 tablet Common Elliott Spirit - [facility]I [facility] Lisinopril Lisinopril Yes Chris take 1 Common Elliott tablet by Spirit mouth - [facility]I every day [facility] Atorvastati Atorvastati Yes Chris 1 tablet Common n Calcium n Calcium Elliott Spir it - CHI [facility] Atorvastati Atorvastati No 1{table QD Atorvastat n [...] Calcium 40 MG 40 MG 40 MG Lantus Lantus No Lantus SoloStar SoloStar SoloStar 100 UNIT/ML 100 UNIT/ML 100 UNIT/ML Clopidogrel Clopidogrel No 1{table QD Clopidogre Bisulfate Bisulfate t} l 75 MG 75 MG Bisulfate 75 MG Aspirin 81 Aspirin 81 No 1{table QD Aspirin 81 81 MG 81 MG t} 81 MG Pantoprazol Pantoprazol No 1{table QD Pantoprazo e Sodium 40 e Sodium 40 t} le Sodium MG MG 40 MG Metoprolol Metoprolol No 1{table BID Metoprolol Tartrate 25 Tartrate 25 t_with_ Tartrate MG MG food} 25 MG Lisinopril Lisinopril No QD Lisinopril 40 MG 40 MG 40 MG amLODIPine amLODIPine No QD amLODIPine Besylate 10 Besylate 10 Besylate MG MG 10 MG Atorvastati Atorvastati No 1{table QD Atorvastat n Calcium n Calcium t} in Calcium 40 MG 40 MG 40 MG Gabapentin Gabapentin No 1{table TID Gabapentin 600 MG 600 MG t} 600 MG Metoprolol Metoprolol No Metoprolol Tartrate 25 Tartrate 25 Tartrate MG MG 25 MG Lantus Lantus No Lantus SoloStar SoloStar SoloStar 100 UNIT/ML 100 UNIT/ML 100 UNIT/ML Atorvastati Atorvastati No 1{table QD Atorvastat n Calcium n Calcium t} in Calcium 40 MG 40 MG 40 MG Clopidogrel Clopidogrel No 1{table QD Clopidogre Bisulfate Bisulfate t} l 75 MG 75 MG Bisulfate 75 MG Pantoprazol Pantoprazol No 1{table QD Pantoprazo e Sodium 40 e Sodium 40 t} le Sodium MG MG 40 MG amLODIPine amLODIPine No QD amLODIPine Besylate 10 Besylate 10 Besylate MG MG 10 MG Gabapentin Gabapentin No 1{table TID Gabapentin 600 MG 600 MG t} 600 MG Aspirin 81 Aspirin 81 No 1{table QD Aspirin 81 81 MG 81 MG t} 81 MG amLODIPine amLODIPine No QD amLODIPine Besylate 10 Besylate 10 Besylate MG MG 10 MG Lantus Lantus No Lantus SoloStar SoloStar SoloStar 100 UNIT/ML 100 UNIT/ML 100 UNIT/ML Atorvastati Atorvastati No 1{table QD Atorvastat n Calcium n Calcium t} in Calcium 40 MG 40 MG 40 MG Gabapentin Gabapentin No 1{table TID Gabapentin 600 MG 600 MG t} 600 MG Clopidogrel Clopidogrel No 1{table QD Clopidogre Bisulfate Bisulfate t} l 75 MG 75 MG Bisulfate 75 MG Lisinopril/ Lisinopril/ No Lisinopril HCTZ HCTZ /HCTZ 20/12.5 20/12.5 20/12.5 Metoprolol Metoprolol No Metoprolol Tartrate 25 Tartrate 25 Tartrate MG MG 25 MG Pantoprazol Pantoprazol No 1{table QD Pantoprazo e Sodium 40 e Sodium 40 t} le Sodium MG MG 40 MG Aspirin 81 Aspirin 81 No 1{table QD Aspirin 81 81 MG 81 MG t} 81 MG amLODIPine amLODIPine No QD amLODIPine Besylate 10 Besylate 10 Besylate MG MG 10 MG Lantus Lantus No Lantus SoloStar SoloStar SoloStar 100 UNIT/ML 100 UNIT/ML 100 UNIT/ML Atorvastati Atorvastati No 1{table QD Atorvastat n Calcium n Calcium t} in Calcium 40 MG 40 MG 40 MG Gabapentin Gabapentin No 1{table TID Gabapentin 600 MG 600 MG t} 600 MG Clopidogrel Clopidogrel No 1{table QD Clopidogre Bisulfate Bisulfate t} l 75 MG 75 MG Bisulfate 75 MG Lisinopril/ Lisinopril/ No Lisinopril HCTZ HCTZ /HCTZ 20/12.5 20/12.5 20/12.5 Metoprolol Metoprolol No Metoprolol Tartrate 25 Tartrate 25 Tartrate MG MG 25 MG Pantoprazol Pantoprazol No 1{table QD Pantoprazo e Sodium 40 e Sodium 40 t} le Sodium MG MG 40 MG Aspirin 81 Aspirin 81 No 1{table QD Aspirin 81 81 MG 81 MG t} 81 MG Lisinopril Lisinopril No QD Lisinopril 40 [...] MG 40 MG Trulicity Trulicity 2019- No [facility] one Co mmon 08-24 Elliott injection Spirit 00:00 - [facility]I :00 [facility] Vital Signs Vital Name Observation Time Observation Value Comments Source height 2022-02-23 10:00:00 58.5 [in_i] [facility] weight 2022-02-23 10:00:00 96.5 [lb_av] [facility] temperature 2022-02-23 10:00:00 97.0 [degF] [facility] bmi 2022-02-23 10:00:00 19.82 kg/m2 [facility] oximetry 2022-02-23 10:00:00 98 % [facility] respiratory rate 2022-02-23 10:00:00 16 /min Comm on [facility] blood pressure 2022-02-23 10:00:00 135 mm[Hg] Common [facility] - systolic [facility] blood pressure 2022-02-23 10:00:00 63 mm[Hg] Common [facility] - diastolic [facility] height 2021-11-09 13:00:00 58.5 [in_i] Common [facility] weight 2021-11-09 13:00:00 119 [lb_av] Common [facility] temperature 2021-11-09 13:00:00 97.9 [degF] Common [facility] bmi 2021-11-09 13:00:00 24.45 kg/m2 [facility] oximetry 2021-11-09 13:00:00 97 % Common [facility] respiratory rate 2021-11-09 13:00:00 16 /min Comm on [facility] blood pressure 2021-11-09 13:00:00 135 mm[Hg] Common [facility] - systolic [facility] blood pressure 2021-11-09 13:00:00 72 mm[Hg] Common [facility] - diastolic [facility] height 2021-07-30 09:00:00 50 [in_i] Common [facility] weight 2021-07-30 09:00:00 122.5 [lb_av] Common [facility] temperature 2021-07-30 09:00:00 97.1 [degF] Common [facility] bmi 2021-07-30 09:00:00 34.45 kg/m2 [facility] oximetry 2021-07-30 09:00:00 94 % Common [facility] respiratory rate 2021-07-30 09:00:00 16 /min Comm on [facility] blood pressure 2021-07-30 09:00:00 137 mm[Hg] Common [facility] - systolic [facility] blood pressure 2021-07-30 09:00:00 76 mm[Hg] Common [facility] - diastolic [facility] height 2021-07-30 09:00:00 50 [in_i] Common S pirit [facility] weight 2021-07-30 09:00:00 122.5 [lb_av] [facility] temperature 2021-07-30 09:00:00 97.1 [degF] Common S pirit [facility] bmi 2021-07-30 09:00:00 34.45 kg/m2 Common S pirit [facility] oximetry 2021-07-30 09:00:00 94 % Common [facility] respiratory rate 2021-07-30 09:00:00 16 /min Comm on [facility] blood pressure 2021-07-30 09:00:00 137 mm[Hg] Common [facility] - systolic [facility] blood pressure 2021-07-30 09:00:00 76 mm[Hg] Common [facility] - diastolic [facility] height 2021-02-23 08:20:00 50 [in_i] Common [facility] weight 2021-02-23 08:20:00 104.3 [lb_av] [facility] temperature 2021-02-23 08:20:00 97.5 [degF] Common [facility] bmi 2021-02-23 08:20:00 29.33 kg/m2 Common S pirit [facility] oximetry 2021-02-23 08:20:00 96 % Common S [facility] respiratory rate 2021-02-23 08:20:00 17 /min Comm on [facility] blood pressure 2021-02-23 08:20:00 132 mm[Hg] Common [facility] - systolic [facility] blood pressure 2021-02-23 08:20:00 71 mm[Hg] Common [facility] - diastolic [facility] Systolic blood 2020-02-11 20:10:00 166 mm[Hg] [facility] of pressure [facility] Diastolic blood 2020-02-11 20:10:00 85 mm[Hg] Unive rsity of pressure [facility] Heart rate 2020-02-11 20:10:00 80 /min [facility] Body temperature 2020-02-11 20:06:00 36.44 Yue Univ ersity [facility] Respiratory rate 2020-02-11 20:06:00 20 /min Univ [facility] Body height 2020-02-11 20:06:00 157.5 cm [facility] Body weight 2020-02-11 20:06:00 51.891 kg [facility] BMI 2020-02-11 20:06:00 20.92 kg/m2 [facility] Oxygen saturation in 2020-02-11 20:06:00 98 /min University of Arterial blood by [facility] Pulse oximetry Branch Systolic blood 2020-02-11 20:10:00 166 mm[Hg] Univer sity of pressure [facility] Diastolic blood 2020-02-11 20:10:00 85 mm[Hg] Unive rsity of pressure [facility] Heart rate 2020-02-11 20:10:00 80 /min [facility] Body temperature 2020-02-11 20:06:00 36.44 Yue Univ [facility] Respiratory rate 2020-02-11 20:06:00 20 /min Univ [facility] Body height 2020-02-11 20:06:00 157.5 cm [facility] Body weight 2020-02-11 20:06:00 51.891 kg [facility] BMI 2020-02-11 20:06:00 20.92 kg/m2 [facility] Oxygen saturation in 2020-02-11 20:06:00 98 /min University of Arterial blood by [facility] Pulse oximetry Branch Systolic blood 2020-01-28 15:23:00 176 mm[Hg] Univer sity of pressure [facility] Diastolic blood 2020-01-28 15:23:00 85 mm[Hg] Unive rsity of pressure [facility] Heart rate 2020-01-28 15:23:00 85 /min [facility] Respiratory rate 2020-01-28 15:23:00 16 /min [facility] Oxygen saturation in 2020-01-28 15:23:00 100 /min University of Arterial blood by [facility] Pulse oximetry Branch Body temperature 2020-01-28 14:28:00 36.28 Yue [facility] ersity of [facility] Body height 2020-01-24 18:00:00 149.9 cm Universi ty of [facility] Body weight 2020-01-24 18:00:00 52.164 kg Universi ty of [facility] BMI 2020-01-24 18:00:00 23.23 kg/m2 Universi ty of [facility] Systolic blood 2020-01-21 21:23:00 197 mm[Hg] Univer sity of pressure [facility] Diastolic blood 2020-01-21 21:23:00 87 mm[Hg] [facility] Heart rate 2020-01-21 21:23:00 80 /min Universi ty of [facility] Body temperature 2020-01-21 21:23:00 36.83 Yue [facility] 2020-01-21 21:23:00 20 /min [facility] ersity of [facility] Body height 2020-01-21 21:23:00 152.4 cm Universi ty of [facility] Body weight 2020-01-21 21:23:00 52.345 kg [facility] BMI 2020-01-21 21:23:00 22.54 kg/m2 Universi ty of [facility] Oxygen saturation in 2020-01-21 21:23:00 98 /min University of Arterial blood by [facility] Pulse oximetry Branch Procedures Procedure Date / Time Performing Clinician Source Performed CT THORAX W CONTRAST 2020-02-19 16:42:57 Angela Bains [facility] CT ABDOMEN PELVIS W 2020-02-19 16:35:37 Angela Bains [facility] CONTRAST [facility] HB CREATININE BLOOD 2020-02-19 16:23:00 Angela Bains [facility] CONSENT/REFUSAL FOR 2020-02-19 14:30:04 Doctor Unassigned, No [facility] DIAGNOSIS AND TREATMENT Name [facility] ASSIGNMENT OF BENEFITS 2020-02-19 14:29:47 Doctor Unassigned, No [facility] Name [facility] COLONOSCOPY (ENDO) 2020-01-28 12:58:04 Dhruv KasieIwonaMarino [facility] POCT GLUCOSE(AGE 2020-01-28 12:40:00 Lokesh Capps [facility] >30DAYS) Medical [facility] DAY SURGERY - ADC 2020-01-28 06:01:00 Doctor Unassigned, No [facility] ASSIGNMENT OF BENEFITS 2020-01-27 14:37:19 Doctor Unassigned, No [facility] ASSIGNMENT OF BENEFITS 2020-01-21 20:49:32 Doctor Unassigned, No [facility] Encounters Start End Encounter Admission Attending Care Care Encounter Source Date/Time Date/Time Type Type Clinicians Facility Department ID 2022-02-25 Outpatient Elliott, STLMLC STLMLC [id number] Common 11:52:00 Chris [id number] [facility] 2022-02-23 Outpatient Elliott, STLMLC STLMLC [id number] Common 11:00:01 Chris [id number] [facility] 2022-02-07 Outpatient Elliott, STLMLC STLMLC [id number] Common 09:19:00 Chris 64539 [facility] 2021-11-10 Outpatient Elliott, STLMLC STLMLC [id number] Common 16:50:00 Chris [facility] 2021-11-03 Outpatient Elliott, STLMLC STLMLC [id number] Common 08:59:00 Chris [facility] 2021-08-03 Outpatient Elliott, STLMLC STLMLC [id number] Common 07:46:00 Chris [facility] 2021-07-29 Outpatient Elliott, STLMLC STLMLC [id number] Common 11:55:01 Chris [facility] 2021-05-12 Outpatient Elliott, STLMLC STLMLC [id number] Common 11:19:00 Chris [facility] 2021-04-14 Outpatient Elliott, STLMLC STLMLC [id number] Common 12:32:30 Chris [facility] 2021-04-14 Outpatient Elliott, STLMLC STLMLC [id number] Common 12:31:16 Chris [id number] [facility] 2021-04-14 Outpatient Elliott, STLMLC STLMLC Common 12:31:12 Chris [id number] [facility] 2021-04-14 Outpatient Elliott, STLMLC STLMLC Common 12:29:48 Chris [id number] [facility] 2021-04-14 Outpatient Elliott, STLMLC STLMLC Common 12:16:36 Chris 02037 [facility] 2021-04-14 Outpatient Elliott, STLMLC STLMLC Common 12:08:05 Chris [id number] [facility] 2021-04-14 Outpatient Elliott, STLMLC STLMLC Common 11:14:42 Chris [id number] [facility] 2021-04-14 Outpatient Elliott, STLMLC STLMLC Common 11:02:38 Chris [id number] [facility] 2021-01-16 [facility] [id number] Univers 11:48:25 [facility] 2021-01-16 [facility] J[facility]H [id number] Univers 02:59:30 [facility] 2022-04-21 2022-04-21 (TEL) STLMLC STLMLC [id number] Co mmon 00:00:00 00:00:00 [facility] 2022-04-07 2022-04-07 (TEL) STLMLC STLMLC [id number] Co mmon 00:00:00 00:00:00 [facility] 2022-02-23 2022-02-23 (HOSP F/U) STLMLC STLMLC [id number] Common 00:00:00 00:00:00 [facility] 2022-02-22 2022-02-22 (TEL) STLMLC STLMLC [id number] Co mmon 00:00:00 00:00:00 [facility] 2022-02-01 2022-02-01 (TEL) STLMLC STLMLC [id number] Co mmon 00:00:00 00:00:00 Spirit - [facility] 2021-11-09 2021-11-09 OFFICE STLMLC STLMLC [id number] Co mmon 00:00:00 00:00:00 VISIT Spirit ESTAB PT - CHI LEVEL 4 [facility] 2021-10-04 2021-10-04 (TEL) STLMLC STLMLC [id number] Co mmon 00:00:00 00:00:00 Spirit [facility] 2021-07-30 2021-07-30 OFFICE STLMLC STLMLC [id number] Co mmon 00:00:00 00:00:00 VISIT Spirit ESTAB PT - CHI LEVEL 4 [facility] 2021-07-30 2021-07-30 SUB ANNUAL STLMLC STLMLC [id number] Common 00:00:00 00:00:00 MCR Spirit WELLNESS - CHI VISIT [facility] 2021-02-23 2021-02-23 OFFICE STLMLC STLMLC [id number] Co mmon 00:00:00 00:00:00 VISIT Spirit ESTAB PT - CHI LEVEL 4 [facility] 2021-02-16 2021-02-16 (TEL) STLMLC STLMLC [id number] Co mmon 00:00:00 00:00:00 [facility] 2021-01-25 2021-01-25 (TEL) STLMLC STLMLC [id number] Co mmon 00:00:00 00:00:00 [facility] 2020-05-25 2020-05-25 Patient BRAXTON Jin [id number] 00:00:00 00:00:00 Outreach Og PINEDA [id number] [facility] [id number] [place] [phone] [id number] 2020-05-25 2020-05-25 Patient BRAXTON Jin [id number] Univers 00:00:00 00:00:00 Outreach Og PRIMARY [id number] i ty of [facility] [id number] [phone] Wy dical [address] [place] [address] 2020-03-27 2020-03-27 [facility] [id number] Univers 13:00:00 13:00:00 ANGELA barth [facility] 2020-03-04 2020-03-04 Outpatient STLMLC STLC [id number] Common 00:00:00 00:00:00 Spirit [facility] 2020-02-28 2020-02-28 Prep For [facility] [id number] Univers 00:00:00 00:00:00 Surgery Linda Bedolla Amaury [id number] ity [id number] [phone] Wy dical nal 204 [facility] 2020-02-28 2020-02-28 [facility] 1.2.840.114 [id number] 00:00:00 00:00:00 Surgery Linda Morenoton [id number] [place] [id number] Professio [phone] count includes the [facility] 204 [facility] 2020-02-26 2020-02-26 Case [facility] [id number] Univers 00:00:00 00:00:00 Management Angela Rebolledo [id number] it[id number] [phone] Wy dical nal 188 [facility] 2020-02-26 2020-02-26 Multidisci [place], [facility] 1.2.840.114 [id number] Univers 00:00:00 00:00:00 plinary Angela [facility] [id number] i ty of [facility] 4.2.7.2.686 [place] [phone] [facility] [address] 2020-02-26 2020-02-26 Case [facility] [id number] Univers 00:00:00 00:00:00 Management Angela Rebolledo [id number] [place] [phone] Wy dic[address] 2020-02-26 2020-02-26 [facility] [id number] 00:00:00 00:00:00 Management Angela Rebolledo [id number] [place] [id number] Professio [phone] [address] 2020-02-26 2020-02-26 [facility] 1.2.840.114 [id number] 00:00:00 00:00:00 plinary Angela [facility] [id number] [facility] [id number] [id number] [facility] 2020-02-26 2020-02-26 [facility] [id number] 00:00:00 00:00:00 Management Angela Rebolledo [id number] [place] 4.2.7.2.686 Professio [phone] [address] 2020-02-24 2020-02-24 Telephone [facility] 1.2.840.114 [id number] [facility] 00:00:00 00:00:00 Angela Rebolledo [id number] i ty [place] [phone] Wy dic[address] 2020-02-24 2020-02-24 Telephone [facility] 1.2.840.114 [id number] 00:00:00 00:00:00 Angela Rebolledo 350.1.13.10 [place] 4.2.7.2.686 Professio [phone] [address] 2020-02-19 2020-02-19 [facility] 1.2.840.114 [id number] [facility] 08:31:10 23:59:00 Encounter Angela Rebolledo 350.1.13.10 ity of [place].2.[place] [phone] [address] 2020-02-19 2020-02-19 [facility] 1.2.840.114 [id number] 08:31:10 23:59:00 Encounter Angela Rebolledo 350.1.13.10 [place] 4.2.7.2.686 [place] [phone] [facility] 2020-02-19 2020-02-19 [facility] 1.2.840.114 [id number] Univers 08:29:10 08:30:00 Encounter Angela Rebolledo 350.1.13.10 ity of [place].2.[place] [phone] [address] 2020-02-19 2020-02-19 [facility] [id number] Univers 08:29:10 08:30:00 ANGELA barth [facility] 2020-02-19 2020-02-19 [facility] 1.2.840.114 [id number] 08:29:10 08:30:00 Encounter Angela Morenoton 350.1.13.10 [place] 4.2.7.2.686 [place] [phone] [id number] 2020-02-18 2020-02-18 [facility] [id number] Univers 00:00:00 00:00:00 ANGELA barth [facility] 2020-02-12 2020-02-12 Outpatient STLMLC STLMLC [id number] Common 00:00:00 00:00:00 [facility] 2020-02-11 2020-02-11 [facility] [id number] 13:25:06 14:29:00 Visit Angela Morenoton 350.1.13.10 [place] 4.2.7.2.686 Professio [phone] nal [address] [place] [address] 2020-02-11 2020-02-11 [facility] [id number] [facility] 13:25:06 14:29:00 Visit Angela Amaury 350.1.13.10 i ty [place].2.[place] [phone] Wy dical nal 188 [facility] 2020-02-11 2020-02-11 [facility] [id number] Univers 13:30:00 13:30:00 ANGELA itsusie of [facility] 2020-01-28 2020-01-28 [facility] 1.2.840.114 [id number] Univers 06:31:00 09:41:00 Encounter Angela Rebolledo 350.1.13.10 ity of [place]2.7.2.[place] [phone] [facility] [address] 2020-01-28 2020-01-28 Orders Doctor JERMAN 1.2.840.114 [id number] Univers 00:00:00 00:00:00 Only Unassigned, ELGIN 350.1.13.10 ity of [place] [facility] 4.2.7.2.686 [place] as [phone] [facility] [address] 2020-01-27 2020-01-27 Laboratory Only, Adc Test [facility] 1.2.840. 114 [id number] Univers 08:41:09 08:56:09 Only Sadia Knowlse 350.1.1 3.10 ity of Angela Bains 4.2.7.2.686 [facility] [phone] [facility] [address] 2020-01-27 2020-01-27 Outpatient R [facility] [id number] Univers 08:45:00 08:45:00 ity of [facility] 2020-01-27 2020-01-27 Orders Doctor STOLL 1.2.840.114 [id number] Univers 00:00:00 00:00:00 Only Unassigned, ELGIN 350.1.13.10 ity of [place] [facility] 4.2.7.2.686 [place] as [phone] [facility] [address] 2020-01-21 2020-01-21 Office Bains, [facility] 1.2.508.215 [id number] Univers 14:51:34 16:15:40 Visit Angela Rebolledo 350.1.13.10 i ty of [place].2.[place] [phone] Me dical nal 188 [facility] 2020-01-21 2020-01-21 Outpatient R HERSON, [facility] [id number] Univers 15:00:00 15:00:00 ANGELA itsusie of [facility] 2020-01-21 2020-01-21 Orders Doctor JERMAN 1.2.840.114 [id number] Univers 00:00:00 00:00:00 Only Unassigned, ELGIN 350.1.13.10 ity of [place] [facility] 4.2.7.2.686 [place] as [phone] [address] 2020-01-21 2020-01-21 Prep For Gramm, [facility] 1.2.840.114 [id number] Univers 00:00:00 00:00:00 Surgery Linda Rebolledo 350.1.13.10 it[place] of [place].2.[place] [phone] Wy dical nal 204 [facility] 2019-11-12 2019-11-12 Outpatient [facility] [id number] Common 10:00:00 10:00:[address] Family [facility] 2019-08-27 2019-08-27 Outpatient [facility] [id number] Common 09:00:00 09:00:[address] [facility] 2019-08-06 2019-08-06 Outpatient [facility] [id number] Common 11:00:00 11:00:[address] [facility] 2019-08-06 2019-08-06 Outpatient [facility] [id number] Common 11:00:00 11:00:[address] [facility] 2019-06-10 2019-06-10 Outpatient [facility] [id number] Common 09:15:00 09:15:[address] [facility] 2019-04-10 2019-04-10 Outpatient [facility] [id number] Common 16:41:00 16:41:[address] [facility] 2018-12-13 2018-12-13 Outpatient Sumeet Fayt [id number] Common 09:30:00 09:30:[address] [facility] 2018-04-26 2018-04-26 Outpatient Sumeet Fayt [id number] Common 09:30:00 09:30:[address] [facility] 2017-10-26 2017-10-26 Outpatient [facility] [id number] Common 09:45:00 09:45:[address] [facility] 2017-09-27 2017-09-27 Outpatient S[place] [facility] [id number] Common 12:58:00 12:58:[address] [facility] 2017-08-24 2017-08-24 Outpatient Sumeet Fayt [id number] Common 09:45:00 09:45:[address] [facility] Results Test Description Test Time Test Comments Results Result Comments Source POCT CREATININE 2020-02-19 20:12:00 Test Item Value Reference Range Interpretation Comme nts POCT Creatinine (test code = 3982207520) 0.7 mg/dL 0.5-1.1 Lab Interpretation (test code = 57120-2) [facility] [id number] 17:10:05 HISTORY: Anal canal cancer TECHNIQUE: Contrast-enhanced [...] breast.Patient's [facility].Therefore, please encourage the patient to have bilateral mammography-KISHOR.[facility], Radiant Results Inft User - 02/19/2020 [...] please encourage the patient to have bilateral mammography-KISHOR.[facility] W CONTRAST 2020-02-19 16:54:38CT Abdomen [...] No abnormal fluid. Slightly enlarged lymph node ectsdkgnz19 x 5 mm adjacent to the aorta [...] mm left adrenal gland nodule,for uncertain etiology. [facility], Radiant Results Inft User - 02/19/2020 10:55 AM CSTCT Abdomen and Pelvis with oral and intravenous contrast.CLINICAL HISTORY: Anal canal cancer.DOSE: [id number] equipment and radiation dose reduction techniques wereemployed. [...] No abnormal fluid. Slightly enlarged lymph node ryiairntv59 x 5 mm adjacent to the aorta [...] 13 mm left adrenal gland nodule,for uncertain etiology.[facility] [id number] 12:41:00 Test Item Value Reference Range Interpretation Comments POCT Glu (age>30days) (test code = 108 mg/dL 70-110 3342) Lab Interpretation (test code = Normal 03470-2) [facility]
[2022-09-07] MEDS ORDERED: DIAZEPAM 5 MG TABLET ONE (16:24)
[2022-09-07] MEDS ORDERED: ONDANSETRON 4 MG/2 ML VIAL ONE ×2 (16:24→20:04)
[2022-09-07] MEDS ORDERED: NA CHLORIDE 0.9% 1,000 ML ONE (16:24)
[2022-09-07] MEDS ORDERED: MORPHINE 4 MG/ML SYR ONE ×2 (16:24→18:08)
[2022-09-07 17:27] LABS: Absolute Lymphocytes (CBC) 1.4 K/uL (0.7-4.9); Hematocrit 40.6 % (36.0-45.0); MCV 98.3 fL (80-100); MPV 6.8 fL (7.6-11.3); RBC Red Blood Cell Count 4.13 M/uL (3.86-4.86)
--- NOTE | 2022-09-07 17:27 | RAD REPORT ---
EXAM DESCRIPTION: RADChest Single View09/07/2022 4:32 pm CLINICAL HISTORY: PAIN COMPARISON: Chest Single View dated 07/24/2020; Chest Single View dated 07/11/2020; Chest Single View d ated 03/30/2020; Chest Pa And Lat (2 Views) dated 03/30/2020 TECHNIQUE: Portable AP view of the chest. FINDINGS: The lungs are clear. No pneumothorax or effusion. The cardiomediastinal contours are unre markable. IMPRESSION: No acute cardiopulmonary process.
[2022-09-07 17:44] LABS: ALT/SGPT 25 U/L (13-56); AST/SGOT 22 U/L (15-37); Albumin 4.3 g/dL (3.4-5.0); Alkaline Phosphatase 84 U/L (45-117); BUN Blood Urea Nitrogen 9 mg/dL (7-18); Bicarbonate 23 mEq/L (21-32); Bilirubin Total 0.4 mg/dL (0.2-1.0); Glomerular Filtration Rate 88 ml/min (=/>90); Glucose Level 181 mg/dL (74-106); Lipase 12 U/L (13-75); NT PRO-BNP 627 pg/mL (<125); Potassium 3.4 mEq/L (3.5-5.1); Protein, Total 9.7 g/dL (6.4-8.2); Sodium Level 135 mEq/L (136-145); Troponin High Sensitivity 7.7 pg/mL (<58.9)
[2022-09-07 17:52] LABS: Bilirubin Direct < 0.1 mg/dL (0-0.2); Bilirubin Indirect, Calculated ND mg/dL (0.2-0.8)
[2022-09-07 18:03] LABS: Urine Bacteria <20 /HPF (<20); Urine Bilirubin NEGATIVE (Negative); Urine Blood 1+ (Negative); Urine Clarity Clear (Clear); Urine Color Colorless (Yellow); Urine Glucose 3+ (Negative); Urine Protein 2+ (Negative); Urine RBC None Seen /HPF (None Seen); Urine Urobilinogen Normal (Normal); Urine pH 7.5 (5.0-7.0)
[2022-09-07] MEDS ORDERED: POTASSIUM 25 MEQ EFFERV TAB ONE (18:45)
[2022-09-07 19:26] LABS: Protime INR 0.91
--- NOTE | 2022-09-07 19:31 | RAD REPORT ---
EXAM DESCRIPTION: US - Lower Extremity Arterial Bilat - 09/07/2022 6:58 pm CLINICAL HISTORY: PAIN COMPARISON: Lower Ext Angio dated 02/15/2022 TECHNIQUE: Bilateral lower extremity arterial Doppler examination was performed with wong Casarez FINDINGS: Moderate to advanced atherosclerotic plaque formation bilateral Triphasic waveforms are se en along the common femoral arteries bilaterally. Short-segment of no appreciable flow along the prox imal right SFA. Monophasic flow seen along the remainder of both lower extremity arterial systems to the level of the dorsalis pedis arteries, with blunted upstroke throughout most of the right lower ex tremity this arterial system. IMPRESSION: Moderate to advanced peripheral vascular disease with the short segment of no appreciabl e flow along the proximal right SFA. Findings correspond to the abnormalities seen on prior CT angiog tc of January 2022.
--- NOTE | 2022-09-07 19:32 | RAD REPORT ---
EXAM DESCRIPTION: US - Extrem Venous W Compress Mihir - 09/07/2022 6:58 pm CLINICAL HISTORY: Pain COMPARISON: None. TECHNIQUE: Real-time sonographic evaluation of the bilateral lower extremity deep venous systems was performed. FINDINGS: Normal compressibility, flow augmentation, phasic flow and spontaneous flow is identified in both the left and right lower extremity deep venous systems. No intraluminal filling defects seen. IMPRESSION: No DVT in either lower extremity.
--- NOTE | 2022-09-07 19:52 | RAD REPORT ---
EXAM DESCRIPTION: CT - Abdomen Pelvis W Contrast - 09/07/2022 7:30 pm CLINICAL HISTORY: ABD PAIN COMPARISON: Abdomen Pelvis W Contrast dated 10/27/2017; Abdomen Pelvis W Contrast dated 7 TECHNIQUE: Thin cut axial CT imaging of the abdomen and pelvis was performed following intravenous a dministration of Isovue 300. Multiplanar reformats were generated and reviewed. All CT scans are performed using dose optimization technique as appropriate and may include automated exposure control or mA/KV adjustment according to patient size. FINDINGS: No suspicious findings in the lung bases. The liver demonstrates nodular contour with relative left lobe hypertrophy, suggesting cirrhosis. Adr enal glands, spleen, and pancreas show no suspicious findings. Gallbladder was surgically removed. No intra or extrahepatic biliary ductal dilation. Symmetric renal function is seen with no hydronephrosis or suspicious renal mass. Perinephric mild ed home more pronounced on the left. No dilated bowel loops diffuse wall thickening along the distal stomach and proximal colon. No free a ir, free fluid or inflammatory stranding. No hernia, mass or bulky lymphadenopathy. The urinary bladd er is without significant finding. Epigastric varicosities are noted. No suspicious bony findings. Grade 1 anterolisthesis L4 over L5, with a posterior disc bulge, which m ay contribute to stable central canal stenosis. IMPRESSION: Mild perinephric edema more pronounced on the left. Please correlate for acute renal inj ury, less likely sequelae of early pyelonephritis. Stable stigmata of cirrhosis and portal hypertension. Wall thickening along distal stomach and proximal colon, nonspecific, could relate to portal hyperten lulu, although possibility of gastritis and colitis cannot be entirely excluded.
[2022-09-07] MEDS ORDERED: DIAZEPAM 10 MG/2 ML INJ SYRINGE ONE (20:04)
--- NOTE | 2022-09-07 20:48 | ER ---
Nurse's Notes 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 Coronavirus screen: Vaccine status: Patient reports being unvaccinated. Ebola Screen: No symptoms or risks identified at this time. Risk Assessment: Do you want to hurt yourself or someone else? Patient reports no desire to harm self or others. 15:16 Method Of Arrival: Wheelchair ph 15:19 Initial Sepsis Screen: Does the patient meet any 2 criteria? No. Patient's initial ph sepsis screen is negative. Does the patient have a suspected source of infection? No. Patient's initial sepsis screen is negative. 15:19 Acuity: ANNIE 3 ph Triage Assessment: 19:00 GI: Reports upper abdominal pain, nausea. vc1 19:00 General: Appears in no apparent distress. uncomfortable, ill, Behavior is restless, vc1 uncooperative. Historical: - Allergies: 15:18 Soma; ph - PMHx: 15:18 angina pectoris; Chronic pain; Diabetes - IDDM; Glaucoma; Hypertension; RECTAL CA; ph - Immunization history:: Adult Immunizations unknown, Client reports receiving the 2nd dose of the Covid vaccine. - Family history:: not pertinent. - Social history:: Smoking status: Patient denies any tobacco usage or history of. Screenin:39 [facility] ED Fall Risk Assessment (Adult) History of falling in the last 3 months, db including since admission No falls in past 3 months (0 pts) Confusion or Disorientation No (0 pts) Intoxicated or Sedated No (0 pts) Impaired Gait No (0 pts) Mobility Assist Device Used No (0 pt) Altered Elimination No (0 pt) Score/Fall Risk Level 0 - 2 = Low Risk Oriented to surroundings, Maintained a safe environment. Abuse screen: Denies threats or abuse. Denies injuries from another. Nutritional screening: No deficits noted. Tuberculosis screening: No symptoms or risk factors identified. Assessment: 16:38 Reassessment: Patient appears in no apparent distress at this time. Patient and/or db family updated on plan of care and expected duration. Pain level reassessed. Patient is alert, oriented x 3, equal unlabored respirations, skin warm/dry/pink. patient complains of nausea/vomiting and leg cramps. patient states has diarrhea. General: Appears in no apparent distress. comfortable, Behavior is cooperative, anxious. General: Appears Behavior is. 16:58 Reassessment: lab and medication administration delay due to unable to obtain IV access.db 18:45 Reassessment: Patient appears in no apparent distress at this time. Patient and/or db family updated on plan of care and expected duration. Pain level reassessed. Patient is alert, oriented x 3, equal unlabored respirations, skin warm/dry/pink. Pain: Complains of pain in abdomen and left lower quadrant and right lower quadrant. GI: Abdomen is flat, round. 19:22 Reassessment: No changes from previously documented assessment. Patient and/or family vc1 updated on plan of care and expected duration. Pain level reassessed. Assumed care of pt from ISIDRO Jimenez. 20:41 Reassessment: No changes from previously documented assessment. Patient and/or family vc1 updated on plan of care and expected duration. Pain level reassessed. Patient is alert, oriented x 3, equal unlabored respirations, skin warm/dry/pink. 21:06 Reassessment: Patient and/or family updated on plan of care and expected duration. Pain vc1 level reassessed. Patient is alert, oriented x 3, equal unlabored respirations, skin warm/dry/pink. Patient states feeling better. Patient states symptoms have improved. Vital Signs: 15:19 BP 180 / 83; Pulse 104; Resp 16; Temp 97.2; Pulse Ox 100% ; Weight 43.09 kg; Height 4 ph ft. 11 in. ; Pain 10/10; 18:05 Pain 10/10; db 18:30 BP 219 / 87; Pulse 93; Resp 16; Pulse Ox 100% on R/A; db 19:00 BP 209 / 175; Pulse 106; Resp 16; Pulse Ox 99% ; vc1 19:49 BP 193 / 81; vc1 20:41 BP 129 / 60; Pulse 83; Resp 16; Pulse Ox 98% ; vc1 15:19 Body Mass Index 19.19 (43.09 kg, 149.86 cm) ph 15:19 Pain Scale: Adult ph 18:05 Pain Scale: Adult db NIH Stroke Scale Scores: 16:47 NIHSS Score: 0 [facility] ED Course: 15:08 Patient arrived in ED. rg4 15:18 Arm band placed on. ph 15:20 Triage completed. ph 15:44 Lane Gamez MD is Attending Physician. tarah 16:06 Barbara Rios, ISIDRO is Primary Nurse. db 16:10 Radiology exam delayed due to lab results not completed at this time. (BUN/Creatinine) [id number] IV insertion attempt and/or patient not having appropriate IV at this time. 16:33 XRAY Chest (1 view) In Process Unspecified. EDMS 16:38 Missed attempt(s): 22 gauge in right antecubital area. Bleeding controlled, band aid db applied, catheter tip intact. 16:50 Missed attempt(s): 20 gauge in left antecubital area. rs5 16:50 Missed attempt(s): 22 gauge in left forearm. rs5 17:10 Inserted saline lock: 18 gauge in left EJ, using aseptic technique. ,using aseptic ss technique. IV access done by Dr Gamez Blood collected. 18:32 Temo Biggs PA is PHCP. jmm 18:59 US LE Arterial Bilateral In Process Unspecified. EDMS 19:00 US Extremity Venous W Compression Mihir In Process Unspecified. EDMS 19:11 Patient has correct armband on for positive identification. Bed in low position. Call db light in reach. Side rails up X 1. Pulse ox on. NIBP on. Warm blanket given. 19:32 CT Abd/Pelvis - IV Contrast Only In Process Unspecified. EDMS 20:42 No provider procedures requiring assistance completed. vc1 20:48 Galindo Boston DO is Referral Physician. jmm 21:04 IV discontinued, intact, bleeding controlled, No redness/swelling at site. Pressure vc1 dressing applied. Administered Medications: 16:45 Drug: Diazepam PO 5 mg Route: PO; db 19:30 Follow up: Response: No adverse reaction; No change in condition vc1 17:18 Drug: morphine IVP or IV 4 mg Route: IVP; Infused Over: 4 mins; Site: left jugular; db 19:30 Follow up: Response: No adverse reaction; Pain is unchanged, physician notified vc1 17:20 Drug: Ondansetron IVP 4 mg Route: IVP; Site: left jugular; db 19:30 Follow up: Response: No adverse reaction; Nausea unchanged vc1 17:28 Drug: NS 0.9% IV 1000 ml Route: IV; Rate: 1 bolus; Site: left jugular; db 19:00 Follow up: IV Status: Completed infusion; IV Intake: 1000ml vc1 18:05 Drug: morphine IVP or IV 4 mg Route: IVP; Infused Over: 4 mins; Site: left jugular; db 19:30 Follow up: Response: No adverse reaction; Pain is unchanged, physician notified vc1 18:20 Drug: Potassium PO Effervescent Tablet 25 mEq Route: PO; db 20:59 Follow up: Response: No adverse reaction vc1 20:00 Drug: Diazepam IVP 5 mg Route: IVP; Site: left jugular; vc1 20:59 Follow up: Response: No adverse reaction; Marked relief of symptoms vc1 20:00 Drug: Ondansetron IVP 4 mg Route: IVP; Site: left jugular; vc1 20:59 Follow up: Response: No adverse reaction; Nausea is decreased vc1 Medication: 20:42 VIS not applicable for this client. vc1 Intake: 19:00 IV: 1000ml; Total: 1000ml. vc1 Outcome: 20:48 Discharge ordered by MD. son 21:04 Discharged to home ambulatory. vc1 21:04 Condition: good 21:04 Discharge instructions given to patient, Instructed on discharge instructions, follow up and referral plans. medication usage, Demonstrated understanding of instructions, follow-up care, medications, Prescriptions given X 3. 21:25 Patient left the ED. vc1 NIH Stroke Scale - NIH Stroke Score Date: 09/07/2022 Time: 16:47 Total Score = 0 10. Dysarthria (speech clarity - read or repeat words) - 0(Normal) 11. Extinction and Inattention (visual/tactile/auditory/spatial/personal) - 0(No abnormality) 1a. Level of Consciousness (LOC) - 0(Alert) 1b. Level of Consciousness (LOC) (Month \T\ Age) - 0(Both) 1c. LOC Commands (Open \T\ Closes Eyes/Wad Printing Machine Operator) - 0(Both) 2. Best Gaze (Lateral Gaze Paresis) - 0(Normal) 3. Visual Field Loss - 0(No visual loss) 4. Facial Palsy - 0(Normal) 5a. Left Arm: Motor (10-second hold) - 0(No drift) 5b. Right Arm: Motor (10-second hold) - 0(No drift) 6a. Left Leg: Motor (5-second hold - always test supine) - 0(No drift) 6b. Right Leg: Motor (5-second hold - always test supine) - 0(No drift) 7. Limb Ataxia (finger/nose \T\ heel/galvan - test with eyes open) - 0(Absent) 8. Sensory Loss (pinprick arms/legs/face) - 0(Normal) 9. Best Language: Aphasia (description/naming/reading) - 0(No aphasia) Initials: tarah Signatures: Dispatcher [employer] Lane Bass MD MD cha Mickail, Joel, PA PA jmm Blanchard, Shelby, RN RN Roxy Fountain RN RN Yamini Rhoades rg4 Kassy Mckinney RN RN vc1 Barbara Rios, RN RN Dolores Carbajal [id number] Manuel Grady rs5
--- NOTE | 2022-09-07 20:49 | EDPHYS ---
Physician Documentation [facility] Name: Ernestina Marcus Age: 72 yrs Sex: Female : 1950 Arrival Date: 09/07/2022 Time: 14:55 Bed 14 Private MD: ED Physician Lane Gamez HPI: 09/07 16:47 This 72 yrs old Black Female presents to ER via Wheelchair with complaints of Leg tarah Cramps, Vomiting. 16:47 The patient presents to the emergency department with nausea, vomiting, that is tarah intermittent. Onset: The symptoms/episode began/occurred just prior to arrival, this morning. Possible causes: unknown. 16:47 Modifying factors: The symptoms are alleviated by nothing. the symptoms are aggravated tarah by nothing. Associated signs and symptoms: Pertinent positives: weakness. Associated signs and symptoms: Pertinent positives: nausea, vomiting. The patient has experienced similar episodes in the past, a few times. Historical: - Allergies: 15:18 Soma; ph - PMHx: 15:18 angina pectoris; Chronic pain; Diabetes - IDDM; Glaucoma; Hypertension; RECTAL CA; ph - Immunization history:: Adult Immunizations unknown, Client reports receiving the 2nd dose of the Covid vaccine. - Family history:: not pertinent. - Social history:: Smoking status: Patient denies any tobacco usage or history of. ROS: 16:47 Constitutional: Negative for fever, chills, and weight loss, Eyes: Negative for injury, tarah pain, redness, and discharge, ENT: Negative for injury, pain, and discharge, Neck: Negative for injury, pain, and swelling, Cardiovascular: Negative for chest pain, palpitations, and edema, Respiratory: Negative for shortness of breath, cough, wheezing, and pleuritic chest pain, Back: Negative for injury and pain, : Negative for injury, bleeding, discharge, and swelling, Skin: Negative for injury, rash, and discoloration, Neuro: Negative for headache, weakness, numbness, tingling, and seizure, Psych: Negative for depression, anxiety, suicide ideation, homicidal ideation, and hallucinations, Allergy/Immunology: Negative for hives, rash, and allergies, Endocrine: Negative for neck swelling, polydipsia, polyuria, polyphagia, and marked weight changes, Hematologic/Lymphatic: Negative for swollen nodes, abnormal bleeding, and unusual bruising. 16:47 Abdomen/GI: Positive for abdominal pain, nausea and vomiting, of the right lower quadrant and left lower quadrant. 16:47 MS/extremity: Positive for pain, of the right leg and left leg. Exam: 16:47 Constitutional: This is a well developed, well nourished patient who is awake, alert, tarah and in no acute distress. Head/Face: Normocephalic, atraumatic. Eyes: Pupils equal round and reactive to light, extra-ocular motions intact. Lids and lashes normal. Conjunctiva and sclera are non-icteric and not injected. Cornea within normal limits. Periorbital areas with no swelling, redness, or edema. ENT: Nares patent. No nasal discharge, no septal abnormalities noted. Tympanic membranes are normal and external auditory canals are clear. Oropharynx with no redness, swelling, or masses, exudates, or evidence of obstruction, uvula midline. Mucous membranes moist. Neck: Trachea midline, no thyromegaly or masses palpated, and no cervical lymphadenopathy. Supple, full range of motion without nuchal rigidity, or vertebral point tenderness. No Meningismus. Chest/axilla: Normal chest wall appearance and motion. Nontender with no deformity. No lesions are appreciated. Cardiovascular: Regular rate and rhythm with a normal S1 and S2. No gallops, murmurs, or rubs. Normal PMI, no JVD. No pulse deficits. Respiratory: Lungs have equal breath sounds bilaterally, clear to auscultation and percussion. No rales, rhonchi or wheezes noted. No increased work of breathing, no retractions or nasal flaring. Back: No spinal tenderness. No costovertebral tenderness. Full range of motion. Female : Normal external genitalia. Skin: Warm, dry with normal turgor. Normal color with no rashes, no lesions, and no evidence of cellulitis. MS/ Extremity: Pulses equal, no cyanosis. Neurovascular intact. Full, normal range of motion. Neuro: Awake and alert, GCS 15, oriented to person, place, time, and situation. Cranial nerves II-XII grossly intact. Motor strength 5/5 in all extremities. Sensory grossly intact. Cerebellar exam normal. Normal gait. Psych: Awake, alert, with orientation to person, place and time. Behavior, mood, and affect are within normal limits. 16:47 Abdomen/GI: Inspection: abdomen appears normal, Bowel sounds: normal, in all quadrants, Palpation: Liver: no appreciated palpable abnormalities, Hernia: not appreciated. 16:47 Musculoskeletal/extremity: Extremities: all appear grossly normal, with no appreciated pain with palpation, ROM: no acute changes, Circulation is intact in all extremities. Sensation intact. Compartment Syndrome exam of affected extremity: is normal. DVT Exam: no swelling, negative Homans' sign noted on exam, no appreciated bluish discoloration, no erythema, no increased warmth, pain, tenderness. 17:46 ECG was reviewed by the Attending Physician. [facility] Vital Signs: 15:19 BP 180 / 83; Pulse 104; Resp 16; Temp 97.2; Pulse Ox 100% ; Weight 43.09 kg; Height 4 ph ft. 11 in. ; Pain 10/10; 18:05 Pain 10/10; db 18:30 BP 219 / 87; Pulse 93; Resp 16; Pulse Ox 100% on R/A; db 19:00 BP 209 / 175; Pulse 106; Resp 16; Pulse Ox 99% ; vc1 19:49 BP 193 / 81; vc1 20:41 BP 129 / 60; Pulse 83; Resp 16; Pulse Ox 98% ; vc1 15:19 Body Mass Index 19.19 (43.09 kg, 149.86 cm) ph 15:19 Pain Scale: Adult ph 18:05 Pain Scale: Adult db NIH Stroke Scale Scores: 16:47 NIHSS Score: 0 tarah Procedures: 17:45 Peripheral line: by aseptic technique a peripheral line was placed in the left external tarah jugular vein. MDM: 15:45 Patient medically screened. [facility] 16:49 Differential diagnosis: contusion, tendonitis, Nonspecific abd pain, gastritis, tarah diverticulitis, viral gastroenteritis, gastroenteritis. Data reviewed: vital signs, nurses notes, lab test result(s), EKG, radiologic studies, CT scan, doppler. Consideration of Admission/Observation Escalation of care including admission/observation considered. Independent interpretation of the following test(s) in the Emergency Department EKG: See my EKG interpretation above. Test considered but Not performed: MRI: no mri lumbar spine. Care significantly affected by the following chronic conditions: Diabetes, Hypertension, chronic pain, cad, rectal ca treated and in remission. Counseling: I had a detailed discussion with the patient and/or guardian regarding: the historical points, exam findings, and any diagnostic results supporting the discharge/admit diagnosis, the presence of at least one elevated blood pressure reading (>120/80) during this emergency department visit, lab results, radiology results, the need for outpatient follow up, for definitive care, a family practitioner. 09/07 16:03 Order name: Basic Metabolic Panel; Complete Time: 18:05 [facility] 09/07 16:03 Order name: CBC with Diff; Complete Time: 17:40 [facility] 09/07 16:03 Order name: LFT's; Complete Time: 18:05 [facility] 09/07 16:03 Order name: Magnesium; Complete Time: 18:05 [facility] 09/07 16:03 Order name: NT PRO-BNP; Complete Time: 18:05 [facility] 09/07 16:03 Order name: PT-INR; Complete Time: 19:29 [facility] 09/07 16:03 Order name: Troponin HS; Complete Time: 18:05 [facility] 09/07 16:03 Order name: Lipase; Complete Time: 18:05 [facility] 09/07 16:03 Order name: Urinalysis w/ reflexes; Complete Time: 18:05 [facility] 09/07 16:03 Order name: XRAY Chest (1 view); Complete Time: 17:40 [facility] 09/07 16:03 Order name: CT Abd/Pelvis - IV Contrast Only; Complete Time: 19:55 [facility] 09/07 16:03 Order name: US LE Arterial Bilateral; Complete Time: 19:38 [facility] 09/07 16:47 Order name: US Extremity Venous W Compression Mihir; Complete Time: 19:38 [facility] 09/07 16:03 Order name: EKG; Complete Time: 16:04 [facility] 09/07 16:03 Order name: Cardiac monitoring; Complete Time: 17:36 [facility] 09/07 16:03 Order name: EKG - Nurse/Tech; Complete Time: 16:18 [facility] 09/07 16:03 Order name: IV Saline Lock; Complete Time: 17:37 [facility] 09/07 16:03 Order name: Labs collected and sent; Complete Time: 17:37 [facility] 09/07 16:03 Order name: O2 Per Protocol; Complete Time: 17:37 [facility] 09/07 16:03 Order name: O2 Sat Monitoring; Complete Time: 17:37 [facility] 09/07 18:07 Order name: PO challenge: juice; Complete Time: 19:21 [facility] EC:46 Rate is 89 beats/min. Rhythm is regular. QRS [place] is Normal. MS interval is normal. QRS tarah interval is normal. QT interval is normal. No Q waves. T waves are Normal. No ST changes noted. Clinical impression: Normal ECG and No evidence of ischemia. Interpreted by me. Reviewed by me. Administered Medications: 16:45 Drug: Diazepam PO 5 mg Route: PO; db 19:30 Follow up: Response: No adverse reaction; No change in condition vc1 17:18 Drug: morphine IVP or IV 4 mg Route: IVP; Infused Over: 4 mins; Site: left jugular; db 19:30 Follow up: Response: No adverse reaction; Pain is unchanged, physician notified vc1 17:20 Drug: Ondansetron IVP 4 mg Route: IVP; Site: left jugular; db 19:30 Follow up: Response: No adverse reaction; Nausea unchanged vc1 17:28 Drug: NS 0.9% IV 1000 ml Route: IV; Rate: 1 bolus; Site: left jugular; db 19:00 Follow up: IV Status: Completed infusion; IV Intake: 1000ml vc1 18:05 Drug: morphine IVP or IV 4 mg Route: IVP; Infused Over: 4 mins; Site: left jugular; db 19:30 Follow up: Response: No adverse reaction; Pain is unchanged, physician notified vc1 18:20 Drug: Potassium PO Effervescent Tablet 25 mEq Route: PO; db 20:59 Follow up: Response: No adverse reaction vc1 20:00 Drug: Diazepam IVP 5 mg Route: IVP; Site: left jugular; vc1 20:59 Follow up: Response: No adverse reaction; Marked relief of symptoms vc1 20:00 Drug: Ondansetron IVP 4 mg Route: IVP; Site: left jugular; vc1 20:59 Follow up: Response: No adverse reaction; Nausea is decreased vc1 Disposition Summary: 09/07/22 20:48 Discharge Ordered Location: Home jm Problem: new jmm Symptoms: have improved jmm Condition: Stable jmm Diagnosis - Vomiting jmm - Abdominal tenderness jmm - Pain in right leg jmm - Pain in left leg jmm - Type 1 diabetes mellitus with hyperglycemia jmm - Other chronic pain jmm - Hypokalemia jmm - Peripheral vascular disease, unspecified jmm - Tobacco abuse counseling jmm - Tobacco use jmm Followup: tarah - With: Private Physician - When: 2 - 3 days - Reason: Recheck today's complaints, Continuance of care, Re-evaluation by your physician Followup: tarah - With: - When: 2 - 3 days - Reason: Recheck today's complaints, Re-evaluation by your physician Discharge Instructions: - Discharge Summary Sheet tarah - Abdominal Pain, Adult tarah - Potassium Content of Foods tarah - Hyperglycemia tarah - Leg Cramps tarah - Musculoskeletal Pain tarah - Peripheral Vascular Disease tarah - Steps to Quit Smoking tarah - Health Risks of Smoking tarah - Daily Diabetes Mellitus Record tarah - Abdominal Pain, Adult, Nird-pc-Osca tarah - Hyperglycemia, Ocmb-di-Qyhk tarah - Aspirin and Your Heart tarah - Hypokalemia [facility] Forms: - Medication Reconciliation Form [facility] - Thank You Letter [facility] - Antibiotic Education [facility] - Prescription Opioid Use [facility] Prescriptions: - gabapentin 300 mg Oral capsule - take 1 capsule by ORAL route every 12 hours; 30 capsule; Refills: 0, Product [facility] Selection Permitted - Zofran 4 mg Oral Tablet - take 1 tablet by ORAL route every 8 hours As needed; 24 tablet; Refills: 0, [facility] Product Selection Permitted - Cephalexin 500 mg Oral Capsule - take 1 capsule by ORAL route every 8 hours for 10 days; 30 capsule; Refills: 0, [facility] Product Selection Permitted - Flagyl 500 mg Oral Tablet - take 1 tablet by ORAL route every 6 hours for 10 days; 40 tablet; Refills: 0, [facility] Product Selection Permitted NIH Stroke Scale - NIH Stroke Score Date: 09/07/2022 Time: 16:47 Total Score = 0 10. Dysarthria (speech clarity - read or repeat words) - 0(Normal) 11. Extinction and Inattention (visual/tactile/auditory/spatial/personal) - 0(No abnormality) 1a. Level of Consciousness (LOC) - 0(Alert) 1b. Level of Consciousness (LOC) (Month \T\ Age) - 0(Both) 1c. LOC Commands (Open \T\ Closes Eyes/Maori Liaison Adviser) - 0(Both) 2. Best Gaze (Lateral Gaze Paresis) - 0(Normal) 3. Visual Field Loss - 0(No visual loss) 4. Facial Palsy - 0(Normal) 5a. Left Arm: Motor (10-second hold) - 0(No drift) 5b. Right Arm: Motor (10-second hold) - 0(No drift) 6a. Left Leg: Motor (5-second hold - always test supine) - 0(No drift) 6b. Right Leg: Motor (5-second hold - always test supine) - 0(No drift) 7. Limb Ataxia (finger/nose \T\ heel/galvan - test with eyes open) - 0(Absent) 8. Sensory Loss (pinprick arms/legs/face) - 0(Normal) 9. Best Language: Aphasia (description/naming/reading) - 0(No aphasia) Initials: tarah Signatures: Dispatcher [employer] Lane Bass MD MD cha Mickail, Joel, PA PA jmm Hall, Patricia RN RN ph Kassy Mckinney, RN RN vc1 Barbara Rios RN RN db
[2022-09-07 21:38] VITALS: TEMP 97.2
[2022-09-07 21:43] VITALS: BP 129/60; O2SAT 98
--- NOTE | 2022-09-08 17:42 | EKG ---
Test Date: 2022-09-07 Test Time: 16:15:43 [employer]: CIELO MEASUREMENT RESULTS: Intervals: Rate: 89 SD: 196 QRSD: 86 QT: 374 QTc: 455 Crosby: P: 79 SD: 196 QRS: 69 T: 44 INTERPRETIVE STATEMENTS: Normal sinus rhythm Normal ECG Compared to ECG 07/24/2020 10:58:37 Myocardial infarct finding no longer present Electronically Signed On 09-08-22 17:39:34 CDT by Godwin Davila
== END 2022-09-07 21:25 | disposition home or self-care (01) ==
LOC: ER 14:55
PROC: 05HQ33Z Insertion of Infusion Device into Left External Jugular Vein, Percutaneous Approach (ICD-10-PCS; principal; 2022-09-07)
DX: E10.65 Type 1 diabetes mellitus with hyperglycemia (principal); E87.6 Hypokalemia; M79.605 Pain in left leg; M79.604 Pain in right leg; I73.9 Peripheral vascular disease, unspecified; G89.29 Other chronic pain; R10.814 Left lower quadrant abdominal tenderness; I10 Essential (primary) hypertension; Z72.0 Tobacco use; Z71.6 Tobacco abuse counseling; Z88.8 Allergy status to other drugs, medicaments and biological substances
CPT/HCPCS: 85025; 81001; 80048; 36415; 83735; 85610; 80076; 84484; 83690; 83880; 74177; 71045; 93925; 93970; 36569; Q9967; J3360; J2405 ×2; J7030; 93005

== ENCOUNTER → 2023-03-31 | Emergency (ER) | payer OTHER ==
[~2023-03-31] MED LIST: HYDRALAZINE HCL 20 MG/ML VIAL ONE; HYDROMORPHONE HCL 1 MG/ML INJ ONE; INSULIN REGULAR (HUMAN) 100 UNIT/ML ONE; NA CHLORIDE 0.9% 1,000 ML ONE; NA CHLORIDE 0.9% 100 ML ONE; ONDANSETRON 4 MG/2 ML VIAL ONE; PANTOPRAZOLE 40 MG INJ ONE; PIPERACIL/TAZO 3.375 GM VIAL IV ONE
--- OUTSIDE RECORDS SUMMARY | 2023-03-31 08:08 | XMS REPORT | Continuity of Care Document ---
Author Name Unknown Address [address] [facility] [address] [place] [address] [facility] thconnect Address [address] [place] [address] Care Team Providers Care Sewing Inspector Name Role Phone Fred Elliott Primary Care Physician [phone] Fred Elliott Attending Clinician Unavailable ANGELA BAINS Attending Clinician Unavailable Og Jin DO Attending Clinician [phone] Linda Toledo Attending Clinician [phone] Angela Bains MD Attending Clinician [phone] Doctor Unassigned, [place] Attending Clinician U navailable Only, Adc Test Attending Clinician Unavailable Sadia Knowles MD Attending Clinician + [phone] ANGELA BAINS Admitting Clinician Unavailable Angela Bains MD Admitting Clinician [phone] Payers Payer Name Policy Type Policy Number Effective Date Expirati on Date Source [employer] MEDICARE ERS [id number] 2019 00:00:00 [facility] MCR PPO 1 [id number] 2021 00:00:00 [facility] MEDICARE PART A \T\ B [id number] 2015 00:00:00 [facility] [id number] 2016 00:00:00 MED[place] [id number] 2016 00:00:00 Problems Condition Name Condition Details Condition Category Status Onset Date Resolution Date Last Treatment Date Treating Clinician Comments Source Anal cancer Anal cancer Disease Active 2019-03 00:00: 00 Overview: Formattin g of this note might be different from the original. Added automatic ally from request for surgery [id number] [facility] Mass of anus Mass of anus Disease Active 2019-03 00:00: 00 Overview: Formattin g of this note might be different from the original. 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 fracture Problem [facility] [id number] Decreased appetite Problem [facility] [id number] Insomnia due to medical condition Problem [facility] [id number] ROSANNA (generaliz ed anxiety disorder) Problem [facility] 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 Problem [facility] 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 Anemia due to antineopla stic chemothera py Problem [facility] 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, 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, anus and anal canal Problem [facility] Neuropathi c pain Neuropathi c pain Problem [facility] Chronic hepatitis C Chronic hepatitis C Problem [facility] Essential hypertensi on Benign essential HTN Problem [facility] Microalbum inuria Microalbum inuria Problem [facility] Hyperlipid emia Hyperlipid emia Problem [facility] [id number] Type 2 diabetes mellitus with other diabetic kidney complicati on Problem [facility] Type II diabetes mellitus well controlled Diabetes type 2, controlled Problem [facility] [id number] Squamous cell carcinoma of anal canal Problem [facility] Cervicalgi a Cervicalgi a Problem [facility] Cervical spinal stenosis Cervical spinal stenosis Problem [facility] Tobacco use Tobacco use disorder Problem [facility] [id number] Asymptomat ic hypertensi ve urgency Problem [facility] Laboratory test result abnormal Abnormal laboratory test result Problem [facility] Malignant tumor of anal canal Malignant neoplasm of anal canal Problem [facility] [id number] PAD (periphera l artery disease) Problem [facility] Allergies, Adverse Reactions, Alerts Allergy Name Allergy Type Status Severity Reaction(s) Onset Date Inactive Date Treating Clinician Comments Source CARISOPR ODOL DRUG INGREDI Active Hives 05-04 00:00: 00 [facility] Carisopr odol Propensi ty to adverse reaction s Active Hives 05-04 00:00: 00 [facility] carisopr odol carisopr odol Active rash [facility] Social History Social Habit Start Date Stop Date Quantity Comments [facility] Comment Does not hav e the will power [facility] History of Tobacco Use Current Smoker [facility] Sex Assigned At [facility] Exposure to SARS-CoV-2 (event) 2020-01-12 00:00:00 2020-02-11 13:24:00 Not sure [facility] Alcohol intake 2020-02-11 00:00:00 2020-02-11 00:00:00 0 /d [facility] History of Social function 2020-01-28 00:00:00 2020-01-28 00:00:00 [facility] Cigarettes smoked current (pack per day) - Reported 2020-01-24 00:00:00 2020-01-24 00:00:00 [facility] Tobacco use and exposure 2020-01-24 00:00:00 2020-01-24 00:00:00 Smokeless tobacco non-user [facility] Cigarette pack-years 2020-01-24 00:00:00 2020-01-24 00:00:00 [facility] Smoking Status Start Date Stop Date Source Current Smoker 2023-02-28 00:00:00 [facility] Medications Ordered Medication Name Filled Medication Name Start Date Stop Date Current Medication? Ordering Clinician Indication Dosage Frequency Signature (SIG) Comments Components Source [place] 32G X 4 MM [place] 32G X 4 MM 2022-0 05-24 00:00: 00 No [place] 32G X 4 MM [place] 32G X 4 MM [place] 32G X 4 MM 2022-0 05-24 00:00: 00 No [place] 32G X 4 MM [place] 32G X 4 MM [place] 32G X 4 MM 2022-0 05-24 00:00: 00 No [place] 32G X 4 MM [place] 32G X 4 MM [place] 32G X 4 MM 2022-0 05-24 00:00: 00 No [place] 32G X 4 MM [place] 32G X 4 MM [place] 32G X 4 MM 2022-0 3 00:00: 00 No [place] 32G X 4 MM [place] 32G X 4 MM [place] 32G X 4 MM 2022-0 05-24 00:00: 00 No [place] 32G X 4 MM [place] 32G X 4 MM [place] 32G X 4 MM 2022-0 05-24 00:00: 00 No [place] 32G X 4 MM Lisinopril/ HCTZ 20/12.5 Lisinopril/ HCTZ 20/12.5 2021-03 00:00: 00 11-20 00:00 :00 No Lisinopril /HCTZ 20/12.5 Acetaminoph en-Codeine 300-30 MG Acetaminoph en-Codeine 300-30 MG 2021-03 00:00: 00 03-05 00:00 :00 No 1{table t_as_ne eded} TID Acetaminop hen-Codein e 300-30 MG contrast previously administere d 0 mL 2019-03 16:45: 00 02-18 16:32 :00 No Intravenou s, ONCE, 1 dose, Mon02/19/20 at 1045, [facility] (OMNIPAQUE 350 BULK-150 mL) injection 120 mL 2019-03 16:45: 00 02-18 16:32 :00 No 120mL 120 mL, Intravenou s, ONCE, 1 dose, Mon02/19/20 at 1045, [facility] (OMNIPAQUE 350 BULK) 25 mL 2019-03 15:00: 00 02-18 14:52 :00 No 25mL 25 mL, Oral, ONCE, 1 dose, Mon02/19/20 at 0900, Routine [facility] gabapentin 600 mg tablet 2019-03 15:41: 25 Yes 600mg Take 600 mg by mouth 3 (three) times daily. [facility] gabapentin 600 mg tablet 2019-03 15:41: 25 Yes 600mg Take 600 mg by mouth 3 (three) times daily. [facility] gabapentin 600 mg tablet 2019-03 15:41: 25 Yes 600mg Take 600 mg by mouth 3 (three) times daily. [facility] gabapentin 600 mg tablet 2019-03 15:41: 25 Yes 600mg Take 600 mg by mouth 3 (three) times daily. [facility] gabapentin 600 mg tablet 2019-03 15:41: 25 Yes 600mg Take 600 mg by mouth 3 (three) times daily. [facility] gabapentin 600 mg tablet 2019-03 15:41: 25 Yes 600mg Take 600 mg by mouth 3 (three) times daily. [facility] gabapentin 600 mg tablet 2019-03 15:41: 25 Yes 600mg Take 600 mg by mouth 3 (three) times daily. [facility] gabapentin 600 mg tablet 2019-03 15:41: 25 Yes 600mg Take 600 mg by mouth 3 (three) times daily. [facility] gabapentin 600 mg tablet 2019-03 15:41: 25 Yes 600mg Take 600 mg by mouth 3 (three) times daily. [facility] gabapentin 600 mg tablet 2019-03 15:41: 25 Yes 600mg Take 600 mg by mouth 3 (three) times daily. [facility] gabapentin 600 mg tablet 2019-03 15:41: 25 Yes 600mg Take 600 mg by mouth 3 (three) times daily. [facility] gabapentin 600 mg tablet 2019-03 15:41: 25 Yes 600mg Take 600 mg by mouth 3 (three) times daily. [facility] lactated ringers IV infusion 1,000 mL 2019-03 15:00: 00 Yes 1000mL at 75 mL/hr, 1,000 mL, IV Infusion, CONTINUOUS , Starting Mon01/28/20 at 0900, Until Discontinu ed, Routine, PACU [facility] FENTanyl PF (SUBLIMAZE (PF)) injection 25 mcg 2019-03 14:55: 42 Yes 25ug 25 mcg, Slow IV Push, Q5MIN PRN, 4 doses, Starting Mon01/28/20 at 0855, Until Discontinu ed, Routine, Pain (scale 4-6), PACU [facility] ondansetron (ZOFRAN (PF)) injection 4 mg 2019-03 14:55: 42 Yes 4mg 4 mg, Slow IV Push, PRN, 1 dose, Starting Mon01/28/20 at 0855, Until Discontinu ed, Routine, Nausea and Vomiting (N/V), PACU [facility] water for irrigation irrigation solution 2019-03 13:46: 00 Yes PRN, Starting Mon01/28/20 at 0746, Until Discontinu ed, Routine, Intra-op [facility] simethicone (GAS RELIEF (SIMETHICON E)) 40 mg/0.6 mL drops 2019-03 13:45: 00 Yes PRN, Starting Mon01/28/20 at 0745, Until Discontinu ed, Routine, Intra-op [facility] lactated ringers IV infusion 1,000 mL 2019-03 12:45: 00 01-27 13:01 :00 No 1000mL at 42 mL/hr, 1,000 mL, IV Infusion, ONCE, 1 dose, 01/28/20 at 0645, Routine, DSU Pre-op [facility] gabapentin 600 mg tablet 2019-03 09:41: 25 Yes 600mg Take 600 mg by mouth 3 (three) times daily. [facility] gabapentin 600 mg tablet 2019-03 18:24: 19 Yes 600mg Take 600 mg by mouth 3 (three) times daily. [facility] gabapentin 600 mg tablet 2019-03 18:24: 19 Yes 600mg Take 600 mg by mouth 3 (three) times daily. [facility] peg-electro lyte soln 236-22.74-6 .74 -5.86 gram solution 2019-03 00:00: 00 Yes [id number] 4000mL Take 4,000 mL by mouth SEE-INSTRU CTIONS. Take as directed [facility] peg-electro lyte soln 236-22.74-6 .74 -5.86 gram solution 2019-03 00:00: 00 Yes [id number] 4000mL Take 4,000 mL by mouth SEE-INSTRU CTIONS. Take as directed [facility] peg-electro lyte soln 236-22.74-6 .74 -5.86 gram solution 2019-03 00:00: 00 Yes [id number] 4000mL Take 4,000 mL by mouth SEE-INSTRU CTIONS. Take as directed [facility] peg-electro lyte soln 236-22.74-6 .74 -5.86 gram solution 2019-03 00:00: 00 Yes [id number] 4000mL Take 4,000 mL by mouth SEE-INSTRU CTIONS. Take as directed [facility] peg-electro lyte soln 236-22.74-6 .74 -5.86 gram solution 2019-03 00:00: 00 Yes [id number] 4000mL Take 4,000 mL by mouth SEE-INSTRU CTIONS. Take as directed [facility] peg-electro lyte soln 236-22.74-6 .74 -5.86 gram solution 2019-03 00:00: 00 Yes [id number] 4000mL Take 4,000 mL by mouth SEE-INSTRU CTIONS. Take as directed [facility] peg-electro lyte soln 236-22.74-6 .74 -5.86 gram solution 2019-03 00:00: 00 Yes [id number] 4000mL Take 4,000 mL by mouth SEE-INSTRU CTIONS. Take as directed [facility] peg-electro lyte soln 236-22.74-6 .74 -5.86 gram solution 2019-03 00:00: 00 Yes [id number] 4000mL Take 4,000 mL by mouth SEE-INSTRU CTIONS. Take as directed [facility] peg-electro lyte soln 236-22.74-6 .74 -5.86 gram solution 2019-03 00:00: 00 Yes [id number] 4000mL Take 4,000 mL by mouth SEE-INSTRU CTIONS. Take as directed [facility] peg-electro lyte soln 236-22.74-6 .74 -5.86 gram solution 2019-03 00:00: 00 Yes [id number] 4000mL Take 4,000 mL by mouth SEE-INSTRU CTIONS. Take as directed [facility] peg-electro lyte soln 236-22.74-6 .74 -5.86 gram solution 2019-03 00:00: 00 Yes [id number] 4000mL Take 4,000 mL by mouth SEE-INSTRU CTIONS. Take as directed [facility] peg-electro lyte soln 236-22.74-6 .74 -5.86 gram solution 2019-03 00:00: 00 Yes [id number] 4000mL Take 4,000 mL by mouth SEE-INSTRU CTIONS. Take as directed [facility] peg-electro lyte soln 236-22.74-6 .74 -5.86 gram solution 2019-03 00:00: 00 Yes [id number] 4000mL Take 4,000 mL by mouth SEE-INSTRU CTIONS. Take as directed [facility] peg-electro lyte soln 236-22.74-6 .74 -5.86 gram solution 2019-03 00:00: 00 Yes [id number] 4000mL Take 4,000 mL by mouth SEE-INSTRU CTIONS. Take as directed [facility] peg-electro lyte soln 236-22.74-6 .74 -5.86 gram solution 2019-03 00:00: 00 Yes [id number] 4000mL Take 4,000 mL by mouth SEE-INSTRU CTIONS. Take as directed [facility] peg-electro lyte soln 236-22.74-6 .74 -5.86 gram solution 2019-03 00:00: 00 Yes [id number] 4000mL Take 4,000 mL by mouth SEE-INSTRU CTIONS. Take as directed [facility] mg tablet 05-12 21:22: 22 Yes 600mg Take 600 mg by mouth 3 (three) times daily. [facility] gabapentin 600 mg tablet 05-12 21:22: 22 Yes 600mg Take 600 mg by mouth 3 (three) times daily. [facility] gabapentin 600 mg tablet 05-12 21:22: 22 Yes 600mg Take 600 mg by mouth 3 (three) times daily. [facility] mg tablet 05-12 21:22: 22 Yes 600mg Take 600 mg by mouth 3 (three) times daily. [facility] MACROBID 100 mg capsule 05-04 00:00: 00 Yes [facility] MACROBID 100 mg capsule 05-04 00:00: 00 Yes [facility] MACROBID 100 mg capsule 05-04 00:00: 00 Yes [facility] MACROBID 100 mg capsule 05-04 00:00: 00 Yes [facility] MACROBID 100 mg capsule 05-04 00:00: 00 Yes [facility] MACROBID 100 mg capsule 05-04 00:00: 00 Yes [facility] MACROBID 100 mg capsule 0 05-04 00:00: 00 Yes [facility] MACROBID 100 mg capsule 0 05-04 00:00: 00 Yes [facility] MACROBID 100 mg capsule 0 05-04 00:00: 00 Yes [facility] MACROBID 100 mg capsule 0 05-04 00:00: 00 Yes [facility] MACROBID 100 mg capsule 0 05-04 00:00: 00 Yes [facility] MACROBID 100 mg capsule 0 05-04 00:00: 00 Yes [facility] MACROBID 100 mg capsule 0 05-04 00:00: 00 Yes [facility] MACROBID 100 mg capsule 0 05-04 00:00: 00 Yes [facility] MACROBID 100 mg capsule 0 05-04 00:00: 00 Yes [facility] MACROBID 100 mg capsule 0 05-04 00:00: 00 Yes [facility] MACROBID 100 mg capsule 0 05-04 00:00: 00 Yes [facility] MACROBID 100 mg capsule 0 05-04 00:00: 00 Yes [facility] MACROBID 100 mg capsule 0 05-04 00:00: 00 Yes [facility] TRULICITY 0.75 mg/0.5 mL PnIj 04-25 00:00: 00 Yes [facility] TRULICITY 0.75 mg/0.5 mL PnIj 04-25 00:00: 00 Yes [facility] TRULICITY 0.75 mg/0.5 mL PnIj 04-25 00:00: 00 Yes [facility] TRULICITY 0.75 mg/0.5 mL PnIj 04-25 00:00: 00 Yes [facility] TRULICITY 0.75 mg/0.5 mL PnIj 04-25 00:00: 00 Yes [facility] TRULICITY 0.75 mg/0.5 mL PnIj 0 04-25 00:00: 00 Yes [facility] TRULICITY 0.75 mg/0.5 mL PnIj 2016-0 04-25 00:00: 00 Yes [facility] TRULICITY 0.75 mg/0.5 mL PnIj 0 04-25 00:00: 00 Yes [facility] TRULICITY 0.75 mg/0.5 mL PnIj 0 04-25 00:00: 00 Yes [facility] TRULICITY 0.75 mg/0.5 mL PnIj 2016-0 04-25 00:00: 00 Yes [facility] TRULICITY 0.75 mg/0.5 mL PnIj 0 04-25 00:00: 00 Yes [facility] TRULICITY 0.75 mg/0.5 mL PnIj 0 04-25 00:00: 00 Yes [facility] TRULICITY 0.75 mg/0.5 mL PnIj 0 04-25 00:00: 00 Yes [facility] TRULICITY 0.75 mg/0.5 mL PnIj 0 04-25 00:00: 00 Yes [facility] TRULICITY 0.75 mg/0.5 mL PnIj 0 04-25 00:00: 00 Yes [facility] TRULICITY 0.75 mg/0.5 mL PnIj 0 04-25 00:00: 00 Yes [facility] TRULICITY 0.75 mg/0.5 mL PnIj 0 04-25 00:00: 00 Yes [facility] TRULICITY 0.75 mg/0.5 mL PnIj 0 04-25 00:00: 00 Yes [facility] TRULICITY 0.75 mg/0.5 mL PnIj 0 04-25 00:00: 00 Yes [facility] amLODIPine 5 mg tablet 04-15 00:00: 00 Yes [facility] amLODIPine 5 mg tablet 04-15 00:00: 00 Yes [facility] amLODIPine 5 mg tablet 04-15 00:00: 00 Yes [facility] amLODIPine 5 mg tablet 04-15 00:00: 00 Yes [facility] amLODIPine 5 mg tablet 04-15 00:00: 00 Yes [facility] amLODIPine 5 mg tablet 04-15 00:00: 00 Yes [facility] amLODIPine 5 mg tablet 04-15 00:00: 00 Yes [facility] amLODIPine 5 mg tablet 04-15 00:00: 00 Yes [facility] amLODIPine 5 mg tablet 04-15 00:00: 00 Yes [facility] amLODIPine 5 mg tablet 04-15 00:00: 00 Yes [facility] amLODIPine 5 mg tablet 04-15 00:00: 00 Yes [facility] amLODIPine 5 mg tablet 04-15 00:00: 00 Yes [facility] amLODIPine 5 mg tablet 04-15 00:00: 00 Yes [facility] amLODIPine 5 mg tablet 04-15 00:00: 00 Yes [facility] amLODIPine 5 mg tablet 04-15 00:00: 00 Yes [facility] amLODIPine 5 mg tablet 04-15 00:00: 00 Yes [facility] amLODIPine 5 mg tablet 04-15 00:00: 00 Yes [facility] amLODIPine 5 mg tablet 04-15 00:00: 00 Yes [facility] amLODIPine 5 mg tablet 04-15 00:00: 00 Yes [facility] Amlodipine Besylate Amlodipine Besylate Yes Fred Elliott take 1 tablet by mouth every day [facility] Gabapentin Gabapentin Yes Fred Elliott 1 tablet [facility] Lisinopril Lisinopril Yes Fred Elliott take 1 tablet by mouth every day [facility] Atorvastati n Calcium Atorvastati n Calcium Yes Fred Elliott 1 tablet [facility] Atorvastati n Calcium 40 MG Atorvastati n Calcium 40 MG No 1{table t} QD Atorvastat in Calcium 40 MG Lisinopril 40 MG Lisinopril 40 MG No Lisinopril 40 MG amLODIPine Besylate 10 MG amLODIPine Besylate 10 MG No amLODIPine Besylate 10 MG Gabapentin 600 MG Gabapentin 600 MG No Gabapentin 600 MG Gabapentin 600 MG Gabapentin 600 MG No 1{table t} BID Gabapentin 600 MG amLODIPine Besylate 10 MG amLODIPine Besylate 10 MG No QD amLODIPine Besylate 10 MG Lisinopril 40 MG Lisinopril 40 MG No QD Lisinopril 40 MG Atorvastati n Calcium 40 MG Atorvastati n Calcium 40 MG No 1{table t} QD Atorvastat in Calcium 40 MG Lisinopril 40 MG Lisinopril 40 MG No Lisinopril 40 MG amLODIPine Besylate 10 MG amLODIPine Besylate 10 MG No amLODIPine Besylate 10 MG Gabapentin 600 MG Gabapentin 600 MG No Gabapentin 600 MG Gabapentin 600 MG Gabapentin 600 MG No 1{table t} BID Gabapentin 600 MG amLODIPine Besylate 10 MG amLODIPine Besylate 10 MG No QD amLODIPine Besylate 10 MG Lisinopril 40 MG Lisinopril 40 MG No QD Lisinopril 40 MG Atorvastati n Calcium 40 MG Atorvastati n Calcium 40 MG No 1{table t} QD Atorvastat in Calcium 40 MG Lisinopril 40 MG Lisinopril 40 MG No Lisinopril 40 MG amLODIPine Besylate 10 MG amLODIPine Besylate 10 MG No amLODIPine Besylate 10 MG Gabapentin 600 MG Gabapentin 600 MG No Gabapentin 600 MG Gabapentin 600 MG Gabapentin 600 MG No 1{table t} BID Gabapentin 600 MG amLODIPine Besylate 10 MG amLODIPine Besylate 10 MG No QD amLODIPine Besylate 10 MG Lisinopril 40 MG Lisinopril 40 MG No QD Lisinopril 40 MG Lisinopril 40 MG Lisinopril 40 MG No QD Lisinopril 40 MG Gabapentin 600 MG Gabapentin 600 MG No Gabapentin 600 MG Gabapentin 600 MG Gabapentin 600 MG No 1{table t} TID Gabapentin 600 MG amLODIPine Besylate 10 MG amLODIPine Besylate 10 MG No amLODIPine Besylate 10 MG Atorvastati n Calcium 40 MG Atorvastati n Calcium 40 MG No 1{table t} QD Atorvastat in Calcium 40 MG amLODIPine Besylate 10 MG amLODIPine Besylate 10 MG No QD amLODIPine Besylate 10 MG Atorvastati n Calcium 40 MG Atorvastati n Calcium 40 MG No Atorvastat in Calcium 40 MG Lisinopril 40 MG Lisinopril 40 MG No Lisinopril 40 MG Lisinopril 40 MG Lisinopril 40 MG No Lisinopril 40 MG amLODIPine Besylate 10 MG amLODIPine Besylate 10 MG No amLODIPine Besylate 10 MG amLODIPine Besylate 10 MG amLODIPine Besylate 10 MG No QD amLODIPine Besylate 10 MG Gabapentin 600 MG Gabapentin 600 MG No Gabapentin 600 MG Atorvastati n Calcium 40 MG Atorvastati n Calcium 40 MG No Atorvastat in Calcium 40 MG Lantus SoloStar 100 UNIT/ML Lantus SoloStar 100 UNIT/ML No Lantus SoloStar 100 UNIT/ML Clopidogrel Bisulfate 75 MG Clopidogrel Bisulfate 75 MG No 1{table t} QD Clopidogre l Bisulfate 75 MG Aspirin 81 81 MG Aspirin 81 81 MG No 1{table t} QD Aspirin 81 81 MG Pantoprazol e Sodium 40 MG Pantoprazol e Sodium 40 MG No 1{table t} QD Pantoprazo le Sodium 40 MG Metoprolol Tartrate 25 MG Metoprolol Tartrate 25 MG No 1{table t_with_ food} BID Metoprolol Tartrate 25 MG Lisinopril 40 MG Lisinopril 40 MG No QD Lisinopril 40 MG amLODIPine Besylate 10 MG amLODIPine Besylate 10 MG No QD amLODIPine Besylate 10 MG Atorvastati n Calcium 40 MG Atorvastati n Calcium 40 MG No 1{table t} QD Atorvastat in Calcium 40 MG Gabapentin 600 MG Gabapentin 600 MG No 1{table t} TID Gabapentin 600 MG Metoprolol Tartrate 25 MG Metoprolol Tartrate 25 MG No Metoprolol Tartrate 25 MG Lantus SoloStar 100 UNIT/ML Lantus SoloStar 100 UNIT/ML No Lantus SoloStar 100 UNIT/ML Atorvastati n Calcium 40 MG Atorvastati n Calcium 40 MG No 1{table t} QD Atorvastat in Calcium 40 MG Clopidogrel Bisulfate 75 MG Clopidogrel Bisulfate 75 MG No 1{table t} QD Clopidogre l Bisulfate 75 MG Pantoprazol e Sodium 40 MG Pantoprazol e Sodium 40 MG No 1{table t} QD Pantoprazo le Sodium 40 MG amLODIPine Besylate 10 MG amLODIPine Besylate 10 MG No QD amLODIPine Besylate 10 MG Gabapentin 600 MG Gabapentin 600 MG No 1{table t} TID Gabapentin 600 MG Aspirin 81 81 MG Aspirin 81 81 MG No 1{table t} QD Aspirin 81 81 MG amLODIPine Besylate 10 MG amLODIPine Besylate 10 MG No QD amLODIPine Besylate 10 MG Lantus SoloStar 100 UNIT/ML Lantus SoloStar 100 UNIT/ML No Lantus SoloStar 100 UNIT/ML Atorvastati n Calcium 40 MG Atorvastati n Calcium 40 MG No 1{table t} QD Atorvastat in Calcium 40 MG Gabapentin 600 MG Gabapentin 600 MG No 1{table t} TID Gabapentin 600 MG Clopidogrel Bisulfate 75 MG Clopidogrel Bisulfate 75 MG No 1{table t} QD Clopidogre l Bisulfate 75 MG Lisinopril/ HCTZ 20/12.5 Lisinopril/ HCTZ 20/12.5 No Lisinopril /HCTZ 20/12.5 Metoprolol Tartrate 25 MG Metoprolol Tartrate 25 MG No Metoprolol Tartrate 25 MG Pantoprazol e Sodium 40 MG Pantoprazol e Sodium 40 MG No 1{table t} QD Pantoprazo le Sodium 40 MG Aspirin 81 81 MG Aspirin 81 81 MG No 1{table t} QD Aspirin 81 81 MG amLODIPine Besylate 10 MG amLODIPine Besylate 10 MG No QD amLODIPine Besylate 10 MG Lantus SoloStar 100 UNIT/ML Lantus SoloStar 100 UNIT/ML No Lantus SoloStar 100 UNIT/ML Atorvastati n Calcium 40 MG Atorvastati n Calcium 40 MG No 1{table t} QD Atorvastat in Calcium 40 MG Gabapentin 600 MG Gabapentin 600 MG No 1{table t} TID Gabapentin 600 MG Clopidogrel Bisulfate 75 MG Clopidogrel Bisulfate 75 MG No 1{table t} QD Clopidogre l Bisulfate 75 MG Lisinopril/ HCTZ 20/12.5 Lisinopril/ HCTZ 20/12.5 No Lisinopril /HCTZ 20/12.5 Metoprolol Tartrate 25 MG Metoprolol Tartrate 25 MG No Metoprolol Tartrate 25 MG Pantoprazol e Sodium 40 MG Pantoprazol e Sodium 40 MG No 1{table t} QD Pantoprazo le Sodium 40 MG Aspirin 81 81 MG Aspirin 81 81 MG No 1{table t} QD Aspirin 81 81 MG Metoprolol Tartrate 25 MG Metoprolol Tartrate 25 MG No Metoprolol Tartrate 25 MG Zofran Zofran No Zofran Mirtazapine 15 MG Mirtazapine 15 MG No QD Mirtazapin e 15 MG Trulicity 1.5 MG/0.5ML Trulicity 1.5 MG/0.5ML No Trulicity 1.5 MG/0.5ML Gabapentin 600 MG Gabapentin 600 MG No 1{table t} TID Gabapentin 600 MG amLODIPine Besylate 10 MG amLODIPine Besylate 10 MG No QD amLODIPine Besylate 10 MG Cephalexin Cephalexin No Cephalexin Lisinopril/ HCTZ 20/12.5 Lisinopril/ HCTZ 20/12.5 No Lisinopril /HCTZ 20/12.5 Pantoprazol e Sodium 40 MG Pantoprazol e Sodium 40 MG No Pantoprazo le Sodium 40 MG Atorvastati n Calcium 40 MG Atorvastati n Calcium 40 MG No 1{table t} QD Atorvastat in Calcium 40 MG Alendronate Sodium 70 MG Alendronate Sodium 70 MG No Alendronat e Sodium 70 MG Flagyl Flagyl No Flagyl Metoprolol Tartrate 25 MG Metoprolol Tartrate 25 MG No Metoprolol Tartrate 25 MG Zofran Zofran No Zofran Mirtazapine 15 MG Mirtazapine 15 MG No QD Mirtazapin e 15 MG Trulicity 1.5 MG/0.5ML Trulicity 1.5 MG/0.5ML No Trulicity 1.5 MG/0.5ML Gabapentin 600 MG Gabapentin 600 MG No 1{table t} TID Gabapentin 600 MG amLODIPine Besylate 10 MG amLODIPine Besylate 10 MG No QD amLODIPine Besylate 10 MG Cephalexin Cephalexin No Cephalexin Lisinopril/ HCTZ 20/12.5 Lisinopril/ HCTZ 20/12.5 No Lisinopril /HCTZ 20/12.5 Pantoprazol e Sodium 40 MG Pantoprazol e Sodium 40 MG No Pantoprazo le Sodium 40 MG Atorvastati n Calcium 40 MG Atorvastati n Calcium 40 MG No 1{table t} QD Atorvastat in Calcium 40 MG Alendronate Sodium 70 MG Alendronate Sodium 70 MG No Alendronat e Sodium 70 MG Flagyl Flagyl No Flagyl amLODIPine Besylate 10 MG amLODIPine Besylate 10 MG No QD amLODIPine Besylate 10 MG Cephalexin Cephalexin No Cephalexin Zofran Zofran No Zofran Trulicity 1.5 MG/0.5ML Trulicity 1.5 MG/0.5ML No Trulicity 1.5 MG/0.5ML Mirtazapine 15 MG Mirtazapine 15 MG No Mirtazapin e 15 MG Gabapentin 600 MG Gabapentin 600 MG No 1{table t} TID Gabapentin 600 MG Flagyl Flagyl No Flagyl Lisinopril/ HCTZ 20/12.5 Lisinopril/ HCTZ 20/12.5 No Lisinopril /HCTZ 20/12.5 Metoprolol Tartrate 25 MG Metoprolol Tartrate 25 MG No Metoprolol Tartrate 25 MG Atorvastati n Calcium 40 MG Atorvastati n Calcium 40 MG No 1{table t} QD Atorvastat in Calcium 40 MG Alendronate Sodium 70 MG Alendronate Sodium 70 MG No Alendronat e Sodium 70 MG Pantoprazol e Sodium 40 MG Pantoprazol e Sodium 40 MG No Pantoprazo le Sodium 40 MG amLODIPine Besylate 10 MG amLODIPine Besylate 10 MG No QD amLODIPine Besylate 10 MG Cephalexin Cephalexin No Cephalexin Zofran Zofran No Zofran Trulicity 1.5 MG/0.5ML Trulicity 1.5 MG/0.5ML No Trulicity 1.5 MG/0.5ML Mirtazapine 15 MG Mirtazapine 15 MG No Mirtazapin e 15 MG Gabapentin 600 MG Gabapentin 600 MG No 1{table t} TID Gabapentin 600 MG Flagyl Flagyl No Flagyl Lisinopril/ HCTZ 20/12.5 Lisinopril/ HCTZ 20/12.5 No Lisinopril /HCTZ 20/12.5 Metoprolol Tartrate 25 MG Metoprolol Tartrate 25 MG No Metoprolol Tartrate 25 MG Atorvastati n Calcium 40 MG Atorvastati n Calcium 40 MG No 1{table t} QD Atorvastat in Calcium 40 MG Alendronate Sodium 70 MG Alendronate Sodium 70 MG No Alendronat e Sodium 70 MG Pantoprazol e Sodium 40 MG Pantoprazol e Sodium 40 MG No Pantoprazo le Sodium 40 MG Metoprolol Tartrate 25 MG Metoprolol Tartrate 25 MG No Metoprolol Tartrate 25 MG Zofran Zofran No Zofran Alendronate Sodium 70 MG Alendronate Sodium 70 MG No Alendronat e Sodium 70 MG Mirtazapine 15 MG Mirtazapine 15 MG No Mirtazapin e 15 MG Gabapentin 600 MG Gabapentin 600 MG No 1{table t} TID Gabapentin 600 MG amLODIPine Besylate 10 MG amLODIPine Besylate 10 MG No QD amLODIPine Besylate 10 MG Cephalexin Cephalexin No Cephalexin Lisinopril/ HCTZ 20/12.5 Lisinopril/ HCTZ 20/12.5 No Lisinopril /HCTZ 20/12.5 Pantoprazol e Sodium 40 MG Pantoprazol e Sodium 40 MG No Pantoprazo le Sodium 40 MG Atorvastati n Calcium 40 MG Atorvastati n Calcium 40 MG No 1{table t} QD Atorvastat in Calcium 40 MG Trulicity 1.5 MG/0.5ML Trulicity 1.5 MG/0.5ML No Trulicity 1.5 MG/0.5ML Flagyl Flagyl No Flagyl amLODIPine Besylate 10 MG amLODIPine Besylate 10 MG No QD amLODIPine Besylate 10 MG Mirtazapine 15 MG Mirtazapine 15 MG No QD Mirtazapin e 15 MG Trulicity 1.5 MG/0.5ML Trulicity 1.5 MG/0.5ML No Trulicity 1.5 MG/0.5ML Zofran Zofran No Zofran Flagyl Flagyl No Flagyl Trulicity 1.5 MG/0.5ML Trulicity 1.5 MG/0.5ML No Trulicity 1.5 MG/0.5ML Alendronate Sodium 70 MG Alendronate Sodium 70 MG No Alendronat e Sodium 70 MG Metoprolol Tartrate 25 MG Metoprolol Tartrate 25 MG No Metoprolol Tartrate 25 MG Atorvastati n Calcium 40 MG Atorvastati n Calcium 40 MG No 1{table t} QD Atorvastat in Calcium 40 MG Mirtazapine 15 MG Mirtazapine 15 MG No Mirtazapin e 15 MG Lisinopril/ HCTZ 20/12.5 Lisinopril/ HCTZ 20/12.5 No Lisinopril /HCTZ 20/12.5 Cephalexin Cephalexin No Cephalexin Alendronate Sodium 70 MG Alendronate Sodium 70 MG No Alendronat e Sodium 70 MG Gabapentin 600 MG Gabapentin 600 MG No 1{table t} TID Gabapentin 600 MG amLODIPine Besylate 10 MG amLODIPine Besylate 10 MG No QD amLODIPine Besylate 10 MG Mirtazapine 15 MG Mirtazapine 15 MG No QD Mirtazapin e 15 MG Trulicity 1.5 MG/0.5ML Trulicity 1.5 MG/0.5ML No Trulicity 1.5 MG/0.5ML Zofran Zofran No Zofran Flagyl Flagyl No Flagyl Trulicity 1.5 MG/0.5ML Trulicity 1.5 MG/0.5ML No Trulicity 1.5 MG/0.5ML Alendronate Sodium 70 MG Alendronate Sodium 70 MG No Alendronat e Sodium 70 MG Metoprolol Tartrate 25 MG Metoprolol Tartrate 25 MG No Metoprolol Tartrate 25 MG Atorvastati n Calcium 40 MG Atorvastati n Calcium 40 MG No 1{table t} QD Atorvastat in Calcium 40 MG Mirtazapine 15 MG Mirtazapine 15 MG No Mirtazapin e 15 MG Lisinopril/ HCTZ 20/12.5 Lisinopril/ HCTZ 20/12.5 No Lisinopril /HCTZ 20/12.5 Cephalexin Cephalexin No Cephalexin Alendronate Sodium 70 MG Alendronate Sodium 70 MG No Alendronat e Sodium 70 MG Gabapentin 600 MG Gabapentin 600 MG No 1{table t} TID Gabapentin 600 MG Lisinopril 40 MG Lisinopril 40 MG No QD Lisinopril 40 MG amLODIPine Besylate 10 MG amLODIPine Besylate 10 MG No QD amLODIPine Besylate 10 MG Gabapentin 600 MG Gabapentin 600 MG No 1{table t} BID Gabapentin 600 MG Atorvastati n Calcium 40 MG Atorvastati n Calcium 40 MG No 1{table t} QD Atorvastat in Calcium 40 MG Lisinopril 40 MG Lisinopril 40 MG No Lisinopril 40 MG amLODIPine Besylate 10 MG amLODIPine Besylate 10 MG No amLODIPine Besylate 10 MG Gabapentin 600 MG Gabapentin 600 MG No 1{table t} BID Gabapentin 600 MG Atorvastati n Calcium 40 MG Atorvastati n Calcium 40 MG No 1{table t} QD Atorvastat in Calcium 40 MG amLODIPine Besylate 10 MG amLODIPine Besylate 10 MG No amLODIPine Besylate 10 MG amLODIPine Besylate 10 MG amLODIPine Besylate 10 MG No QD amLODIPine Besylate 10 MG Atorvastati n Calcium 40 MG Atorvastati n Calcium 40 MG No 1{table t} QD Atorvastat in Calcium 40 MG Gabapentin 600 MG Gabapentin 600 MG No 1{table t} BID Gabapentin 600 MG Lisinopril 40 MG Lisinopril 40 MG No Lisinopril 40 MG Gabapentin 600 MG Gabapentin 600 MG No 1{table t} BID Gabapentin 600 MG Lisinopril 40 MG Lisinopril 40 MG No QD Lisinopril 40 MG Trulicity Trulicity 08-24 00:00 :00 No Fred Elliott one injection [facility] Vital Signs Vital Name Observation Time Observation Value Comments S ource height 2022-10-26 13:40:00 58.5 [in_i] Comm on [facility] weight 2022-10-26 13:40:00 97.6 [lb_av] Com [facility] temperature 2022-10-26 13:40:00 98.0 [degF] Com [facility] bmi 2022-10-26 13:40:00 20.05 kg/m2 Comm on [facility] oximetry 2022-10-26 13:40:00 99 % Commo n [facility] respiratory rate 2022-10-26 13:40:00 18 /min [facility] blood pressure systolic 2022-10-26 13:40:00 137 mm[Hg] [facility] blood pressure diastolic 2022-10-26 13:40:00 68 mm[Hg] [facility] height 2022-09-28 10:30:00 58.5 [in_i] Comm on [facility] weight 2022-09-28 10:30:00 93.0 [lb_av] Com [facility] temperature 2022-09-28 10:30:00 97.3 [degF] Com [facility] bmi 2022-09-28 10:30:00 19.1 kg/m2 Commo n [facility] oximetry 2022-09-28 10:30:00 97 % Commo n [facility] respiratory rate 2022-09-28 10:30:00 17 /min [facility] blood pressure systolic 2022-09-28 10:30:00 116 mm[Hg] [facility] blood pressure diastolic 2022-09-28 10:30:00 69 mm[Hg] [facility] height 2022-07-06 14:50:00 58.5 [in_i] Comm on [facility] weight 2022-07-06 14:50:00 99.1 [lb_av] Com [facility] temperature 2022-07-06 14:50:00 97.2 [degF] Com [facility] bmi 2022-07-06 14:50:00 20.36 kg/m2 Comm on [facility] oximetry 2022-07-06 14:50:00 98 % Commo n [facility] respiratory rate 2022-07-06 14:50:00 16 /min [facility] blood pressure systolic 2022-07-06 14:50:00 137 mm[Hg] [facility] blood pressure diastolic 2022-07-06 14:50:00 70 mm[Hg] [facility] height 2022-07-06 15:20:00 58.5 [in_i] Comm on [facility] weight 2022-07-06 15:20:00 99.1 [lb_av] Com mon [facility] temperature 2022-07-06 15:20:00 97.2 [degF] Com mon [facility] bmi 2022-07-06 15:20:00 20.36 kg/m2 Comm on [facility] oximetry 2022-07-06 15:20:00 98 % Commo n [facility] respiratory rate 2022-07-06 15:20:00 16 /min [facility] blood pressure systolic 2022-07-06 15:20:00 137 mm[Hg] [facility] blood pressure diastolic 2022-07-06 15:20:00 70 mm[Hg] [facility] height 2022-06-01 10:20:00 58.5 [in_i] Comm on [facility] weight 2022-06-01 10:20:00 102.2 [lb_av] Co mmon [facility] temperature 2022-06-01 10:20:00 96.3 [degF] Com [facility] bmi 2022-06-01 10:20:00 20.99 kg/m2 Comm on [facility] oximetry 2022-06-01 10:20:00 99 % Commo n [facility] respiratory rate 2022-06-01 10:20:00 16 /min [facility] blood pressure systolic 2022-06-01 10:20:00 135 mm[Hg] [facility] blood pressure diastolic 2022-06-01 10:20:00 77 mm[Hg] [facility] height 2022-02-23 10:00:00 58.5 [in_i] Comm on [facility] weight 2022-02-23 10:00:00 96.5 [lb_av] Com [facility] temperature 2022-02-23 10:00:00 97.0 [degF] Com [facility] bmi 2022-02-23 10:00:00 19.82 kg/m2 Comm on [facility] oximetry 2022-02-23 10:00:00 98 % Commo n [facility] respiratory rate 2022-02-23 10:00:00 16 /min [facility] blood pressure systolic 2022-02-23 10:00:00 135 mm[Hg] [facility] blood pressure diastolic 2022-02-23 10:00:00 63 mm[Hg] [facility] height 2021-11-09 13:00:00 58.5 [in_i] Comm on [facility] weight 2021-11-09 13:00:00 119 [lb_av] Comm on [facility] temperature 2021-11-09 13:00:00 97.9 [degF] Com [facility] bmi 2021-11-09 13:00:00 24.45 kg/m2 Comm on [facility] oximetry 2021-11-09 13:00:00 97 % Commo n [facility] respiratory rate 2021-11-09 13:00:00 16 /min [facility] blood pressure systolic 2021-11-09 13:00:00 135 mm[Hg] [facility] blood pressure diastolic 2021-11-09 13:00:00 72 mm[Hg] [facility] height 2021-07-30 09:00:00 50 [in_i] Commo n [facility] weight 2021-07-30 09:00:00 122.5 [facility]lb_av[facility]-30 09:00:00 97.1 [degF] Com [facility] bmi 2021-07-30 09:00:00 34.45 kg/m2 Comm on [facility] oximetry 2021-07-30 09:00:00 94 % Commo n [facility] respiratory rate 2021-07-30 09:00:00 16 /min [facility] blood pressure systolic 2021-07-30 09:00:00 137 mm[Hg] [facility] blood pressure diastolic 2021-07-30 09:00:00 76 mm[Hg] [facility] height 2021-07-30 09:00:00 50 [in_i] Commo n [facility] weight 2021-07-30 09:00:00 122.5 [lb_av] Co mmon [facility] temperature 2021-07-30 09:00:00 97.1 [degF] Com [facility] bmi 2021-07-30 09:00:00 34.45 kg/m2 Comm on [facility] oximetry 2021-07-30 09:00:00 94 % Commo n [facility] respiratory rate 2021-07-30 09:00:00 16 /min [facility] blood pressure systolic 2021-07-30 09:00:00 137 mm[Hg] [facility] blood pressure diastolic 2021-07-30 09:00:00 76 mm[Hg] [facility] height 2021-02-23 08:20:00 50 [in_i] Commo n [facility] weight 2021-02-23 08:20:00 104.3 [lb_av] Co mmon [facility] temperature 2021-02-23 08:20:00 97.5 [degF] Com mon [facility] bmi 2021-02-23 08:20:00 29.33 kg/m2 Comm on [facility] oximetry 2021-02-23 08:20:00 96 % Commo n [facility] respiratory rate 2021-02-23 08:20:00 17 /min [facility] blood pressure systolic 2021-02-23 08:20:00 132 mm[Hg] [facility] blood pressure diastolic 2021-02-23 08:20:00 71 mm[Hg] [facility] Systolic blood pressure 2020-02-11 20:10:00 166 mm[Hg] [facility] Diastolic blood pressure 2020-02-11 20:10:00 85 mm[Hg] [facility] Heart rate 2020-02-11 20:10:00 80 /min Unive [facility] Body temperature 2020-02-11 20:06:00 36.44 Yue [facility] Respiratory rate 2020-02-11 20:06:00 20 /min [facility] Body height 2020-02-11 20:06:00 157.5 cm Univ [facility] Body weight 2020-02-11 20:06:00 51.891 kg Univ [facility] BMI 2020-02-11 20:06:00 20.92 kg/m2 Univ [facility] Oxygen saturation in Arterial blood by Pulse oximetry 2020-02-11 20:06:00 98 /min [facility] Systolic blood pressure 2020-02-11 20:10:00 166 mm[Hg] [facility] Diastolic blood pressure 2020-02-11 20:10:00 85 mm[Hg] [facility] Heart rate 2020-02-11 20:10:00 80 /min Unive [facility] Body temperature 2020-02-11 20:06:00 36.44 Yue [facility] Respiratory rate 2020-02-11 20:06:00 20 /min [facility] Body height 2020-02-11 20:06:00 157.5 cm Univ [facility] Body weight 2020-02-11 20:06:00 51.891 kg Univ [facility] BMI 2020-02-11 20:06:00 20.92 kg/m2 Univ [facility] Oxygen saturation in Arterial blood by Pulse oximetry 2020-02-11 20:06:00 98 /min [facility] Systolic blood pressure 2020-01-28 15:23:00 176 mm[Hg] [facility] Diastolic blood pressure 2020-01-28 15:23:00 85 mm[Hg] [facility] Heart rate 2020-01-28 15:23:00 85 /min Unive [facility] Respiratory rate 2020-01-28 15:23:00 16 /min [facility] Oxygen saturation in Arterial blood by Pulse oximetry 2020-01-28 15:23:00 100 /min [facility] Body temperature 2020-01-28 14:28:00 36.28 Yue [facility] Body height 2020-01-24 18:00:00 149.9 cm [facility] Body weight 2020-01-24 18:00:00 52.164 kg [facility] BMI 2020-01-24 18:00:00 23.23 kg/m2 [facility] Systolic blood pressure 2020-01-21 21:23:00 197 mm[Hg] [facility] Diastolic blood pressure 2020-01-21 21:23:00 87 mm[Hg] [facility] Heart rate 2020-01-21 21:23:00 80 /[facility] 2020-01-21 21:23:00 36.83 Yue [facility] Respiratory rate 2020-01-21 21:23:00 20 /min [facility] Body height 2020-01-21 21:23:00 152.4 cm [facility] Body weight 2020-01-21 21:23:00 52.345 kg [facility] BMI 2020-01-21 21:23:00 22.54 kg/m2 [facility] Oxygen saturation in Arterial blood by Pulse oximetry 2020-01-21 21:23:00 98 /min [facility] Procedures Procedure Date / Time Performed Performing Clinician Source CT THORAX W CONTRAST 2020-02-19 16:42:57 Willy Bains [facility] CT ABDOMEN PELVIS W CONTRAST 2020-02-19 16:35:37 Angela Bains [facility] HB CREATININE BLOOD 2020-02-19 16:23:00 Quan Bains [facility] CONSENT/REFUSAL FOR DIAGNOSIS AND TREATMENT 2020-02-19 14:30:04 Doctor Unassigned, [place] [facility] ASSIGNMENT OF BENEFITS 2020-02-19 14:29:47 Docto r Unassigned, [place] [facility] COLONOSCOPY (ENDO) 2020-01-28 12:58:04 Rajendra Bartlett [facility] POCT GLUCOSE(AGE >30DAYS) 2020-01-28 12:40:00 Lokesh Capps [facility] DAY SURGERY - ADC 2020-01-28 06:01:00 Doctor Debbie ssigned, [place] [facility] ASSIGNMENT OF BENEFITS 2020-01-27 14:37:19 Docto r Unassigned, [place] [facility] ASSIGNMENT OF BENEFITS 2020-01-21 20:49:32 Docto r Unassigned, [place] [facility] Encounters Start Date/Time End Date/Time Encounter Type Admission Type Attending [facility] Care Facility Care Department Encounter ID Source 2022-02-25 11:52:00 Outpatient Elliott, [facility] [id number] [facility] 2022-02-23 11:00:01 Outpatient Elliott, [facility] [id number] [facility] 2022-02-07 09:19:00 Outpatient Elliott, [facility] [id number] [facility] 2021-11-10 16:50:00 Outpatient Elliott, [facility] [id number] [facility] 2021-11-03 08:59:00 Outpatient Elliott, [facility] [id number] [facility] 2021-08-03 07:46:00 Outpatient Elliott, [facility] [id number] [facility] 2021-07-29 11:55:01 Outpatient Elliott, [facility] [id number] [facility] 2021-05-12 11:19:00 Outpatient Elliott, Fred [facility]LMLC [facility] [id number] [facility] 2021-04-14 12:32:30 Outpatient Elliott, Fred STLMLC [facility] [id number] [facility] 2021-04-14 12:31:16 Outpatient Elliott, Fred STLMLC [facility] [id number] [facility] 2021-04-14 12:31:12 Outpatient Elliott, Fred STLC [facility] [id number] [facility] 2021-04-14 12:29:48 Outpatient Elliott, Fred STLC [facility] [id number] [facility] 2021-04-14 12:16:36 Outpatient Elliott, Fred STLC [facility] [id number] [facility] 2021-04-14 12:08:05 Outpatient Elliott, Fred STLC [facility] [id number] [facility] 2021-04-14 11:14:42 Outpatient Elliott, Fred STLC [facility] [id number] [facility] 2021-04-14 11:02:38 Outpatient Elliott, Fred STLC [facility] [id number] [facility] 2021-01-16 11:48:25 Outpatient ANGELA BAINS [facility] [id number] [facility] 2021-01-16 02:59:30 Outpatient R ANGELA BAINS [facility] JEREMIAH [id number] [facility] 2022-11-25 00:00:00 2022-11-25 00:00:00 (TEL) STLMLC ST[facility] [id number] [facility] 2022-10-26 00:00:00 2022-10-26 00:00:00 OFFICE VISIT ESTAB PT LEVEL 4 [facility]C [facility] [id number] [facility] 2022-09-28 00:00:00 2022-09-28 00:00:00 OFFICE VISIT ESTAB PT LEVEL 4 [facility]C ST[facility] [id number] [facility] 2022-07-06 00:00:00 2022-07-06 00:00:00 OFFICE VISIT ESTAB PT LEVEL 4 [facility]C [facility] [id number] [facility] 2022-07-06 00:00:00 2022-07-06 00:00:00 SUB ANNUAL [facility] WELLNESS VISIT STLMLC STL[facility]C [id number] [facility] 2022-06-01 00:00:00 2022-06-01 00:00:00 OFFICE VISIT ESTAB PT LEVEL 4 [facility] [id number] [facility] 2022-05-24 00:00:00 2022-05-24 00:00:00 (TEL) STLMLC STLMLC [id number] [facility] 2022-04-21 00:00:00 2022-04-21 00:00:00 (TEL) STLMLC STLMLC [id number] [facility] 2022-04-07 00:00:00 2022-04-07 00:00:00 (TEL) STLMLC STLMLC [id number] [facility] 2022-02-23 00:00:00 2022-02-23 00:00:00 (HOSP F/U) Hospital Follow Up STLMLC STL[facility]C [id number] [facility] 2022-02-22 00:00:00 2022-02-22 00:00:00 (TEL) STLMLC STLMLC [id number] [facility] 2022-02-01 00:00:00 2022-02-01 00:00:00 (TEL) STLMLC STLMLC [id number] [facility] 2021-11-09 00:00:00 2021-11-09 00:00:00 OFFICE VISIT ESTAB PT LEVEL 4 [facility]LMLC STL[facility] [id number] [facility] 2021-10-04 00:00:00 2021-10-04 00:00:00 (TEL) STLMLC STLMLC [id number] [facility] 2021-07-30 00:00:00 2021-07-30 00:00:00 OFFICE VISIT ESTAB PT LEVEL 4 STLMLC STL[facility]C [id number] [facility] 2021-07-30 00:00:00 2021-07-30 00:00:00 SUB ANNUAL [facility] WELLNESS VISIT STLMLC STLMLC [id number] [facility] 2021-02-23 00:00:00 2021-02-23 00:00:00 OFFICE VISIT ESTAB PT LEVEL 4 STLMLC STL[facility]C [id number] [facility] 2021-02-16 00:00:00 2021-02-16 00:00:00 (TEL) STLMLC STLMLC [id number] [facility] 2021-01-25 00:00:00 2021-01-25 00:00:00 (TEL) STLMLC STLMLC [id number] [facility] 2020-05-25 00:00:00 2020-05-25 00:00:00 Patient Outreach Og Jin [facility] [id number] 2020-05-25 00:00:00 2020-05-25 00:00:00 Patient Outreach Og Jin [facility] [id number] [facility] 2020-03-27 13:00:00 2020-03-27 13:00:00 Outpatient ANGELA SANTOS [facility] [id number] [facility] 2020-03-04 00:00:00 2020-03-04 00:00:00 Outpatient [facility]LMLC [facility] [id number] [facility] 2020-02-28 00:00:00 2020-02-28 00:00:00 Prep For Surgery Linda Young [facility] [id number] 2020-02-28 00:00:00 2020-02-28 00:00:00 Prep For Surgery Linda Young [facility] [id number] [facility] 2020-02-26 00:00:00 2020-02-26 00:00:00 Case Management Angela Bains [facility] [id number] [facility] 2020-02-26 00:00:00 2020-02-26 00:00:[address] Conference Angela Bains [facility] 1.84114 350.1.13.10 4.2.7.2.686 [id number] [facility] 2020-02-26 00:00:00 2020-02-26 00:00:00 Case Management Angela Bains [facility] 1.84.114 350.1.13.10 4.2.7.2.686 [id number] [facility] 2020-02-26 00:00:00 2020-02-26 00:00:00 Patient Secure Msg Doctor Unassigned, [place] [facility] 1.284.114 350.1.13.10 4.2.7.2.686 [id number] [facility] 2020-02-26 00:00:00 2020-02-26 00:00:00 Case Management Angela Bains [facility] 1.2.840.114 350.1.13.10 4.2.7.2.686 [id number] 2020-02-26 00:00:00 2020-02-26 00:00:00 Multidisci plinary Conference Angela Bains [facility] 1.2.840.114 350.1.13.10 4.2.7.2.686 [id number] 2020-02-26 00:00:00 2020-02-26 00:00:00 Case Management Angela Bains [facility] 1.2.840.114 350.1.13.10 4.2.7.2.686 [id number] 2020-02-24 00:00:00 2020-02-24 00:00:00 Telephone Angela Bains [facility] 1.2.840.114 350.1.13.10 4.2.7.2.686 [id number] [facility] 2020-02-24 00:00:00 2020-02-24 00:00:00 Telephone Angela Bains [facility] 1.2.840.114 350.1.13.10 4.2.7.2.686 [id number] 2020-02-19 08:31:10 2020-02-19 23:59:00 Hospital Encounter Angela Bains [facility] 1.2.840.114 350.1.13.10 4.2.7.2.686 [id number] [facility] 2020-02-19 08:31:10 2020-02-19 23:59:00 Hospital Encounter Angela Bains [facility] 1.2.840.114 350.1.13.10 4.2.7.2.686 [id number] 2020-02-19 08:29:10 2020-02-19 08:30:00 Hospital Encounter Angela Bains [facility] 1.2.840.114 350.1.13.10 4.2.7.2.686 [id number] [facility] 2020-02-19 08:29:10 2020-02-19 08:30:00 Outpatient R ANGELA BAINS [facility] [id number] [facility] 2020-02-19 08:29:10 2020-02-19 08:30:00 Hospital Encounter Angela Bains [facility] 1.2.840.114 350.1.13.10 4.2.7.2.686 [id number] 2020-02-18 00:00:00 2020-02-18 00:00:00 Outpatient R ANGELA BAINS [facility] [id number] [facility] 2020-02-12 00:00:00 2020-02-12 00:00:00 Outpatient [facility] [id number] [facility] 2020-02-11 13:25:06 2020-02-11 14:29:00 Office Visit Angela Bains [facility] 1.2.840.114 350.1.13.10 4.2.7.2.686 [id number] 2020-02-11 13:25:06 2020-02-11 14:29:00 Office Visit nAgela Bains [facility] 1.2.840.114 350.1.13.10 4.2.7.2.686 [id number] [facility] 2020-02-11 13:30:00 2020-02-11 13:30:00 Outpatient R ANGELA BAINS [facility] [id number] [facility] 2020-01-28 06:31:00 2020-01-28 09:41:00 Hospital Encounter Angela Bains [facility] 1.2.840.114 350.1.13.10 4.2.7.2.686 [id number] [facility] 2020-01-28 00:00:00 2020-01-28 00:00:00 Orders Only Doctor Unassigned, [place] [facility] 1.20.114 350.1.13.10 4.2.7.2.686 [id number] [facility] 2020-01-27 08:41:09 2020-01-27 08:56:09 Laboratory Only Only, Adc Test Sadia Cast [place] [facility] 1..114 350.1.13.10 4.2.7.2.686 [id number] [facility] 2020-01-27 08:45:00 2020-01-27 08:45:00 Outpatient R [facility] [id number] [facility] 2020-01-27 00:00:00 2020-01-27 00:00:00 Orders Only Doctor Unassigned, [place] [facility] 1..114 350.1.13.10 4.2.7.2.686 [id number] [facility] 2020-01-21 14:51:34 2020-01-21 16:15:40 Office Visit Angela Bains [facility] 1..114 350.1.13.10 4.2.7.2.686 [id number] [facility] 2020-01-21 15:00:00 2020-01-21 15:00:00 Outpatient R ANGELA BAINS [facility] [id number] [facility] 2020-01-21 00:00:00 2020-01-21 00:00:00 Orders Only Doctor Unassigned, [place] [facility] 1.2.114 350.1.13.10 4.2.7.2.686 [id number] [facility] 2020-01-21 00:00:00 2020-01-21 00:00:00 Prep For Surgery Linda Young [facility] Amaury [facility] 1.2.840.114 350.1.13.10 4.2.7.2.686 [id number] [facility] 2019-11-12 10:00:00 2019-11-12 10:00:[address] [facility] [id number] [facility] 2019-08-27 09:00:00 2019-08-27 09:00:[address] [facility] [facility] [id number] [facility] 2019-08-06 11:00:00 2019-08-06 11:00:00 [facility] [id number] [facility] 2019-08-06 11:00:00 2019-08-06 11:00:[address] [facility] [facility] [id number] [facility] 2019-06-10 09:15:00 2019-06-10 09:15:[address] [facility] [id number] [facility] 2019-04-10 16:41:00 2019-04-10 16:41:[address] [facility] [id number] [facility] 2018-12-13 09:30:00 2018-12-13 09:30:[address] [facility] [facility] [id number] [facility] 2018-04-26 09:30:00 2018-04-26 09:30:[address] [facility] [facility] [id number] [facility] 2017-10-26 09:45:00 2017-10-26 09:45:[address] [facility] [facility] [id number] [facility] 2017-09-27 12:58:00 2017-09-27 12:58:00 Outpatient [facility] [id number] [facility] 2017-08-24 09:45:00 2017-08-24 09:45:00 Outpatient [facility] [id number] [facility] Results Test Description Test Time Test Comments Results Result Co mments Source HEMOGLOBIN [id number] 00:00:00* Test Item Value Reference Range Interpretation Comme nts HEMOGLOBIN A1c (test code = 4548-4) 6.0 % See_Comment H [Automated messa ge] The system which generated this result transmitted reference range: 4.2-5.6 %. The reference range was not used to interpret this result as normal/abnormal. LIPID PANEL WITH REFLEX DIRECT [id number] 00:00:00* Test Item Value Reference Range Interpretation Comme nts CALC LDL CHOL (test code = 37517-7) 110 MG/DL See_Comment H [Automated messa ge] The system which generated this result transmitted reference range: <100 MG/DL. The reference range was not used to interpret this result as normal/abnormal. CHOLESTEROL (test code = 2093-3) 179 MG/DL See_Comment [Automated messa ge] The system which generated this result transmitted reference range: <200 MG/DL. The reference range was not used to interpret this result as normal/abnormal. HDL CHOLESTEROL (test code = 2085-9) 46 MG/DL See_Comment [Automated messa ge] The system which generated this result transmitted reference range: >39 MG/DL. The reference range was not used to interpret this result as normal/abnormal. RISK RATIO LDL/HDL (test code = 32963-9) 2.39 RATIO See_Comment [Automated message] The system which generated this result transmitted reference range: <3.22 RATIO. The reference range was not used to interpret this result as normal/abnormal. TRIGLYCERIDES (test code = 2571-8) 122 MG/DL See_Comment [Automated messa ge] The system which generated this result transmitted reference range: <150 MG/DL. The reference range was not used to interpret this result as normal/abnormal. PATHOLOGIST SMEAR [id number] 00:00:00* Test Item Value Reference Range Interpretation Comme nts BASOPHILS (test code = 24521-2) 0.5 % DIAGNOSIS: (test code = 04926-9) (NOTE) COMMENTS (test code = 22331-3) (NOTE) EOSINOPHILS (test code = 63892-4) 16.8 % HEMATOCRIT (test code = 99012-4) 37.0 % See_Comment [Automated messa ge] The system which generated this result transmitted reference range: 34.0-45.0 %. The reference range was not used to interpret this result as normal/abnormal. HEMOGLOBIN (test code = 718-7) 12.7 G/DL See_Comment [Automated messa ge] The system which generated this result transmitted reference range: 11.5-15.5 G/DL. The reference range was not used to interpret this result as normal/abnormal. LYMPHOCYTES (test code = 23009-9) 18.3 % MCH (test code = 06330-4) 33.9 PG See_Comment H [Automated messa ge] The system which generated this result transmitted reference range: 25.0-33.0 PG. The reference range was not used to interpret this result as normal/abnormal. MCHC (test code = 61134-3) 34.3 G/DL See_Comment [Automated messa ge] The system which generated this result transmitted reference range: 31.0-36.0 G/DL. The reference range was not used to interpret this result as normal/abnormal. MCV (test code = 86274-7) 98.7 fL See_Comment [Automated messa ge] The system which generated this result transmitted reference range: 80.0-99.0 fL. The reference range was not used to interpret this result as normal/abnormal. MICROSCOPIC DESCRIPTION: (test code = 02950-1) (NOTE) MONOCYTES (test code = 40044-9) 5.9 % NEUTROPHILS (test code = 21756-1) 58.0 % NUCLEATED RBCS (test code = 28271-9) 0.0 /100 WBC'S See_Comment [Automated messa ge] The system which generated this result transmitted reference range: 0.0 /100 WBC'S. The reference range was not used to interpret this result as normal/abnormal. PATHOLOGIST: (test code = 89361-0) (NOTE) PLATELET COUNT (test code = 06954-1) 288 K/UL See_Comment [Automated messa ge] The system which generated this result transmitted reference range: 130-400 K/UL. The reference range was not used to interpret this result as normal/abnormal. RBC (test code = 14960-6) 3.75 M/UL See_Comment L [Automated messa ge] The system which generated this result transmitted reference range: 3.80-5.40 M/UL. The reference range was not used to interpret this result as normal/abnormal. RDW (test code = 60069-4) 13.3 % See_Comment [Automated messa ge] The system which generated this result transmitted reference range: 11.5-15.0 %. The reference range was not used to interpret this result as normal/abnormal. WBC (test code = 63521-4) 8.7 K/UL See_Comment [Automated messa ge] The system which generated this result transmitted reference range: 3.5-11.0 K/UL. The reference range was not used to interpret this result as normal/abnormal. ALBUMIN/CREATININE RATIO, RANDOM [id number] 00:00:00* Test Item Value Reference Range Interpretation Comme nts ALBUMIN, URINE, RANDOM (test code = 61305-5) 5.0 MG/DL NOT ESTAB MG/DL CALC ALBUMIN/CREAT, RND (test code = 62487-2) 30 MG/G See_Comment H [Automated messa ge] The system which generated this result transmitted reference range: <30 MG/G. The reference range was not used to interpret this result as normal/abnormal. CREATININE, URINE, CONC. (test code = 2161-8) 166.1 MG/DL NOT ESTAB MG/DL COMPREHENSIVE METABOLIC [id number] 00:00:00* Test Item Value Reference Range Interpretation Comme nts ALBUMIN (test code = 1751-7) 4.7 G/DL See_Comment [Automated messa ge] The system which generated this result transmitted reference range: 3.5-5.2 G/DL. The reference range was not used to interpret this result as normal/abnormal. ALKALINE PHOSPHATASE (test code = 6768-6) 89 U/L See_Comment [Automated message] The system which generated this result transmitted reference range: 40-142 U/L. The reference range was not used to interpret this result as normal/abnormal. BILIRUBIN, TOTAL (test code = 1975-2) 0.3 MG/DL See_Comment [Automated message] The system which generated this result transmitted reference range: <=1.2 MG/DL. The reference range was not used to interpret this result as normal/abnormal. BUN (test code = 3094-0) 14 MG/DL See_Comment [Automated messa ge] The system which generated this result transmitted reference range: 8-23 MG/DL. The reference range was not used to interpret this result as normal/abnormal. CALCIUM (test code = 09035-0) 9.3 MG/DL See_Comment [Automated messa ge] The system which generated this result transmitted reference range: 8.5-10.5 MG/DL. The reference range was not used to interpret this result as normal/abnormal. CALC A/G RATIO (test code = 1759-0) 1.3 RATIO See_Comment [Automated [employer]] The system which generated this result transmitted reference range: 1.0-2.6 RATIO. The reference range was not used to interpret this result as normal/abnormal. CALC BUN/CREAT (test code = 3097-3) 18 RATIO See_Comment [Automated messa ge] The system which generated this result transmitted reference range: 6-28 RATIO. The reference range was not used to interpret this result as normal/abnormal. CALC GLOBULIN (test code = 41098-5) 3.5 G/DL See_Comment [Automated messa ge] The system which generated this result transmitted reference range: 1.9-3.7 G/DL. The reference range was not used to interpret this result as normal/abnormal. CARBON DIOXIDE (test code = 1963-8) 22 MEQ/L See_Comment [Automated messa ge] The system which generated this result transmitted reference range: 19-31 MEQ/L. The reference range was not used to interpret this result as normal/abnormal. CHLORIDE (test code = 2075-0) 107 MEQ/L See_Comment [Automated messa ge] The system which generated this result transmitted reference range: 95-107 MEQ/L. The reference range was not used to interpret this result as normal/abnormal. CREATININE (test code = 2160-0) 0.79 MG/DL See_Comment [Automated messa ge] The system which generated this result transmitted reference range: 0.60-1.30 MG/DL. The reference range was not used to interpret this result as normal/abnormal. eGFR (2020 CKD-EPI) (test code = 78909-7) 80 ML/MIN/1.73 See_Comment [Automated messa ge] The system which generated this result transmitted reference range: >60 ML/MIN/1.73. The reference range was not used to interpret this result as normal/abnormal. GLUCOSE (test code = 1558-6) 77 MG/DL See_Comment [Automated messa ge] The system which generated this result transmitted reference range: 70-99 MG/DL. The reference range was not used to interpret this result as normal/abnormal. POTASSIUM (test code = 2823-3) 4.4 MEQ/L See_Comment [Automated messa ge] The system which generated this result transmitted reference range: 3.5-5.4 MEQ/L. The reference range was not used to interpret this result as normal/abnormal. PROTEIN, TOTAL (test code = 2885-2) 8.2 G/DL See_Comment [Automated messa ge] The system which generated this result transmitted reference range: 6.1-8.3 G/DL. The reference range was not used to interpret this result as normal/abnormal. AST (test code = 1920-8) 15 U/L See_Comment [Automated messa ge] The system which generated this result transmitted reference range: 9-40 U/L. The reference range was not used to interpret this result as normal/abnormal. ALT (test code = 1742-6) 10 U/L See_Comment [Automated messa ge] The system which generated this result transmitted reference range: 5-40 U/L. The reference range was not used to interpret this result as normal/abnormal. SODIUM (test code = 2951-2) 141 MEQ/L See_Comment [Automated messa ge] The system which generated this result transmitted reference range: 133-146 MEQ/L. The reference range was not used to interpret this result as normal/abnormal. [id number] 00:00:00* Test Item Value Reference Range Interpretation Comme nts FERRITIN (test code = 85692-7) 248 NG/ML See_Comment H [Automated messa ge] The system which generated this result transmitted reference range: 13-200 NG/ML. The reference range was not used to interpret this result as normal/abnormal. HEMOGLOBIN [id number] 00:00:00* Test Item Value Reference Range Interpretation Comme nts HEMOGLOBIN A1c (test code = 4548-4) 5.6 % See_Comment [Automated messa ge] The system which generated this result transmitted reference range: 4.2-5.6 %. The reference range was not used to interpret this result as normal/abnormal. LIPID PANEL WITH REFLEX DIRECT [id number] 00:00:00* Test Item Value Reference Range Interpretation Comme nts CALC LDL CHOL (test code = 07976-8) 125 MG/DL See_Comment H [Automated messa ge] The system which generated this result transmitted reference range: <100 MG/DL. The reference range was not used to interpret this result as normal/abnormal. CHOLESTEROL (test code = 2093-3) 201 MG/DL See_Comment H [Automated messa ge] The system which generated this result transmitted reference range: <200 MG/DL. The reference range was not used to interpret this result as normal/abnormal. HDL CHOLESTEROL (test code = 2085-9) 54 MG/DL See_Comment [Automated messa ge] The system which generated this result transmitted reference range: >39 MG/DL. The reference range was not used to interpret this result as normal/abnormal. RISK RATIO LDL/HDL (test code = 44538-6) 2.31 RATIO See_Comment [Automated message] The system which generated this result transmitted reference range: <3.22 RATIO. The reference range was not used to interpret this result as normal/abnormal. TRIGLYCERIDES (test code = 2571-8) 113 MG/DL See_Comment [Automated messa ge] The system which generated this result transmitted reference range: <150 MG/DL. The reference range was not used to interpret this result as normal/abnormal. PATHOLOGIST SMEAR [id number] 00:00:00* Test Item Value Reference Range Interpretation Comme nts BASOPHILS (test code = 26430-6) 0.8 % DIAGNOSIS: (test code = 80915-5) (NOTE) COMMENTS (test code = 62848-2) (NOTE) EOSINOPHILS (test code = 67146-7) 22.9 % HEMATOCRIT (test code = 58677-7) 36.0 % See_Comment [Automated messa ge] The system which generated this result transmitted reference range: 34.0-45.0 %. The reference range was not used to interpret this result as normal/abnormal. HEMOGLOBIN (test code = 718-7) 12.4 G/DL See_Comment [Automated messa ge] The system which generated this result transmitted reference range: 11.5-15.5 G/DL. The reference range was not used to interpret this result as normal/abnormal. LYMPHOCYTES (test code = 45639-5) 23.5 % MCH (test code = 02835-2) 34.0 PG See_Comment H [Automated messa ge] The system which generated this result transmitted reference range: 25.0-33.0 PG. The reference range was not used to interpret this result as normal/abnormal. MCHC (test code = 07832-0) 34.4 G/DL See_Comment [Automated messa ge] The system which generated this result transmitted reference range: 31.0-36.0 G/DL. The reference range was not used to interpret this result as normal/abnormal. MCV (test code = 38351-8) 98.6 fL See_Comment [Automated messa ge] The system which generated this result transmitted reference range: 80.0-99.0 fL. The reference range was not used to interpret this result as normal/abnormal. MICROSCOPIC DESCRIPTION: (test code = 77975-2) (NOTE) MONOCYTES (test code = 84808-7) 6.2 % NEUTROPHILS (test code = 40903-6) 46.3 % NUCLEATED RBCS (test code = 24340-5) 0.0 /100 WBC'S See_Comment [Automated messa ge] The system which generated this result transmitted reference range: 0.0 /100 WBC'S. The reference range was not used to interpret this result as normal/abnormal. PATHOLOGIST: (test code = 27570-7) (NOTE) PLATELET COUNT (test code = 40233-4) 254 K/UL See_Comment [Automated messa ge] The system which generated this result transmitted reference range: 130-400 K/UL. The reference range was not used to interpret this result as normal/abnormal. RBC (test code = 71203-6) 3.65 M/UL See_Comment L [Automated messa ge] The system which generated this result transmitted reference range: 3.80-5.40 M/UL. The reference range was not used to interpret this result as normal/abnormal. RDW (test code = 39875-2) 13.3 % See_Comment [Automated messa ge] The system which generated this result transmitted reference range: 11.5-15.0 %. The reference range was not used to interpret this result as normal/abnormal. WBC (test code = 51784-3) 6.6 K/UL See_Comment [Automated messa ge] The system which generated this result transmitted reference range: 3.5-11.0 K/UL. The reference range was not used to interpret this result as normal/abnormal. ALBUMIN/CREATININE RATIO, RANDOM [id number] 00:00:00* Test Item Value Reference Range Interpretation Comme nts ALBUMIN, URINE, RANDOM (test code = 29333-6) 3.7 MG/DL NOT ESTAB MG/DL CALC ALBUMIN/CREAT, RND (test code = 34691-2) 19 MG/G See_Comment [Automated messa ge] The system which generated this result transmitted reference range: <30 MG/G. The reference range was not used to interpret this result as normal/abnormal. CREATININE, URINE, CONC. (test code = 2161-8) 189.9 MG/DL NOT ESTAB MG/DL COMPREHENSIVE METABOLIC [id number] 00:00:00* Test Item Value Reference Range Interpretation Comme nts ALBUMIN (test code = 1751-7) 4.6 G/DL See_Comment [Automated messa ge] The system which generated this result transmitted reference range: 3.5-5.2 G/DL. The reference range was not used to interpret this result as normal/abnormal. ALKALINE PHOSPHATASE (test code = 6768-6) 89 U/L See_Comment [Automated message] The system which generated this result transmitted reference range: 40-142 U/L. The reference range was not used to interpret this result as normal/abnormal. BILIRUBIN, TOTAL (test code = 1975-2) <0.2 MG/DL See_Comment [Automated message] The system which generated this result transmitted reference range: <=1.2 MG/DL. The reference range was not used to interpret this result as normal/abnormal. BUN (test code = 3094-0) 12 MG/DL See_Comment [Automated messa ge] The system which generated this result transmitted reference range: 8-23 MG/DL. The reference range was not used to interpret this result as normal/abnormal. CALCIUM (test code = 10694-1) 9.8 MG/DL See_Comment [Automated messa ge] The system which generated this result transmitted reference range: 8.5-10.5 MG/DL. The reference range was not used to interpret this result as normal/abnormal. CALC A/G RATIO (test code = 1759-0) 1.4 RATIO See_Comment [Automated messa ge] The system which generated this result transmitted reference range: 1.0-2.6 RATIO. The reference range was not used to interpret this result as normal/abnormal. CALC BUN/CREAT (test code = 3097-3) 16 RATIO See_Comment [Automated messa ge] The system which generated this result transmitted reference range: 6-28 RATIO. The reference range was not used to interpret this result as normal/abnormal. CALC GLOBULIN (test code = 60127-6) 3.4 G/DL See_Comment [Automated messa ge] The system which generated this result transmitted reference range: 1.9-3.7 G/DL. The reference range was not used to interpret this result as normal/abnormal. CARBON DIOXIDE (test code = 1963-8) 22 MEQ/L See_Comment [Automated messa ge] The system which generated this result transmitted reference range: 19-31 MEQ/L. The reference range was not used to interpret this result as normal/abnormal. CHLORIDE (test code = 2075-0) 107 MEQ/L See_Comment [Automated messa ge] The system which generated this result transmitted reference range: 95-107 MEQ/L. The reference range was not used to interpret this result as normal/abnormal. CREATININE (test code = 2160-0) 0.74 MG/DL See_Comment [Automated messa ge] The system which generated this result transmitted reference range: 0.60-1.30 MG/DL. The reference range was not used to interpret this result as normal/abnormal. eGFR (2020 CKD-EPI) (test code = 11701-8) 87 ML/MIN/1.73 See_Comment [Automated messa ge] The system which generated this result transmitted reference range: >60 ML/MIN/1.73. The reference range was not used to interpret this result as normal/abnormal. GLUCOSE (test code = 1558-6) 87 MG/DL See_Comment [Automated messa ge] The system which generated this result transmitted reference range: 70-99 MG/DL. The reference range was not used to interpret this result as normal/abnormal. POTASSIUM (test code = 2823-3) 4.7 MEQ/L See_Comment [Automated messa ge] The system which generated this result transmitted reference range: 3.5-5.4 MEQ/L. The reference range was not used to interpret this result as normal/abnormal. PROTEIN, TOTAL (test code = 2885-2) 8.0 G/DL See_Comment [Automated messa ge] The system which generated this result transmitted reference range: 6.1-8.3 G/DL. The reference range was not used to interpret this result as normal/abnormal. AST (test code = 1920-8) 24 U/L See_Comment [Automated messa ge] The system which generated this result transmitted reference range: 9-40 U/L. The reference range was not used to interpret this result as normal/abnormal. ALT (test code = 1742-6) 13 U/L See_Comment [Automated messa ge] The system which generated this result transmitted reference range: 5-40 U/L. The reference range was not used to interpret this result as normal/abnormal. SODIUM (test code = 2951-2) 142 MEQ/L See_Comment [Automated messa ge] The system which generated this result transmitted reference range: 133-146 MEQ/L. The reference range was not used to interpret this result as normal/abnormal. POCT [id number] 20:12:00* Test Item Value Reference Range Interpretation Comme nts POCT Creatinine (test code = 3241559732) 0.7 mg/dL 0.5-1.1 Lab Interpretation (test cod e = 45287-0) Normal [facility] [id number] 17:10:05 HISTORY: Anal canal cancer TECHNIQUE: Contrast-enhanced 64-mutidetector CT scan of the chest wascompleted with intravenous injection of ?non ionic contrast medium.Subsequently numerous sagittal, coronal and MIP reformations weregenerated. FINDINGS: Thyroid gland is unremarkable. Trachea and central bronchialairways appear normal. No pleural effusion or pericardial [...] hernia with mild gastroesophageal reflux.Mild LAD coronary atheroscler osis noted. No acute pulmonarythromboembolism, aortic aneurysm or [...] are seen in the left breast.Patient's last mammogramstudy done at this facility was in 2017.Therefore, please encourage the patient to have bilateral mammography-KISHOR. [facility], Radiant Results Inft User - 02/19/2020 11:11 AM CSTHISTORY: Anal canal cancerTECHNIQUE: Contrast-enhanced 64-mutidetector CT scan of the chest wascompleted with intravenous injection of non ionic contrast medium.Subsequently numerous sagittal, coronal and MIP reformations wereg enerated.FINDINGS: Thyroid gland is unremarkable. Trachea and central bronchialairways appear normal.No pleural effusion or pericardial effusion. No hilar or mediastinaladenopathy.Middle thoracic degenerative spondylosis is noted. No aggressive bonelesions visualized.Following lung nodules are visua lized:-3 mm nodule anterior right upper lung (5:41).4 [...] in the left upper abdomen including some gastricvarices.CONCLUSIONS:1. No acute intrathoracic findings.2. Calcified gra nulomas in both lungs and noncalcified nodules in the rightlung, probably granulomas. Monitoring suggested by follow-up noncontrastenhanced CT scan of chest in 6 months.3. Dilated venous collateral circulation noted in the left upper abdomenincluding some gastric varices.4. Asymmetrical soft tissuedensities are seen in the left breast.Patient's last mammogram study done at this facility was in 2017.Therefore, please encourage the patient to have bilateral mammography-KISHOR.[facility] 2020-02-19 16:54:38CT Abdomen and Pelvis with oral and intravenous contrast. CLINICAL HISTORY: Anal canal cancer. DOSE: Up-to-date CT equipment and radiation dose reduction techniques wereemployed. CTDIvol: 3.99+5.65 mGy. DLP: 126+248 mGy-cm. TECHNIQUE : Contiguous axial imaging from the level of the lung basesthrough the pubic symphysis were performed after the uncomplicatedadministration of Omnipaque contrast material. Oral contrast was alsoadministered. Coronal and sagittal reconstructions were obtained. Auto m Aand/or iterative reconstruction were used to reduce radiation dose. FINDINGS: ? Lower lungs: Clear. Probable gastroesophageal reflux. Liver, Gallbladder and Spleen: Liver is borderline enlarged, measuring 17.3cm with undulating serosal surface, suggestive of cirrhotic morphology. Nofocal liver lesions are seen. Cholecystectomy noted. Spleen measuresapproximately 8 x 3.5 cm. Biliary ducts and thepancreatic duct appear ofnormal size. Peritoneum: ?No free air or free fluid. No lymphadenopathy. Pancreas and Adrenals: ?Unremarkable pancreas and right adrenal gland. Leftadrenal gland showed fusedhypertrophy and a 13 mm nodule. Kidneys and Ureters: ?No visible calculi in the renal collecting sys tems. No hydroureter or hydronephrosis. 11 mm cyst [...] No abnormal fluid. Slightly enlarged lymph node [id number] x 5 mm adjacent to the aorta close to the right common iliac artery.Subcentimeter lymph nodesalso seen in the right side of upper [...] Slightly enlarged lymphnode noted also in the rightretroperitoneum adjacent to common iliacartery and distal IVC level.3. Hypertrophy of left adrenal gland with 13 mm left adrenal gland nodule,for uncertain etiology. [facility], Radiant Results Inft User -02/19/2020 10:55 AM CSTCT Abdomen and Pelvis with oral and intravenous contrast.CLINICAL HISTORY: Anal canal cancer.DOSE: Up-to-date CT equipment and radiation dose reduction techniques wereemployed.CTDIvol: 3.99+5.65 mGy. DLP: 126+248 mGy-cm.TECHNIQUE : Contiguous [...] showed fused hypertrophy and a 13 mm nodule.Kidneys and Ureters: No visible calculi in the [...] and iliac arteries with bilateralcommon iliac artery str ictures, more severe on the left side.Retroperitoneum: No abnormal fluid. Slightly enlarged lymph node [id number] x 5 mm adjacent to the aorta [...] Reproductive Organs: Uterus is markedly elongated and a ppearsto be tethered to the urachus remnant near umbilicus. Unremarkableunopacified urinary bladder. No adnexal masses.Bones: No aggressive bone lesions. Grade 1 spondylolisthesis at L4-L5 withspace narrowing, bulging disc and facet arthritis.Soft tissues: Multiple enlarged lymph nodes in the rightsuperficial groinregion, measuring up to 15 mm with [...] 13 mm left adrenal gland nodule,for uncertain etiology.[facility] [id number] 12:41:00* Test Item Value Reference Range Interpretation Comme nts POCT Glu (age>30days) (test code = 3342) 108 mg/dL 70-110 Lab Interpretation (test cod e = 93788-5) Normal [facility]
[2023-03-31 08:42] LABS: Absolute Lymphocytes (CBC) 1.5 K/uL (0.7-4.9); Hematocrit 45.3 % (36.0-45.0); Lymphocytes % 9.6 % (15.3-44.8); MCV 98.2 fL (80-100); MPV 7.4 fL (7.6-11.3); Platelets 399 thou/uL (152-406); RBC Red Blood Cell Count 4.62 M/uL (3.86-4.86)
[2023-03-31 09:31] LABS: Protime INR 1.25
[2023-03-31 09:47] LABS: ALT/SGPT 27 U/L (13-56); Albumin 3.8 g/dL (3.4-5.0); Alkaline Phosphatase 120 U/L (45-117); BUN Blood Urea Nitrogen 16 mg/dL (7-18); Bicarbonate 18 mEq/L (21-32); Bilirubin Total 0.3 mg/dL (0.2-1.0); Glomerular Filtration Rate 72 ml/min (=/>90); Glucose Level 377 mg/dL (74-106); Lipase 28 U/L (13-75); Protein, Total 9.9 g/dL (6.4-8.2); Sodium Level 135 mEq/L (136-145); Troponin High Sensitivity 19.7 pg/mL (<58.9)
[2023-03-31 09:47] LABS: Blood Morphology Comment NOT SEEN (NOT SEEN); Platelet Estimate ADEQ; White Blood Cell Scan OK (OK)
[2023-03-31 09:48] LABS: AST/SGOT 25 U/L (15-37); Bilirubin Direct < 0.1 mg/dL (0-0.2); Bilirubin Indirect, Calculated ND mg/dL (0.2-0.8); Magnesium 1.9 mg/dL (1.6-2.4); Potassium 4.6 mEq/L (3.5-5.1)
--- NOTE | 2023-03-31 10:26 | RAD REPORT ---
EXAM DESCRIPTION: CTAbdomen Pelvis W Contrast - 03/31/2023 10:10 am CLINICAL HISTORY: ABD PAIN COMPARISON: Abdomen Pelvis W Contrast dated 09/07/2022; Abdomen Pelvis W Contrast dated 10/27/2017 ; Abdomen Pelvis W Contrast dated 12/31/2016 TECHNIQUE: CT of the abdomen and pelvis was performed. All CT scans are performed using dose optimization technique as appropriate and may include automated exposure control or mA/KV adjustment according to patient size. FINDINGS: Lower chest: No acute abnormality. Liver: Cirrhotic liver morphology. Biliary: Cholecystectomy Stomach: Diffuse gastric wall thickening. Duodenum: No significant focal abnormality. Pancreas: No significant abnormality. Spleen: No significant abnormality. Adrenal: No suspicious lesions. Left adrenal thickening. No discrete mass. Kidney/ureter: No hydronephrosis. No renal calculi. Right upper pole renal scarring. Retroperitoneum: No retroperitoneal adenopathy. Vascular: Atherosclerosis including iliac artery narrowing. Bowel: Mild diffuse colonic wall thickening. Prominent internal hemorrhoids noted. No appendicitis.. Peritoneum: No ascites or free air. Bladder: Grossly unremarkable. Reproductive: No adnexal masses. Bones: No acute fracture. Grade 1 anterolisthesis of L4 on L5. Other: n/a IMPRESSION: No acute intra-abdominal abnormality. Cirrhosis with evidence of portal hypertension. Gastric and colonic wall thickening could reflect gastritis/colitis versus gastropathy and colopathy as a result of portal hypertension. Gastric varices noted as well as prominent internal hemorrhoids, either of which could be a source of bleeding.
--- NOTE | 2023-03-31 11:19 | EDPHYS ---
Physician Documentation [facility] Name: Ernestina Marcus Age: 72 yrs Sex: Female : 1950 Arrival Date: 03/31/2023 Time: 08:02 Bed 6 Private MD: [facility] ED Physician Sunita Elliott HPI: 03/31 08:22 This 72 yrs old Black Female presents to ER via Wheelchair with complaints of Abdominal sp3 Cramping, Rectal Bleeding. 08:22 72-year-old female with a history of rectal cancer status post chemo and radiation that sp3 ended in July 2022, hypertension, diabetes, chronic pain presents to the ED with abdominal pain and cramping and rectal bleeding for several days. Patient states that she feels dehydrated and the pain is increasing. She also states she is out of her diabetes medications. She denies any other symptoms including vomiting, headache, fever, chest pain, shortness of breath, rash, other bleeding or any other signs or symptoms on ROS at this time.. Historical: - Allergies: 08:14 Soma; hb - Home Meds: 08:14 gabapentin 600 mg Oral tab twice a day [Active]; atorvastatin [Active]; amlodipine 10 hb mg tab 1 tab once daily [Active]; - PMHx: 08:14 angina pectoris; Chronic pain; Diabetes - IDDM; Glaucoma; Hypertension; RECTAL CA; hb - Immunization history:: Adult Immunizations up to date, Client reports receiving the 1st dose of the Covid vaccine. - Social history:: Smoking status: Patient reports the use of cigarette tobacco products, smokes one-half pack cigarettes per day. ROS: 08:23 Constitutional: Negative for fever, chills, and weight loss, Eyes: Negative for injury, sp3 pain, redness, and discharge, ENT: Negative for injury, pain, and discharge, Neck: Negative for injury, pain, and swelling, Respiratory: Negative for shortness of breath, cough, wheezing, and pleuritic chest pain, Back: Negative for injury and pain, MS/Extremity: Negative for injury and deformity, Skin: Negative for injury, rash, and discoloration, Neuro: Negative for headache, weakness, numbness, tingling, and seizure, Psych: Negative for depression, anxiety, suicide ideation, homicidal ideation, and hallucinations, Allergy/Immunology: Negative for hives, rash, and allergies, 08:23 All other systems are negative, Exam: 08:23 Constitutional: This is a well developed, well nourished patient who is awake, alert, sp3 and in no acute distress. Head/Face: Normocephalic, atraumatic. Eyes: Pupils equal round and reactive to light, extra-ocular motions intact. Lids and lashes normal. Conjunctiva and sclera are non-icteric and not injected. Cornea within normal limits. Periorbital areas with no swelling, redness, or edema. Neck: Trachea midline, no thyromegaly or masses palpated, and no cervical lymphadenopathy. Supple, full range of motion without nuchal rigidity, or vertebral point tenderness. No Meningismus. Chest/axilla: Normal chest wall appearance and motion. Nontender with no deformity. No lesions are appreciated. Respiratory: Lungs have equal breath sounds bilaterally, clear to auscultation and percussion. No rales, rhonchi or wheezes noted. No increased work of breathing, no retractions or nasal flaring. Back: No spinal tenderness. No costovertebral tenderness. Full range of motion. Skin: Warm, dry with normal turgor. Normal color with no rashes, no lesions, and no evidence of cellulitis. MS/ Extremity: Pulses equal, no cyanosis. Neurovascular intact. Full, normal range of motion. Neuro: Awake and alert, GCS 15, oriented to person, place, time, and situation. Cranial nerves II-XII grossly intact. Motor strength 5/5 in all extremities. Sensory grossly intact. Cerebellar exam normal. Normal gait. 08:23 Abdomen/GI: Diffuse pain to palpation without peritoneal signs, rebound or guarding. Mild blood at the rectum noted. Patient is clinically dehydrated with dry mucous membranes and tachycardia in the 120s. Blood pressure is also 201/89 and she has not taken any blood pressure medications., 08:54 ECG was reviewed by the Attending Physician. EKG demonstrates sinus tachycardia at 115 sp3 bpm with normal intervals, normal QRS, poor R wave progression and nonspecific diffuse ST/changes without evidence of acute ischemia. Vital Signs: 08:12 BP 201 / 89; Pulse 133; Resp 20; Temp 98.7(O); Pulse Ox 100% on R/A; Weight 52.16 kg; hb Height 4 ft. 11 in. ; Pain 8/10; 08:43 Pulse 119; Resp 20; Pulse Ox 98% ; iw 09:20 BP 219 / 97; Pulse 119; Resp 20; Pulse Ox 97% on R/A; iw 09:49 BP 199 / 84; Pulse 120; Pulse Ox 97% on R/A; iw 10:42 BP 199 / 78; Pulse 125; Resp 20 S; Pulse Ox 97% on R/A; Pain 7/10; iw 11:30 BP 198 / 76; Pulse 130; iw 13:21 BP 188 / 71; Pulse 133; Pulse Ox 100% ; Pain 10/10; iw 08:12 Body Mass Index 23.23 (52.16 kg, 149.86 cm) hb 08:12 Pain Scale: Adult hb 10:42 Pain Scale: Adult iw 13:21 Pain Scale: Adult iw MDM: 08:14 Patient medically screened. sp3 08:23 Data reviewed: vital signs, nurses notes, old medical records, lab test result(s), EKG, sp3 radiologic studies. ED course: 72-year-old female with extensive past medical history including rectal cancer now presents with abdominal pain and rectal bleeding. She is hypertensive and tachycardic. Differential diagnosis includes cancer related blood loss and hypovolemia/dehydration, DKA given she is out of her diabetes medications, in the setting of hypertensive urgency given her blood pressure. We will start with gentle hydration at 125 mL/h of normal saline while monitoring her blood pressure and obtaining CT scan of the abdomen pelvis, laboratory values and medicating with Dilaudid and Zofran for pain control to potentially help with the blood pressure and general wellbeing. Disposition pending workup and patient course with probable admission.. 11:08 ED course: Patient has 16,000 WBC count with left shift and colitis on her CT with both sp3 colonic wall thickening and gastric wall thickening, as well as gastric varices and internal hemorrhoids. Both of these can potentially be source of bleeding. Patient does report continued blood mixed with stools so it is likely hemorrhoidal however could potentially be both. H\T\H are normal. Protonix and Zosyn have been ordered IV. Will hold on any octreotide as she does not have esophageal varices and has no upper GI bleeding. Hydralazine has been ordered IV to bring blood pressure down so we can continue IV hydration. NS continues at 125 mL/h. Pain control as needed with Dilaudid.. 11:30 ED course: Discussed with internal medicine at [facility] who will accept with [facility] GI consultation.. 03/31 08:16 Order name: Basic Metabolic Panel; Complete Time: 09:53 sp3 03/31 08:16 Order name: CBC with Diff; Complete Time: 09:53 3 03/31 08:16 Order name: LFT's; Complete Time: 09:53 3 03/31 08:16 Order name: Magnesium; Complete Time: 09:53 sp3 03/31 08:16 Order name: PT-INR; Complete Time: 09:53 3 03/31 08:16 Order name: Troponin HS; Complete Time: 09:53 3 03/31 08:16 Order name: Lipase; Complete Time: 09:53 sp3 03/31 08:54 Order name: CBC Smear Scan; Complete Time: 09:53 EDMS 03/31 11:45 Order name: Glucose, Ancillary Testing; Complete Time: 11:52 EDMS 03/31 08:16 Order name: CT Abd/Pelvis - IV Contrast Only; Complete Time: 10:27 sp3 03/31 08:16 Order name: EKG; Complete Time: 08:16 sp3 03/31 08:16 Order name: Cardiac monitoring; Complete Time: 09:21 sp3 03/31 08:16 Order name: EKG - Nurse/Tech; Complete Time: 08:55 sp3 03/31 08:16 Order name: IV Saline Lock; Complete Time: 08:42 3 03/31 08:16 Order name: Labs collected and sent; Complete Time: 08:42 3 03/31 08:16 Order name: O2 Sat Monitoring; Complete Time: 08:42 sp3 03/31 08:49 Order name: Labs - recollect needed: recollect blue and green. hemolyzed per edi; eb Complete Time: 09:20 Administered Medications: 08:42 Drug: HYDROmorphone IVP 1 mg IVP once Route: IVP; Site: left hand; iw 08:42 Drug: Ondansetron IVP 4 mg IVP once; over 2 minutes Route: IVP; Site: left hand; iw 08:42 Drug: NS 0.9% IV 1000 ml IV at 125 ml/hr continuous Route: IV; Rate: 125 ml/hr; Site: iw left hand; 09:36 Drug: HYDROmorphone IVP 1 mg IVP once Route: IVP; Site: left hand; iw 11:24 Drug: hydrALAZINE IVP 10 mg IVP once Route: IVP; Site: left hand; iw 11:24 Drug: HYDROmorphone IVP 1 mg IVP once Route: IVP; Site: left hand; iw 11:34 Drug: Pantoprazole IVP 40 mg IVP once Route: IVP; Site: left hand; iw 11:39 Drug: Insulin Regular Human IVP 10 units IVP once {Co-Signature: ph (Roxy Charlton iw RN).} Route: IVP; Site: left hand; 11:39 Drug: Piperacillin-Tazobactam IVPB 3.375 grams IVPB once over 60 mins; (mix in NS 100 iw mL) Route: IVPB; Infused Over: 60 mins; Site: left hand; 11:39 Drug: hydrALAZINE IVP 10 mg IVP once Route: IVP; Site: left hand; iw 13:33 Drug: HYDROmorphone IVP 1 mg IVP once Route: IVP; Site: left hand; iw Disposition Summary: 03/31/23 11:18 Transfer Ordered Notes: Transfer Location: [facility] sp3 Reason: Higher level of care sp3 Condition: Stable sp3 Problem: an acute exacerbation sp3 Symptoms: have worsened sp3 Accepting Physician: LAURY(03/31/23 13:43) iw Diagnosis - Colitis, lower GI bleed, hypertensive urgency, hyperglycemia with dehydration sp3 Forms: - Medication Reconciliation Form sp3 - SBAR form sp3 Signatures: Dispatcher [employer] Liz Montague RN RN iw Peri Rodriguez RN RN Ilene Olivares Setul, MD MD sp3 Roxy Charlton RN ph Corrections: (The following items were deleted from the chart) 13:43 11:18 TBParris sp3 iw
--- NOTE | 2023-03-31 11:19 | ER ---
Nurse's Notes [facility] Name: Ernestina Marcus Age: 72 yrs Sex: Female : 1950 Arrival Date: 03/31/2023 Time: 08:02 Bed 6 Private MD: Fred Elliott Diagnosis: Colitis, lower GI bleed, hypertensive urgency, hyperglycemia with dehydration Presentation: 03/31 08:12 Chief complaint: N/V, abdominal cramping, and bloody diarrhea x 2 days. Coronavirus hb screen: Client presents with at least one sign or symptom that may indicate coronavirus-19. Provider contacted for isolation considerations. Ebola Screen: No symptoms or risks identified at this time. Initial Sepsis Screen: Does the patient meet any 2 criteria? HR > 90 bpm. No. Patient's initial sepsis screen is negative. Does the patient have a suspected source of infection? No. Patient's initial sepsis screen is negative. Risk Assessment: Do you want to hurt yourself or someone else? Patient reports no desire to harm self or others. Onset of symptoms was March 30, 2023. 08:12 Method Of Arrival: Wheelchair hb 08:12 Acuity: ANNIE 2 hb Historical: - Allergies: 08:14 Soma; hb - Home Meds: 08:14 gabapentin 600 mg Oral tab twice a day [Active]; atorvastatin [Active]; amlodipine 10 hb mg tab 1 tab once daily [Active]; - PMHx: 08:14 angina pectoris; Chronic pain; Diabetes - IDDM; Glaucoma; Hypertension; RECTAL CA; hb - Immunization history:: Adult Immunizations up to date, Client reports receiving the 1st dose of the Covid vaccine. - Social history:: Smoking status: Patient reports the use of cigarette tobacco products, smokes one-half pack cigarettes per day. Screenin:44 [facility] ED Fall Risk Assessment (Adult) Score/Fall Risk Level. Abuse screen: Denies iw threats or abuse. Denies injuries from another. Nutritional screening: No deficits noted. Tuberculosis screening: No symptoms or risk factors identified. Assessment: 08:25 General: Appears uncomfortable, Behavior is cooperative. Pain: Complains of pain in iw right upper quadrant and left upper quadrant. Neuro: Level of Consciousness is awake, alert, obeys commands, Oriented to person, place, time, situation, Moves all extremities. Cardiovascular: Patient's skin is warm and dry. Respiratory: Respiratory effort is even, unlabored, Respiratory pattern is regular, symmetrical. GI: Bowel sounds present X 4 quads. Abd is soft X 4 quads Abd is non tender Reports upper abdominal pain, diarrhea, rectal bleeding, nausea. Derm: Skin is fragile, is thin. Musculoskeletal: Range of motion: intact in all extremities. 10:42 Reassessment: Patient appears in no apparent distress at this time. Patient and/or iw family updated on plan of care and expected duration. Pain level reassessed. Patient states symptoms have not improved. 13:36 Reassessment: Patient appears in no apparent distress at this time. Patient and/or iw family updated on plan of care and expected duration. Pain level reassessed. Patient states symptoms have not improved. Vital Signs: 08:12 BP 201 / 89; Pulse 133; Resp 20; Temp 98.7(O); Pulse Ox 100% on R/A; Weight 52.16 kg; hb Height 4 ft. 11 in. ; Pain 8/10; 08:43 Pulse 119; Resp 20; Pulse Ox 98% ; iw 09:20 BP 219 / 97; Pulse 119; Resp 20; Pulse Ox 97% on R/A; iw 09:49 BP 199 / 84; Pulse 120; Pulse Ox 97% on R/A; iw 10:42 BP 199 / 78; Pulse 125; Resp 20 S; Pulse Ox 97% on R/A; Pain 7/10; iw 11:30 BP 198 / 76; Pulse 130; iw 13:21 BP 188 / 71; Pulse 133; Pulse Ox 100% ; Pain 10/10; iw 08:12 Body Mass Index 23.23 (52.16 kg, 149.86 cm) hb 08:12 Pain Scale: Adult hb 10:42 Pain Scale: Adult iw 13:21 Pain Scale: Adult iw ED Course: 08:04 Patient arrived in ED. rg4 08:05 Fred Elliott DO is Private Physician. rg4 08:13 Sunita Elliott MD is Attending Physician. sp3 08:14 Triage completed. hb 08:30 Initial lab(s) drawn, by me, sent to lab. Inserted saline lock: 20 gauge in left hand, iw using aseptic technique. Blood collected. 09:20 Liz Gamez, RN is Primary Nurse. iw 10:12 CT Abd/Pelvis - IV Contrast Only In Process Unspecified. EDMS 10:42 Patient has correct armband on for positive identification. Provided Education on: . iw Pulse ox on. NIBP on. 10:57 initiated a transfer with Jorge Garcia from the [facility]. eb 11:[address] Borrero the hospitalist group leader semiconductor processing for [facility] with Dr. Elliott for eb patient transfer consultation . 12:29 administrative approval given by Jorge Garcia/ patient has been accepted to [facility] room 2162/ Dr. Borrero has accepted the patient in transfer/ report to be called to [phone]. 13:43 No provider procedures requiring assistance completed. Patient transferred, IV remains iw in place. Administered Medications: 08:42 Drug: HYDROmorphone IVP 1 mg IVP once Route: IVP; Site: left hand; iw 08:42 Drug: Ondansetron IVP 4 mg IVP once; over 2 minutes Route: IVP; Site: left hand; iw 08:42 Drug: NS 0.9% IV 1000 ml IV at 125 ml/hr continuous Route: IV; Rate: 125 ml/hr; Site: iw left hand; 09:36 Drug: HYDROmorphone IVP 1 mg IVP once Route: IVP; Site: left hand; iw 11:24 Drug: hydrALAZINE IVP 10 mg IVP once Route: IVP; Site: left hand; iw 11:24 Drug: HYDROmorphone IVP 1 mg IVP once Route: IVP; Site: left hand; iw 11:34 Drug: Pantoprazole IVP 40 mg IVP once Route: IVP; Site: left hand; iw 11:39 Drug: Insulin Regular Human IVP 10 units IVP once {Co-Signature: ph (Roxy Charlton iw RN).} Route: IVP; Site: left hand; 11:39 Drug: Piperacillin-Tazobactam IVPB 3.375 grams IVPB once over 60 mins; (mix in NS 100 iw mL) Route: IVPB; Infused Over: 60 mins; Site: left hand; 11:39 Drug: hydrALAZINE IVP 10 mg IVP once Route: IVP; Site: left hand; iw 13:33 Drug: HYDROmorphone IVP 1 mg IVP once Route: IVP; Site: left hand; iw Medication: 13:43 VIS not applicable for this client. iw Outcome: 11:18 ER care complete, transfer ordered by MD. rangel 13:43 Transferred by ground EMS [place] to [facility], Transfer form iw completed. X-rays sent w/ patient. 13:43 Condition: stable 13:43 Instructed on the need for transfer, 13:43 Patient left the ED. iw Signatures: Dispatcher [employer] EDLiz Tonye RN RN iw Peri Rodriguez RN RN hb Garcia, Rubi rg4 Ilene Jordan Setul, MD MD sp3 Roxy Charlton RN ph
[2023-03-31 17:03] VITALS: BP 188/71; TEMP 98.7; O2SAT 100
--- NOTE | 2023-04-03 17:08 | EKG ---
Test Date: 2023-03-31 Test Time: 08:51:53 Embossing Unit Operator: KASIA MEASUREMENT RESULTS: Intervals: Rate: 115 IL: 150 QRSD: 84 QT: 336 QTc: 464 Shubert: P: 78 IL: 150 QRS: 51 T: 103 INTERPRETIVE STATEMENTS: Sinus tachycardia Anterior infarct, age undetermined Abnormal ECG Compared to ECG 09/07/2022 16:15:43 Myocardial infarct finding now present Sinus rhythm no longer present Electronically Signed On 04-03-23 17:00:10 ORTHOTIST PROSTHETIST by Godwin Davila
== END ==
LOC: ER 08:02
DX: K52.9 Noninfective gastroenteritis and colitis, unspecified (principal); I16.0 Hypertensive urgency; E11.65 Type 2 diabetes mellitus with hyperglycemia; E86.0 Dehydration; I10 Essential (primary) hypertension; Z85.048 Personal history of other malignant neoplasm of rectum, rectosigmoid junction, and anus; Z88.8 Allergy status to other drugs, medicaments and biological substances
CPT/HCPCS: 93005; 85025; 80048; 36415; 83735; 85610; 82947; 80076; 84484; 83690; 74177; 96375; 96374; 99285; Q9967; J1815; J0360; J2543; C9113; J1170 ×4; J2405; J7030

== ENCOUNTER 2023-10-17 14:45 | Emergency (ER) | payer OTHER ==
--- NOTE | 2023-10-17 16:19 | RAD REPORT ---
EXAM DESCRIPTION: CT - Head Brain Wo Cont - 10/17/2023 3:17 pm CLINICAL HISTORY: DIZZINESS COMPARISON: HEAD BRAIN W O CONTRAST dated 11/01/2012 TECHNIQUE: Noncontrast head CT images were obtained without IV contrast. Multiplanar reformats were generated and reviewed. All CT scans are performed using dose optimization technique as appropriate and may include automated exposure control or mA/KV adjustment according to patient size. FINDINGS: No intracranial hemorrhage, mass, or edema. Midline structures are unremarkable. Normal ventricular caliber for age. Baum-white matter differentiation is preserved, without evidence of acute infarct. No abnormal extra- axial fluid collections. Mastoid air cells and visualized portions of the paranasal sinuses are clear. No acute bony findings. IMPRESSION: No evidence of an acute intracranial process.
[2023-10-17] MEDS ORDERED: ONDANSETRON 4 MG/2 ML VIAL ONE (16:26)
[2023-10-17] MEDS ORDERED: NA CHLORIDE 0.9% 1,000 ML ONE ×2 (16:26→18:43)
[2023-10-17 16:27] LABS: SARS-CoV-2 Antigen CONTROL BLUE LINE VIS/BG OK; SARS-CoV-2 Antigen Rapid Res Negative (Negative)
[2023-10-17 16:28] LABS: Absolute Basophils 0.1 K/uL (0-0.5); Absolute Eosinophils 0.2 K/uL (0-0.5); Absolute Lymphocytes (CBC) 1.7 K/uL (0.7-4.9); Absolute Monocytes 0.8 K/uL (0.1-1.3); Absolute Neutrophil 12.5 K/uL (1.8-8.0); Basophils % 0.4 % (0-1.3); Hematocrit 32.5 % (36.0-45.0); Hemoglobin 10.9 g/dL (12.0-15.0); Lymphocytes % 11.3 % (15.3-44.8); MCH 33.2 pg (27.0-35.0); MCHC 33.4 g/dL (32.0-36.0); MCV 99.2 fL (80-100); MPV 7.2 fL (7.6-11.3); Monocytes % 5.2 % (3.3-12.3); Neutrophils % 82.1 % (41.7-73.7); Nucleated RBC Absolute Count 0.1 (0-0); Nucleated Red Blood Cells % 0.3 % (0-0); Platelets 684 thou/uL (152-406); RBC Red Blood Cell Count 3.28 M/uL (3.86-4.86); Red Cell Distribution Width 14.3 % (12.1-15.2)
--- NOTE | 2023-10-17 16:41 | RAD REPORT ---
EXAM DESCRIPTION: CT - Stone Protocol - 10/17/2023 3:17 pm CLINICAL HISTORY: FLANK PAIN COMPARISON: Abdomen Pelvis Wo Contrast dated 10/12/2023; Abdomen Pelvis W Contrast dated 4; Abdomen Pelvis W Contrast dated 09/07/2022; Abdomen Pelvis Wo Contrast dated 07/24/2020 TECHNIQUE: Thin cut axial CT imaging of the abdomen and pelvis was performed without IV contrast. Mu ltiplanar reformats were generated and reviewed. All CT scans are performed using dose optimization technique as appropriate and may include automated exposure control or mA/KV adjustment according to patient size. FINDINGS: No suspicious findings in the lung bases. The liver again shows nodular contour, suggesting cirrhosis. Adrenal glands, spleen, and pancreas simin w no suspicious findings. Gallbladder was surgically removed. Symmetric renal contour, without suspicious parenchymal findings within limits of noncontrast techniq ue. No evidence of radiopaque calculi or hydroureteronephrosis. No dilated bowel loops or bowel wall thickening. Stable postsurgical changes of distal colonic resection with a colorectal anastomosis, as well as a r ight lower quadrant small bowel anastomotic suture line. Right lower quadrant diverting ileostomy in place, with more discrete nodular soft tissue thickening extending laterally from the region of the i leostomy, see axial image 44. Stable crescentic fluid collection along the right pelvic sidewall, measuring 4.5 x 2.1 cm in greates t sagittal dimensions, and 3.4 cm in greatest transverse dimension. Mild stable presacral edema. No free air, free fluid or inflammatory stranding. No hernia, mass or bulky lymphadenopathy. The urin iliana bladder is without significant finding. No suspicious bony findings. IMPRESSION: Stable postsurgical changes. Mildly progressive nodular subcutaneous soft tissue thicken ing in the right lower abdomen extending laterally from the ileostomy site. This may represent small organizing seroma as or phlegmon. Please correlate with physical exam for any localized inflammatory changes. Stable crescentic right lower quadrant fluid collection which may represent a seroma or contained mare k.
[2023-10-17 16:48] LABS: Albumin 3.3 g/dL (3.4-5.0); Albumin/Globulin Ratio 0.5 (1.1-1.8); Bilirubin Direct 0.2 mg/dL (0-0.2); Bilirubin Indirect, Calculated 0.1 mg/dL (0.2-0.8); Bilirubin Total 0.3 mg/dL (0.2-1.0); Globulin 6.8 g/dL (2.3-3.5); Magnesium 2.7 mg/dL (1.6-2.4); Protein, Total 10.1 g/dL (6.4-8.2); Troponin High Sensitivity 16.1 pg/mL (<58.9)
[2023-10-17 16:54] LABS: PT Prothrombin Time 17.1 SECONDS (9.4-12.5); Protime INR 1.55
[2023-10-17] MEDS ORDERED: PIPERACIL/TAZO 3.375 GM VIAL IV ONE (17:30)
[2023-10-17] MEDS ORDERED: NA CHLORIDE 0.9% 100 ML ONE (17:30)
--- NOTE | 2023-10-17 17:32 | RAD REPORT ---
EXAM DESCRIPTION: RADChest Single View10/17/2023 3:57 pm CLINICAL HISTORY: COUGH COMPARISON: Chest Single View dated 09/07/2022; Chest Single View dated 07/24/2020; Chest Single View d ated 07/11/2020; Chest Single View dated 03/30/2020 TECHNIQUE: Portable AP view of the chest. FINDINGS: The lungs are clear. No pneumothorax or effusion. The cardiomediastinal contours are unre markable. IMPRESSION: No acute cardiopulmonary process.
--- NOTE | 2023-10-17 18:52 | ER ---
Nurse's Notes [facility] Name: Ernestina Marcus Age: 73 yrs Sex: Female : 1950 Arrival Date: 10/17/2023 Time: 14:45 Bed 13 Private MD: Diagnosis: Acute Renal Failure;Seroma Presentation: 10/16 15:05 Chief complaint: Patient states: Lower abdominal pain, weak, dizzy, nausea EMS states: ll1 BP 99/66 FS-[id number]. Coronavirus screen: Client denies travel out of the [place] in the last 14 days. fatigue, nausea, Client presents with at least one sign or symptom that may indicate coronavirus-19. Standard/surgical mask placed on the client. Ebola Screen: Patient denies travel to an Ebola-affected area in the 21 days before illness onset. Initial Sepsis Screen: Does the patient meet any 2 criteria? No. Patient's initial sepsis screen is negative. Does the patient have a suspected source of infection? No. Patient's initial sepsis screen is negative. Risk Assessment: Do you want to hurt yourself or someone else? Patient reports no desire to harm self or others. Onset of symptoms was October 16, 2023. 15:05 Method Of Arrival: EMS: [facility] 1 15:05 Acuity: ANNIE 3 ll1 Triage Assessment: 15:05 General: Appears uncomfortable, ill, Behavior is calm, cooperative, appropriate for ll1 age, Reports fatigue for. Neuro: Reports weakness. GI: Reports lower abdominal pain, nausea. Historical: - Allergies: 14:52 Soma; ll1 - PMHx: 14:52 angina pectoris; Chronic pain; Diabetes - IDDM; Glaucoma; Hypertension; RECTAL CA; ll1 - PSHx: 14:52 Colostomy; ll1 - Immunization history:: Adult Immunizations up to date. - Infectious Disease History:: Denies. - Social history:: Smoking status: Patient reports the use of cigarette tobacco products, smokes .2 packs per day. Screenin:16 [facility] ED Fall Risk Assessment (Adult) History of falling in the last 3 months, pc2 including since admission No falls in past 3 months (0 pts) Confusion or Disorientation No (0 pts) Intoxicated or Sedated No (0 pts) Impaired Gait Yes (1 pt) Mobility Assist Device Used Yes (1 pt) Altered Elimination Yes (1 pt) Score/Fall Risk Level 3 or more points = High Risk Oriented to surroundings, Maintained a safe environment, Hourly rounding (assess needs \T\ fall precautionary measures) done, Utilized family, sitter, or virtual post hole digger as indicated. 19:20 Abuse screen: Denies threats or abuse. Denies injuries from another. Nutritional pc2 screening: No deficits noted. Tuberculosis screening: No symptoms or risk factors identified. Assessment: 15:00 General: Appears uncomfortable, ill, well developed, well nourished, Behavior is calm, me1 cooperative, appropriate for age, Reports Lower abdominal pain, weak, dizzy, nausea. Pain: Complains of pain in right lower quadrant and right upper quadrant Pain does not radiate. Pain currently is 7 out of 10 on a pain scale. Quality of pain is described as sharp, Pain began gradually, Is continuous. Neuro: Level of Consciousness is awake, alert, obeys commands, Oriented to person, place, time, situation. Cardiovascular: Patient's skin is warm and dry. Respiratory: Airway is patent Respiratory effort is even, unlabored, Respiratory pattern is regular, symmetrical. GI: Abdomen is round Ileostomy site dressing where colostomy was closed. : No signs and/or symptoms were reported regarding the genitourinary system. EENT: No signs and/or symptoms were reported regarding the EENT system. Derm: Wound noted right lower quadrant Wound is surgical incision covered with dressing that is clean, dry and intacty. Musculoskeletal: No signs and/or symptoms reported regarding the musculoskeletal system. 19:19 General: Appears in no apparent distress. Behavior is calm, cooperative, appropriate pc2 for age. Pain: Complains of pain in right lower quadrant and right upper quadrant Pain began 6 days ago. Neuro: Level of Consciousness is awake, alert, obeys commands, Oriented to person, place, time, situation. Cardiovascular: Patient's skin is warm and dry. Respiratory: Airway is patent Respiratory effort is even, unlabored, Respiratory pattern is regular, symmetrical. GI: Abdomen is round Reports nausea. : No signs and/or symptoms were reported regarding the genitourinary system. EENT: No signs and/or symptoms were reported regarding the EENT system. Derm: No signs and/or symptoms reported regarding the dermatologic system. Musculoskeletal: No signs and/or symptoms reported regarding the musculoskeletal system. Vital Signs: 15:00 BP 94 / 52; Pulse 71; Resp 17; Pulse Ox 100% ; me1 15:05 BP 102 / 62; Pulse 83; Resp 17; Temp 97; Weight 46.27 kg; Height 4 ft. 11 in. ; Pain ll1 8/10; 16:00 BP 101 / 61; Pulse 73; Resp 18; Pulse Ox 100% ; me1 17:00 BP 92 / 61; Pulse 78; Resp 17; Pulse Ox 100% ; me1 18:30 BP 83 / 56; Pulse 76; Resp 16; Pulse Ox 100% on R/A; me1 19:00 BP 106 / 59; Pulse 74; Resp 18; Pulse Ox 98% on R/A; me1 19:16 BP 118 / 62; Pulse 78; Resp 18; Pulse Ox 100% on R/A; pc2 20:41 BP 113 / 60; Pulse 79; Resp 18; Pulse Ox 98% on R/A; pc2 22:42 BP 108 / 55; Pulse 79; Resp 16; Pulse Ox 98% on R/A; pc2 10/17 00:00 BP 118 / 63; Pulse 75; Resp 18; Pulse Ox 98% on R/A; pc2 00:40 BP 133 / 65; Pulse 76; Resp 18; Pulse Ox 99% on R/A; pc2 10/16 15:05 Body Mass Index 20.60 (46.27 kg, 149.86 cm) ll1 15:05 Pain Scale: Adult ll1 Yovany Coma Score: 10/16 18:44 Eye Response: spontaneous(4). Motor Response: obeys commands(6). Verbal Response: tarah oriented(5). Total: 15. ED Course: 14:49 Patient arrived in ED. bd 14:51 Lane Gamez MD is Attending Physician. tarah 14:52 Arm band placed on Patient placed in an exam room, on a stretcher. ll1 15:07 Triage completed. ll1 15:12 Malina Otero, ISIDRO is Primary Nurse. me1 15:19 CT Head Brain wo Cont In Process Unspecified. EDMS 15:19 CT Stone Protocol In Process Unspecified. EDMS 15:50 Initial lab(s) drawn, by dc, sent to lab. Missed attempt(s): 22 gauge in left ll1 antecubital area. Bleeding controlled, band aid applied, catheter tip intact. 15:55 Missed attempt(s): 24 gauge in left forearm. Bleeding controlled, band aid applied, ll1 catheter tip intact. 15:57 First set of blood cultures drawn. ll1 15:58 Flu Sent. me1 15:58 SARS RAPID Sent. me1 15:58 COVID swab sent to lab. Flu and/or RSV swab sent to lab. me1 15:59 XRAY Chest (1 view) In Process Unspecified. EDMS 16:00 Missed attempt(s): 24 gauge in right hand. Bleeding controlled, band aid applied, jl7 catheter tip intact. 16:00 Inserted saline lock: 24 gauge in right wrist, using aseptic technique. Blood jl7 collected. Flushed with 10 mL NS. 16:23 Second set of blood cultures drawn right wrist. jl7 16:42 Client placed on continuous cardiac and pulse oximetry monitoring. NIBP monitoring me1 applied. monitoring and evaluation advisor on. Pulse ox on. NIBP on. 16:42 EKG done, by ED staff, reviewed by Lane Gamez MD. me1 17:26 Lab(s) recollected, by me, sent to lab. jl7 19:[address] [facility]. bd 19:08 Report received from ISIDRO Radford. pc2 19:17 Patient has correct armband on for positive identification. Bed in low position. Call pc2 light in reach. Side rails up X2. Adult w/ patient. Provided Education on: POC and time frame. 19:[address] [facility] transfer center, spoke with Juanis who advised PT is accepted ty waiting on Pt bed to be prepared prior to patient arrival. 22:40 Report given to ISIDRO Ennis at [facility]. pc2 23:45 Dressings: Colostomy bag changed. pc2 10/17 00:11 No provider procedures requiring assistance completed. pc2 00:35 Report given to [facility] at bedside. pc2 00:43 Patient transferred, IV remains in place. pc2 Administered Medications: 10/16 16:31 Drug: NS 0.9% IV 500 ml IV at bolus once Route: IV; Rate: bolus; Site: right wrist; me1 17:37 Follow up: Response: No adverse reaction; IV Status: Completed infusion; IV Intake: me1 500ml 16:31 Drug: Ondansetron IVP 4 mg IVP once; over 2 minutes Route: IVP; Site: right wrist; me1 17:37 Follow up: Response: No adverse reaction; Nausea is decreased me1 16:41 Drug: NS 0.9% IV 1000 ml IV at 125 ml/hr continuous Route: IV; Rate: 125 ml/hr; Site: me1 right wrist; 19:21 Follow up: Response: No adverse reaction; IV Status: Infusion continued pc2 17:36 Drug: Piperacillin-Tazobactam IVPB 3.375 grams IVPB once over 60 mins; (mix in NS 100 me1 mL) Route: IVPB; Infused Over: 60 mins; Site: right wrist; 18:41 Follow up: Response: No adverse reaction; IV Status: Completed infusion me1 18:41 Drug: NS 0.9% IV 1000 ml IV at 1 bolus Per protocol; 1000 mL bolus Route: IV; Rate: 1 me1 bolus; Site: right wrist; 19:18 Follow up: Response: No adverse reaction; IV Status: Completed infusion; IV Intake: pc2 1000ml 22:30 Drug: fentaNYL (PF) IVP 25 mcg IVP once Route: IVP; Site: right wrist; pc2 23:00 Follow up: Response: No adverse reaction; Marked relief of symptoms; Blood sugar is pc2 elevated; Pain is decreased; RASS: Alert and Calm (0) 10/17 00:35 Drug: fentaNYL (PF) IVP 25 mcg IVP once Route: IVP; Site: right wrist; pc2 00:40 Follow up: Response: No adverse reaction; Medication administered at discharge. pc2 Medication: 10/16 19:17 VIS not applicable for this client. pc2 Intake: 17:37 IV: 500ml; Total: 500ml. me1 19:18 IV: 1000ml; Total: 1500ml. pc2 Outcome: 18:52 ER care complete, transfer ordered by . tarah 22:42 ER care complete, transfer ordered by . ec2 10/17 00:40 Transferred by [facility] [place]. to [facility], pc2 Transferred Transfer form completed. Condition: stable Instructed on the need for admit, 00:44 Patient left the ED. pc2 Signatures: Dispatcher [employer] EDMS Andreia Beck Corey, MD MD cha Leal, Jahala RN RN jl7 Evi Romo RN RN ll1 Malina Otero RN RN me1 Bob Hernandez MD MD ec2 Carson Javier Pam, RN RN pc2 Corrections: (The following items were deleted from the chart) 10/16 17:59 15:05 BP 126 / 2; Pulse 83bpm; Resp 17bpm; Temp 97F; 46.27 kg; Height 4 ft. 11 in.; ll1 BMI: 20.6; Pain 8/10, Adult; ll1 18:00 15:05 BP 126 / 62; Pulse 83bpm; Resp 17bpm; Temp 97F; 46.27 kg; Height 4 ft. 11 in.; ll1 BMI: 20.6; Pain 8/10, Adult; ll1 19:29 15:05 Chief complaint: Patient states: Lower abdominal pain, weak, dizzy, nausea EMS me1 states: BP 99/66 FS-259 ll1
--- NOTE | 2023-10-17 18:52 | EDPHYS ---
Physician Documentation [facility] Name: Ernestina Marcus Age: 73 yrs Sex: Female : 1950 Arrival Date: 10/17/2023 Time: 14:45 Bed 13 Private MD: ED Physician Lane Gamez HPI: 10/16 18:41 This 73 yrs old Black Female presents to ER via EMS with complaints of Abdominal Pain. tarah 18:41 The patient presents with abdominal pain in the lower abdomen, in the right upper tarah quadrant, right lower quadrant, abdominal distention in the upper abdomen, in the lower abdomen. Onset: The symptoms/episode began/occurred 6 day(s) ago. The patient presents to the emergency department with nausea, with "dry heaves", vomiting, abdominal pain, of the right upper quadrant and right lower quadrant. Onset: The symptoms/episode began/occurred 2 week(s) ago. Possible causes: colostomy infection. The symptoms are aggravated by pressure, The symptoms are alleviated by nothing. remaining still. Associated signs and symptoms: Pertinent positives: abdominal pain, anorexia, nausea, vomiting. The symptoms do not radiate. Associated signs and symptoms: Pertinent positives: nausea and vomiting, worsening abd pain. The symptoms are described as constant, crampy. Modifying factors: The symptoms are alleviated by nothing, remaining still, the symptoms are aggravated by movement, pressure, touching the area. Severity of pain: At its worst the pain was moderate in the emergency department the pain is unchanged. Severity of symptoms: At their worst the symptoms were moderate yesterday, in the emergency department the symptoms are unchanged. The patient has experienced similar episodes in the past, several times. Historical: - Allergies: 14:52 Soma; ll1 - PMHx: 14:52 angina pectoris; Chronic pain; Diabetes - IDDM; Glaucoma; Hypertension; RECTAL CA; ll1 - PSHx: 14:52 Colostomy; ll1 - Immunization history:: Adult Immunizations up to date. - Infectious Disease History:: Denies. - Social history:: Smoking status: Patient reports the use of cigarette tobacco products, smokes .2 packs per day. ROS: 18:44 Constitutional: Negative for fever, chills, and weight loss, Eyes: Negative for injury, tarah pain, redness, and discharge, ENT: Negative for injury, pain, and discharge, Neck: Negative for injury, pain, and swelling, Cardiovascular: Negative for chest pain, palpitations, and edema, Respiratory: Negative for shortness of breath, cough, wheezing, and pleuritic chest pain, Back: Negative for injury and pain, : Negative for injury, bleeding, discharge, and swelling, MS/Extremity: Negative for injury and deformity, Skin: Negative for injury, rash, and discoloration, Neuro: Negative for headache, weakness, numbness, tingling, and seizure, Psych: Negative for depression, anxiety, suicide ideation, homicidal ideation, and hallucinations, Allergy/Immunology: Negative for hives, rash, and allergies, Endocrine: Negative for neck swelling, polydipsia, polyuria, polyphagia, and marked weight changes, Hematologic/Lymphatic: Negative for swollen nodes, abnormal bleeding, and unusual bruising, 18:44 Abdomen/GI: Positive for abdominal pain, nausea and vomiting, abdominal cramps, abdominal distension, of the right upper quadrant and right lower quadrant, Exam: 18:44 Constitutional: This is a well developed, well nourished patient who is awake, alert, tarah and in no acute distress. Head/Face: Normocephalic, atraumatic. Eyes: Pupils equal round and reactive to light, extra-ocular motions intact. Lids and lashes normal. Conjunctiva and sclera are non-icteric and not injected. Cornea within normal limits. Periorbital areas with no swelling, redness, or edema. ENT: Nares patent. No nasal discharge, no septal abnormalities noted. Tympanic membranes are normal and external auditory canals are clear. Oropharynx with no redness, swelling, or masses, exudates, or evidence of obstruction, uvula midline. Mucous membranes moist. Neck: Trachea midline, no thyromegaly or masses palpated, and no cervical lymphadenopathy. Supple, full range of motion without nuchal rigidity, or vertebral point tenderness. No Meningismus. Chest/axilla: Normal chest wall appearance and motion. Nontender with no deformity. No lesions are appreciated. Cardiovascular: Regular rate and rhythm with a normal S1 and S2. No gallops, murmurs, or rubs. Normal PMI, no JVD. No pulse deficits. Respiratory: Lungs have equal breath sounds bilaterally, clear to auscultation and percussion. No rales, rhonchi or wheezes noted. No increased work of breathing, no retractions or nasal flaring. Back: No spinal tenderness. No costovertebral tenderness. Full range of motion. Female : Normal external genitalia. Skin: Warm, dry with normal turgor. Normal color with no rashes, no lesions, and no evidence of cellulitis. MS/ Extremity: Pulses equal, no cyanosis. Neurovascular intact. Full, normal range of motion. Neuro: Awake and alert, GCS 15, oriented to person, place, time, and situation. Cranial nerves II-XII grossly intact. Motor strength 5/5 in all extremities. Sensory grossly intact. Cerebellar exam normal. Normal gait. Psych: Awake, alert, with orientation to person, place and time. Behavior, mood, and affect are within normal limits. 18:44 Abdomen/GI: Inspection: distension, that is mild, Bowel sounds: active, all quadrants, Palpation: moderate abdominal tenderness, in the right upper quadrant and right lower quadrant, Liver: no appreciated palpable abnormalities, Hernia: not appreciated, 18:44 Neuro: Orientation: is normal, appropriate for stated age, no acute changes, Mentation: is normal, appropriate for stated age, no acute changes, Memory: is normal, appropriate for stated age, no acute changes, Cranial nerves: grossly normal, is grossly normal based on the patient's age, no acute changes, Cerebellar function: is grossly normal, is grossly normal based on the patient's age, no acute changes, Motor: no acute changes, moves all fours, Sensation: no obvious gross deficits, appropriate no acute changes, Gait: not tested. seizure activity, is not displayed by the patient, 19:21 ECG was reviewed by the Attending Physician. tarah Vital Signs: 15:00 BP 94 / 52; Pulse 71; Resp 17; Pulse Ox 100% ; me1 15:05 BP 102 / 62; Pulse 83; Resp 17; Temp 97; Weight 46.27 kg; Height 4 ft. 11 in. ; Pain ll1 8/10; 16:00 BP 101 / 61; Pulse 73; Resp 18; Pulse Ox 100% ; me1 17:00 BP 92 / 61; Pulse 78; Resp 17; Pulse Ox 100% ; me1 18:30 BP 83 / 56; Pulse 76; Resp 16; Pulse Ox 100% on R/A; me1 19:00 BP 106 / 59; Pulse 74; Resp 18; Pulse Ox 98% on R/A; me1 19:16 BP 118 / 62; Pulse 78; Resp 18; Pulse Ox 100% on R/A; pc2 20:41 BP 113 / 60; Pulse 79; Resp 18; Pulse Ox 98% on R/A; pc2 22:42 BP 108 / 55; Pulse 79; Resp 16; Pulse Ox 98% on R/A; pc2 10/17 00:00 BP 118 / 63; Pulse 75; Resp 18; Pulse Ox 98% on R/A; pc2 00:40 BP 133 / 65; Pulse 76; Resp 18; Pulse Ox 99% on R/A; pc2 10/16 15:05 Body Mass Index 20.60 (46.27 kg, 149.86 cm) ll1 15:05 Pain Scale: Adult ll1 Yovany Coma Score: 10/16 18:44 Eye Response: spontaneous(4). Motor Response: obeys commands(6). Verbal Response: tarah oriented(5). Total: 15. MDM: 14:51 Patient medically screened. tarah 18:46 Differential diagnosis: Nonspecific abd pain, cholecystitis, pancreatitis, tarah diverticulitis, viral gastroenteritis, gastroenteritis, gastroesophageal reflux disease, Mesenteric ischemia or infarction, non-specific abd pain, pancreatitis, Peptic Ulcer Disease, Perf. Duodenal Ulcer, Pyelonephritis, Ureterolithiasis, urinary tract infection. Data reviewed: vital signs, nurses notes, lab test result(s), EKG, radiologic studies, CT scan, plain films. Consideration of Admission/Observation Patient was admitted/placed on observation. Escalation of care including admission/observation considered. I considered the following discharge prescriptions or medication management in the emergency department Medications were administered in the Emergency Department. See MAR. Independent interpretation of the following test(s) in the Emergency Department EKG: See my EKG interpretation above. Test considered but Not performed: Ultrasound no abd usg. Historians other than the Patient: Daughter/Son: daughter well informed. Care significantly affected by the following chronic conditions: Diabetes, Hypertension, Cancer, Chronic Kidney Disease, chronic pain. Counseling: I had a detailed discussion with the patient and/or guardian regarding the historical points, exam findings, and any diagnostic results supporting the discharge/admit diagnosis, the presence of at least one elevated blood pressure reading (>120/80) during this emergency department visit, lab results, radiology results, the need to transfer to another facility, for higher level of care, [facility] does not immediately have the required specialist. 10/16 14:53 Order name: Basic Metabolic Panel; Complete Time: 16:53 [facility] 10/16 14:53 Order name: CBC with Diff; Complete Time: 16:53 [facility] 10/16 14:53 Order name: LFT's; Complete Time: 16:53 [facility] 10/16 14:53 Order name: Magnesium; Complete Time: 16:53 [facility] 10/16 14:53 Order name: NT PRO-BNP; Complete Time: 16:53 [facility] 10/16 14:53 Order name: PT-INR; Complete Time: 18:35 [facility] 10/16 14:53 Order name: Troponin HS; Complete Time: 16:53 [facility] 10/16 14:53 Order name: Urinalysis w/ reflexes 10/16 14:53 Order name: Lipase; Complete Time: 16:53 [facility] 10/16 14:53 Order name: Blood Culture Adult (2) [facility] 10/16 14:53 Order name: Lactate w/ 2H reflex if indic.; Complete Time: 16:53 [facility] 10/16 15:52 Order name: SARS RAPID; Complete Time: 16:53 [facility] 10/16 15:52 Order name: Flu; Complete Time: 16:53 [facility] 10/16 18:49 Order name: Ghost Lactate-NO COLLECT Timer; Complete Time: 18:57 EDMS 10/16 14:53 Order name: XRAY Chest (1 view); Complete Time: 18:35 [facility] 10/16 14:53 Order name: CT Head Brain wo Cont; Complete Time: 16:53 [facility] 10/16 14:53 Order name: CT Stone Protocol; Complete Time: 16:53 [facility] 10/16 14:53 Order name: EKG; Complete Time: 14:54 [facility] 10/16 14:53 Order name: Cardiac monitoring; Complete Time: 16:41 [facility] 10/16 14:53 Order name: EKG - Nurse/Tech; Complete Time: 16:41 [facility] 10/16 14:53 Order name: IV Saline Lock; Complete Time: 16:26 [facility] 10/16 14:53 Order name: Labs collected and sent; Complete Time: 16:26 [facility] 10/16 14:53 Order name: O2 Per Protocol; Complete Time: 16:27 [facility] 10/16 14:53 Order name: O2 Sat Monitoring; Complete Time: 16:27 tarah 10/16 16:33 Order name: Labs - recollect needed: recollect 2 green tops; Complete Time: 17:29 bd EC:21 Rate is 82 beats/min. Rhythm is regular. QRS [place] is Normal. MO interval is normal. QRS tarah interval is normal. QT interval is normal. No Q waves. T waves are Normal. No ST changes noted. Clinical impression: NSR w/ Non-specific ST/T Changes and No evidence of ischemia. Interpreted by me. Reviewed by me. Administered Medications: 16:31 Drug: NS 0.9% IV 500 ml IV at bolus once Route: IV; Rate: bolus; Site: right wrist; me1 17:37 Follow up: Response: No adverse reaction; IV Status: Completed infusion; IV Intake: me1 500ml 16:31 Drug: Ondansetron IVP 4 mg IVP once; over 2 minutes Route: IVP; Site: right wrist; me1 17:37 Follow up: Response: No adverse reaction; Nausea is decreased me1 16:41 Drug: NS 0.9% IV 1000 ml IV at 125 ml/hr continuous Route: IV; Rate: 125 ml/hr; Site: me1 right wrist; 19:21 Follow up: Response: No adverse reaction; IV Status: Infusion continued pc2 17:36 Drug: Piperacillin-Tazobactam IVPB 3.375 grams IVPB once over 60 mins; (mix in NS 100 me1 mL) Route: IVPB; Infused Over: 60 mins; Site: right wrist; 18:41 Follow up: Response: No adverse reaction; IV Status: Completed infusion me1 18:41 Drug: NS 0.9% IV 1000 ml IV at 1 bolus Per protocol; 1000 mL bolus Route: IV; Rate: 1 me1 bolus; Site: right wrist; 19:18 Follow up: Response: No adverse reaction; IV Status: Completed infusion; IV Intake: pc2 1000ml 22:30 Drug: fentaNYL (PF) IVP 25 mcg IVP once Route: IVP; Site: right wrist; pc2 23:00 Follow up: Response: No adverse reaction; Marked relief of symptoms; Blood sugar is pc2 elevated; Pain is decreased; RASS: Alert and Calm (0) 10/17 00:35 Drug: fentaNYL (PF) IVP 25 mcg IVP once Route: IVP; Site: right wrist; pc2 00:40 Follow up: Response: No adverse reaction; Medication administered at discharge. pc2 Disposition Summary: 10/17/23 22:42 Transfer Ordered Notes: Transfer Location: Other Acute Care Facility(10/17/23 22:42) ec2 Reason: Higher level of care(10/17/23 22:42) ec2 Condition: Stable(10/17/23 22:42) ec2 Problem: an ongoing problem(10/17/23 22:42) ec2 Symptoms: are unchanged(10/17/23 22:42) ec2 Accepting Physician: transferring doc(10/18/23 00:44) pc2 Diagnosis - Acute Renal Failure ec2 - Seroma ec2 Forms: - Medication Reconciliation Form ec2 - SBAR form ec2 Signatures: Dispatcher [employer] EDMS Andreia Beck Corey, MD MD cha Lewis, Lynsay, RN RN ll1 Malina Otero RN RN me1 Bob Hernandez MD MD ec2 Joya Lin, RN RN pc2 Corrections: (The following items were deleted from the chart) 10/16 14:54 14:54 BASIC METABOLIC PANEL+C.LAB.BRZ ordered. EDMS EDMS 14:54 14:54 CBC+H.LAB.BRZ ordered. EDMS EDMS 14:54 14:54 HEPATIC FUNCTION+C.LAB.BRZ ordered. EDMS EDMS 14:54 14:54 MAGNESIUM+C.LAB.BRZ ordered. EDMS EDMS 14:54 14:54 PROBNP+C.LAB.BRZ ordered. EDMS EDMS 14:54 14:54 PROTIME (+INR)+COAG.LAB.BRZ ordered. EDMS EDMS 14:54 14:54 Troponin High Sensitivity+C.LAB.BRZ ordered. EDMS EDMS 14:54 14:54 Urinalysis+U.LAB.BRZ ordered. EDMS EDMS 14:54 14:54 LIPASE+C.LAB.BRZ ordered. EDMS EDMS 14:54 14:54 BLOOD CULTURE*+BA.LAB.BRZ ordered. EDMS EDMS 14:54 14:54 LACTATE+C.LAB.BRZ ordered. EDMS EDMS 16:02 14:54 COVID-19/FLU A+B/RSV+MOL.LAB.BRZ ordered. EDMS EDMS 18:54 18:52 to [facility] tarah tarah 22:31 18:52 [facility] tarah pc2 22:31 18:52 Higher level of care tarah pc2 22:31 18:52 Fair tarah pc2 22:31 18:52 new tarah pc2 22:31 18:52 have improved tarah pc2 22:31 18:52 Abdominal tenderness tarah pc2 22:31 18:52 Vomiting tarah pc2 22:31 18:52 Colostomy complication, unspecified - 4.5x2.1x3.4 cm seroma, RIGHT ABDOMEN tarah pc2 22:31 18:52 Acute kidney failure, unspecified - ON CHRONIC tarah pc2 22:31 18:54 to [facility] tarah pc2 22:31 18:54 Type 1 diabetes mellitus with hyperglycemia tarah pc2 22:31 18:54 Elevated white blood cell count tarah pc2 10/17 00:10 10/16 18:39 Owen ordered. tarah pc2 10/17 00:11 10/16 18:57 IV Saline Lock - Large Bore ordered. tarah pc2 10/17 00:44 10/16 22:42 transferring doc ec2 pc2
[2023-10-17] MEDS ORDERED: FENTANYL CITR 100 MCG/2 ML ONE (22:17)
[2023-10-17 22:50] LABS: Sqamous Epithelial <5 /HPF (None Seen); Urine Bacteria None Seen /HPF (<20); Urine Bilirubin NEGATIVE (Negative); Urine Blood 2+ (Negative); Urine Clarity Extremely Turbid (Clear); Urine Color Yellow (Yellow); Urine Culture Reflex Order NOT NEEDED; Urine Glucose NEGATIVE (Negative); Urine Ketones TRACE (Negative); Urine Microscopic Reflex YN ORDER UMIC; Urine Mucus Slight /HPF (None Seen); Urine Nitrite NEGATIVE (Negative); Urine Protein 1+ (Negative); Urine RBC <5 /HPF (None Seen); Urine Urobilinogen Normal (Normal); Urine WBC <5 /HPF (<5); Urine Yeast (Budding) Trace /HPF (None Seen)
[2023-10-18] MEDS ORDERED: FENTANYL CITR 100 MCG/2 ML ONE (00:34)
[2023-10-18 08:49] VITALS: TEMP 97
[2023-10-18 08:59] VITALS: BP 133/65; O2SAT 99
--- NOTE | 2023-10-18 11:44 | EKG ---
Test Date: 2023-10-17 Test Time: 16:37:11 Welder Plasma Arc: MEASUREMENT RESULTS: Intervals: Rate: 82 WV: 158 QRSD: 94 QT: 398 QTc: 464 [place]: P: 71 WV: 158 QRS: 64 T: 51 INTERPRETIVE STATEMENTS: Normal sinus rhythm Possible Anterior infarct, age undetermined Abnormal ECG Compared to ECG 10/12/2023 14:24:19 Myocardial infarct finding now present Sinus tachycardia no longer present Electronically Signed On 10-18-23 11:42:29 CDT by Ramses Dimas
== END 2023-10-18 00:44 ==
LOC: ER 14:45
DX: N17.9 Acute kidney failure, unspecified (principal); S30.1XXA Contusion of abdominal wall, initial encounter; Z11.52 Encounter for screening for COVID-19
CPT/HCPCS: 93005; 87040 ×2; 85025; 81001; 80048; 36415; 83735; 85610; 80076; 83605; 84484; 83690; 83880; 87804 ×2; 70450; 76377; 74176; 71045; 87811; J2543; J3010 ×2; J2405; J7030 ×2; 96361; 96365; 96375; 99285

== ENCOUNTER 2023-10-30 16:34 | Emergency (ER) | payer OTHER ==
[2023-10-30] MEDS ORDERED: ONDANSETRON 4 MG/2 ML VIAL ONE (17:25)
[2023-10-30] MEDS ORDERED: NA CHLORIDE 0.9% 1,000 ML ONE ×2 (17:25→22:31)
[2023-10-30] MEDS ORDERED: MORPHINE 4 MG/ML SYR ONE (17:25)
[2023-10-30 18:04] LABS: Absolute Basophils 0.1 K/uL (0-0.5); Absolute Eosinophils 0.2 K/uL (0-0.5); Absolute Lymphocytes (CBC) 1.2 K/uL (0.7-4.9); Absolute Monocytes 0.5 K/uL (0.1-1.3); Absolute Neutrophil 10.8 K/uL (1.8-8.0); Basophils % 0.5 % (0-1.3); Eosinophils % 1.2 % (0-4.4); Hematocrit 34.1 % (36.0-45.0); Hemoglobin 11.3 g/dL (12.0-15.0); Lymphocytes % 9.4 % (15.3-44.8); MCH 32.8 pg (27.0-35.0); MCHC 33.1 g/dL (32.0-36.0); MCV 99.1 fL (80-100); MPV 6.6 fL (7.6-11.3); Monocytes % 3.7 % (3.3-12.3); Neutrophils % 85.2 % (41.7-73.7); Nucleated Red Blood Cells % 0.1 % (0-0); Platelets 573 thou/uL (152-406); RBC Red Blood Cell Count 3.44 M/uL (3.86-4.86); Red Cell Distribution Width 14.9 % (12.1-15.2)
[2023-10-30 18:26] LABS: Albumin 3.3 g/dL (3.4-5.0); Albumin/Globulin Ratio 0.5 (1.1-1.8); Anion Gap 13.7 mEq/L (5.0-15.0); Bilirubin Total 0.4 mg/dL (0.2-1.0); Globulin 6.2 g/dL (2.3-3.5); Potassium 4.7 mEq/L (3.5-5.1); Protein, Total 9.5 g/dL (6.4-8.2); Troponin High Sensitivity 16.3 pg/mL (<58.9)
--- NOTE | 2023-10-30 19:03 | RAD REPORT ---
EXAM DESCRIPTION: Kurtis Single View10/30/2023 5:22 pm CLINICAL HISTORY: Chest pain COMPARISON: September 2023 FINDINGS: The lungs appear clear of acute infiltrate. The heart is normal size IMPRESSION: No acute abnormalities displayed
[2023-10-30 19:12] LABS: Blood Morphology Comment NOT SEEN (NOT SEEN); Platelet Estimate INCR; White Blood Cell Scan OK (OK)
[2023-10-30 19:14] LABS: PT Prothrombin Time 15.6 SECONDS (9.4-12.5); PTT, Activated Partial Thromb 32.2 SECONDS (24.3-36.9); Protime INR 1.41
--- NOTE | 2023-10-30 19:22 | RAD REPORT ---
EXAM DESCRIPTION: CT - Chest Abd Pelvis Wo Con - 10/30/2023 6:55 pm CLINICAL HISTORY: Chest and abdominal pain COMPARISON: September of 2023 CT abdomen TECHNIQUE: Computed axial tomography of the chest, abdomen and pelvis was obtained. Oral contrast wa s given. IV contrast was not requested. All CT scans are performed using dose optimization technique as appropriate and may include automated exposure control or mA/KV adjustment according to patient size. FINDINGS: The evaluation of mediastinum, mario, vessels and solid organs is limited secondary to the lack of IV contrast administration The lungs are clear No mediastinal or hilar lymphadenopathy is seen. A pleural effusion is not present. A pericardial effusion is not seen. Coronary arterial calcifications Cirrhotic liver The spleen, pancreas, adrenals and kidneys grossly normal Ileostomy right lower quadrant. Sigmoidectomy. Defect left anterior subcutaneous fat abdomen. Air extends to the abdominal wall. Small bowel abuts t he abdominal wall at this level. Presacral edema unchanged. Stranding within the right anterior subcutaneous fat minimally worsened. Atherosclerosis IMPRESSION: Right lower quadrant ileostomy. A sigmoidectomy. No obstruction Defect left anterior subcutaneous fat abdomen. Air extends to the abdominal wall. Small bowel abuts t he abdominal wall at this level. 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
[2023-10-30] MEDS ORDERED: NA CHLORIDE 0.9% 100 ML ONE (19:41)
[2023-10-30] MEDS ORDERED: PIPERACIL/TAZO 3.375 GM VIAL IV ONE (19:41)
--- NOTE | 2023-10-30 20:07 | EDPHYS ---
Physician Documentation [facility] Name: Ernestina Marcus Age: 73 yrs Sex: Female : 1950 Arrival Date: 10/30/2023 Time: 16:34 Bed 7 Private MD: ED Physician Eddie Wang HPI: 10/29 19:22 This 73 yrs old Black Female presents to ER via EMS with complaints of Chest Pain. rt 19:22 Patient with recent surgery to her ileostomy, had a seroma versus phlegmon to the area rt recently, presents to the ED with chest pain, shortness of breath. Reports of nausea, vomiting. This been present for about 3 hours, acutely onset she does report a pain that has been unchanged since the surgery. Denies other acute complaints at this time, symptoms are moderate in severity, no other aggravating or elevating factors. Historical: - Allergies: 17:13 Soma; tl4 - Home Meds: 17:13 amlodipine 10 mg tab 1 tab once daily [Active]; gabapentin 600 mg Oral tab twice a day tl4 [Active]; 17:14 Mirtazapine Oral [Active]; Zofran Oral [Active]; Oxycodone HCl Oral [Active]; Protonix tl4 Oral [Active]; Trulicity subcutaneous [Active]; varenicline oral [Active]; - PMHx: 17:13 angina pectoris; Chronic pain; Diabetes - IDDM; Glaucoma; Hypertension; RECTAL CA; tl4 - PSHx: 17:13 Colostomy; tl4 - Immunization history:: Adult Immunizations unknown. - Infectious Disease History:: Denies. - Social history:: Smoking status: Patient denies any tobacco usage or history of. - Family history:: not pertinent. ROS: 19:22 Constitutional: Negative for fever, chills, and weight loss, Respiratory: Negative for rt shortness of breath, cough, wheezing, and pleuritic chest pain, MS/Extremity: Negative for injury and deformity, Skin: Negative for injury, rash, and discoloration, Neuro: Negative for headache, weakness, numbness, tingling, and seizure, 19:22 Cardiovascular: Positive for chest pain, Negative for edema, 19:22 Abdomen/GI: Positive for abdominal pain, nausea and vomiting, Exam: 19:22 Constitutional: This is a well developed, well nourished patient who is awake, alert, rt and in no acute distress. Head/Face: Normocephalic, atraumatic. 19:22 Abdomen/GI: Ileostomy in place, mild tenderness diffusely throughout abdomen, 20:08 Chest/axilla: Normal chest wall appearance and motion. Nontender with no deformity. rt No lesions are appreciated. Cardiovascular: Regular rate and rhythm with a normal S1 and S2. No gallops, murmurs, or rubs. Normal PMI, no JVD. No pulse deficits. Respiratory: Lungs have equal breath sounds bilaterally, clear to auscultation and percussion. No rales, rhonchi or wheezes noted. No increased work of breathing, no retractions or nasal flaring. Abdomen/GI: Soft, non-tender, with normal bowel sounds. No distension or tympany. No guarding or rebound. No evidence of tenderness throughout. Skin: Warm, dry with normal turgor. Normal color with no rashes, no lesions, and no evidence of cellulitis. MS/ Extremity: Pulses equal, no cyanosis. Neurovascular intact. Full, normal range of motion. Neuro: Awake and alert, GCS 15, oriented to person, place, time, and situation. Cranial nerves II-XII grossly intact. Motor strength 5/5 in all extremities. Sensory grossly intact. Cerebellar exam normal. Normal gait. 20:08 ECG was reviewed by the Attending Physician. Vital Signs: 16:45 BP 156 / 96; Pulse 136; Resp 14; Temp 98.8(O); Pulse Ox 100% on R/A; Weight 46.5 kg; tl4 Height 4 ft. 11 in. ; Pain 8/10; 17:00 BP 152 / 94; Pulse 136; Resp 19; Pulse Ox 99% on R/A; tl4 17:30 BP 146 / 92; Pulse 132; Resp 19; Pulse Ox 98% on R/A; tl4 18:26 BP 151 / 91; Pulse 127; Resp 18; Pulse Ox 99% on R/A; tl4 19:18 BP 149 / 94; Pulse 119; Resp 16; Pulse Ox 100% ; Pain 0/10; jm12 19:20 BP 149 / 94; Pulse 114; Resp 16; Temp 98.7(O); Pulse Ox 99% ; Pain 4/10; mt4 21:00 BP 138 / 66; Pulse 122; Resp 16; Temp 98.6; Pulse Ox 98% on R/A; mt4 22:30 BP 146 / 78; Pulse 116; Resp 20; Temp 98; Pulse Ox 99% on R/A; Pain 2/10; mt4 16:45 Body Mass Index 20.71 (46.50 kg, 149.86 cm) tl4 16:45 Pain Scale: Adult tl4 19:18 Pain Scale: Adult jm12 19:20 Pain Scale: Adult mt4 22:30 Pain Scale: Adult mt4 Stanton Coma Score: 19:20 Eye Response: spontaneous(4). Motor Response: obeys commands(6). Verbal Response: mt4 oriented(5). Total: 15. MDM: 16:43 Patient medically screened. rt 20:06 Differential diagnosis: Dehydration, infection, fistula. Data reviewed: vital signs, rt nurses notes, lab test result(s), EKG, radiologic studies. Consideration of Admission/Observation Escalation of care including admission/observation considered. Management of patient was discussed with the following: Monitor Worker: Discussed with Dr. Costa, patient's surgeon. It seems that the patient's creatinine, WBCs are downtrending. States that he does not suspect an active infection, states that the patient is most likely severely dehydrated. Request that patient be transferred to [facility] on his service. Transfer was initiated.. I considered the following discharge prescriptions or medication management in the emergency department Medications were administered in the Emergency Department. See MAR. Independent interpretation of the following test(s) in the Emergency Department CT Scan: My interpretation is No bowel obstruction syndrome interpretation of CT scan images. Care significantly affected by the following chronic conditions: Diabetes. Counseling: I had a detailed discussion with the patient and/or guardian regarding the historical points, exam findings, and any diagnostic results supporting the discharge/admit diagnosis, lab results, radiology results, the need to transfer to another facility. Response to treatment: the patient's symptoms have markedly improved after treatment. ED course: No suspected source of infection at initial evaluation, possible new cutaneous fistula was identified, that time, blood cultures, antibiotics were ordered.. 21:44 ED course: Spoke with accepting hospitalist at [facility] who has accepted sp4 patient for further evaluation and transfer.. 10/29 16:49 Order name: Blood Culture Adult (2) rt 10/29 16:49 Order name: CBC with Diff; Complete Time: 19:30 rt 10/29 16:49 Order name: CMP; Complete Time: 19:30 rt 10/29 16:49 Order name: Lactate w/ 2H reflex if indic.; Complete Time: 19:30 rt 10/29 16:49 Order name: Protime (+inr); Complete Time: 19:30 rt 10/29 16:49 Order name: Ptt, Activated; Complete Time: 19:30 rt 10/29 16:49 Order name: Basic Metabolic Panel rt 10/29 16:49 Order name: Troponin HS; Complete Time: 19:30 rt 10/29 18:08 Order name: CBC Smear Scan; Complete Time: 19:30 EDMS 10/29 16:49 Order name: XRAY Chest (1 view); Complete Time: 19:30 rt 10/29 18:50 Order name: Chest Abd Pelvis Wo Con; Complete Time: 19:30 EDMS 10/29 16:49 Order name: EKG; Complete Time: 16:49 rt 10/29 16:49 Order name: Cardiac monitoring; Complete Time: 17:20 rt 10/29 16:49 Order name: EKG - Nurse/Tech; Complete Time: 17:20 rt 10/29 16:49 Order name: IV Saline Lock - Large Bore; Complete Time: 17:20 rt 10/29 16:49 Order name: Labs collected and sent; Complete Time: 17:20 rt 10/29 16:49 Order name: O2 Per Protocol; Complete Time: 17:20 rt 10/29 16:49 Order name: O2 Sat Monitoring; Complete Time: 17:20 rt 10/29 16:49 Order name: Vital Signs; Complete Time: 17:20 rt 10/29 16:49 Order name: IV Saline Lock; Complete Time: 17:19 rt EC:08 Rate is 137 beats/min. Rhythm is regular, Sinus tachycardia with No ectopy. QRS Trinity is rt Normal. CO interval is normal. QRS interval is normal. QT interval is normal. No Q waves. T waves are Normal. No ST changes noted. Interpreted by me. Administered Medications: 17:34 Drug: NS 0.9% IV 1000 ml IV at 1 bolus Per protocol; 1000 mL bolus Route: IV; Rate: 1 rs5 bolus; Site: right upper arm; 19:46 Follow up: IV Status: Completed infusion; IV Intake: 1000ml jm12 17:34 Drug: morphine IVP or IV 4 mg IVP once over 4 mins Route: IVP; Infused Over: 4 mins; rs5 Site: right upper arm; 18:30 Follow up: Response: No adverse reaction; Pain is decreased tl4 17:34 Drug: Ondansetron IVP 4 mg IVP once; over 2 minutes Route: IVP; Site: right upper arm; rs5 18:29 Follow up: Response: No adverse reaction tl4 19:53 Drug: Piperacillin-Tazobactam IVPB 3.375 grams IVPB once over 60 mins; (mix in NS 100 jm12 mL) Route: IVPB; Infused Over: 60 mins; Site: left forearm; 20:53 Follow up: Response: No adverse reaction mt4 22:41 Drug: NS 0.9% IV 1000 ml IV at 125 ml/hr continuous Route: IV; Rate: 125 ml/hr; Site: mt4 left forearm; 23:00 Follow up: Response: No adverse reaction; IV Status: Infusion continued upon transfer mt4 Disposition Summary: 10/30/23 20:06 Transfer Ordered Notes: Transfer Location: [facility] rt Reason: Private Physician at Transferring Hospital rt Condition: Fair rt Problem: new rt Symptoms: have improved rt Accepting Physician: Dr. Huffman(10/30/23 23:17) mt4 Diagnosis - Dehydration rt - Nausea and vomiting, moderate dehydration, acute on chronic renal failure, sp4 increased output from ileostomy, enterocutaneous fistula Discharge Instructions: - Discharge Summary Sheet eb Forms: - Medication Reconciliation Form eb - SBAR form eb Signatures: Dispatcher [employer] EDMS Kin Hendrix MD MD rt Manuel Walters RN RN rs5 Eddie Wang MD MD sp4 Berny Castillo RN RN tl4 Jeronimo Taylor RN RN mt4 Donna King, ISIDRO RN jm12 Corrections: (The following items were deleted from the chart) 16:49 16:49 Chest Single View+RAD.RAD.BRZ ordered. EDMS EDMS 16:50 16:49 Abdomen Pelvis W Con+CT.RAD.BRZ ordered. EDMS EDMS 17:13 PMHx: Hepatitis C (Colostomy); tl4 tl4 18:50 17:07 Chest For PE Angio+CT.RAD.BRZ ordered. EDMS EDMS 20:06 Dr. Huffman rt sp4 23:17 21:36 Dr. Huffman sp4 mt4
--- NOTE | 2023-10-30 20:07 | ER ---
Nurse's Notes [facility] Name: Ernestina Marcus Age: 73 yrs Sex: Female : 1950 Arrival Date: 10/30/2023 Time: 16:34 Bed 7 Private MD: Diagnosis: Dehydration;Nausea and vomiting, moderate dehydration, acute on chronic renal failure, increased output from ileostomy, enterocutaneous fistula Presentation: 10/29 16:45 Chief complaint: Patient states: Pt c/o non-radiating, non-reproducible sharp tl4 midsternal chest pain, SOB, nausea and vomiting x 3 hours. Coronavirus screen: At this time, the client does not indicate any symptoms associated with coronavirus-19. Ebola Screen: No symptoms or risks identified at this time. Initial Sepsis Screen: Does the patient meet any 2 criteria? No. Patient's initial sepsis screen is negative. Does the patient have a suspected source of infection? No. Patient's initial sepsis screen is negative. Risk Assessment: Do you want to hurt yourself or someone else? Patient reports no desire to harm self or others. Onset of symptoms was October 30, 2023 at 13:30. 16:45 Method Of Arrival: EMS: [facility] tl4 16:45 Acuity: ANNIE 2 tl4 Triage Assessment: 16:49 General: Appears in no apparent distress. Behavior is calm, cooperative. Pain: tl4 Complains of pain in chest. EENT: No signs and/or symptoms were reported regarding the EENT system. Neuro: Level of Consciousness is awake, alert, obeys commands, Oriented to person, place, time, situation, Moves all extremities. Speech is normal, Facial symmetry appears normal. Cardiovascular: Reports chest pain, nausea, shortness of breath, vomiting, Denies diaphoresis, lightheadedness, palpitations, syncope, Capillary refill < 3 seconds Patient's skin is warm and dry. Rhythm is sinus tachycardia. Respiratory: Airway is patent Respiratory effort is even, unlabored, Respiratory pattern is regular, symmetrical, Breath sounds are clear bilaterally. GI: Reports nausea, vomiting, Patient currently denies diarrhea, intolerance of fluids, intolerance of food. GI: Pt has colostomy with wound drain due to chronic issue. : No signs and/or symptoms were reported regarding the genitourinary system. Derm: No signs and/or symptoms reported regarding the dermatologic system. Musculoskeletal: No signs and/or symptoms reported regarding the musculoskeletal system. Historical: - Allergies: 17:13 Soma; tl4 - Home Meds: 17:13 amlodipine 10 mg tab 1 tab once daily [Active]; gabapentin 600 mg Oral tab twice a day tl4 [Active]; 17:14 Mirtazapine Oral [Active]; Zofran Oral [Active]; Oxycodone HCl Oral [Active]; Protonix tl4 Oral [Active]; Trulicity subcutaneous [Active]; varenicline oral [Active]; - PMHx: 17:13 angina pectoris; Chronic pain; Diabetes - IDDM; Glaucoma; Hypertension; RECTAL CA; tl4 - PSHx: 17:13 Colostomy; tl4 - Immunization history:: Adult Immunizations unknown. - Infectious Disease History:: Denies. - Social history:: Smoking status: Patient denies any tobacco usage or history of. - Family history:: not pertinent. Screenin:00 [facility] ED Fall Risk Assessment (Adult) History of falling in the last 3 months, tl4 including since admission No falls in past 3 months (0 pts) Confusion or Disorientation No (0 pts) Intoxicated or Sedated No (0 pts) Impaired Gait No (0 pts) Mobility Assist Device Used No (0 pt) Altered Elimination No (0 pt) Score/Fall Risk Level 0 - 2 = Low Risk Oriented to surroundings, Maintained a safe environment, Educated pt \T\ family on fall prevention, incl call for assistance when getting out of bed, Assessed \T\ reinforced patient's understanding of fall precautions, Provided non-skid footwear. Abuse screen: Denies threats or abuse. Denies injuries from another. Nutritional screening: No deficits noted. Tuberculosis screening: No symptoms or risk factors identified. 19:20 [facility] ED Fall Risk Assessment (Adult) History of falling in the last 3 months, mt4 including since admission No falls in past 3 months (0 pts) Confusion or Disorientation No (0 pts) Intoxicated or Sedated No (0 pts) Impaired Gait No (0 pts) Mobility Assist Device Used No (0 pt) Altered Elimination Yes (1 pt) Score/Fall Risk Level 3 or more points = High Risk. Abuse screen: Denies injuries from another. Tuberculosis screening: No symptoms or risk factors identified. Assessment: 18:12 Reassessment: Patient and/or family updated on plan of care and expected duration. Pain tl4 level reassessed. Patient is alert, oriented x 3, equal unlabored respirations, skin warm/dry/pink. Pain: Pain does not radiate. Pain began ongoing, chronic pain all over her body. 19:00 General: Appears. General: Appears in no apparent distress. obese, Behavior is calm, mt4 cooperative, Smells of Reports Denies fever. Pain: Complains of pain in abdomen. Neuro: Level of Consciousness is awake, alert, obeys commands, Oriented to person, place, time, situation, Airborne And Air Delivery Specialist are Speech is normal, Neuro:. Cardiovascular: Capillary refill < 3 seconds Rhythm is sinus rhythm. Respiratory: Airway is patent Respiratory effort is even, unlabored, Respiratory pattern is regular. GI: Abdomen is Ileostomy site is clean and dry. is intact. Abd is soft Abdomen is tender to palpation in right lower quadrant and left lower quadrant. : Denies burning with urination. EENT:. Derm: Wound noted abdomen Wound is surgical site covered with dressing to LLQ, Right side has illeostomy and another drain, patient states they placed an illesotomy bag to catch drainage. Musculoskeletal: Range of motion: intact in all extremities. 21:00 Reassessment: Patient and/or family updated on plan of care and expected duration. Pain mt4 level reassessed. General: Appears in no apparent distress. Behavior is calm, cooperative, Smells of Reports Denies. General:. Neuro: Level of Consciousness is awake, alert, obeys commands, Oriented to person, place, time, situation. 23:00 Reassessment: Patient and/or family updated on plan of care and expected duration. Pain mt4 level reassessed. 23:00 General: Appears in no apparent distress. comfortable, obese, Behavior is calm, mt4 cooperative, appropriate for age, Smells of. Neuro: Level of Consciousness is Oriented to person, place, time, Airborne And Air Delivery Specialist are equal bilaterally Moves all extremities. Reports. Cardiovascular: Capillary refill. Respiratory: Airway is patent. GI: Abdomen is round Abdomen is tender to palpation. Vital Signs: 16:45 BP 156 / 96; Pulse 136; Resp 14; Temp 98.8(O); Pulse Ox 100% on R/A; Weight 46.5 kg; tl4 Height 4 ft. 11 in. ; Pain 8/10; 17:00 BP 152 / 94; Pulse 136; Resp 19; Pulse Ox 99% on R/A; tl4 17:30 BP 146 / 92; Pulse 132; Resp 19; Pulse Ox 98% on R/A; tl4 18:26 BP 151 / 91; Pulse 127; Resp 18; Pulse Ox 99% on R/A; tl4 19:18 BP 149 / 94; Pulse 119; Resp 16; Pulse Ox 100% ; Pain 0/10; jm12 19:20 BP 149 / 94; Pulse 114; Resp 16; Temp 98.7(O); Pulse Ox 99% ; Pain 4/10; mt4 21:00 BP 138 / 66; Pulse 122; Resp 16; Temp 98.6; Pulse Ox 98% on R/A; mt4 22:30 BP 146 / 78; Pulse 116; Resp 20; Temp 98; Pulse Ox 99% on R/A; Pain 2/10; mt4 16:45 Body Mass Index 20.71 (46.50 kg, 149.86 cm) tl4 16:45 Pain Scale: Adult tl4 19:18 Pain Scale: Adult jm12 19:20 Pain Scale: Adult mt4 22:30 Pain Scale: Adult mt4 Vitals: 19:20 Cardiac Rhythm Assessment Regular Sinus tach. mt4 Yovany Coma Score: 19:20 Eye Response: spontaneous(4). Motor Response: obeys commands(6). Verbal Response: mt4 oriented(5). Total: 15. ED Course: 16:38 Patient arrived in ED. eb 16:38 Kin Hendrix MD is Attending Physician. rt 16:51 Manuel Walters, ISIDRO is Primary Nurse. rs5 17:06 No provider procedures requiring assistance completed. IV is patent, with fluids tl4 infusing freely, with good blood return, Flushed left antecubital with 5 ml normal saline. Patient maintains SpO2 saturation greater than 95% on room air. 17:10 Triage completed. tl4 17:13 Arm band placed on right wrist. tl4 17:23 XRAY Chest (1 view) In Process Unspecified. EDMS 17:56 Basic Metabolic Panel Sent. tl4 17:56 Troponin HS Sent. tl4 17:57 CBC with Diff Sent. tl4 17:57 CMP Sent. tl4 17:57 Lactate w/ 2H reflex if indic. Sent. tl4 18:57 Chest Abd Pelvis Wo Con In Process Unspecified. EDMS 18:58 CBC Smear Scan Sent. tl4 18:59 Protime (+inr) Sent. tl4 18:59 Ptt, Activated Sent. tl4 19:15 Inserted saline lock: 22 gauge in left forearm, using aseptic technique. Blood jm12 collected. Flushed with 10 mL NS. 19:20 No apparent distress. Resting quietly. Awaiting disposition, Awaiting CT Scan. mt4 19:20 IV Flushed left antecubital saline lock with 5 ml normal saline. jm12 19:20 Placed in gown. Bed in low position. Call light in reach. Side rails up X 1. [facility] placed on continuous cardiac and pulse oximetry monitoring. NIBP monitoring applied. shelter monitor on. Pulse ox on. Noise minimized. Lights dimmed. Moved to private room. Warm blanket given. Pillow given. Verbal reassurance given. Patient is placed in psych hold. Assisted with bedpan. Repositioned patient. 20:02 initiated transfer with liz \Jah\ [facility] transfer theresa. [facility] 20:46 Attending Physician role handed off by Kin Hendrix MD sp4 20:46 Eddie Wang MD is Attending Physician. sp4 21:00 No apparent distress. Resting quietly. transfer. [facility] approval [facility]. 21:00 Patient maintains SpO2 saturation greater than 95% on room air[facility] 21:55 called for update. spoke with joe, was told we were waiting for the bed to be [facility] cleaned. 22:22 pt was accepted to [facility] by Jerson Ndiaye \T\ 2100. AOC given by Liz Kendrick \Jah\ 2222. Pt km f Will go to room 1119. Number for nurse to nurse report [phone]. 22:22 ems to transfer pt. [facility] Administered Medications: 17:34 Drug: NS 0.9% IV 1000 ml IV at 1 bolus Per protocol; 1000 mL bolus Route: IV; Rate: 1 rs5 bolus; Site: right upper arm; 19:46 Follow up: IV Status: Completed infusion; IV Intake: 1000ml 12 17:34 Drug: morphine IVP or IV 4 mg IVP once over 4 mins Route: IVP; Infused Over: 4 mins; rs5 Site: right upper arm; 18:30 Follow up: Response: No adverse reaction; Pain is decreased tl4 17:34 Drug: Ondansetron IVP 4 mg IVP once; over 2 minutes Route: IVP; Site: right upper arm; rs5 18:29 Follow up: Response: No adverse reaction tl4 19:53 Drug: Piperacillin-Tazobactam IVPB 3.375 grams IVPB once over 60 mins; (mix in NS 100 jm12 mL) Route: IVPB; Infused Over: 60 mins; Site: left forearm; 20:53 Follow up: Response: No adverse reaction mt4 22:41 Drug: NS 0.9% IV 1000 ml IV at 125 ml/hr continuous Route: IV; Rate: 125 ml/hr; Site: mt4 left forearm; 23:00 Follow up: Response: No adverse reaction; IV Status: Infusion continued upon transfer mt4 Intake: 19:46 IV: 1000ml; Total: 1000ml. jm12 Outcome: 20:06 ER care complete, transfer ordered by . rt 23:12 Condition: good mt4 23:12 Discharge instructions given to patient, Instructed on the need for transfer, safety practices, wound care, Demonstrated understanding of instructions, follow-up care, medications, wound care, Prescriptions given X Following a medical screening exam, the patient was provided information regarding alternative care sites and resources available per registration personnel. 23:17 Patient left the ED. mt4 Signatures: Dispatcher [employer] EDMS Ilene Jordan Ryan, MD MD rt Manuel Walters RN RN rs5 Eddie Wang MD MD sp4 Janell García [facility] Berny Castillo RN RN tl4 Jeronimo Taylor RN RN mt4 Donna King RN RN jm12 Corrections: (The following items were deleted from the chart) 17:19 17:13 PMHx: Hepatitis C (Colostomy); tl4 tl4 23:03 22:47 General: Appears mt4 mt4
[2023-10-30 23:55] VITALS: BP 146/78; TEMP 98; O2SAT 99
== END 2023-10-30 23:17 | disposition short-term general hospital (02) ==
LOC: ER 16:34
DX: E86.0 Dehydration (principal); E11.22 Type 2 diabetes mellitus with diabetic chronic kidney disease; I12.9 Hypertensive chronic kidney disease with stage 1 through stage 4 chronic kidney disease, or unspecified chronic kidney disease; N18.9 Chronic kidney disease, unspecified; N17.9 Acute kidney failure, unspecified; R07.9 Chest pain, unspecified; K63.2 Fistula of intestine; Z93.2 Ileostomy status; Z85.048 Personal history of other malignant neoplasm of rectum, rectosigmoid junction, and anus
CPT/HCPCS: 93005; 87040 ×2; 85025; 36415; 87205 ×4; 85610; 83605; 85730; 84484; 80053; 71250; 74176; 71045; 99285; J2543; J2405; J7030 ×2

== ENCOUNTER 2023-11-15 16:27 | Emergency (ER) | payer OTHER ==
[2023-11-15] MEDS ORDERED: ONDANSETRON 4 MG/2 ML VIAL ONE (16:47)
[2023-11-15] MEDS ORDERED: NA CHLORIDE 0.9% 500 ML ONE (16:48)
[2023-11-15] MEDS ORDERED: MORPHINE 4 MG/ML SYR ONE (16:48)
[2023-11-15] MEDS ORDERED: ACETAMINOPHEN 325 MG TABLET ONE (16:48)
[2023-11-15 17:08] LABS: Specific Gravity 1.019 (1.005-1.030); Sqamous Epithelial <5 /HPF (None Seen); Urine Bacteria None Seen /HPF (<20); Urine Bilirubin NEGATIVE (Negative); Urine Blood Negative (Negative); Urine Clarity Turbid (Clear); Urine Color Light-Yellow (Yellow); Urine Crystals Unidentified Few /HPF (None Seen); Urine Culture Reflex Order NOT NEEDED; Urine Glucose NEGATIVE (Negative); Urine Ketones NEGATIVE (Negative); Urine Microscopic Reflex YN ORDER UMIC; Urine Nitrite NEGATIVE (Negative); Urine Protein TRACE (Negative); Urine RBC <5 /HPF (None Seen); Urine Urobilinogen Normal (Normal); Urine WBC <5 /HPF (<5)
[2023-11-15 17:16] LABS: SARS-CoV-2 Antigen CONTROL BLUE LINE VIS/BG OK; SARS-CoV-2 Antigen Rapid Res Negative (Negative)
--- NOTE | 2023-11-15 17:36 | RAD REPORT ---
EXAM DESCRIPTION: RAD - Chest Single View - 11/15/2023 5:24 pm CLINICAL HISTORY: chills Chest pain. COMPARISON: Chest Single View dated 10/30/2023; Chest Single View dated 10/17/2023; Chest Single View dated 09/07/2022; Chest Single View dated 07/24/2020 FINDINGS: Portable technique limits examination quality. The lungs are grossly clear. The heart is normal in size. No displaced fractures. IMPRESSION: No acute intrathoracic process suspected.
[2023-11-15] MEDS ORDERED: PIPERACIL/TAZO 3.375 GM VIAL IV ONE (18:49)
[2023-11-15] MEDS ORDERED: NA CHLORIDE 0.9% 100 ML ONE (18:49)
[2023-11-15] MEDS ORDERED: NA CHLORIDE 0.9% 1,000 ML ONE ×2 (18:49→19:55)
[2023-11-15 19:07] LABS: Absolute Lymphocytes (CBC) 0.2 K/uL (0.7-4.9); Absolute Neutrophil 1.7 K/uL (1.8-8.0); Basophils % 0.2 % (0-1.3); Eosinophils % 1.7 % (0-4.4); Hematocrit 25.9 % (36.0-45.0); Hemoglobin 8.6 g/dL (12.0-15.0); Lymphocytes % 9.1 % (15.3-44.8); MCH 32.2 pg (27.0-35.0); MCHC 33.1 g/dL (32.0-36.0); MCV 97.4 fL (80-100); Monocytes % 0.2 % (3.3-12.3); Neutrophils % 88.8 % (41.7-73.7); Nucleated Red Blood Cells % 0.4 % (0-0); Platelets 254 thou/uL (152-406); RBC Red Blood Cell Count 2.66 M/uL (3.86-4.86); Red Cell Distribution Width 15.3 % (12.1-15.2)
[2023-11-15 19:11] LABS: PT Prothrombin Time 17.9 SECONDS (9.4-12.5); PTT, Activated Partial Thromb 31.6 SECONDS (24.3-36.9); Protime INR 1.62
[2023-11-15 19:30] LABS: Albumin 2.3 g/dL (3.4-5.0); Albumin/Globulin Ratio 0.5 (1.1-1.8); Anion Gap 11.1 mEq/L (5.0-15.0); Bilirubin Total 0.9 mg/dL (0.2-1.0); Globulin 4.7 g/dL (2.3-3.5)
[2023-11-15 19:31] LABS: Potassium 4.1 mEq/L (3.5-5.1)
--- NOTE | 2023-11-15 20:04 | RAD REPORT ---
EXAM DESCRIPTION: CTAbdomen Pelvis W Contrast - 11/15/2023 7:50 pm CLINICAL HISTORY: Abdominal pain. ABD PAIN COMPARISON: Abdomen Pelvis W Contrast dated 03/31/2023; Abdomen Pelvis W Contrast dated 09/07/2022 ; Abdomen Pelvis W Contrast dated 10/27/2017; Abdomen Pelvis W Contrast dated 12/31/2016 TECHNIQUE: CT imaging of the abdomen and pelvis was performed with 100 ml non-ionic IV contrast. All CT scans are performed using dose optimization technique as appropriate and may include automated exposure control or mA/KV adjustment according to patient size. FINDINGS: The lung bases are clear.Cholecystectomy clips. The liver demonstrates mild nodularity compatible with cirrhosis. Spleen, pancreas, adrenal glands an d kidneys are within normal limits. No bowel obstruction, free air, free fluid or abscess. Right lower quadrant ostomy noted. Nonvisualiz ed appendix. Aortoiliac atherosclerosis. No evidence of significant lymphadenopathy. No suspicious bony findings. IMPRESSION: No acute intra-abdominal or pelvic finding. Mild liver cirrhosis.
--- NOTE | 2023-11-15 20:23 | ER ---
Nurse's Notes [facility] Name: Ernestina Marcus Age: 73 yrs Sex: Female : 1950 Arrival Date: 11/15/2023 Time: 16:27 Bed 13 Private MD: Diagnosis: Fever of unknown origin;Severe sepsis without septic shock;Abdominal pain, Generalized Presentation: 11/14 16:43 Chief complaint: EMS states: "toned out for uncontrollable shaking. Pt denies cough, mb9 congestion, SOB, and pain.". Coronavirus screen: Vaccine status: Patient reports receiving the 2nd dose of the covid vaccine. Ebola Screen: No symptoms or risks identified at this time. Initial Sepsis Screen: Does the patient meet any 2 criteria? RR > 20 per min. Temp <36.0*C (96.8*F)) or > 38.3*C (100.9*F). HR > 90 bpm. Does the patient have a suspected source of infection? No. Patient's initial sepsis screen is negative. Risk Assessment: Do you want to hurt yourself or someone else? Patient reports no desire to harm self or others. Onset of symptoms was November 15, 2023. 16:43 Acuity: ANNIE 2 mb9 16:43 Method Of Arrival: EMS: [facility] mb9 Triage Assessment: 16:44 General: Appears in no apparent distress. Behavior is calm, cooperative. Pain: Denies mb9 pain. EENT: No signs and/or symptoms were reported regarding the EENT system. Neuro: Goodrich Agitation-Sedation Scale (RASS): 0 - Alert and Calm Level of Consciousness is awake, alert, obeys commands, Oriented to person, place, time, situation, Appropriate for age. Cardiovascular: Heart tones S1 S2 present Patient's skin is warm and dry. Rhythm is sinus tachycardia. Respiratory: Airway is patent Respiratory effort is even, unlabored, Respiratory pattern is regular, symmetrical, Breath sounds are clear bilaterally. GI: Colostomy site is clean and dry. Ostomy appliance is intact. : No signs and/or symptoms were reported regarding the genitourinary system. Derm: Skin is pink, warm \\T\\ dry. Musculoskeletal: Range of motion: intact in all extremities. Historical: - Allergies: 16:40 Soma; mb9 - Home Meds: 16:40 amlodipine 10 mg tab 1 tab once daily [Active]; gabapentin 600 mg Oral tab twice a day mb9 [Active]; Mirtazapine Oral [Active]; Oxycodone HCl Oral [Active]; varenicline oral [Active]; Protonix Oral [Active]; Trulicity subcutaneous [Active]; - PMHx: 16:40 angina pectoris; Chronic pain; Diabetes - IDDM; Glaucoma; Hypertension; RECTAL CA; mb9 - PSHx: 16:40 Colostomy; mb9 - Immunization history:: Adult Immunizations up to date. - Infectious Disease History:: Denies. - Social history:: Smoking status: Patient denies any tobacco usage or history of. - Family history:: not pertinent. - Hospitalizations: : No recent hospitalization is reported. Screenin:45 [facility] ED Fall Risk Assessment (Adult) History of falling in the last 3 months, mb9 including since admission No falls in past 3 months (0 pts) Confusion or Disorientation No (0 pts) Intoxicated or Sedated No (0 pts) Impaired Gait No (0 pts) Mobility Assist Device Used No (0 pt) Altered Elimination No (0 pt) Score/Fall Risk Level 0 - 2 = Low Risk Oriented to surroundings, Maintained a safe environment, Educated pt \\T\\ family on fall prevention, incl call for assistance when getting out of bed, Assessed \\T\\ reinforced patient's understanding of fall precautions. Abuse screen: Denies threats or abuse. Nutritional screening: No deficits noted. Tuberculosis screening: No symptoms or risk factors identified. Assessment: 16:45 Reassessment: see triage assessment. mb9 17:30 Reassessment: Delay in labs due to pt being hard stick. Charge nurse and ERP notified. mb9 Lab notified. 17:45 Reassessment: No changes from previously documented assessment. Patient and/or family mb9 updated on plan of care and expected duration. Pain level reassessed. Patient is alert, oriented x 3, equal unlabored respirations, skin warm/dry/pink. 17:46 Reassessment: Lab at bedside drawing blood. mb9 18:45 Reassessment: No changes from previously documented assessment. Patient and/or family mb9 updated on plan of care and expected duration. Pain level reassessed. Patient is alert, oriented x 3, equal unlabored respirations, skin warm/dry/pink. 19:10 General: Appears in no apparent distress. comfortable. rg5 19:10 Pain: Denies pain. Neuro: Level of Consciousness is awake, alert, obeys commands, rg5 Oriented to person, place, time, situation. Cardiovascular: Heart tones S1 S2 Capillary refill < 3 seconds Patient's skin is warm and dry. Rhythm is sinus rhythm. Respiratory: Airway is patent Trachea midline Respiratory effort is even, unlabored, Respiratory pattern is regular, symmetrical. GI: No signs and/or symptoms were reported involving the gastrointestinal system. : No signs and/or symptoms were reported regarding the genitourinary system. Derm: Skin is intact, Skin is dry, Skin is normal, Skin temperature is warm. Musculoskeletal: Range of motion: intact in all extremities. 20:30 Reassessment: No changes from previously documented assessment. Patient and/or family rg5 updated on plan of care and expected duration. Pain level reassessed. Patient is alert, oriented x 3, equal unlabored respirations, skin warm/dry/pink. 21:39 Reassessment: Patient and/or family updated on plan of care and expected duration. Pain rg5 level reassessed. Patient is alert, oriented x 3, equal unlabored respirations, skin warm/dry/pink. 22:30 Reassessment: Patient and/or family updated on plan of care and expected duration. Pain rg5 level reassessed. Patient is alert, oriented x 3, equal unlabored respirations, skin warm/dry/pink. 23:35 Reassessment: Patient and/or family updated on plan of care and expected duration. Pain rg5 level reassessed. Patient is alert, oriented x 3, equal unlabored respirations, skin warm/dry/pink. 11/15 00:15 Reassessment: Patient and/or family updated on plan of care and expected duration. Pain rg5 level reassessed. Patient is alert, oriented x 3, equal unlabored respirations, skin warm/dry/pink. 01:01 Reassessment: Patient and/or family updated on plan of care and expected duration. Pain rg5 level reassessed. Patient is alert, oriented x 3, equal unlabored respirations, skin warm/dry/pink. Vital Signs: 11/14 16:43 BP 129 / 58; Pulse 152; Resp 22; Temp 102.7(O); Pulse Ox 100% on R/A; Weight 43.09 kg; mb9 Height 4 ft. 11 in. ; 17:46 BP 94 / 49; Pulse 144; Resp 16; Temp 98.4(O); Pulse Ox 100% on R/A; mb9 18:34 BP 123 / 58; Pulse 144; Resp 16; Pulse Ox 99% on R/A; mb9 19:30 BP 150 / 59; Pulse 123; Resp 19; Temp 98; Pulse Ox 96% on R/A; rg5 20:35 BP 108 / 51; Pulse 122; Resp 18; Pulse Ox 96% on R/A; Pain 0/10; rg5 21:34 BP 101 / 57; Pulse 120; Resp 18; Temp 98(O); Pulse Ox 95% on R/A; Pain 0/10; rg5 22:30 BP 110 / 50; Pulse 122; Resp 18; Pulse Ox 94% on R/A; Pain 0/10; rg5 23:30 BP 121 / 55; Pulse 124; Resp 17; Pulse Ox 96% on R/A; Pain 0/10; rg5 11/15 00:35 BP 138 / 59; Pulse 125; Resp 18; Pulse Ox 94% on R/A; rg5 11/14 16:43 Body Mass Index 19.19 (43.09 kg, 149.86 cm) mb9 20:35 Pain Scale: Adult rg5 21:34 Pain Scale: Adult rg5 22:30 Pain Scale: Adult rg5 23:30 Pain Scale: Adult rg5 Prescott Coma Score: 11/14 19:10 Eye Response: spontaneous(4). Motor Response: obeys commands(6). Verbal Response: rg5 oriented(5). Total: 15. ED Course: 16:39 EKG done, by ED staff, reviewed by Per Ybarra MD. mb9 16:40 Patient arrived in ED. bc6 16:40 Ebonie Valle, ISIDRO is Primary Nurse. mb9 16:40 Arm band placed on. mb9 16:41 Per Ybarra MD is Attending Physician. rn 16:44 Triage completed. mb9 16:45 Assisted to bedside commode. mb9 16:45 Placed in gown. Bed in low position. Call light in reach. Side rails up X 1. Provided mb9 Education on: press call light if needing anything. Client placed on continuous cardiac and pulse oximetry monitoring. NIBP monitoring applied. groundwater monitoring technician on. 17:01 Flu Sent. mb9 17:08 Inserted saline lock: 24 gauge in left antecubital area, using aseptic technique. bc6 Flushed with 10 mL NS. 17:26 Chest Single View XRAY In Process Unspecified. EDMS 18:25 No provider procedures requiring assistance completed. mb9 18:59 Accessed peripheral vein via ultrasound, utilizing dynamic ultrasound technique Clean \\T\\ cm10 dry. Dressing intact. Good blood return. Flushes easily. 20G left upper arm. 19:04 Report given to ISIDRO Marks. mb9 19:10 Awaiting lab results. rg5 19:52 CT Abd/Pelvis - IV Contrast Only In Process Unspecified. EDMS 21:39 Resting quietly. transfer approval from receiving facility. rg5 21:45 BSLT called to initiate patient transfer spoke with Devon Becerra. ty 11/15 00:11 MOT and Face Sheet faxed to . ty 00:22 Assisted with bedpan. ty 00:27 [place] contacted to initiate patient transport ETA 25 Minutes. ty 01:02 transfer transportation to receiving facility. rg5 11:34 Notified ED physician of other blood culture growing gram negative rods in pediatric ll1 bottle. Dr. Ybarra informed. Administered Medications: 11/14 17:00 Drug: Ondansetron IVP 4 mg IVP once; over 2 minutes Route: IVP; Site: left antecubital; mb9 18:34 Follow up: Response: No adverse reaction mb9 17:00 Drug: Acetaminophen PO 650 mg PO once Route: PO; mb9 18:33 Follow up: Response: No adverse reaction mb9 17:05 Drug: morphine IVP or IV 2 mg IVP once over 4 mins Route: IVP; Infused Over: 4 mins; mb9 Site: left antecubital; 18:34 Follow up: Response: No adverse reaction mb9 17:05 Drug: NS 0.9% IV 500 ml IV at bolus once Route: IV; Rate: bolus; Site: left antecubital;mb9 18:33 Follow up: Response: No adverse reaction; IV Status: Completed infusion mb9 18:31 CANCELLED (Duplicate Order): ns 0.9% 1000 ml IV at 1000 ml once rn 18:59 Drug: NS 0.9% IV 1000 ml IV at 1 bolus Per protocol; 1000 mL bolus Route: IV; Rate: 1 mb9 bolus; Site: left antecubital; 21:56 Follow up: IV Status: Completed infusion; IV Intake: 1000ml rg5 18:59 Drug: Piperacillin-Tazobactam IVPB 3.375 grams IVPB once over 60 mins; (mix in NS 100 mb9 mL) Route: IVPB; Infused Over: 60 mins; Site: left antecubital; 21:55 Follow up: Response: No adverse reaction; IV Status: Completed infusion; IV Intake: rg5 100ml 20:02 Drug: NS 0.9% IV (30 ml/kg) 30 ml/kg IV at bolus once; Sepsis Protocol, subtract volume rg5 already given as bolus Route: IV; Rate: bolus; Site: right antecubital; 21:55 Follow up: IV Status: Completed infusion; IV Intake: 1000ml rg5 21:55 Drug: NS 0.9% IV 1000 ml IV at 125 ml/hr continuous Route: IV; Rate: 125 ml/hr; Site: rg5 right antecubital; Medication: 18:25 VIS not applicable for this client. mb9 Intake: 21:55 IV: 1000ml; Total: 1000ml. rg5 21:55 IV: 100ml; Total: 1100ml. rg5 21:56 IV: 1000ml; Total: 2100ml. rg5 Outcome: 20:22 ER care complete, transfer ordered by MD. rankin 11/15 01:50 Patient left the ED. jb4 Addendum: 11/19/2023 07:39 Addendum: Culture Results: Positive blood culture. faxed positive culture report to maryan Veliz at [address] at [phone]. Signatures: Dispatcher [employer] EDPer Yates MD MD rn Bryson, James RN RN jb4 Ilene Jordan Lynsay, RN RN ll1 Ebonie Valle RN RN mb9 Brenda Salas Clarissa, RN RN cm10 Carson Javier Rommel RN RN rg5 Corrections: (The following items were deleted from the chart) 11/14 18:33 17:46 BP 94 / 49; Pulse 144bpm; Resp 16bpm; Pulse Ox 100% RA; mb9 mb9
--- NOTE | 2023-11-15 20:23 | EDPHYS ---
Physician Documentation [facility] Name: Ernestina Marcus Age: 73 yrs Sex: Female : 1950 Arrival Date: 11/15/2023 Time: 16:27 Bed 13 Private MD: ED Physician Per Ybarra HPI: 11/14 17:02 This 73 yrs old Black Female presents to ER via EMS with complaints of shaking. rn 17:02 The patient reports fever, not measured (subjective). Onset: The symptoms/episode rn began/occurred at an unknown time. Modifying factors: there are no obvious modifying factors. Associated signs and symptoms: Pertinent positives: abdominal pain, diarrhea, nausea. Severity of symptoms: At their worst the symptoms were moderate in the emergency department the symptoms are unchanged. The patient has experienced similar episodes in the past. The patient has not recently seen a physician. Historical: - Allergies: 16:40 Soma; mb9 - Home Meds: 16:40 amlodipine 10 mg tab 1 tab once daily [Active]; gabapentin 600 mg Oral tab twice a day mb9 [Active]; Mirtazapine Oral [Active]; Oxycodone HCl Oral [Active]; varenicline oral [Active]; Protonix Oral [Active]; Trulicity subcutaneous [Active]; - PMHx: 16:40 angina pectoris; Chronic pain; Diabetes - IDDM; Glaucoma; Hypertension; RECTAL CA; mb9 - PSHx: 16:40 Colostomy; mb9 - Immunization history:: Adult Immunizations up to date. - Infectious Disease History:: Denies. - Social history:: Smoking status: Patient denies any tobacco usage or history of. - Family history:: not pertinent. - Hospitalizations: : No recent hospitalization is reported. ROS: 17:02 Constitutional: Positive for fever and chills with shaking Cardiovascular: Negative for rn chest pain, palpitations, and edema, Respiratory: Negative for shortness of breath, cough, wheezing, and pleuritic chest pain, Abdomen/GI: Positive for abdominal pain with nausea and diarrhea. No blood in stool MS/Extremity: Negative for injury and deformity, Skin: Negative for injury, rash, and discoloration, Neuro: Positive for generalized weakness Exam: 17:02 Constitutional: This is a well developed, well nourished patient who is awake, alert, rn and in no acute distress. Cardiovascular: Tachycardic, regular. Respiratory: Mild tachypnea Abdomen/GI: Soft, mid abdominal tenderness with guarding. Ostomy and drain present Neuro: Awake and alert, GCS 15 19:15 ECG was reviewed by the Attending Physician. rn Vital Signs: 16:43 BP 129 / 58; Pulse 152; Resp 22; Temp 102.7(O); Pulse Ox 100% on R/A; Weight 43.09 kg; mb9 Height 4 ft. 11 in. ; 17:46 BP 94 / 49; Pulse 144; Resp 16; Temp 98.4(O); Pulse Ox 100% on R/A; mb9 18:34 BP 123 / 58; Pulse 144; Resp 16; Pulse Ox 99% on R/A; mb9 19:30 BP 150 / 59; Pulse 123; Resp 19; Temp 98; Pulse Ox 96% on R/A; rg5 20:35 BP 108 / 51; Pulse 122; Resp 18; Pulse Ox 96% on R/A; Pain 0/10; rg5 21:34 BP 101 / 57; Pulse 120; Resp 18; Temp 98(O); Pulse Ox 95% on R/A; Pain 0/10; rg5 22:30 BP 110 / 50; Pulse 122; Resp 18; Pulse Ox 94% on R/A; Pain 0/10; rg5 23:30 BP 121 / 55; Pulse 124; Resp 17; Pulse Ox 96% on R/A; Pain 0/10; rg5 11/15 00:35 BP 138 / 59; Pulse 125; Resp 18; Pulse Ox 94% on R/A; rg5 11/14 16:43 Body Mass Index 19.19 (43.09 kg, 149.86 cm) mb9 20:35 Pain Scale: Adult rg5 21:34 Pain Scale: Adult rg5 22:30 Pain Scale: Adult rg5 23:30 Pain Scale: Adult rg5 Yovany Coma Score: 11/14 19:10 Eye Response: spontaneous(4). Motor Response: obeys commands(6). Verbal Response: rg5 oriented(5). Total: 15. MDM: 16:41 Patient medically screened. rn 20:01 ED course: Heart rate improving, from 150-120's, blood pressure also improved, to rn 150/56. Sepsis reevaluation complete.. 20:19 Differential diagnosis: viral Infection, bacterial infection, UTI, gastroenteritis. rn Data reviewed: vital signs, nurses notes, lab test result(s), radiologic studies, CT scan, and as a result, I will admit patient. Consideration of Admission/Observation Patient was admitted/placed on observation. Escalation of care including admission/observation considered. Counseling: I had a detailed discussion with the patient and/or guardian regarding the historical points, exam findings, and any diagnostic results supporting the discharge/admit diagnosis, lab results, radiology results, the need for further work-up and treatment in the hospital, the need to transfer to another facility. Response to treatment: the patient's symptoms have markedly improved after treatment, and as a result, I will admit patient. Transition of care:. ED course: Spoke with her doctor, Dr. Costa, requests transfer to [facility] and will accept. . 20:26 ED course: I personally spent 35 minutes engaged in work directly related to the rn individual patient's care. This does not include any time spent performing procedures. The patient has been deemed critically ill because of severely abnormal vital signs, fever, possible severe sepsis with septic shock, overall improving, improved blood pressure. Also organize transfer to [facility] with her surgeon for further care.. 11/14 16:41 Order name: Blood Culture Adult (2) rn 11/14 16:41 Order name: CBC with Diff; Complete Time: 21:40 11/14 16:41 Order name: CMP; Complete Time: 20:01 11/14 16:41 Order name: Lactate w/ 2H reflex if indic.; Complete Time: 19:21 11/14 16:41 Order name: Protime (+inr); Complete Time: 19:21 11/14 16:41 Order name: Ptt, Activated; Complete Time: 19:21 11/14 16:41 Order name: Urinalysis w/ reflexes; Complete Time: 18:22 rn 11/14 16:45 Order name: SARS RAPID; Complete Time: 18:22 rn 11/14 16:45 Order name: Flu; Complete Time: 18:22 rn 11/14 21:03 Order name: Manual Differential; Complete Time: 21:40 EDMS 11/14 21:06 Order name: Ghost Lactate-NO COLLECT Timer; Complete Time: 21:40 EDMS 11/14 23:02 Order name: Lactate Sepsis 2 HR Follow-up EDOK 11/14 16:41 Order name: Chest Single View XRAY rn 11/14 16:44 Order name: CT Abd/Pelvis - IV Contrast Only rn 11/14 16:41 Order name: Accucheck; Complete Time: 16:46 rn 11/14 16:41 Order name: Cardiac monitoring; Complete Time: 16:46 rn 11/14 16:41 Order name: EKG - Nurse/Tech; Complete Time: 16:46 rn 11/14 16:41 Order name: IV Saline Lock - Large Bore; Complete Time: 17:01 rn 11/14 16:41 Order name: Labs collected and sent; Complete Time: 17:01 rn 11/14 16:41 Order name: O2 Per Protocol; Complete Time: 16:46 rn 11/14 16:41 Order name: O2 Sat Monitoring; Complete Time: 16:46 rn 11/14 16:41 Order name: Vital Signs; Complete Time: 16:46 rn EC:15 Rate is 143 beats/min. Rhythm is regular. QRS [place] is Normal. [place] interval is normal. rn QRS interval is normal. QT interval is normal. No Q waves. T waves are Normal. No ST changes noted. Clinical impression: Sinus tachycardia. Interpreted by me. Reviewed by me. Administered Medications: 17:00 Drug: Ondansetron IVP 4 mg IVP once; over 2 minutes Route: IVP; Site: left antecubital; mb9 18:34 Follow up: Response: No adverse reaction mb9 17:00 Drug: Acetaminophen PO 650 mg PO once Route: PO; mb9 18:33 Follow up: Response: No adverse reaction mb9 17:05 Drug: morphine IVP or IV 2 mg IVP once over 4 mins Route: IVP; Infused Over: 4 mins; mb9 Site: left antecubital; 18:34 Follow up: Response: No adverse reaction mb9 17:05 Drug: NS 0.9% IV 500 ml IV at bolus once Route: IV; Rate: bolus; Site: left antecubital;mb9 18:33 Follow up: Response: No adverse reaction; IV Status: Completed infusion mb9 18:31 CANCELLED (Duplicate Order): ns 0.9% 1000 ml IV at 1000 ml once rn 18:59 Drug: NS 0.9% IV 1000 ml IV at 1 bolus Per protocol; 1000 mL bolus Route: IV; Rate: 1 mb9 bolus; Site: left antecubital; 21:56 Follow up: IV Status: Completed infusion; IV Intake: 1000ml rg5 18:59 Drug: Piperacillin-Tazobactam IVPB 3.375 grams IVPB once over 60 mins; (mix in NS 100 mb9 mL) Route: IVPB; Infused Over: 60 mins; Site: left antecubital; 21:55 Follow up: Response: No adverse reaction; IV Status: Completed infusion; IV Intake: rg5 100ml 20:02 Drug: NS 0.9% IV (30 ml/kg) 30 ml/kg IV at bolus once; Sepsis Protocol, subtract volume rg5 already given as bolus Route: IV; Rate: bolus; Site: right antecubital; 21:55 Follow up: IV Status: Completed infusion; IV Intake: 1000ml rg5 21:55 Drug: NS 0.9% IV 1000 ml IV at 125 ml/hr continuous Route: IV; Rate: 125 ml/hr; Site: rg5 right antecubital; Disposition Summary: 11/15/23 20:22 Transfer Ordered Notes: Transfer Location: [facility] rn Reason: Higher level of care rn Condition: Stable rn Problem: new rn Symptoms: have improved rn Accepting Physician: Dr. Costa(11/16/23 01:50) jb4 Diagnosis - Fever of unknown origin rn - Severe sepsis without septic shock tarah - Abdominal pain, Generalized tarah Forms: - Medication Reconciliation Form rn - SBAR form international marketing executive time excluding procedures: 20:26 Critical care time: Bedside Care: 30 minutes, Consultation: 5 minutes. Total time: 35 rn minutes Signatures: Dispatcher [employer] EDMS Lane Gamez MD MD cha Nieto, Roman, MD MD rn Bryson, James, RN RN jb4 Ebonie Valle RN RN mb9 Kendrick Anderson, MASSIEL RN rg5 Corrections: (The following items were deleted from the chart) 16:45 16:45 SARS-COV-2 Antigen Rapid+I.LAB.BRZ ordered. EDMS EDMS 16:45 16:45 Influenza Screen (A \T\ B)+BA.LAB.BRZ ordered. EDMS EDMS 18:31 18:31 NS 0.9% IV 1000 ml IV at 1000 ml once ordered. massiel rankin 21: 20:22 Dr. Igor rankin cha 11/15 01:50 11/14 21:00 Dr. Igor rascon jb4
[2023-11-15 21:02] LABS: Differential Total Cells Count 100; Segmented Neutrophils 71 % (40-80)
[2023-11-15 21:03] LABS: Band Neutrophils 14 % (0-1); Blood Morphology Comment NOTED (NOT SEEN); Eosinophils 3 % (0-3); Lymphocytes 9 % (15-42); Monocytes 3 % (0-10); Platelet Estimate ADEQ; Polychromasia 1+
[2023-11-15] MEDS ORDERED: ATORVASTATIN 20 MG TAB ONE (23:53)
[2023-11-16 02:25] VITALS: TEMP 98
[2023-11-16 02:34] VITALS: BP 138/59; O2SAT 94
--- NOTE | 2023-11-17 14:45 | EKG ---
Test Date: 2023-11-15 Test Time: 16:38:16 Bench Boring Machine Operator: MB MEASUREMENT RESULTS: Intervals: Rate: 143 NV: 126 QRSD: 74 QT: 298 QTc: 459 [place]: P: 87 NV: 126 QRS: 65 T: 81 INTERPRETIVE STATEMENTS: Sinus tachycardia Septal infarct, age undetermined Abnormal ECG Compared to ECG 10/30/2023 16:47:55 Myocardial infarct finding now present Electronically Signed On 11-17-23 14:41:04 CDT by Ramses Dimas
== END 2023-11-16 01:50 | disposition short-term general hospital (02) ==
LOC: ER 16:27
DX: R50.9 Fever, unspecified (principal); R65.20 Severe sepsis without septic shock; R10.84 Generalized abdominal pain; Z85.048 Personal history of other malignant neoplasm of rectum, rectosigmoid junction, and anus; E11.9 Type 2 diabetes mellitus without complications; I10 Essential (primary) hypertension; Z11.52 Encounter for screening for COVID-19
CPT/HCPCS: 93005; 87040 ×2; 85025; 81001; 36415; 87205; 85610; 83605 ×2; 85730; 87077; 87186; 80053; 87804 ×2; 74177; 71045; 99285; 87811; Q9967; J2543; J2405; J7040; J7030 ×2

== ENCOUNTER 2024-08-04 00:56 | Inpatient (IN) | payer OTHER ==
[2024-08-04] MEDS ORDERED: ONDANSETRON 4 MG/2 ML VIAL ONE (01:20)
[2024-08-04] MEDS ORDERED: MORPHINE 4 MG/ML SYR ONE ×2 (01:20→05:28)
[2024-08-04] MEDS ORDERED: NA CHLORIDE 0.9% 1,000 ML ONE ×2 (01:20→10:51)
[2024-08-04 01:37] LABS: Absolute Basophils 0.1 K/uL (0-0.5); Absolute Eosinophils 0.4 K/uL (0-0.5); Absolute Lymphocytes (CBC) 1.6 K/uL (0.7-4.9); Absolute Monocytes 0.5 K/uL (0.1-1.3); Absolute Neutrophil 4.7 K/uL (1.8-8.0); Basophils % 1.2 % (0-1.3); Eosinophils % 5.7 % (0-4.4); Hematocrit 39.4 % (36.0-45.0); Lymphocytes % 21.8 % (15.3-44.8); MCH 34.3 pg (27.0-35.0); MCHC 35.4 g/dL (32.0-36.0); MCV 96.8 fL (80-100); Monocytes % 6.5 % (3.3-12.3); Neutrophils % 64.8 % (41.7-73.7); Nucleated Red Blood Cells % 0.1 % (0-0); Platelets 351 thou/uL (152-406); RBC Red Blood Cell Count 4.07 M/uL (3.86-4.86); Red Cell Distribution Width 12.8 % (12.1-15.2)
[2024-08-04 02:05] LABS: ALT/SGPT 16 U/L (13-56); AST/SGOT < 10 U/L (15-37); Albumin 3.5 g/dL (3.4-5.0); Albumin/Globulin Ratio 0.7 (1.1-1.8); Alkaline Phosphatase 106 U/L (45-117); Anion Gap 11.8 mEq/L (5.0-15.0); BUN Blood Urea Nitrogen 17 mg/dL (7-18); Bicarbonate 21 mEq/L (21-32); Bilirubin Total 0.5 mg/dL (0.2-1.0); Globulin 5.1 g/dL (2.3-3.5); Glomerular Filtration Rate 44 ml/min (=/>90); Lipase 15 U/L (13-75); Potassium 2.8 mEq/L (3.5-5.1); Protein, Total 8.6 g/dL (6.4-8.2); Sodium Level 133 mEq/L (136-145)
[2024-08-04 02:07] LABS: Glucose Level 406 mg/dL (74-106)
--- NOTE | 2024-08-04 04:14 | RAD REPORT ---
EXAM: CT Abdomen and Pelvis With Intravenous Contrast CLINICAL HISTORY: ABD PAIN TECHNIQUE: Axial computed tomography images of the abdomen and pelvis with intravenous contrast. Sagittal and coronal reformatted images were created and reviewed. This CT exam was performed using one or more of the following dose reduction techniques: automated exposure control, adjustment of the mA a nd/or kV according to patient size, and/or use of iterative reconstruction technique. COMPARISON: CT Abdomen Pelvis dated 11/16/2023 FINDINGS: Lung bases: Bilateral subsegmental atelectasis/pleural parenchymal scar. ABDOMEN: Liver: The liver is enlarged, diffusely low in density compatible with steatosis with diffuse surfa ce contour nodularity compatible with cirrhosis. Gallbladder and bile ducts: Prior cholecystectomy. Mild biliary dilatation similar to the prior. Pancreas: Mild pancreatic parenchymal atrophy. No ductal dilation. Spleen: Unremarkable. No splenomegaly. Adrenals: Unremarkable. No mass. Kidneys and ureters: Unremarkable. Normal renal cortical enhancement. Lobulated right renal conto ur with areas of cortical thinning/scar. No calculi. No hydronephrosis. Small right renal cysts, the largest measuring 1.3 cm. Additional subcentimeter hypodensities which are too small to character ize. No follow-up imaging is recommended. JACR 2018 Apr; 264-273, Management of the Incidental Renal Mass on CT, [employer] 2020; 814-848, Bosniak Classification of Cystic Renal Masses, Version 2019. Stomach and bowel: Small bowel and sigmoid anastomoses. The large bowel appears diffusely thickened with mild mucosal hyperemia. No obstruction. PELVIS: Appendix: The appendix is not definitively visualized. No findings to suggest acute appendicitis. Bladder: Unremarkable. No mass. Reproductive: Atrophic uterus. No adnexal mass. ABDOMEN and PELVIS: Intraperitoneal space: Unremarkable. No free air. No significant fluid collection. Bones/joints: Multilevel spondylosis. No acute fracture. No dislocation. Soft tissues: Unremarkable. Vasculature: Perigastric varices. Moderate atherosclerotic disease. No abdominal aortic aneurysm. Lymph nodes: Unremarkable. No enlarged lymph nodes. IMPRESSION: 1. Findings suggestive of nonspecific colitis. 2. Hepatic cirrhosis and sequela of portal hypertension. 3. Other findings as above. Electronically signed by: Patti Landry MD 08/04/2024 04:01 AM CDT RP Due to temporary technical issues with the [employer]/Pow[employer] reporting system, reports are being heidi d by the in-house radiologist without review as a courtesy to ensure prompt reporting the interpreting radiologist is fully responsible for the content of the report. Transcribed Date/Time: 08/04/2024 4:13 AM
[2024-08-04] MEDS ORDERED: POTASSIUM CL SA 10 MEQ TAB PO ONE (05:28)
[2024-08-04] MEDS ORDERED: NA CHLORIDE 0.9% 100 ML ONE ×2 (05:29→07:59)
[2024-08-04] MEDS ORDERED: PIPERACIL/TAZO 3.375 GM VIAL IV ONE (05:29)
--- NOTE | 2024-08-04 05:37 | EDPHYS ---
Physician Documentation [facility] Name: Ernestina Marcus Age: 74 yrs Sex: Female : 1950 Arrival Date: 08/04/2024 Time: 00:56 Bed 8 Private MD: ED Physician Kin Hendrix HPI: 08/04 02:54 This 74 yrs old Black Female presents to ER via EMS with complaints of Diarrhea. rt 02:54 Patient presents to the ED with about 10 days of diarrhea. Patient states that the rt diarrhea initially started as brown, subsequently became mucousy color. Over the past day, there has been a small amount of blood admixed within the mucus, denies melena. Reports pain to the rectum, denies other acute complaints at this time, symptoms are moderate in severity, no other aggravating or alleviating factors.. Historical: - Allergies: 01:08 Soma; vc1 - Home Meds: 01:08 gabapentin 600 mg Oral tab 3 times per day [Active]; Protonix 40 mg oral tablet, vc1 delayed release (enteric coated) daily [Active]; Trulicity subcutaneous [Active]; - PMHx: 01:08 angina pectoris; Chronic pain; Diabetes - IDDM; Glaucoma; Hypertension; RECTAL CA; vc1 - PSHx: 01:08 Colostomy; Cholecystectomy; Colectomy; ileostomy; Appendectomy; vc1 - Immunization history:: Adult Immunizations up to date. - Infectious Disease History:: Denies. - Social history:: Smoking status: unknown. - Family history:: not pertinent. ROS: 02:54 Constitutional: Negative for fever, chills, and weight loss, Cardiovascular: Negative rt for chest pain, palpitations, and edema, Respiratory: Negative for shortness of breath, cough, wheezing, and pleuritic chest pain, MS/Extremity: Negative for injury and deformity, Skin: Negative for injury, rash, and discoloration, 02:54 Abdomen/GI: Positive for diarrhea, rectal pain, Exam: 02:54 Constitutional: This is a well developed, well nourished patient who is awake, alert, rt and in no acute distress. Head/Face: Normocephalic, atraumatic. Chest/axilla: Normal chest wall appearance and motion. Nontender with no deformity. No lesions are appreciated. Cardiovascular: Regular rate and rhythm with a normal S1 and S2. No gallops, murmurs, or rubs. Normal PMI, no JVD. No pulse deficits. Respiratory: Lungs have equal breath sounds bilaterally, clear to auscultation and percussion. No rales, rhonchi or wheezes noted. No increased work of breathing, no retractions or nasal flaring. Skin: Warm, dry with normal turgor. Normal color with no rashes, no lesions, and no evidence of cellulitis. MS/ Extremity: Pulses equal, no cyanosis. Neurovascular intact. Full, normal range of motion. Neuro: Awake and alert, GCS 15, oriented to person, place, time, and situation. Cranial nerves II-XII grossly intact. Motor strength 5/5 in all extremities. Sensory grossly intact. Cerebellar exam normal. Normal gait. 02:54 ECG was reviewed by the Attending Physician. 02:54 Abdomen/GI: Mild tenderness diffusely without rebound, guarding, distention, Vital Signs: 01:05 BP 208 / 90; Pulse 101; Resp 18; Temp 97.9; Pulse Ox 100% ; Weight 49.9 kg; Height 4 vc1 ft. 11 in. ; Pain 9/10; 02:00 BP 182 / 74; Pulse 87; Resp 18; Pulse Ox 100% on R/A; hm5 03:26 BP 214 / 97; Pulse 96; Resp 13; Pulse Ox 98% ; al5 04:30 BP 183 / 79; Pulse 96; Resp 14; Pulse Ox 98% ; vc1 05:30 BP 196 / 94; Pulse 102; Resp 16; Pulse Ox 100% ; vc1 01:05 Body Mass Index 22.22 (49.90 kg, 149.86 cm) vc1 01:05 Pain Scale: Adult vc1 MDM: 01:03 Medical Screening Exam initiated rt 06:32 Differential diagnosis: Colitis, diverticulitis, electrolyte disturbance. Data rt reviewed: vital signs, nurses notes, lab test result(s), EKG, radiologic studies. Consideration of Admission/Observation Patient was admitted/placed on observation. Management of patient was discussed with the following: Hospitalist: Agrees to admit. I considered the following discharge prescriptions or medication management in the emergency department Medications were administered in the Emergency Department. See MAR. Independent interpretation of the following test(s) in the Emergency Department CT Scan: My interpretation is No bowel obstruction seen on my interpretation of CT scan images. Care significantly affected by the following chronic conditions: Diabetes. Counseling: I had a detailed discussion with the patient and/or guardian regarding the historical points, exam findings, and any diagnostic results supporting the discharge/admit diagnosis, lab results, radiology results, the need for further work-up and treatment in the hospital. Response to treatment: the patient's symptoms have mildly improved after treatment. 08/04 01:08 Order name: CBC with Diff; Complete Time: 02:10 rt 08/04 01:08 Order name: CMP; Complete Time: 02:10 rt 08/04 01:08 Order name: Lipase; Complete Time: 02:10 rt 08/04 05:54 Order name: CBC with Automated Diff EDMS 08/04 05:54 Order name: CBC with Automated Diff EDMS 08/04 05:54 Order name: Comprehensive Metabolic Panel EDMS 08/04 05:54 Order name: Comprehensive Metabolic Panel EDMS 08/04 07:50 Order name: Glucose, Ancillary Testing EDMS 08/04 11:34 Order name: Glucose, Ancillary Testing EDMS 08/04 01:08 Order name: CT Abd/Pelvis - IV Contrast Only rt 08/04 02:10 Order name: EKG; Complete Time: 02:11 rt 08/04 01:08 Order name: IV Saline Lock; Complete Time: 01:42 rt 08/04 01:08 Order name: Labs collected and sent; Complete Time: 01:42 rt 08/04 02:10 Order name: EKG - Nurse/Tech; Complete Time: 02:39 rt EC:54 Rate is 88 beats/min. Rhythm is regular, Normal Sinus Rhythm with No ectopy. QRS [place] rt is Normal. OR interval is normal. QRS interval is normal. QT interval is normal. No Q waves. Clinical impression: NSR w/ Non-specific ST/T Changes. Administered Medications: 01:42 Drug: Ondansetron IVP 4 mg IVP once; over 2 minutes Route: IVP; Site: right antecubital;vc1 02:39 Follow up: Response: No adverse reaction; Nausea is decreased hm5 01:42 Drug: morphine IVP or IV 4 mg IVP once over 4 mins Route: IVP; Infused Over: 4 mins; vc1 Site: right antecubital; 02:39 Follow up: Response: No adverse reaction; Pain is decreased hm5 01:42 Drug: NS 0.9% IV 1000 ml IV at 1 bolus Per protocol; to be given as a bolus over 60 vc1 minutes Route: IV; Rate: 1 bolus; Site: right antecubital; 02:45 Follow up: IV Status: Completed infusion; IV Intake: 1000ml vc1 05:40 Drug: morphine IVP or IV 4 mg IVP once over 4 mins Route: IVP; Infused Over: 4 mins; al5 Site: right antecubital; 05:42 Follow up: Response: No adverse reaction; Pain is decreased hm5 05:41 Drug: Piperacillin-Tazobactam IVPB 3.375 grams IVPB once over 60 mins; (mix in NS 100 al5 mL) Route: IVPB; Infused Over: 60 mins; Site: right antecubital; 05:43 Follow up: IV Status: Completed infusion; IV Intake: 100ml hm5 05:44 Follow up: Response: No adverse reaction hm5 05:50 Drug: Potassium Chloride PO 40 mEq PO once Route: PO; al5 06:02 Follow up: Response: No adverse reaction vc1 06:20 Drug: Potassium Chloride IV 40 mEq IV at calculated rate once; administer over 4 hours al5 Route: IV; Rate: calculated rate; Site: right antecubital; 10:29 Follow up: IV Status: Completed infusion; IV Intake: 200ml aa5 Disposition Summary: 08/04/24 05:36 Hospitalization Ordered Notes: Hospitalization Status: Inpatient Admission rt Provider: Luis F Allen rt Condition: Stable rt Problem: new rt Symptoms: have improved rt Bed/Room Type: Standard rt Location: Telemetry/MedSurg (Inpatient)(08/04/24 12:47) Room Assignment: [facility](08/04/24 12:47) eb Diagnosis - Colitis rt - Hypokalemia rt - Hyperglycemia rt Forms: - Medication Reconciliation Form rt - SBAR form rt - Leadership Thank You Letter rt Signatures: Dispatcher [employer] Ilene Rivas Vanessa, RN RN vc1 Kin Hendrix MD MD rt Mojgan Greenwood rv1 Ruba Perales RN RN al5 Rosemary Don RN aa5 Peri Mancia RN hm5 Corrections: (The following items were deleted from the chart) 01:08 01:08 CBC+H.LAB.BRZ ordered. EDMS EDMS 01:08 01:08 COMPREHENSIVE METABOLIC PANEL+C.LAB.BRZ ordered. EDMS EDMS 01:08 01:08 LIPASE+C.LAB.BRZ ordered. EDMS EDMS 01:08 01:08 Abdomen Pelvis W Con+CT.RAD.BRZ ordered. EDMS EDMS 06:00 05:36 Telemetry/MedSurg (Inpatient) rt rv1 06:00 05:36 rt rv1 12:47 06:00 [facility] ER HOLD rv1 eb 12:47 06:00 ERHOLD- rv1 eb
--- NOTE | 2024-08-04 05:37 | ER ---
Nurse's Notes [facility] Name: Ernestina Marcus Age: 74 yrs Sex: Female : 1950 Arrival Date: 08/04/2024 Time: 00:56 Bed 8 Private MD: Diagnosis: Colitis;Hypokalemia;Hyperglycemia Presentation: 08/04 01:05 Chief complaint: EMS states: c/o pain and spasms to rectum, diarrhea for a week and a vc1 half with blood and purulence. Coronavirus screen: Client denies travel out of the [place] in the last 14 days. At this time, the client does not indicate any symptoms associated with coronavirus-19. Ebola Screen: Patient negative for fever greater than or equal to 101.5 degrees Fahrenheit, and additional compatible Ebola Virus Disease symptoms Patient denies exposure to infectious person. Patient denies travel to an Ebola-affected area in the 21 days before illness onset. No symptoms or risks identified at this time. Initial Sepsis Screen: Does the patient meet any 2 criteria? HR > 90 bpm. No. Patient's initial sepsis screen is negative. Does the patient have a suspected source of infection? No. Patient's initial sepsis screen is negative. Risk Assessment: Do you want to hurt yourself or someone else? Patient reports no desire to harm self or others. Note started 1.5 weeks ago. Onset of symptoms is unknown. Care prior to arrival: None. Activity prior to arrival: None. Mechanism of Injury: No Mechanism of Injury. Transition of care: patient was not received from another setting of care. 01:05 Method Of Arrival: EMS: [facility] vc1 01:05 Acuity: ANNIE 3 vc1 Triage Assessment: 01:12 General: Appears in no apparent distress. uncomfortable, Behavior is calm, cooperative, vc1 appropriate for age. Pain: Complains of pain in anus Pain does not radiate. Pain currently is 9 out of 10 on a pain scale. Quality of pain is described as pulsating, Spasms. EENT: No deficits noted. No signs and/or symptoms were reported regarding the EENT system. Neuro: Level of Consciousness is awake, alert, obeys commands, Oriented to person, place, time, situation, Appropriate for age. Cardiovascular: Heart tones S1 S2 present Capillary refill < 3 seconds Patient's skin is warm and dry. Respiratory: Airway is patent Respiratory effort is even, unlabored, Respiratory pattern is regular, symmetrical, Breath sounds are clear. GI: Reports diarrhea, rectum pain. : No deficits noted. No signs and/or symptoms were reported regarding the genitourinary system. Derm: Skin is intact, is healthy with good turgor, Skin is dry, Skin is normal, Skin temperature is warm. Musculoskeletal: Circulation, motion, and sensation intact. Range of motion:. Historical: - Allergies: : Soma; vc1 - Home Meds: : gabapentin 600 mg Oral tab 3 times per day [Active]; Protonix 40 mg oral tablet, vc1 delayed release (enteric coated) daily [Active]; Trulicity subcutaneous [Active]; - PMHx: : angina pectoris; Chronic pain; Diabetes - IDDM; Glaucoma; Hypertension; RECTAL CA; vc1 - PSHx: Colostomy; Cholecystectomy; Colectomy; ileostomy; Appendectomy; vc1 - Immunization history:: Adult Immunizations up to date. - Infectious Disease History:: Denies. - Social history:: Smoking status: unknown. - Family history:: not pertinent. Screenin:11 [facility] ED Fall Risk Assessment (Adult) History of falling in the last 3 months, vc1 including since admission No falls in past 3 months (0 pts) Confusion or Disorientation No (0 pts) Intoxicated or Sedated No (0 pts) Impaired Gait No (0 pts) Mobility Assist Device Used No (0 pt) Altered Elimination No (0 pt) Score/Fall Risk Level 0 - 2 = Low Risk Oriented to surroundings, Maintained a safe environment, Educated pt \T\ family on fall prevention, incl call for assistance when getting out of bed, Hourly rounding (assess needs \T\ fall precautionary measures) done. Abuse screen: Denies threats or abuse. Nutritional screening: No deficits noted. Tuberculosis screening: No symptoms or risk factors identified. Assessment: 03:25 Reassessment: Patient appears in no apparent distress at this time. No changes from al5 previously documented assessment. Patient and/or family updated on plan of care and expected duration. Pain level reassessed. Patient is alert, oriented x 3, equal unlabored respirations, skin warm/dry/pink. 06:00 Reassessment: Patient appears in no apparent distress at this time. No changes from vc1 previously documented assessment. Patient and/or family updated on plan of care and expected duration. Pain level reassessed. Patient is alert, oriented x 3, equal unlabored respirations, skin warm/dry/pink. Vital Signs: 01:05 BP 208 / 90; Pulse 101; Resp 18; Temp 97.9; Pulse Ox 100% ; Weight 49.9 kg; Height 4 vc1 ft. 11 in. ; Pain 9/10; 02:00 BP 182 / 74; Pulse 87; Resp 18; Pulse Ox 100% on R/A; hm5 03:26 BP 214 / 97; Pulse 96; Resp 13; Pulse Ox 98% ; al5 04:30 BP 183 / 79; Pulse 96; Resp 14; Pulse Ox 98% ; vc1 05:30 BP 196 / 94; Pulse 102; Resp 16; Pulse Ox 100% ; vc1 01:05 Body Mass Index 22.22 (49.90 kg, 149.86 cm) vc1 01:05 Pain Scale: Adult vc1 ED Course: 01:03 Patient arrived in ED. al5 01:03 Kin Hendrix MD is Attending Physician. rt 01:05 Kassy Mckinney, ISIDRO is Primary Nurse. vc1 01:08 Triage completed. vc1 01:11 Arm band placed on left wrist. vc1 01:11 Patient has correct armband on for positive identification. Bed in low position. Call vc1 light in reach. Provided Education on: Plan of care. Pulse ox on. NIBP on. 01:25 Missed attempt(s): 20 gauge in right in left antecubital area. Bleeding controlled, td1 band aid applied, catheter tip intact. 01:28 Inserted saline lock: 22 gauge in right antecubital area, using aseptic technique. td1 01:28 Initial lab(s) drawn, by ED staff, sent to lab. td1 03:08 CT Abd/Pelvis - IV Contrast Only In Process Unspecified. EDMS 05:36 Luis F Allen MD is Hospitalizing Provider. rt 06:01 No provider procedures requiring assistance completed. Patient admitted, IV remains in vc1 place. Administered Medications: 01:42 Drug: Ondansetron IVP 4 mg IVP once; over 2 minutes Route: IVP; Site: right antecubital;vc1 02:39 Follow up: Response: No adverse reaction; Nausea is decreased hm5 01:42 Drug: morphine IVP or IV 4 mg IVP once over 4 mins Route: IVP; Infused Over: 4 mins; vc1 Site: right antecubital; 02:39 Follow up: Response: No adverse reaction; Pain is decreased hm5 01:42 Drug: NS 0.9% IV 1000 ml IV at 1 bolus Per protocol; to be given as a bolus over 60 vc1 minutes Route: IV; Rate: 1 bolus; Site: right antecubital; 02:45 Follow up: IV Status: Completed infusion; IV Intake: 1000ml vc1 05:40 Drug: morphine IVP or IV 4 mg IVP once over 4 mins Route: IVP; Infused Over: 4 mins; al5 Site: right antecubital; 05:42 Follow up: Response: No adverse reaction; Pain is decreased hm5 05:41 Drug: Piperacillin-Tazobactam IVPB 3.375 grams IVPB once over 60 mins; (mix in NS 100 al5 mL) Route: IVPB; Infused Over: 60 mins; Site: right antecubital; 05:43 Follow up: IV Status: Completed infusion; IV Intake: 100ml hm5 05:44 Follow up: Response: No adverse reaction hm5 05:50 Drug: Potassium Chloride PO 40 mEq PO once Route: PO; al5 06:02 Follow up: Response: No adverse reaction vc1 06:20 Drug: Potassium Chloride IV 40 mEq IV at calculated rate once; administer over 4 hours al5 Route: IV; Rate: calculated rate; Site: right antecubital; 10:29 Follow up: IV Status: Completed infusion; IV Intake: 200ml aa5 Medication: 01:12 VIS not applicable for this client. vc1 Intake: 02:45 IV: 1000ml; Total: 1000ml. vc1 05:43 IV: 100ml; Total: 1100ml. hm5 10:29 IV: 200ml; Total: 1300ml. aa5 Outcome: 05:36 Decision to Hospitalize by Provider. rt 06:01 Admitted to ER Hold. Please see [facility] for further documentation. vc1 06:01 Condition: stable 06:01 Instructed on the need for admit, 14:35 Patient left the ED. aa5 Signatures: Dispatcher [facility] EDMS Rosemary Don RN RN aa5 Kassy Mckinney, RN RN vc1 Kin Hendrix MD MD rt Ruba Perales, RN RN al5 Quentin Cosme td1 Peri Mancia, RN RN hm5
[2024-08-04] MEDS ORDERED: ACETAMINOPHEN 325 MG TABLET PO PRN (05:50)
--- NOTE | 2024-08-04 05:50 | P.HP ---
Certification for Inpatient Patient admitted to: Inpatient With expected LOS: >2 Midnights Practitioner: I am a practitioner with admitting privileges, knowledge of patient current condition, hospital course, and medical plan of care. Services: Services provided to patient in accordance with Admission requirements found in Title 42 Section 412.3 of the Code of Federal Regulations Patient History Date of Service: 08/04/24 History of Present Illness: 74 yrs old Female with past medical history of CAD, hypertension, hyperlipidemia, diabetes, rectal cancer, status post colostomy, history of colectomy end ileostomy, chronic pain, was brought to ER with complaints of Diarrhea. Patient presents to the ED with about 10 days of diarrhea. Patient states that the diarrhea initially started as brown, subsequently became mucus, over the past day, there has been a small amount of blood admixed within the mucus, denies melena. Reports pain to the rectum, Denies any chest pain or shortness of breath. Denies other acute complaints at this time, Symptoms are moderate in severity, no other aggravating or alleviating factors.. Patient was assessed in the ER and was admitted for further management. Allergies carisoprodol [From Soma] Allergy (Verified 02/05/21 08:09) Hives/Rash Home medications list reviewed: Yes Home Medications: Atorvastatin Calcium [Lipitor] 40 mg PO BEDTIME 02/16/22 Pantoprazole Sodium 40 mg PO DAILY 02/16/22 lisinopriL [Lisinopril] 40 mg PO DAILY 02/16/22 Alcohol Antiseptic Pads [Alcohol Prep Pads] 1 each TP TID #1 box 02/18/22 Aspirin [Aspirin EC 81 MG] 81 mg PO DAILY #30 tab 02/18/22 Blood Sugar Diagnostic [Blood Glucose Test Strip] 1 each MC TID #30 strip 05/11 Blood-Glucose Meter [Blood Glucose Monitoring] 1 each MC TID #1 kit 02/18/22 Clopidogrel Bisulfate [Plavix] 75 mg PO DAILY #30 02/18/22 Glucerna Shake [Glucerna*] 237 ml PO BID #30 can 02/18/22 Insulin Glargine,Hum.rec.anlog [Lantus Solostar] 10 unit SQ DAILY #15 ml 02/18/22 Metoprolol Tartrate [Lopressor*] 25 mg PO BID 6AM 6PM #60 tab 02/18/22 Syringe-Needle,Insulin,0.5 ml [Insulin Syringe] 1 each TID #1 box 02/18/22 - Past Medical/Surgical History Diabetic: Yes Past Medical History: Reviewed- Non-Contributory -: Rectal carcinoma -: 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 -: DMII -: HTN -: HLD Past Surgical History: Reviewed- Non-Contributory -: Appendectomy -: cholecystectomy -: x3 Psychosocial/ Personal History: Patient lives at home with her , family - Family History Father -: Cancer Mother -: Cancer - Social History Smoking Status: Never smoker Alcohol use: No CD- Drugs: No Caffeine use: Yes Review of Systems 10-point ROS is otherwise unremarkable Physical Examination - Vital Signs Temperature: 97.8 F Blood Pressure: 186/78 Pulse: 102 Respirations: 18 Pulse Ox (%): 95 - Physical Exam General: Alert, Oriented x3, Mild distress HEENT: Atraumatic, Normocephalic Neck: Supple Respiratory: Clear to auscultation bilaterally, Normal air movement Cardiovascular: Regular rate/rhythm, Normal S1 S2 Capillary refill: <2 Seconds Gastrointestinal: Soft and benign, W/out hepatosplenomegaly, Tenderness Musculoskeletal: No clubbing, No swelling Integumentary: No rashes Neurological: Normal speech, Normal strength at 5/5 x4 extr, Cranial nerves 3-12 intact, Normal reflexes 2+ Lymphatics: No axilla or inguinal lymphadenopathy - Studies Laboratory Data (last 24 hrs) 08/04/24 08/04/24 01:28 01:28 WBC 7.20 Hgb 14.0 Hct 39.4 Plt Count 351 Sodium 133 L Potassium 2.8 L BUN 17 Creatinine 1.30 H Glucose 406 H* Total Bilirubin 0.5 AST < 10 L ALT 16 Alkaline Phosphatase 106 Lipase 15 Assessment and Plan - Plan Colitis History of rectal cancer Started on antibiotics Monitor closely IV hydration Hypokalemia Will replace potassium Electrolytes monitor and replace accordingly Accelerated Hypertension Antihypertensives titrated Continue home medications and titrate as needed Hyperlipidemia Continue statin YUDELKA Monitor renal parameters Electrolytes monitor and replace accordingly Diabetes with Hyperglycemia Insulin sliding scale Accu-Chek before every meal and at bedtime Chronic Pain Will restart home meds GI/DVT prophylaxis Advanced directive full code Discharge Plan: Home Plan to discharge in: 48 Hours - Advance Directives Does patient have a Living Will: No Does patient have a Durable POA for Healthcare: No - Code Status/Comfort Care Code Status: Full Code Time Spent Managing Pts Care (In Minutes): 48
[2024-08-04] MEDS ORDERED: GLUCAGON 1 MG/VIAL IM PRN ×2 (05:54→07:00)
[2024-08-04] MEDS ORDERED: D10W 125 ML IV PRN (05:54)
[2024-08-04] MEDS ORDERED: KCL 20 MEQ/100 mL IVPB 100 ML IV ONE ×2 (06:11→07:58)
[2024-08-04] MEDS ORDERED: NA CHLORIDE 0.9% 500 ML ONE (06:11)
[2024-08-04 06:29] VITALS: BMI 22.2
[2024-08-04] MEDS ORDERED: METRONIDAZOLE 500mg IVPB 500 MG/100 ML BAG IV ONE (06:47)
[2024-08-04] MEDS: METRONIDAZOLE 500mg IVPB 500 MG/100 ML BAG IV SCH (06:50)
[2024-08-04] MEDS: NA CHLORIDE 0.9% 1,000 ML IV SCH (06:50)
[2024-08-04] MEDS ORDERED: D50W 25 GM/50 ML SYRINGE IV PRN (07:00)
[2024-08-04] MEDS: POTASSIUM CL 40 MEQ in NA CHLORIDE 0.9% 500 ML IV SCH (07:28)
[2024-08-04] MEDS: INSULIN REGULAR (HUMAN) 100 UNIT/ML SQ SCH (07:55)
[2024-08-04] MEDS ORDERED: INSULIN REGULAR (HUMAN) 100 UNIT/ML ONE (07:57)
[2024-08-04] MEDS ORDERED: CEFTRIAXONE 1000 MG/VIAL ONE (07:58)
[2024-08-04] MEDS: CEFTRIAXONE 1,000 MG in NA CHLORIDE 0.9% 50 ML IVPB SCH (09:00)
[2024-08-04] MEDS: ENOXAPARIN 30 MG/0.3 ML SQ SCH (09:00)
[2024-08-04] MEDS ORDERED: INSULIN 70/30 100 UNITS/ML SQ ONE (09:20)
[2024-08-04] MEDS: INSULIN 70/30 100 UNITS/ML SQ SCH (09:30)
[2024-08-04] MEDS ORDERED: AMLODIPINE 10 MG TAB ONE (10:50)
[2024-08-04] MEDS ORDERED: HYDROCODONE/APAP 5/325 MG TAB ONE (10:50)
[2024-08-04] MEDS ORDERED: METOPROLOL TARTRATE 5 MG/5 ML INJ IV ONE (10:51)
[2024-08-04] MEDS: AMLODIPINE 10 MG TAB PO ONE (11:05)
[2024-08-04] MEDS: HYDROCODONE/APAP 5/325 MG TAB PO PRN (11:05)
[2024-08-04] MEDS: METOPROLOL TARTRATE 5 MG/5 ML INJ IV STA (11:05)
[2024-08-04] MEDS: METOPROLOL TAR 25 MG TAB PO SCH (15:48)
--- NOTE | 2024-08-04 22:49 | P.PN ---
Date of Service: 08/04/24 Subjective Charted and reviewed; events have been noted. Patient was admitted for colitis. Continue with antibiotic therapy and stool softener. As long as patient is having her bowel movement she should be stable for discharge on oral antibiotics. Physical Examination - Vital Signs Reviewed - Physical Exam General: Alert, Oriented x3, Mild distress Respiratory: Clear to auscultation bilaterally, Normal air movement Cardiovascular: Regular rate/rhythm, Normal S1 S2 Gastrointestinal: Soft and benign, W/out hepatosplenomegaly, Tenderness Musculoskeletal: No clubbing, No swelling Integumentary: No rashes Neurological: No focal deficits Assessment and Plan -Assessment/Plan 1. History of colitis/constipation in pt with rectal cancer; continue with antibiotics; monitor closely-continue with IV hydration 2. Hypokalemia; Will replace potassium; electrolytes monitor and replace accordingly 3. Hypertensive urgency; antihypertensives titrated. Continue home medications and titrate as needed 4. Hyperlipidemia; continue statin 5. YUDELKA; Monitor renal parameters. Electrolytes monitor and replace accordingly 6. Diabetes with Hyperglycemia; Insulin sliding scale; Accu-Chek before every meal and at bedtime 7. Chronic Pain; will restart home meds GI/DVT prophylaxis Advanced directive full code Discharge Plan: Home Plan to discharge in: 48 Hours - Advance Directives Does patient have a Living Will: No Does patient have a Durable POA for Healthcare: No - Code Status/Comfort Care Code Status: Full Code Time Spent Managing Pts Care (In Minutes): 30
[2024-08-04 23:11] LABS: Anion Gap 11.2 mEq/L (5.0-15.0); Potassium 4.2 mEq/L (3.5-5.1)
[2024-08-05 05:59] LABS: Absolute Eosinophils 0.5 K/uL (0-0.5); Absolute Lymphocytes (CBC) 1.8 K/uL (0.7-4.9); Absolute Monocytes 0.5 K/uL (0.1-1.3); Absolute Neutrophil 4.6 K/uL (1.8-8.0); Basophils % 0.6 % (0-1.3); Eosinophils % 6.9 % (0-4.4); Hematocrit 34.2 % (36.0-45.0); Hemoglobin 11.8 g/dL (12.0-15.0); Lymphocytes % 24.8 % (15.3-44.8); MCH 33.9 pg (27.0-35.0); MCHC 34.5 g/dL (32.0-36.0); MPV 7.7 fL (7.6-11.3); Monocytes % 6.1 % (3.3-12.3); Neutrophils % 61.6 % (41.7-73.7); Nucleated Red Blood Cells % 0.3 % (0-0); Platelets 279 thou/uL (152-406); RBC Red Blood Cell Count 3.49 M/uL (3.86-4.86)
[2024-08-05 07:51] LABS: AST/SGOT 14 U/L (15-37); Albumin 2.7 g/dL (3.4-5.0); Albumin/Globulin Ratio 0.7 (1.1-1.8); Alkaline Phosphatase 77 U/L (45-117); BUN Blood Urea Nitrogen 10 mg/dL (7-18); Bicarbonate 17 mEq/L (21-32); Bilirubin Total 0.2 mg/dL (0.2-1.0); Globulin 3.8 g/dL (2.3-3.5); Glomerular Filtration Rate 95 ml/min (=/>90); Glucose Level 83 mg/dL (74-106); Protein, Total 6.5 g/dL (6.4-8.2); Sodium Level 143 mEq/L (136-145)
[2024-08-05 07:53] LABS: ALT/SGPT < 14 U/L (13-56)
--- NOTE | 2024-08-05 10:22 | P.PN ---
Date of Service: 08/05/24 Subjective: continues with diarrhea but not worse urinating without issues afebrile. Denies chills Physical Exam: Gen: Alert, Orientedx3, mild distress CV: Regular rate and rhythm, no edema Pulm: Nonlabored respirations on room air, clear bilaterally Abdomen: Soft, Tenderness, nondistended Integumentary: Sacral ulcer Neuro: Normal strength, normal affect Problem List: Colitis YUDELKA DM2 Hypertension Hyperlipidemia Hx Rectal cancer s/p colostomy Chronic pain syndrome Colitis Hx Rectal cancer s/p colostomy on admission, presents with rectal pain, diarrhea for several days, with some small amount of blood mixed within mucus. Denies Melena/chest pain/SOB CT abd noted nonspecific colitis, hepatic cirrhosis and sequela of portal hypertension, multilevel spondylosis Continue IV rocephin / flagyl (08/04-) pain control, IV hydration Diet as tolerated YUDELKA, resolved YUDELKA resolved with IV hydration Monitor renal function DM2 Accu-cheks, SSI Hypertension Hyperlipidemia Chronic pain syndrome confirm home meds, restart as appropriate continue metoprolol VTE: Lovenox Code: Full Dispo: Home Pending diarrhea improves
--- NOTE | 2024-08-05 16:46 | EKG ---
Test Date: 2024-08-04 Test Time: 02:36:14 Concessionist: NATALIE MEASUREMENT RESULTS: Intervals: Rate: 88 OR: 194 QRSD: 96 QT: 360 QTc: 435 [place]: P: 71 OR: 194 QRS: 60 T: -32 INTERPRETIVE STATEMENTS: Normal sinus rhythm Septal infarct, age undetermined ST & T wave abnormality, consider inferior ischemia Abnormal ECG Compared to ECG 11/15/2023 16:38:16 ST (T wave) deviation now present Possible ischemia now present Sinus tachycardia no longer present Myocardial infarct finding still present Electronically Signed On 08-05-24 16:44:35 CDT by Ramses Dimas
[2024-08-05] MEDS: MORPHINE 2 MG/ML SYR IV PRN (20:43)
[2024-08-05] MEDS: INSULIN 70/30 100 UNITS/ML SQ SCH (22:30)
[2024-08-06] MEDS: HYDRALAZINE HCL 20 MG/ML VIAL IV ONE ×2 (06:09→16:42)
[2024-08-06 07:58] LABS: Absolute Eosinophils 0.4 K/uL (0-0.5); Absolute Lymphocytes (CBC) 2.1 K/uL (0.7-4.9); Absolute Monocytes 0.4 K/uL (0.1-1.3); Absolute Neutrophil 3.2 K/uL (1.8-8.0); Basophils % 0.7 % (0-1.3); Eosinophils % 6.4 % (0-4.4); Hematocrit 33.3 % (36.0-45.0); Hemoglobin 11.8 g/dL (12.0-15.0); MCH 34.8 pg (27.0-35.0); MCHC 35.3 g/dL (32.0-36.0); MCV 98.6 fL (80-100); MPV 7.6 fL (7.6-11.3); Monocytes % 6.2 % (3.3-12.3); Neutrophils % 52.7 % (41.7-73.7); Nucleated Red Blood Cells % 0.1 % (0-0); Platelets 268 thou/uL (152-406); RBC Red Blood Cell Count 3.38 M/uL (3.86-4.86); Red Cell Distribution Width 13.2 % (12.1-15.2)
[2024-08-06 07:59] LABS: Anion Gap 11.5 mEq/L (5.0-15.0); Potassium 3.5 mEq/L (3.5-5.1)
[2024-08-06] MEDS: ENOXAPARIN 40 MG/0.4 ML SQ SCH (10:42)
[2024-08-06] MEDS: LABETALOL 20 MG/4ML SYRINGE IV ONE (11:36)
[2024-08-06] MEDS: MORPHINE 2 MG/ML SYR IV ONE (12:44)
--- NOTE | 2024-08-06 15:12 | P.PN ---
Date of Service: 08/06/24 Subjective: We discussed starting Imodium afebrile. Denies chills Physical Exam: Gen: Alert, Orientedx3, mild distress CV: Regular rate and rhythm, no edema Pulm: Nonlabored respirations on room air, clear bilaterally Abdomen: Soft, Tenderness, nondistended Integumentary: Sacral ulcer Neuro: Normal strength, normal affect Problem List: Colitis YUDELKA DM2 Hypertension Hyperlipidemia Hx Rectal cancer s/p colostomy Chronic pain syndrome Colitis Hx Rectal cancer s/p colostomy on admission, presents with rectal pain, diarrhea for several days, with some small amount of blood mixed within mucus. Denies Melena/chest pain/SOB CT abd noted nonspecific colitis, hepatic cirrhosis and sequela of portal hypertension, multilevel spondylosis Continue IV rocephin / flagyl (08/04-) pain control, IV hydration Diet as tolerated Trial Imodium YUDELKA, resolved YUDELKA resolved with IV hydration Monitor renal function Cirrhosis /portal hypertension Follow-up with GI specialist upon discharge DM2 Accu-cheks, SSI Hypertension Hyperlipidemia Chronic pain syndrome confirm home meds, restart as appropriate continue metoprolol VTE: Lovenox Code: Full Dispo: Home Pending diarrhea improves
[2024-08-06] MEDS: hydroCHLOROthiazide 25 MG TAB PO ONE (16:15)
[2024-08-06] MEDS ORDERED: carvediloL 3.125 MG TAB PO SCH (18:00)
[2024-08-06] MEDS: ONDANSETRON 4 MG/2 ML VIAL IV PRN (18:12)
[2024-08-06] MEDS ORDERED: HYDRALAZINE HCL 20 MG/ML VIAL IV PRN (18:16)
[2024-08-06 20:45] VITALS: O2SAT 96
[2024-08-07] MEDS ORDERED: LOPERAMIDE HCL 2 MG CAPSULE PO PRN (07:12)
[2024-08-07 08:33] VITALS: BP 154/74; TEMP 97.9
[2024-08-07] MEDS ORDERED: metroNIDAZOLE 250 MG TABLET PO SCH (09:00)
[2024-08-07] MEDS: metroNIDAZOLE 500 MG TABLET PO SCH (09:03)
[2024-08-07] MEDS: AMLODIPINE 10 MG TAB PO SCH (09:04)
--- NOTE | 2024-08-07 09:41 | P.DS ---
Admission Date: 08/04/24 Discharge Date: 08/07/24 Disposition: ROUTINE DISCHARGE Discharge Condition: GOOD Hospital Course: 74-year-old female with a history of CAD, diabetes, rectal cancer status post colostomy, history of colectomy and ileostomy presenting with diarrhea alongside superimposed acute kidney injury. Upon admission lab work revealed dehydration alongside low potassium levels. CT imaging revealed hepatic cirrhosis with portal hypertension. She was started on IV fluid, antibiotic, and electrolyte replacement therapy. She was placed on Rocephin and Flagyl. Her hospital course was complicated with uncontrolled pain. She was placed on tramadol which improved her pain. Her diarrhea improved with [id number] Imodium. The remainder of her medical problems are chronic and stable. She will follow-up with her GI doctor for further recommendations. She will be sent home with p.o. Flagyl for 5 remaining days. Vital Signs/Physical Exam: Temp Pulse Resp BP Pulse Ox 97.9 F 77 16 154/74 H 96 08/07/24 08:00 08/07/24 09:04 08/07/24 08:00 08/07/24 09:04 08/07/24 08:00 General: In no apparent distress HEENT: Normocephalic Neck: Supple, 2+ carotid pulse no bruit Respiratory: Clear to auscultation bilaterally Cardiovascular: No edema Gastrointestinal: Normal bowel sounds, Soft and benign Musculoskeletal: No clubbing, No swelling Integumentary: No rashes Neurological: Normal gait, Normal strength at 5/5 x4 extr Lymphatics: No axilla or inguinal lymphadenopathy Laboratory Data at Discharge: WBC 6.00 thou/uL (4.3-10.9) 08/06/24 04:28 Hgb 11.8 g/dL (12.0-15.0) L 08/06/24 04:28 Hct 33.3 % (36.0-45.0) L 08/06/24 04:28 Plt Count 268 thou/uL (152-406) 08/06/24 04:28 Sodium 141 mEq/L (136-145) 08/06/24 04:28 Potassium 3.5 mEq/L (3.5-5.1) 08/06/24 04:28 BUN 5 mg/dL (7-18) L 08/06/24 04:28 Creatinine 0.66 mg/dL (0.55-1.02) 08/06/24 04:28 Glucose 117 mg/dL (74-106) H 08/06/24 04:28 Total Bilirubin 0.2 mg/dL (0.2-1.0) 08/05/24 00:43 AST 14 U/L (15-37) L 08/05/24 00:43 ALT < 14 U/L (13-56) 08/05/24 00:43 Alkaline Phosphatase 77 U/L (45-117) D 08/05/24 00:43 Lipase 15 U/L (13-75) 08/04/24 01:28 Home Medications: Amlodipine [Norvasc*] 10 mg PO DAILY 08/04/24 Dulaglutide [Trulicity] 0.75 mg SQ EVERY 7TH DAY 08/04/24 Pantoprazole Sodium 40 mg PO DAILY 08/04/24 Loperamide [Imodium*] 2 mg PO Q6H PRN 30 Days #90 cap 08/07/24 Tramadol HCl 75 mg PO Q8HR 7 Days #21 tab 08/07/24 metroNIDAZOLE [Flagyl*] 500 mg PO TID 7 Days #21 tab 08/07/24 New Medications: Tramadol HCl 75 mg PO Q8HR 7 Days #21 tab metroNIDAZOLE [Flagyl*] 500 mg PO TID 7 Days #21 tab Loperamide [Imodium*] 2 mg PO Q6H PRN 30 Days #90 cap PRN Reason: Diarrhea Followup: Cecilia Martinez MD [Primary Care Provider] - 1-2 Weeks
== END 2024-08-07 10:57 | disposition home or self-care (01) | DRG 392 ==
LOC: ER 00:56 → ERHOLD 05:50 → 2ND 14:09
PROVIDERS: ADMIT Family Medicine; ATTEND Family Medicine
DX: K52.9 Noninfective gastroenteritis and colitis, unspecified (principal); N17.9 Acute kidney failure, unspecified; K76.6 Portal hypertension; I16.0 Hypertensive urgency; E87.6 Hypokalemia; E86.0 Dehydration; G89.4 Chronic pain syndrome; I10 Essential (primary) hypertension; K74.60 Unspecified cirrhosis of liver; E11.65 Type 2 diabetes mellitus with hyperglycemia; E78.5 Hyperlipidemia, unspecified; I25.10 Atherosclerotic heart disease of native coronary artery without angina pectoris; Z93.3 Colostomy status; Z79.4 Long term (current) use of insulin; Z88.8 Allergy status to other drugs, medicaments and biological substances; Z79.82 Long term (current) use of aspirin; Z90.49 Acquired absence of other specified parts of digestive tract; Z79.899 Other long term (current) drug therapy; Z85.048 Personal history of other malignant neoplasm of rectum, rectosigmoid junction, and anus
CPT/HCPCS: 36415; 74177; 80048; 80053; 82947; 83690; 84145; 85025; 93005; 94760; 96361; 96365; 96366; 96375; 99285; J0360; J0696; J1650; J1815; J2270; J2405; J2543; J3480; J7030; J7040; Q9967